=== PATIENT | male | born 1950 | race Hispanic/Latino ===

== ENCOUNTER 2018-02-07 18:40 | Emergency (ER) | payer OTHER ==
--- NOTE | 2018-02-07 20:28 | RAD REPORT ---
EXAM DESCRIPTION: RAD - Knee Left 3 View - 02/07/2018 8:19 pm CLINICAL HISTORY: Knee pain, swelling, history of gout COMPARISON: October 2012 FINDINGS: No fracture, dislocation or periosteal reaction.Moderate joint effusion is present similar to the comparison study. Medial compartment narrowing is present progressive from the comparison. Ma rginal spurs are present. Prominent degenerative meniscal calcifications seen. No soft tissue abnorma lity. IMPRESSION: Degenerative changes are present, progressive from prior imaging, with no acute bone fin ding. Moderate joint effusion similar to comparison. Clinical concerns for internal derangement or occult bony injury could be further assessed with MR im aging.
--- NOTE | 2018-02-07 21:27 | ER ---
Nurse's Notes [facility] Name: Braden Wright Age: 68 yrs Sex: Male : 1950 Arrival Date: 02/07/2018 Time: 18:47 Bed 16 Private MD: Diagnosis: Gout due to renal impairment, left knee;Other specified arthritis, left knee Presentation: 02/07 18:48 Presenting complaint: EMS states: L knee pain that started Sunday evening; hx of gout;. hj Transition of care: patient was not received from another setting of care. Onset of symptoms was February 07, 2018. Care prior to arrival: None. 18:48 Method Of Arrival: EMS: [facility] hj 18:48 Acuity: RITA 4 hj Triage Assessment: 18:49 General: Appears in no apparent distress. uncomfortable, Behavior is calm, cooperative, hj appropriate for age. Pain: Complains of pain in left knee. Historical: - Allergies: 18:49 NKDA; hj - PMHx: 18:49 Atrial Fib; CVA; Diabetes - IDDM; Hyperlipidemia; Hypertension; hj - PSHx: 18:49 Knee surgery; hj - Immunization history:: Adult Immunizations up to date. - Family history:: not pertinent. - Social history:: Smoking status: Patient/guardian denies using tobacco. - Hospitalizations: : No recent hospitalization is reported. - History obtained from: . Screenin:41 Abuse screen: Denies threats or abuse. Denies injuries from another. Nutritional aj1 screening: No deficits noted. Tuberculosis screening: No symptoms or risk factors identified. 21:32 Fall Risk None identified. aj1 Assessment: 20:41 General: Appears in no apparent distress. uncomfortable, Behavior is calm, cooperative, aj1 appropriate for age. Pain: Complains of pain in left knee Pain does not radiate. Pain currently is 8 out of 10 on a pain scale. Quality of pain is described as sharp, Pain began 4 days ago Alleviated by rest, Aggravated by repositioning, weight bearing. Neuro: Level of Consciousness is awake, alert, obeys commands, Oriented to person, place, time, situation, Speech is normal, Facial symmetry appears normal. Cardiovascular: Patient's skin is warm and dry. Respiratory: Airway is patent Respiratory effort is even, unlabored, Respiratory pattern is regular, symmetrical. GI: No signs and/or symptoms were reported involving the gastrointestinal system. : No signs and/or symptoms were reported regarding the genitourinary system. EENT: No signs and/or symptoms were reported regarding the EENT system. Derm: Skin is pink, warm \T\ dry. normal. Musculoskeletal: Capillary refill < 3 seconds, in bilateral toes. Range of motion: limited in left knee Swelling present in left knee Redness present in left knee. 21:31 Reassessment: Patient appears in no apparent distress at this time. No changes from aj1 previously documented assessment. Patient and/or family updated on plan of care and expected duration. Pain level reassessed. Patient is alert, oriented x 3, equal unlabored respirations, skin warm/dry/pink. Vital Signs: 18:49 BP 147 / 87; Pulse 112; Resp 18; Temp 98.0(O); Pulse Ox 100% on R/A; Weight 95.25 kg; hj Height 5 ft. 9 in. (175.26 cm); Pain 10/10; 20:41 BP 156 / 95; Pulse 113; Resp 18; Pulse Ox 100% ; aj1 21:31 BP 146 / 92; Pulse 103; Resp 18; Pulse Ox 99% ; aj1 18:49 Body Mass Index 31.01 (95.25 kg, 175.26 cm) ED Course: 18:47 Patient arrived in ED. hj 18:48 Triage completed. hj 18:49 Arm band placed on left wrist. hj 19:49 Kelsie Pérez FNP [facility] kav 19:49 Jase Cardoza MD is Attending Physician. kav 20:15 Patient moved to radiology via wheelchair. kc2 20:16 X-ray completed. Patient tolerated procedure well. kc2 20:16 Patient moved back from radiology. kc2 20:40 Kenia Herndon, RN is Primary Nurse. aj1 20:41 Patient has correct armband on for positive identification. Bed in low position. Call aj1 light in reach. Side rails up X 1. 20:41 No provider procedures requiring assistance completed. aj1 21:32 Patient did not have IV access during this emergency room visit. aj1 Administered Medications: 21:24 CANCELLED (): Indomethacin 50 mg PO once kav 21:32 Drug: Magnolia (7.5 mg-325 mg) 1 tabs Route: PO; aj1 22:39 Follow up: Response: No adverse reaction aj1 21:32 Drug: Colchicine-Probenecid 1 tabs Route: PO; aj1 22:39 Follow up: Response: No adverse reaction aj1 Outcome: 21:26 Discharge ordered by . alondra 21:45 Discharged to home via wheelchair, with family. aj1 21:45 Condition: good 21:45 Discharge instructions given to patient, Instructed on discharge instructions, follow up and referral plans. medication usage, Demonstrated understanding of instructions, follow-up care, medications, Prescriptions given X 2. 22:39 Patient left the ED. aj1 Signatures: Kenia Herndon RN RN aj1 Kelsie Pérez, MACHINE PRECISION ETCHER MACHINE PRECISION ETCHER Malik Gong RN RN Allyson Alcaraz2 Corrections: (The following items were deleted from the chart) 18:52 18:49 Pulse 112bpm; Resp 18bpm; Pulse Ox 100% RA; Temp 98.0F Oral; 95.25 kg; Height 5 hj ft. 9 in.; BMI: 31.0; Pain 10/10; hj
--- NOTE | 2018-02-07 21:27 | EDPHYS ---
Physician Documentation [facility] Name: Braden Wright Age: 68 yrs Sex: Male : 1950 Arrival Date: 02/07/2018 Time: 18:47 Bed 16 Private MD: ED Physician Jase Cardoza HPI: 02/07 19:49 This 68 yrs old Male presents to ER via EMS with complaints of Knee Pain. kav 20:43 Onset: The symptoms/episode began/occurred acutely, 4 day(s) ago. The patient has kav experienced similar episodes in the past, a few times, chronically. The patient has not recently seen a physician. pmhx; gout. patient reports running out of his endomethacin. Left knee is slightly swollen, erythematic and warm to touch. 20:44 The patient presents with pain, that is acute, erythema and warm to touch. The kav complaints affect the left knee. Context: The problem was sustained at home, resulted from gout, the patient can partially bear weight, the patient is able to ambulate, without difficulty. Modifying factors: The symptoms are alleviated by endomethacin the symptoms are aggravated by movement, bending knee. Associated signs and symptoms: Pertinent positives: swelling, warmth, of the left knee. Treatment prior to arrival includes: no previous treatment. Severity of symptoms: At their worst the symptoms were moderate, just prior to arrival, in the emergency department the symptoms are unchanged, a " 6" out of "10". Historical: - Allergies: 18:49 NKDA; hj - PMHx: 18:49 Atrial Fib; CVA; Diabetes - IDDM; Hyperlipidemia; Hypertension; hj - PSHx: 18:49 Knee surgery; hj - Immunization history:: Adult Immunizations up to date. - Family history:: not pertinent. - Social history:: Smoking status: Patient/guardian denies using tobacco. - Hospitalizations: : No recent hospitalization is reported. - History obtained from: . ROS: 20:47 Constitutional: Negative for fever, chills, and weight loss, Eyes: Negative for injury, kav pain, redness, and discharge, ENT: Negative for injury, pain, and discharge, Neck: Negative for injury, pain, and swelling, Cardiovascular: Negative for chest pain, palpitations, and edema, Respiratory: Negative for shortness of breath, cough, wheezing, and pleuritic chest pain, Abdomen/GI: Negative for abdominal pain, nausea, vomiting, diarrhea, and constipation, Back: Negative for injury and pain, : Negative for injury, bleeding, discharge, and swelling, Neuro: Negative for headache, weakness, numbness, tingling, and seizure, Psych: Negative for depression, anxiety, suicide ideation, homicidal ideation, and hallucinations, Allergy/Immunology: Negative for hives, rash, and allergies, Endocrine: Negative for neck swelling, polydipsia, polyuria, polyphagia, and marked weight changes, Hematologic/Lymphatic: Negative for swollen nodes, abnormal bleeding, and unusual bruising. 20:47 Skin: Negative for injury, rash, and discoloration. 20:47 MS/extremity: Positive for erythema, pain, swelling, warmth. 20:47 Skin: Positive for Exam: 20:47 Constitutional: This is a well developed, well nourished patient who is awake, alert, kav and in no acute distress. Head/Face: Normocephalic, atraumatic. Eyes: Pupils equal round and reactive to light, extra-ocular motions intact. Lids and lashes normal. Conjunctiva and sclera are non-icteric and not injected. Cornea within normal limits. Periorbital areas with no swelling, redness, or edema. ENT: Nares patent. No nasal discharge, no septal abnormalities noted. Tympanic membranes are normal and external auditory canals are clear. Oropharynx with no redness, swelling, or masses, exudates, or evidence of obstruction, uvula midline. Mucous membranes moist. Neck: Trachea midline, no thyromegaly or masses palpated, and no cervical lymphadenopathy. Supple, full range of motion without nuchal rigidity, or vertebral point tenderness. No Meningismus. Chest/axilla: Normal chest wall appearance and motion. Nontender with no deformity. No lesions are appreciated. Cardiovascular: Regular rate and rhythm with a normal S1 and S2. No gallops, murmurs, or rubs. Normal PMI, no JVD. No pulse deficits. Respiratory: Lungs have equal breath sounds bilaterally, clear to auscultation and percussion. No rales, rhonchi or wheezes noted. No increased work of breathing, no retractions or nasal flaring. Abdomen/GI: Soft, non-tender, with normal bowel sounds. No distension or tympany. No guarding or rebound. No evidence of tenderness throughout. Back: No spinal tenderness. No costovertebral tenderness. Full range of motion. Skin: Warm, dry with normal turgor. Normal color with no rashes, no lesions, and no evidence of cellulitis. Neuro: Awake and alert, GCS 15, oriented to person, place, time, and situation. Cranial nerves II-XII grossly intact. Motor strength 5/5 in all extremities. Sensory grossly intact. Cerebellar exam normal. Normal gait. Psych: Awake, alert, with orientation to person, place and time. Behavior, mood, and affect are within normal limits. 20:47 Musculoskeletal/extremity: Extremities: noted in the left knee: erythema, pain, swelling, ROM: limited active range of motion, in the left leg, Circulation is intact in all extremities. Sensation intact. Joints: the left knee displays swelling. Vital Signs: 18:49 BP 147 / 87; Pulse 112; Resp 18; Temp 98.0(O); Pulse Ox 100% on R/A; Weight 95.25 kg; hj Height 5 ft. 9 in. (175.26 cm); Pain 10/10; 20:41 BP 156 / 95; Pulse 113; Resp 18; Pulse Ox 100% ; aj1 21:31 BP 146 / 92; Pulse 103; Resp 18; Pulse Ox 99% ; aj1 18:49 Body Mass Index 31.01 (95.25 kg, 175.26 cm) MDM: 20:37 Patient medically screened. [facility] 20:47 Data reviewed: vital signs, nurses notes. [facility] 02/07 19:48 Order name: Knee Left 3 View XRAY [facility] 02/07 20:29 Order name: RAD; Complete Time: 20:37 EDMS 02/07 20:37 Interpretation: No acute disease except: Degenerative changes. moderate joint effusion. ka Administered Medications: 21:24 CANCELLED (): Indomethacin 50 mg PO once kav 21:32 Drug: Lamont (7.5 mg-325 mg) 1 tabs Route: PO; aj1 22:39 Follow up: Response: [facility] adverse reaction [facility] 21:32 Drug: Colchicine-Probenecid 1 tabs Route: PO; aj1 22:39 Follow up: Response: No adverse reaction [facility] Disposition: 02/08 06:20 Co-signature as Attending Physician, Jase Cardoza MD. Disposition: 02/07/18 21:26 Discharged to Home. Impression: Gout due to renal impairment, left knee, Other specified arthritis, left knee. - Condition is Stable. - Discharge Instructions: Gout, Arthritis, Nonspecific, [id number]. - Prescriptions for indomethacin 50 mg Oral capsule - take 1 capsule by ORAL route 2 times per day As needed with food; 30 capsule. Colchicine- Probenecid 0.5-500 mg Oral Tablet - take 1 tablet by ORAL route every 1 hour up to 3 hours; 3 tablet. - Medication Reconciliation Form, Thank You Letter, Antibiotic Education, Prescription Opioid Use form. - Follow up: Private Physician; When: 1 week; Reason: Recheck today's complaints, Continuance of care, Re-evaluation by your physician. - Problem is new. - Symptoms have improved. Signatures: Dispatcher [employer] EDMI Kenia Herndon RN RN aj1 Kelsie Pérez, TREE FARMER TREE FARMER Malik Gong RN RN hj Starr, Gregory, MD MD Corrections: (The following items were deleted from the chart) 02/07 21:24 20:47 Indomethacin 50 mg PO once ordered. alondra cantu
[2018-02-07] MEDS ORDERED: HYDROCODONE/APAP 7.5/325 MG TAB ONE (21:47)
[2018-02-07] MEDS ORDERED: COLCHICINE 0.6 MG TAB ONE (21:47)
[2018-02-07 22:48] VITALS: TEMP 98
[2018-02-07 22:50] VITALS: BP 146/92; O2SAT 99
== END 2018-02-07 22:39 | disposition home or self-care (01) ==
LOC: ER 18:40
DX: N28.9 Disorder of kidney and ureter, unspecified; M10.362 Gout due to renal impairment, left knee; M13.862 Other specified arthritis, left knee
CPT/HCPCS: 99284

== ENCOUNTER 2018-05-25 23:53 | Emergency (ER) | payer OTHER ==
--- OUTSIDE RECORDS SUMMARY | 2018-05-25 23:56 | XMS REPORT ---
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 Active Assessment Mixed hyperlipidemia E78.2 Active Problem Unsteady gait R26.81 Active Problem Type 2 diabetes E11.9 Active Problem DJD (degenerative joint disease) M19.90 Active Problem Obesity E66.9 Active Problem Elevated prostate specific antigen R97.2 Active (PSA) Problem Degeneration of lumbosacral M51.37 Active intervertebral disc Assessment Type 2 diabetes mellitus with E11.8 Active unspecified complications Problem Hypertension I10 Active Assessment skilled nursing current use of insulin Z79.4 Active Problem Weakness R53.1 Active Problem Gout M10.9 Active Problem Anemia D64.9 Active Problem Atrial fibrillation I48.91 Active Problem Mixed hyperlipidemia E78.2 Active Problem Vascular dementia without behavioral F01.50 Active disturbance Problem History of cerebrovascular accident Z86.73 Active Problem Current use of anticoagulant therapy Z79.01 Active Problem Type 2 diabetes mellitus with E11.65 Active hyperglycemia Problem Diabetes mellitus due to underlying E08.65 Active condition with hyperglycemia Problem Type 2 diabetes mellitus without E11.9 Active complications Problem Type 2 diabetes mellitus with E11.8 Active unspecified complications Medications Medication Code Code Instructions Start End Status Dosage System Date Date Simvastatin ND 38671823073 40 MG Orally Once April 12, Active 1 tablet a day 2018 in the evening Viagra ND 13533201572 50 MG Orally Once Active 1 tablet a day as needed Toujeo [facility] 49088791076 300u/ml Active 68 units SoloStar subcutaneously once once daily daily and titrate up 2 units every 3 days until fbg less than 130 max of 100 units daily Amlodipine [facility] 73844119184 10 MG Orally Once Active 1 tablet Besylate a day Simvastatin [facility] 74846582656 20 MG Inactive TAKE 1 TABLET BY MOUTH EVERY DAY Finasteride [facility] 59127968713 5 MG Orally Once Active 1 tablet a day Keppra [facility] 69256980025 500 MG Orally Active 1 tablet Twice a day Cozaar [facility] 36000548510 50 MG Active TAKE 1 TABLET BY MOUTH EVERY DAY Amlodipine [facility] 30796584130 10 MG Orally Once February Active 1 tablet Besylate a day 2017 Metformin HCl [facility] 41882557870 1000 MG Orally Active 1 tablet twice a day with a meal Xarelto [facility] 92799084729 20 MG Orally Once Inactive 1 tablet a day with food Labetalol HCl [facility] 65281070090 200 MG Orally Active 1 tablet three times a day Results No Known Results Summary Purpose [employer]ClinicalWorks Submission
--- OUTSIDE RECORDS SUMMARY | 2018-05-25 23:56 | XMS REPORT ---
:1950 Author Organization [employer] Care Team Providers Name Role Phone Quach, Na Provider Role Unavailable Allergies, Adverse Reactions, Alerts Substance Reaction Event Type Lisinopril Info Not Available Drug Allergy Problems Problem Type Condition Code Onset Dates Condition Status Assessment Unsteady gait R26.81 Active Assessment Weakness R53.1 Active Assessment Vascular dementia without behavioral F01.50 Active disturbance Assessment History of cerebrovascular accident Z86.73 Active Assessment Gout M10.9 Active Assessment Mixed hyperlipidemia E78.2 Active Assessment Hypertension I10 Active Problem Erectile dysfunction N52.9 Active Assessment longterm current use of insulin Z79.4 Active Problem longterm current use of insulin Z79.4 Active Assessment Type 2 diabetes mellitus with E11.65 Active hyperglycemia Problem Unsteady gait R26.81 Active Problem Type 2 diabetes E11.9 Active Problem DJD (degenerative joint disease) M19.90 Active Problem Obesity E66.9 Active Problem Elevated prostate specific antigen R97.2 Active (PSA) Problem Degeneration of lumbosacral M51.37 Active intervertebral disc Problem Hypertension I10 Active Assessment Type 2 diabetes mellitus with E11.8 Active unspecified complications Problem Weakness R53.1 Active Problem Gout M10.9 [...] Start End Status Dosage System Date Date Tresiba [facility] 96120512130 200 UNIT/ML Inactive INJECT FlexTouch SUB 60 UNITS DAILY Viagra [facility] 83583388464 50 MG Orally Once Active 1 tablet a day as needed Finasteride ND 77088078452 5 MG Orally Once Active 1 tablet a day Amlodipine ND 36909009895 10 MG Orally Once February Active 1 tablet Besylate a day 2017 Amlodipine ND 31065462244 10 MG Orally Once February Active 1 tablet Besylate a day 2017 Xarelto [facility] 77235253213 20 MG Orally Once Active 1 tablet a day with food Cozaar [facility] 69601167236 50 MG Active TAKE 1 TABLET BY MOUTH EVERY DAY Toujeo [facility] 78908036362 300u/ml FebruarySep 09, Active 68 units SoloStar subcutaneously 2017 once once daily daily and titrate up 2 units every 3 days until fbg less than 130 max of 100 units daily Simvastatin [facility] 40405447314 20 MG Active TAKE 1 TABLET BY MOUTH EVERY DAY Keppra [facility] 56881008550 500 MG Orally Active 1 tablet Twice a day Metformin HCl [facility] 09720551672 1000 MG Orally Active 1 tablet twice a day with a meal Norvasc [facility] 92623339387 5 MG Orally Once Inactive 1 tablet a day Labetalol HCl [facility] 88644515340 200 MG Orally Active 1 tablet three times a day Results No Known Results Summary Purpose [employer]ClinicalWorks Submission
[2018-05-26 00:15] LABS: Absolute Lymphocytes (CBC) 4.7 K/uL (0.7-4.9); Absolute Monocytes 0.8 K/uL (0.1-1.3); Absolute Neutrophil 5.2 K/uL (1.8-8.0); Basophils % 0.9 % (0-1.3); Hematocrit 42.7 % (39.6-49.0); Lymphocytes % 42.6 % (15.3-44.8); MCH 28.8 pg (27.0-35.0); MCV 88.5 fL (80-100); MPV 10.7 fL (7.6-11.3); Monocytes % 7.4 % (3.3-12.3); RBC Red Blood Cell Count 4.82 M/uL (4.33-5.43)
[2018-05-26 00:19] LABS: Protime INR 0.91
[2018-05-26] MEDS ORDERED: NA CHLORIDE 0.9% 50 ML IV ONE ×2 (00:21→01:43)
[2018-05-26] MEDS ORDERED: FOLIC ACID 5 MG/ML VIAL ONE (00:21)
[2018-05-26] MEDS ORDERED: NA CHLORIDE 0.9% 1,000 ML ONE (00:22)
[2018-05-26] MEDS ORDERED: ONDANSETRON 4 MG/2 ML VIAL ONE (00:33)
[2018-05-26 00:45] LABS: Albumin 4.1 g/dL (3.4-5.0); Bilirubin Direct 0.1 mg/dL (0-0.2); Bilirubin Total 0.4 mg/dL (0.2-1.0); CKMB Creatine Kinase MB 1.7 ng/mL (0.3-3.6); Magnesium 2.2 mg/dL (1.8-2.4); Protein, Total 8.1 g/dL (6.4-8.2)
--- NOTE | 2018-05-26 00:50 | EDPHYS ---
Physician Documentation [facility] Name: Braden Wright Age: 68 yrs Sex: Male : 1950 Arrival Date: 05/25/2018 Time: 23:54 Bed 3 Private MD: Nguyen Quach ED Physician Arash Gomez HPI: 05/26 00:06 This 68 yrs old Male presents to ER via EMS with complaints of S/S of Possible jazz Stroke. 00:06 The patient's problem is reported as weakness, in the left upper extremity, in the left jazz lower extremity. Onset: The symptoms/episode began/occurred just prior to arrival. Duration: This was a single incident, The episode is continuous. Context: the episode(s) was witnessed, by family. The symptoms are alleviated by nothing. The symptoms are aggravated by nothing. Associated signs and symptoms: Pertinent positives: gait abnormality. Severity of symptoms: At their worst the symptoms were moderate in the emergency department the symptoms are unchanged. Severity of symptoms:. Patient's baseline: Neuro: alert and fully oriented. The patient has experienced similar episodes in the past, a few times. Historical: - Allergies: 00:06 NKDA; bb - Home Meds: 00:06 aspirin 325 mg Oral tab 1 tab once daily [Active]; finasteride 5 mg Oral tab 1 tab once bb daily [Active]; labetalol 200 mg Oral tab [Active]; levetiracetam 500 mg Oral Tb24 [Active]; metformin 1,000 mg Oral tab [Active]; simvastatin 20 mg Oral tab [Active]; Toujeo Solostar 300 unknown [Active]; tresiba 60 units [Active]; - PMHx: 00:06 Atrial Fib; CVA; Diabetes - IDDM; Hyperlipidemia; Hypertension; bb - PSHx: 00:06 Knee surgery; bb - Immunization history:: Adult Immunizations unknown. - Social history:: Smoking status: unknown. - Ebola Screening: : No symptoms or risks identified at this time. - Family history:: not pertinent. ROS: 00:06 Constitutional: Negative for fever, chills, and weight loss, Eyes: Negative for injury, jazz pain, redness, and discharge, ENT: Negative for injury, pain, and discharge, Neck: Negative for injury, pain, and swelling, Cardiovascular: Negative for chest pain, palpitations, and edema, Respiratory: Negative for shortness of breath, cough, wheezing, and pleuritic chest pain, Abdomen/GI: Negative for abdominal pain, nausea, vomiting, diarrhea, and constipation, Back: Negative for injury and pain, : Negative for injury, bleeding, discharge, and swelling, MS/Extremity: Negative for injury and deformity, Skin: Negative for injury, rash, and discoloration, Psych: Negative for depression, anxiety, suicide ideation, homicidal ideation, and hallucinations, Allergy/Immunology: Negative for hives, rash, and allergies, Endocrine: Negative for neck swelling, polydipsia, polyuria, polyphagia, and marked weight changes. 00:06 Neuro: Positive for altered mental status, gait disturbance, weakness, of the left arm and left leg. Exam: 00:06 Head/Face: Normocephalic, atraumatic. Eyes: Pupils equal round and reactive to light, jazz extra-ocular motions intact. Lids and lashes normal. Conjunctiva and sclera are non-icteric and not injected. Cornea within normal limits. Periorbital areas with no swelling, redness, or edema. ENT: Nares patent. No nasal discharge, no septal abnormalities noted. Tympanic membranes are normal and external auditory canals are clear. Oropharynx with no redness, swelling, or masses, exudates, or evidence of obstruction, uvula midline. Mucous membranes moist. Neck: Trachea midline, no thyromegaly or masses palpated, and no cervical lymphadenopathy. Supple, full range of motion without nuchal rigidity, or vertebral point tenderness. No Meningismus. Chest/axilla: Normal chest wall appearance and motion. Nontender with no deformity. No lesions are appreciated. Cardiovascular: Regular rate and rhythm with a normal S1 and S2. No gallops, murmurs, or rubs. Normal PMI, no JVD. No pulse deficits. Respiratory: Lungs have equal breath sounds bilaterally, clear to auscultation and percussion. No rales, rhonchi or wheezes noted. No increased work of breathing, no retractions or nasal flaring. Abdomen/GI: Soft, non-tender, with normal bowel sounds. No distension or tympany. No guarding or rebound. No evidence of tenderness throughout. Back: No spinal tenderness. No costovertebral tenderness. Full range of motion. Male : Normal genitalia with no discharge or lesions. Skin: Warm, dry with normal turgor. Normal color with no rashes, no lesions, and no evidence of cellulitis. Psych: Awake, alert, with orientation to person, place and time. Behavior, mood, and affect are within normal limits. 00:06 Musculoskeletal/extremity: ROM: left arm and leg no movement, Circulation is intact in all extremities. Sensation intact. Compartment Syndrome exam of affected extremity: is normal. no pain, no numbness, no tingling, no sensation deficit, no palor, no weak pulses, DVT Exam: no pain, no swelling, no tenderness, negative Homans' sign noted on exam, no appreciated bluish discoloration, no erythema, no increased warmth. 00:50 Radiologist reports: neg ct [facility] Vital Signs: 00:06 BP 175 / 87; Pulse 125; Resp 16 S; Pulse Ox 100% on 15% Non-rebreather mask; Weight jd3 70.6 kg (M); Height 5 ft. 9 in. (175.26 cm) (R); 00:25 BP 159 / 66; Pulse 123; Resp 18; Pulse Ox 99% on 3 lpm NC; aa1 00:37 Temp 98.2(O); aa1 01:32 BP 161 / 74; Pulse 106; Resp 20; Pulse Ox 100% on R/A; Pain 0/10; aa1 01:58 BP 154 / 101; Pulse 111; Resp 20; Temp 97.4; Pulse Ox 100% on R/A; Pain 0/10; aa1 00:06 Body Mass Index 22.98 (70.60 kg, 175.26 cm) jd3 NIH Stroke Scale Scores: 00:00 NIHSS Score: 28 bb 00:12 NIHSS Score: 21 jazz [place] Coma Score: 00:00 Eye Response: spontaneous(4). Verbal Response: none(1). Motor Response: localizes aa1 pain(5). Total: 10. 01:32 Eye Response: spontaneous(4). Verbal Response: confused(4). Motor Response: obeys aa1 commands(6). Total: 14. 01:58 Eye Response: spontaneous(4). Verbal Response: confused(4). Motor Response: obeys aa1 commands(6). Total: 14. MDM: 05/25 23:59 Patient medically screened. [facility] 05/26 00:15 Data reviewed: vital signs, nurses notes, lab test result(s), EKG, radiologic studies, [facility] CT scan, plain films. 05/26 00:06 Order name: Basic Metabolic Panel [facility] 05/26 00:06 Order name: CBC with Diff; Complete Time: 00:31 [facility] 05/26 00:06 Order name: Ckmb [facility] 05/26 00:06 Order name: CPK [facility] 05/26 00:06 Order name: LFT's [facility] 05/26 00:06 Order name: Magnesium [facility] 05/26 00:06 Order name: NT PRO-BNP [facility] 05/26 00:06 Order name: PT-INR; Complete Time: 00:31 [facility] 05/26 00:06 Order name: Ptt, Activated; Complete Time: 00:31 [facility] 05/26 00:06 Order name: Troponin (emerg Dept Use Only); Complete Time: 00:49 [facility] 05/26 00:06 Order name: Sed Rate; Complete Time: 00:31 [facility] 05/26 00:06 Order name: CRP [facility] 05/26 01:25 Order name: Urine Dipstick--Ancillary (enter results) rg2 05/26 02:07 Order name: Glucose, Ancillary Testing EDMS 05/26 00:06 Order name: XRAY Chest (1 view) [facility] 05/26 00:06 Order name: EKG; Complete Time: 00:07 [facility] 05/26 00:06 Order name: Cardiac monitoring; Complete Time: 00:08 [facility] 05/26 00:06 Order name: EKG - Nurse/Tech; Complete Time: 00:40 [facility] 05/26 00:06 Order name: IV Saline Lock; Complete Time: 00:08 [facility] 05/26 00:06 Order name: Labs collected and sent; Complete Time: 00:08 [facility] 05/26 00:06 Order name: O2 Per Protocol; Complete Time: 00:09 [facility] 05/26 00:06 Order name: O2 Sat Monitoring; Complete Time: 00:09 [facility] 05/26 00:06 Order name: CT Stroke Brain w/o Contrast [facility] 05/26 00:06 Order name: Urine Dipstick-Ancillary (obtain specimen); Complete Time: 01:07 [facility] Administered Medications: 00:26 Drug: foLIC Acid 1 mg Route: IVPB; Site: right antecubital; jd3 00:41 Follow up: IV Status: Completed infusion aa1 00:26 Drug: NS 0.9% 1000 ml Route: IV; Rate: 1 bolus; Site: right antecubital; jd3 01:00 Follow up: IV Status: Completed infusion aa 00:35 Drug: Zofran 4 mg Route: IVP; Site: right antecubital; aa1 01:35 Follow up: Response: Nausea is decreased aa1 01:06 Drug: Insulin Regular Human 10 units {Co-Signature: tl2 (Marybel Bashir RN).} Route: IVP; jd3 Site: left wrist; 02:00 Follow up: Response: FSBS remains elevated aa 01:17 Drug: ACTIvase 69.3 mg {Co-Signature: jd3 (Rubin Turcios RN).} Route: IV; Rate: aa1 calculated rate; Infused Over: 60 mins; Site: right antecubital; 02:00 Follow up: IV Status: Infusion continued upon transfer aa 01:22 Drug: Keppra 1500 mg Route: IV; Rate: per protocol; Site: left wrist; jd3 01:37 Follow up: IV Status: Completed infusion aa 02:00 Drug: Insulin Regular Human 10 units {Co-Signature: jd3 (Rubin Turcios RN).} Route: aa1 IVP; Site: right antecubital; 02:00 Follow up: Response: Medication administered at discharge. aa1 Point of Care Testing: Blood Glucose: 00:01 Blood Glucose: High (>450 mg/dL); bb Ranges: Critical Glucose Levels:Adult <50 mg/dl or >400 mg/dl <40 mg/dl or >180 mg/dl Disposition: 05/26/18 00:[address] [facility]. Diagnosis are Epileptic seizures related to external causes, Cerebral infarction, Dementia in other diseases classified elsewhere, Type 1 diabetes mellitus - poorly controlled, Unspecified kidney failure. - Reason for transfer: Higher level of care. - Accepting physician is to [facility] , icu. - Condition is Serious. - Problem is new. - Symptoms have improved. NIH Stroke Scale - NIH Stroke Score Date: 05/26/2018 Time: 00:00 Total Score = 28 1a. Level of Consciousness (LOC) - 3(Unresponsive) 1b. Level of Consciousness (LOC) (Year \T\ Age) - 2(Neither) 1c. LOC Commands (Open \T\ Closes Eyes/Utilities Ground Worker) - 2(Neither) 2. Best Gaze (Lateral Gaze Paresis) - 0(Normal) 3. Visual Field Loss - 0(No visual loss) 4. Facial Palsy - 0(Normal) 5a. Left Arm: Motor (10-second hold) - 4(No movement) 5b. Right Arm: Motor (10-second hold) - 3(No effort against gravity) 6a. Left Leg: Motor (5-second hold - always test supine) - 3(No effort against gravity) 6b. Right Leg: Motor (5-second hold - always test supine) - 3(No effort against gravity) 7. Limb Ataxia (finger/nose \T\ heel/reece - test with eyes open) - 2(Present in two limbs) 8. Sensory Loss (pinprick arms/legs/face) - 2(Severe to total loss) 9. Best Language: Aphasia (description/naming/reading) - 3(Mute, global aphasia) 10. Dysarthria (speech clarity - read or repeat words) - 9(Intubated) - Notes: pt unresponsive 11. Extinction and Inattention (visual/tactile/auditory/spatial/personal) - 1(Present) Initials: NIH Stroke Scale - NIH Stroke Score Date: 05/26/2018 Time: 00:12 Total Score = 21 1a. Level of Consciousness (LOC) - 2(Not Alert, obtunded) 1b. Level of Consciousness (LOC) (Year \T\ Age) - 2(Neither) 1c. LOC Commands (Open \T\ Closes Eyes/Utilities Ground Worker) - 2(Neither) 2. Best Gaze (Lateral Gaze Paresis) - 0(Normal) 3. Visual Field Loss - 0(No visual loss) 4. Facial Palsy - 0(Normal) 5a. Left Arm: Motor (10-second hold) - 4(No movement) 5b. Right Arm: Motor (10-second hold) - 0(No drift) 6a. Left Leg: Motor (5-second hold - always test supine) - 4(No movement) 6b. Right Leg: Motor (5-second hold - always test supine) - 0(No drift) 7. Limb Ataxia (finger/nose \T\ heel/reece - test with eyes open) - 2(Present in two limbs) 8. Sensory Loss (pinprick arms/legs/face) - 0(Normal) 9. Best Language: Aphasia (description/naming/reading) - 2(Severe aphasia) 10. Dysarthria (speech clarity - read or repeat words) - 2(Severe) 11. Extinction and Inattention (visual/tactile/auditory/spatial/personal) - 1(Present) Initials: jazz Signatures: Dispatcher [employer] Dayanna Ocampo RN RN aa1 Arash Gomez MD MD cha Ballard, Brenda, RN RN bb Rubin Turcios RN RN jd3 Marybel Bashir RN tl2 Rubin Turcios RN jd3 Corrections: (The following items were deleted from the chart) 00:50 00:49 05/26/2018 00:[address] [facility]. jazz Diagnosis is Epileptic seizures related to external causes; Cerebral infarction; Dementia in other diseases classified elsewhere; Type 1 diabetes mellitus - poorly controlled. Reason for transfer: Higher level of care. Accepting physician is to [facility] , icu. Condition is Serious. Problem is new. Symptoms have improved. jazz 02:10 00:50 05/26/2018 00:[address] [facility]. aa1 Diagnosis is Epileptic seizures related to external causes; Cerebral infarction; Dementia in other diseases classified elsewhere; Type 1 diabetes mellitus - poorly controlled; Unspecified kidney failure. Reason for transfer: Higher level of care. Accepting physician is to [facility] , icu. Condition is Serious. Problem is new. Symptoms have improved. jazz
--- NOTE | 2018-05-26 00:50 | ER ---
Nurse's Notes [facility] Name: Braden Wright Age: 68 yrs Sex: Male : 1950 Arrival Date: 05/25/2018 Time: 23:54 Bed 3 Private MD: Nguyen Quach Diagnosis: Epileptic seizures related to external causes;Cerebral infarction;Dementia in other diseases classified elsewhere;Type 1 diabetes mellitus-poorly controlled;Unspecified kidney failure Presentation: 05/25 23:55 Presenting complaint: EMS states: they were toned out for symptoms of a stroke pt bb having left sided weakness and confusion on their arrival pt was joking around with them but when they got him in the ambulance he had seizure like activity and became unresponsive. Transition of care: patient was not received from another setting of care. An acute neurological deficit is present. The patients blood glucose was checked prior to arriving to the hospital and was found to be hyperglycemic. Onset of symptoms was May 25, 2018 at 23:25. Risk Assessment: Do you want to hurt yourself or someone else? Other: unable to determine. Initial Sepsis Screen: Does the patient meet any 2 criteria? No. Patient's initial sepsis screen is negative. Does the patient have a suspected source of infection? No. Patient's initial sepsis screen is negative. Care prior to arrival: Oxygen administered. via a non-rebreather mask, BGL registered high. 23:55 Method Of Arrival: EMS: [facility] bb 23:55 Acuity: RITA 1 bb Triage Assessment: 05/26 00:06 The onset of the patients symptoms was May 25, 2018 at 23:25. bb 00:15 General: Appears in no apparent distress. comfortable, Behavior is uncooperative. aa1 Stroke Activation: Symptom onset < 3 hours Physician: Stroke Attending; Name: ; Notified At: ; Arrived At: Physician: Chief Stroke Resident; Name: ; Notified At: ; Arrived At: Physician: Stroke Resident; Name: ; Notified At: ; Arrived At: Physician: ED Attending; Name: Dr Gomez; Notified At: 23:55; Arrived At: 23:55 Physician: ED Resident; Name: ; Notified At: ; Arrived At: Historical: - Allergies: 00:06 NKDA; bb - Home Meds: 00:06 aspirin 325 mg Oral tab 1 tab once daily [Active]; finasteride 5 mg Oral tab 1 tab once bb daily [Active]; labetalol 200 mg Oral tab [Active]; levetiracetam 500 mg Oral Tb24 [Active]; metformin 1,000 mg Oral tab [Active]; simvastatin 20 mg Oral tab [Active]; Toujeo Solostar 300 unknown [Active]; tresiba 60 units [Active]; - PMHx: 00:06 Atrial Fib; CVA; Diabetes - IDDM; Hyperlipidemia; Hypertension; bb - PSHx: 00:06 Knee surgery; bb - Immunization history:: Adult Immunizations unknown. - Social history:: Smoking status: unknown. - Ebola Screening: : No symptoms or risks identified at this time. - Family history:: not pertinent. Screenin:00 Abuse screen: Denies threats or abuse. Nutritional screening: No deficits noted. bb Tuberculosis screening: No symptoms or risk factors identified. Fall Risk Total Sue Fall Scale indicates High Risk Score (45 or more points). Fall prevention measures have been instituted. Side Rails Up X 2 Frequent Obs/Assessments Occuring. 01:07 Patient tolerated one teaspoon of water. No drooling, immediate coughing, gurgling, or jd3 clearing of the throat was noted. The patient tolerated 90mL of water. No drooling, immediate coughing, gurgling, or clearing of the throat was noted. The patient passed the bedside swallow screening. Oral medications may be given as ordered. Contact Physician for further diet orders. Provider notified of bedside swallow screening results: Arash Gomez MD. Assessment: 00:00 Reassessment: pt transported to CT via stretcher accompanied by Dayanna SHRESTHA. bb 00:15 Reassessment: Patient appears in no apparent distress at this time. Pt escorted back to aa1 ER [address] 00:25 Reassessment: [facility] notified Dr Gomez of pt's negative CT scan. bb 00:32 Reassessment: Pt attempting to climb out of bed. Moved pt in view of nurse's station. aa1 00:46 Reassessment: Patient appears in no apparent distress at this time. Pt able to answer aa1 questions more appropriately and has improved on his ability to follow basic commands Patient states symptoms have improved. Pain: Denies pain. Neuro: Level of Consciousness is awake, alert, confused, Oriented to person, place, Speech is normal, Facial symmetry appears normal. Cardiovascular: Heart tones S1 S2 present. Respiratory: Airway is patent Respiratory effort is even, unlabored, Respiratory pattern is regular, symmetrical, Breath sounds are clear bilaterally. GI: Abdomen is non-distended, Abd is soft and non tender X 4 quads. GI: Reports nausea. Derm: Skin is intact, is healthy with good turgor, Skin is pink, warm \T\ dry. Musculoskeletal: Circulation, motion, and sensation intact. Capillary refill < 3 seconds. 00:47 T-PA (Activase) Screening: Indications: Definite evidence of stroke, ischemic, embolic, aa1 or hypertensive: Yes. Treatment will start within 4.5 hours onset of symptoms: Yes. No evidence of intracranial hemorrhage or CT of head and no evidence of peripheral hemorrhage or recent CVA: Yes. 01:01 Reassessment: Awaiting Dr. Gomez to speak with family regarding TPA administration. aa1 01:03 Patient has been NPO before screening. The patient is alert, and able to follow aa1 commands. The patient does not exhibit slurred or garbled speech. The patient is not exhibiting difficulty speaking. The patient does not exhibit difficulty understanding words. The patient is able to swallow own secretions with no drooling or need for suction. Patient tolerated one teaspoon of water. No drooling, immediate coughing, gurgling, or clearing of the throat was noted. The patient tolerated 90mL of water. No drooling, immediate coughing, gurgling, or clearing of the throat was noted. The patient passed the bedside swallow screening. Oral medications may be given as ordered. Contact Physician for further diet orders. Provider notified of bedside swallow screening results: Arash Gomez MD. 01:13 Reassessment: Dr. Gomez at bedside explaining TPA administration to family. Will aa1 draw up medication and initiate infusion at this time. 01:17 Reassessment: Patient appears in no apparent distress at this time. Patient and/or aa1 family updated on plan of care and expected duration. Pain level reassessed. and daughters at bedside. TPA administration initiated Patient denies pain at this time. Neuro: Level of Consciousness is awake, alert, obeys commands, confused, Moves all extremities. Neuro: Weakness in left arm(s) leg(s). Respiratory: Respiratory effort is even, unlabored. Derm: Skin is pink, warm \T\ dry. 01:24 Reassessment: report called to Sindi SHRESTHA at [facility] for bed 7 S 5 bed 12. bb 01:58 Reassessment: Patient appears in no apparent distress at this time. No changes from aa1 previously documented assessment. [facility] [employer] present for transfer at this time and will continue TPA administration in flight. Vital Signs: 00:06 BP 175 / 87; Pulse 125; Resp 16 S; Pulse Ox 100% on 15% Non-rebreather mask; Weight jd3 70.6 kg (M); Height 5 ft. 9 in. (175.26 cm) (R); 00:25 BP 159 / 66; Pulse 123; Resp 18; Pulse Ox 99% on 3 lpm NC; aa1 00:37 Temp 98.2(O); aa1 01:32 BP 161 / 74; Pulse 106; Resp 20; Pulse Ox 100% on R/A; Pain 0/10; aa1 01:58 BP 154 / 101; Pulse 111; Resp 20; Temp 97.4; Pulse Ox 100% on R/A; Pain 0/10; aa1 00:06 Body Mass Index 22.98 (70.60 kg, 175.26 cm) jd3 Lincoln Coma Score: 00:00 Eye Response: spontaneous(4). Verbal Response: none(1). Motor Response: localizes aa1 pain(5). Total: 10. 01:32 Eye Response: spontaneous(4). Verbal Response: confused(4). Motor Response: obeys aa1 commands(6). Total: 14. 01:58 Eye Response: spontaneous(4). Verbal Response: confused(4). Motor Response: obeys aa1 commands(6). Total: 14. NIH Stroke Scale Scores: 00:00 NIHSS Score: 28 bb 00:12 NIHSS Score: 21 jazz ED Course: 05/25 23:54 Patient arrived in ED. am2 23:55 Nguyen Quach MD is Private Physician. am2 23:55 Arm band placed on Patient placed in an exam room, on a stretcher, on oxygen, on bb swimming pool cleaner, on pulse oximetry. 23:55 Patient has correct armband on for positive identification. Bed in low position. Call bb light in reach. Side rails up X2. certified medication technician on. Pulse ox on. NIBP on. 23:59 Arash Gomez MD is Attending Physician. [facility] 05/26 00:00 RN/PRIMARY GRADE TEACHER escort patient out of department to CT scan with oxygen, swimming pool cleaner. aa1 00:00 Initial lab(s) drawn, by ED staff, sent to lab. Inserted saline lock: 18 gauge in right bb antecubital area, using aseptic technique. ,using aseptic technique. by Rubin Turcios RN Blood collected. Inserted saline lock: 18 gauge in left forearm, using aseptic technique. ,using aseptic technique. by Dayanna SHRESTHA. 00:05 Triage completed. bb 00:21 Dayanna Ga RN is Primary Nurse. aa1 00:22 XRAY Chest (1 view) In Process Unspecified. EDMS 00:23 CT Stroke Brain w/o Contrast In Process Unspecified. EDMS 01:59 Notified ED physician of a critical lab result(s). glucose 697 Dr Gomez notified. bb 02:00 No provider procedures requiring assistance completed. Patient transferred, IV remains aa1 in place. Administered Medications: 00:26 Drug: foLIC Acid 1 mg Route: IVPB; Site: right antecubital; jd3 00:41 Follow up: IV Status: Completed infusion aa1 00:26 Drug: NS 0.9% 1000 ml Route: IV; Rate: 1 bolus; Site: right antecubital; jd3 01:00 Follow up: IV Status: Completed infusion aa1 00:35 Drug: Zofran 4 mg Route: IVP; Site: right antecubital; aa1 01:35 Follow up: Response: Nausea is decreased aa1 01:06 Drug: Insulin Regular Human 10 units {Co-Signature: tl2 (Marybel Bashir RN).} Route: IVP; jd3 Site: left wrist; 02:00 Follow up: Response: FSBS remains elevated aa1 01:17 Drug: ACTIvase 69.3 mg {Co-Signature: jd3 (Rubin Turcios RN).} Route: IV; Rate: aa1 calculated rate; Infused Over: 60 mins; Site: right antecubital; 02:00 Follow up: IV Status: Infusion continued upon transfer aa1 01:22 Drug: Keppra 1500 mg Route: IV; Rate: per protocol; Site: left wrist; jd3 01:37 Follow up: IV Status: Completed infusion aa1 02:00 Drug: Insulin Regular Human 10 units {Co-Signature: jd3 (Rubin Turcios RN).} Route: aa1 IVP; Site: right antecubital; 02:00 Follow up: Response: Medication administered at discharge. aa1 Point of Care Testing: Blood Glucose: 00:01 Blood Glucose: High (>450 mg/dL); bb Ranges: Intake: 01:55 IV: 1000ml (IV Fluid); Total: 1000ml. aa1 Output: 01:55 Urine: 300ml (Voided); Total: 300ml. aa1 Outcome: 00:49 ER care complete, transfer ordered by . jazz 02:00 Patient left the ED. aa1 02:00 Transferred by helicopter to [facility], Transfer form completed. aa1 02:00 Condition: stable 02:00 Discharge instructions given to family, Instructed on the need for transfer, Demonstrated understanding of instructions. NIH Stroke Scale - NIH Stroke Score Date: 05/26/2018 Time: 00:00 Total Score = 28 1a. Level of Consciousness (LOC) - 3(Unresponsive) 1b. Level of Consciousness (LOC) (Year \T\ Age) - 2(Neither) 1c. LOC Commands (Open \T\ Closes Eyes/Machine Setter And Repairer) - 2(Neither) 2. Best Gaze (Lateral Gaze Paresis) - 0(Normal) 3. Visual Field Loss - 0(No visual loss) 4. Facial Palsy - 0(Normal) 5a. Left Arm: Motor (10-second hold) - 4(No movement) 5b. Right Arm: Motor (10-second hold) - 3(No effort against gravity) 6a. Left Leg: Motor (5-second hold - always test supine) - 3(No effort against gravity) 6b. Right Leg: Motor (5-second hold - always test supine) - 3(No effort against gravity) 7. Limb Ataxia (finger/nose \T\ heel/reece - test with eyes open) - 2(Present in two limbs) 8. Sensory Loss (pinprick arms/legs/face) - 2(Severe to total loss) 9. Best Language: Aphasia (description/naming/reading) - 3(Mute, global aphasia) 10. Dysarthria (speech clarity - read or repeat words) - 9(Intubated) - Notes: pt unresponsive 11. Extinction and Inattention (visual/tactile/auditory/spatial/personal) - 1(Present) Initials: ambreen NIH Stroke Scale - NIH Stroke Score Date: 05/26/2018 Time: 00:12 Total Score = 21 1a. Level of Consciousness (LOC) - 2(Not Alert, obtunded) 1b. Level of Consciousness (LOC) (Year \T\ Age) - 2(Neither) 1c. LOC Commands (Open \T\ Closes Eyes/Machine Setter And Repairer) - 2(Neither) 2. Best Gaze (Lateral Gaze Paresis) - 0(Normal) 3. Visual Field Loss - 0(No visual loss) 4. Facial Palsy - 0(Normal) 5a. Left Arm: Motor (10-second hold) - 4(No movement) 5b. Right Arm: Motor (10-second hold) - 0(No drift) 6a. Left Leg: Motor (5-second hold - always test supine) - 4(No movement) 6b. Right Leg: Motor (5-second hold - always test supine) - 0(No drift) 7. Limb Ataxia (finger/nose \T\ heel/reece - test with eyes open) - 2(Present in two limbs) 8. Sensory Loss (pinprick arms/legs/face) - 0(Normal) 9. Best Language: Aphasia (description/naming/reading) - 2(Severe aphasia) 10. Dysarthria (speech clarity - read or repeat words) - 2(Severe) 11. Extinction and Inattention (visual/tactile/auditory/spatial/personal) - 1(Present) Initials: jazz Signatures: Dispatcher [employer] Dayanna Ocampo RN RN aa1 Arash Gomez MD MD cha Ballard, Brenda, RN RN bb Helen Mackey amRubin Metcalf RN RN jd3 Marybel Bashir RN tl2 Rubin Turcios RN jd3 Corrections: (The following items were deleted from the chart) 01:02 00:47 T-PA (Activase) Screening: Indications: Definite evidence of stroke, aa1 ischemic, embolic, or hypertensive: Yes. Treatment will start within 4.5 hours onset of symptoms: Yes. No evidence of intracranial hemorrhage or CT of head and no evidence of peripheral hemorrhage or recent CVA: Yes. Consent for thrombolytic therapy: Yes. aa1 01:04 00:06 BP 175 / 87; Pulse 125bpm; Resp 16bpm; Spontaneous; Pulse Ox 100% 02 15% jd3 Non-rebreather mask; 77.11 kg Reported; Height 5 ft. 9 in. Reported; BMI: 25.1; bb 01:52 01:01 Reassessment: Awaiting Dr. Gomez to [facility] with family regarding TPA aa1 administration aa1 02:18 02:16 General: Appears aa1 aa1 02:19 02:10 Patient left the ED. aa1 aa1
[2018-05-26] MEDS ORDERED: INSULIN -REGULAR HUMAN 50 UNIT/0.5 ML ML ONE ×2 (00:54→02:08)
[2018-05-26] MEDS ORDERED: LEVETIRACETAM 500 MG/5 ML VIAL IV ONE ×2 (00:55→01:09)
[2018-05-26] MEDS ORDERED: ALTEPLASE 100 ML IV ONE (00:57)
[2018-05-26] MEDS ORDERED: NA CHLORIDE 0.9% 100 ML IV ONE (01:14)
[2018-05-26 01:58] LABS: C-Reactive Protein 5.5 mg/L (<3.00)
[2018-05-26 02:25] VITALS: O2SAT 100
[2018-05-26 02:26] VITALS: BP 154/101; TEMP 97.4
[2018-05-26 03:54] LABS: Urine Blood NEGATIVE (NEG); Urine Glucose 2+ (NEG); Urine Protein NEGATIVE (NEG); Urine pH 5.5 (5.0-7.0)
--- NOTE | 2018-05-26 10:54 | EKG ---
Test Date: 2018-05-26 Test Time: 00:24:00 Folder Seamer Automatic: TRAVIS MEASUREMENT RESULTS: Intervals: Rate: 123 IA: 158 QRSD: 102 QT: 328 QTc: 469 [place]: P: 38 IA: 158 QRS: -43 T: 35 INTERPRETIVE STATEMENTS: Sinus tachycardia Left axis deviation Septal infarct, age undetermined Abnormal ECG Compared to ECG 07/06/2016 06:30:30 Left-axis deviation now present Myocardial infarct finding now present Sinus rhythm no longer present First degree AV block no longer present Electronically Signed On 05-26-18 10:53:39 CDT by Aaron Hook
--- NOTE | 2018-05-26 12:55 | RAD REPORT ---
EXAM DESCRIPTION: RAD - Chest Single View - 05/26/2018 12:22 am CLINICAL HISTORY: COUGH Chest pain. COMPARISON: Chest Single View dated 07/06/2016; Chest Single View dated 07/05/2016; CHEST SINGLE VIEW dated 06/13/2015; CHEST SINGLE VIEW dated 11/11/2012 FINDINGS: Portable technique limits examination quality. The lungs are underinflated resulting in vascular crowding. No focal infiltrate seen. The heart is no rmal in size. No displaced fractures. IMPRESSION: Underinflated lungs.
--- NOTE | 2018-05-26 12:57 | RAD REPORT ---
EXAM DESCRIPTION: CT - Ct Stroke Brain Wo Cont - 05/26/2018 12:35 am CLINICAL HISTORY: Weakness;TIA CVA COMPARISON: Head Brain Wo Cont dated 07/05/2016; HEAD BRAIN W O CONTRAST dated 11/11/[address]: All CT scans are performed using dose optimization technique as appropriate and may inclu de automated exposure control or mA/KV adjustment according to patient size. FINDINGS: Motion degradation is present, limiting examination. No gross intracranial hemorrhage, hyd rocephalus or extra-axial fluid collection.No areas of brain edema or evidence of midline shift. The paranasal sinuses and mastoids are clear. The calvarium is intact. IMPRESSION: No acute intracranial abnormality. Motion degradation is present, limiting evaluation.
== END 2018-05-26 02:10 | disposition short-term general hospital (02) ==
LOC: ER 23:53
DX: I63.9 Cerebral infarction, unspecified (principal); I10 Essential (primary) hypertension; R29.728 NIHSS score 28; G40.509 Epileptic seizures related to external causes, not intractable, without status epilepticus; N19 Unspecified kidney failure; E10.9 Type 1 diabetes mellitus without complications; F02.80 Dementia in other diseases classified elsewhere, unspecified severity, without behavioral disturbance, psychotic disturbance, mood disturbance, and anxiety; I48.91 Unspecified atrial fibrillation; E78.5 Hyperlipidemia, unspecified; Z86.73 Personal history of transient ischemic attack (TIA), and cerebral infarction without residual deficits
CPT/HCPCS: 36415; 70450; 71045; 80048; 80076; 81003; 82550; 82553; 82962; 83735; 83880; 84484; 85025; 85610; 85652; 85730; 86140; 92977; 93005; 96374; 99291; J1953 ×2; J2405; J2997; J7030

== ENCOUNTER 2018-06-16 19:39 | Observation (INO) | payer OTHER ==
--- OUTSIDE RECORDS SUMMARY | 2018-06-16 19:42 | XMS REPORT | Clinical Summary ---
:1950 Author Organization [facility] Address [address] [place] [address] Phone Care Team Providers Name Role Phone Unavailable Primary Care Provider Unavailable Allergies Active Allergy Reactions Severity Noted Date Comments Lorazepam Anxiety Low 05/26/2018 Patient becomes violent, agitatated, confused per family Current Medications Prescription Sig. Disp. Refills Start End Date Status Date finasteride Take 5 mg by mouth Active (PROSCAR) 5 mg daily. tablet labetalol Take 200 mg by Active (NORMODYNE) 200 MG mouth daily. tablet metFORMIN Take 1,000 mg by Active (GLUCOPHAGE) 1000 mouth 2 (two) MG tablet times daily . insulin glargine Inject 68 Units Active (TOUJEO SOLOSTAR subcutaneously U-300 INSULIN) 300 nightly . unit/mL (1.5 mL) InPn syringe insulin degludec Inject 60 Units Active (TRESIBA FLEXTOUCH subcutaneously. U-100) 100 unit/mL (3 mL) InPn ergocalciferol Take 50,000 Units Active (VITAMIN D2) by mouth once a 50,000 unit week. capsule b complex vitamins Take 1 tablet by Active tablet mouth daily. amLODIPine Take 20 mg by Active (NORVASC) 10 MG mouth daily. tablet memantine Take 10 mg by Active (NAMENDA) 10 MG mouth daily. tablet donepezil Take 10 mg by Active (ARICEPT) 10 MG mouth nightly. tablet losartan (COZAAR) Take 50 mg by Active 50 MG tablet mouth daily. aspirin 81 MG Take 1 tablet (81 30 tablet 0 06/07/20 Active chewable tablet mg total) by mouth 8 19 daily. indomethacin Take 1 capsule (50 60 capsule 0 09/04/20 Active (INDOCIN) 50 MG mg total) by mouth 8 18 capsule 3 (three) times daily with meals for [address]. [address] 1 patch onto 30 patch 0 07/06/20 Active (LIDODERM) 5 % the skin daily for 8 18 patch 30 days Remove & Discard patch within 12 hours or as directed by MD. atorvastatin Take 1 tablet (80 30 tablet 0 06/06/20 Active (LIPITOR) 80 MG mg total) by mouth 8 19 tablet nightly. levETIRAcetam Take 1 tablet (500 60 tablet 0 06/07/20 Active (KEPPRA) 500 MG mg total) by mouth 8 19 tablet 2 (two) times daily. levETIRAcetam Take 1 tablet (500 60 tablet 0 Active (KEPPRA) 500 MG mg total) by mouth 8 tablet 2 (two) times daily. aspirin 325 MG Take 325 mg by 06/06/20 Discontinued tablet mouth daily. 18 levETIRAcetam Take 500 mg by 06/07/20 Discontinued (KEPPRA) 500 MG mouth daily. 18 tablet simvastatin Take 40 mg by 06/06/20 Discontinued (ZOCOR) 20 MG mouth nightly . 18 tablet Active Problems Problem Noted Date Acute ischemic stroke ([facility]) 05/26/2018 Received tissue plasminogen activator (t-PA) less than 24 hours prior to 05/26 arrival Seizures ([facility]) 05/26/2018 Essential hypertension 05/26/2018 Diabetes mellitus type 2, insulin dependent ([facility]) 05/26/2018 Mixed hyperlipidemia 05/26/2018 Encounters Date Type Specialty Care Team Description 05/26/2018 - [facility] General Internal [facility], Acute ischemic 06/07/2018 Encounter Medicine [facility] stroke MD Claudine ([facility]);Diabetes Roge Craft mellitus type 2, MD Cayden insulin dependent Olga Lidia Eduardo MD ([facility]);Essential Berta Harman hypertension;Mixed hyperlipidemia;Rece ived tissue plasminogen activator (t-PA) less than 24 hours prior to arrival;Seizures ([facility]);Dementia with behavioral disturbance, unspecified dementia type after 06/15/2017 Immunizations Name Dates Previously Given Next Due Pneumococcal Conjugate (Prevnar) 13-Valent 05/30/2018 Social History Tobacco Use Types Packs/Day Years Used Date Former Smoker Smokeless Tobacco: Never Used Comments: only occassionally as a teenager Sex Assigned at Date Recorded Not on file Last Filed Vital Signs Vital Sign Reading Time Taken Blood Pressure 169/82 06/07/2018 12:00 PM CDT Pulse 69 06/07/2018 12:00 PM CDT Temperature 36.4 C (97.5 F) 06/07/2018 12:00 PM CDT Respiratory Rate 22 06/07/2018 12:00 PM CDT Oxygen Saturation 96% 06/07/2018 12:00 PM CDT Inhaled Oxygen Concentration - - Weight 68.3 kg (150 lb 9.2 oz) 05/26/2018 3:40 AM CDT Height 172.7 cm (5' 8") 05/26/2018 3:40 AM CDT Body Mass Index 22.89 05/26/2018 3:40 AM CDT Plan of Treatment Not on file Results EKG-SCANNED (06/11/2018 10:00 AM)RHYTHM STRIP - SCAN (06/11/2018 10:00 AM)POC- Glucose meter (06/07/2018 12:08 PM)Only the most recent of49 resultswithin the time period is included. Component Value Ref Range POC-Glucose Meter 159 (H)Comment: TESTED AT [address] 70 - 110 mg/[place] [id number] Specimen Performing Laboratory Blood [facility] [address] [address] CBC with platelet count + automated diff (06/07/2018 5:59 AM)Only the most recent of13 resultswithin the time period is included. Component Value Ref Range WBC 7.0 3.5 - 10.5 K/L RBC 4.38 (L) 4.63 - 6.08 M/L Hemoglobin 12.5 (L) 13.7 - 17.5 GM/DL Hematocrit 37.0 (L) 40.1 - 51.0 % MCV 84.5 79.0 - 92.2 fL MCH 28.5 25.7 - 32.2 pg MCHC 33.8 32.3 - 36.5 GM/DL RDW 13.0 11.6 - 14.4 % Platelets 404 150 - 450 K/CU MM MPV 10.2 9.4 - 12.4 fL nRBC 0 0 - 0 /100 WBC % Neutros 58 % % Lymphs 30 % % Monos 7 % % Eos 3 % % Baso 1 % # Neutros 4.05 1.78 - 5.38 K/L # Lymphs 2.08 1.32 - 3.57 K/L # Monos 0.47 0.30 - 0.82 K/L # Eos 0.23 0.04 - 0.54 K/L # Baso 0.07 0.01 - 0.08 K/L Immature Granulocytes-Relative 1 0 - 1 % Specimen Performing Laboratory Blood [address] [address] CBC with platelet count + automated diff (06/07/2018 5:59 AM)Only the most recent of13 resultswithin the time period is included. Specimen Performing Laboratory Blood Narrative The following orders were created for panel order CBC with platelet count + automated diff. Procedure Abnormality Status --------- ------ CBC with platelet count ...[[id number]]AbnormalFinal result Please view results for these tests on the individual orders. Basic Metabolic Panel (06/07/2018 5:59 AM)Only the most recent of13 resultswithin the time period is included. Component Value Ref Range Sodium 140 136 - 145 meq/L Potassium 3.8 3.5 - 5.1 meq/L Chloride 103 98 - 107 meq/L CO2 24 22 - 29 meq/L BUN 20 7 - 21 mg/dL Creatinine 0.87 0.57 - 1.25 mg/dL Glucose 102 70 - 105 mg/dL Calcium 10.3 (H) 8.4 - 10.2 mg/dL EGFR 88Comment: ESTIMATED GFR IS NOT ACCURATE mL/min/1.73 sq m CREATININE CLEARANCE IN PREDICTING GLOMERULAR FILTRATION RATE. ESTIMATED GFR IS NOT APPLICABLE FOR DIALYSIS PATIENTS. Specimen Performing Laboratory Blood [address] [address] Uric acid (06/03/2018 4:52 AM) Component Value Ref Range Uric Acid 7.7 (H)Comment: Specimen slightly hemolyzed 2.6 - 7.2 mg/dL Specimen Performing Laboratory Blood - Arm, Left [address] [address] CTA carotid (05/28/2018 1:11 PM) Specimen Performing Laboratory [facility] Narrative FINAL REPORT CT angiogram of the upper chest, neck, and head Comparison:None Reason for exam: Stroke Discussion: Multiple axial CT images of the upper chest, neck, and head were obtained using CT angiography technique. 2-D and 3-D reconstructed images were provided.3D MIPimages were generated. NASCET criteria are utilized when considering stenosis. Please note that CTA is inherently insensitive in evaluating the cavernous and skullbase portions of the internal carotid arteries because of adjacent bone and venous opacification. Dose modulation, iterative reconstruction, and/or weight based adjustment of the mA/kV was utilized to reduce the radiation dose to as low as reasonably achievable. The right medulla lesion discussed on MRI from May 27 is no plainly apparent on unenhanced head CT. There are chronic periventricular microvascular changes and moderate symmetric parenchymal volume loss. No visible intracranial hemorrhage, mass effect, shift, extra-axial collection. Ventricular prominence is probably a reflection of volume loss. Correlate clinically for normal pressure hydrocephalus. Normal flow in the upper chest aortic branches. Normal flow cervical carotid systems and cervical segment vertebral arteries with no stenosis by NASCET criteria. Bilateral carotid siphon atherosclerotic calcifications are noted with suspected bilateral distal carotid siphon stenoses, estimated to be moderate to severe both sides. Normal flow in the carotid terminus and carotid terminus branches proximally. Bilateral intradural vertebral artery mild atherosclerotic irregularity but no significant stenosis. Otherwise normal vertebrobasilar and proximal posterior cerebral artery flow. Venous drainage pathways are grossly intact intracranial. The right internal jugular vein is hypoplastic. Impressions: 1. Chronic intracranial cerebral features including ventricular prominence. Correlate clinically for normal pressure hydrocephalus. 2. Normal CTA upper chest and neck. 3. Bilateral carotid siphon moderate to severe atherosclerotic suspected stenosis. Otherwise intact proximal intracranial arterial vasculature. 4. Incidental multilevel cervical spondylosis. I could not exclude moderate degenerative central canal stenosis C5/C6. Neurological correlation is warranted. Signed: Fauzia Salinas MD Report Verified Date/Time:05/28/2018 15:02:10 Reading Location: [facility] [id number] Consult Reading Room Procedure Note Interface, External Ris In - 05/28/2018 3:04 PM CDT FINAL REPORT CT angiogram of the upper chest, neck, and head Comparison: None Reason for exam: Stroke Discussion: Multiple axial CT images of the upper chest, neck, and head were obtained using CT angiography technique. 2-D and 3-D reconstructed images were provided. 3D MIP images were generated. NASCET criteria are utilized when considering stenosis. Please note that CTA is inherently insensitive in evaluating the cavernous and skullbase portions of the internal carotid arteries because of adjacent bone and venous opacification. Dose modulation, iterative reconstruction, and/or weight based adjustment of the mA/kV was utilized to reduce the radiation dose to as low as reasonably achievable. The right medulla lesion discussed on MRI from May 27 is no plainly apparent on unenhanced head CT. There are chronic periventricular microvascular changes and moderate symmetric parenchymal volume loss. No visible intracranial hemorrhage, mass effect, shift, extra-axial collection. Ventricular prominence is probably a reflection of volume loss. Correlate clinically for normal pressure hydrocephalus. Normal flow in the upper chest aortic branches. Normal flow cervical carotid systems and cervical segment vertebral arteries with no stenosis by NASCET criteria. Bilateral carotid siphon atherosclerotic calcifications are noted with suspected bilateral distal carotid siphon stenoses, estimated to be moderate to severe both sides. Normal flow in the carotid terminus and carotid terminus branches proximally. Bilateral intradural vertebral artery mild atherosclerotic irregularity but no significant stenosis. Otherwise normal vertebrobasilar and proximal posterior cerebral artery flow. Venous drainage pathways are grossly intact intracranial. The right internal jugular vein is hypoplastic. Impressions: 1. Chronic intracranial cerebral features including ventricular prominence. Correlate clinically for normal pressure hydrocephalus. 2. Normal CTA upper chest and neck. 3. Bilateral carotid siphon moderate to severe atherosclerotic suspected stenosis. Otherwise intact proximal intracranial arterial vasculature. 4. Incidental multilevel cervical spondylosis. I could not exclude moderate degenerative central canal stenosis C5/C6. Neurological correlation is warranted. Signed: Fauzai Salinas MD Report Verified Date/Time: 05/28/2018 15:02:10 Reading Location: [address] Consult Reading Room brain (05/28/2018 1:11 PM) Specimen Performing Laboratory [facility] Narrative FINAL REPORT CT angiogram of the upper chest, neck, and head Comparison:None Reason for exam: Stroke Discussion: Multiple axial CT images of the upper chest, neck, and head were obtained using CT angiography technique. 2-D and 3-D reconstructed images were provided.3D MIPimages were generated. NASCET criteria are utilized when considering stenosis. Please note that CTA is inherently insensitive in evaluating the cavernous and skullbase portions of the internal carotid arteries because of adjacent bone and venous opacification. Dose modulation, iterative reconstruction, and/or weight based adjustment of the mA/kV was utilized to reduce the radiation dose to as low as reasonably achievable. The right medulla lesion discussed on MRI from May 27 is no plainly apparent on unenhanced head CT. There are chronic periventricular microvascular changes and moderate symmetric parenchymal volume loss. No visible intracranial hemorrhage, mass effect, shift, extra-axial collection. Ventricular prominence is probably a reflection of volume loss. Correlate clinically for normal pressure hydrocephalus. Normal flow in the upper chest aortic branches. Normal flow cervical carotid systems and cervical segment vertebral arteries with no stenosis by NASCET criteria. Bilateral carotid siphon atherosclerotic calcifications are noted with suspected bilateral distal carotid siphon stenoses, estimated to be moderate to severe both sides. Normal flow in the carotid terminus and carotid terminus branches proximally. Bilateral intradural vertebral artery mild atherosclerotic irregularity but no significant stenosis. Otherwise normal vertebrobasilar and proximal posterior cerebral artery flow. Venous drainage pathways are grossly intact intracranial. The right internal jugular vein is hypoplastic. Impressions: 1. Chronic intracranial cerebral features including ventricular prominence. Correlate clinically for normal pressure hydrocephalus. 2. Normal CTA upper chest and neck. 3. Bilateral carotid siphon moderate to severe atherosclerotic suspected stenosis. Otherwise intact proximal intracranial arterial vasculature. 4. Incidental multilevel cervical spondylosis. I could not exclude moderate degenerative central canal stenosis C5/C6. Neurological correlation is warranted. Signed: Fauzia Salinas MD Report Verified Date/Time:05/28/2018 15:02:10 Reading Location: [address] Consult Reading Room Procedure Note Interface, External Ris In - 05/28/2018 3:04 PM CDT FINAL REPORT CT angiogram of the upper chest, neck, and head Comparison: None Reason for exam: Stroke Discussion: Multiple axial CT images of the upper chest, neck, and head were obtained using CT angiography technique. 2-D and 3-D reconstructed images were provided. 3D MIP images were generated. NASCET criteria are utilized when considering stenosis. Please note that CTA is inherently insensitive in evaluating the cavernous and skullbase portions of the internal carotid arteries because of adjacent bone and venous opacification. Dose modulation, iterative reconstruction, and/or weight based adjustment of the mA/kV was utilized to reduce the radiation dose to as low as reasonably achievable. The right medulla lesion discussed on MRI from May 27 is no plainly apparent on unenhanced head CT. There are chronic periventricular microvascular changes and moderate symmetric parenchymal volume loss. No visible intracranial hemorrhage, mass effect, shift, extra-axial collection. Ventricular prominence is probably a reflection of volume loss. Correlate clinically for normal pressure hydrocephalus. Normal flow in the upper chest aortic branches. Normal flow cervical carotid systems and cervical segment vertebral arteries with no stenosis by NASCET criteria. Bilateral carotid siphon atherosclerotic calcifications are noted with suspected bilateral distal carotid siphon stenoses, estimated to be moderate to severe both sides. Normal flow in the carotid terminus and carotid terminus branches proximally. Bilateral intradural vertebral artery mild atherosclerotic irregularity but no significant stenosis. Otherwise normal vertebrobasilar and proximal posterior cerebral artery flow. Venous drainage pathways are grossly intact intracranial. The right internal jugular vein is hypoplastic. Impressions: 1. Chronic intracranial cerebral features including ventricular prominence. Correlate clinically for normal pressure hydrocephalus. 2. Normal CTA upper chest and neck. 3. Bilateral carotid siphon moderate to severe atherosclerotic suspected stenosis. Otherwise intact proximal intracranial arterial vasculature. 4. Incidental multilevel cervical spondylosis. I could not exclude moderate degenerative central canal stenosis C5/C6. Neurological correlation is warranted. Signed: Fauzia Salinas MD Report Verified Date/Time: 05/28/2018 15:02:10 Reading Location: [facility] Consult Reading Room CARDIOGRAM REPORT - SCAN (05/27/2018 1:52 PM)EEG AWAKE AND DROWSY (2017 11:19 AM) Specimen Performing Laboratory [facility] Narrative DATE OF TEST: 05/27/2018 DATE OF REPORT : 05/27/2018 ACC: [id number] Start time: 05/27/2018 at 10:43 Stop time: 05/27/2018 at 11:04 ICD-10: R 56.9 CPT Code: 78698 HISTORY: 68 year old male with dementia admitted for confusion suspected to have seizures. MEDICATIONS:Levetiracetam, insulin TECHNICAL SUMMARY: This is a digital video EEG recorded with 32 input channels reviewed with bipolar and referential montages using the modified combinatorial system nomenclature. DESCRIPTION OF RECORD:During the maximally alert state, the background displayed diffuse theta and delta (1-3Hz) activity. In posterior regions during maximal wakefulness, predominant background frequencies remained within the 6-8hz range maximally. Drowsiness was characterized by attenuation of posterior dominant rhythm and increased frontocentral theta, vertex sharp transients. No stage II sleep was recorded. HV: Hyperventilation was not performed. PHOTIC STIMULATION: Flash stimulation was not done. IMPRESSION: Abnormal awake, drowsy EEG 1. Mild slowing of the posterior dominant rhythm. 2. Generalized polymorphic delta slowing CLINICAL CORRELATION: Generalized slowing as seen in this record supports an etiologically nonspecific moderate encephalopathy.There are no epileptiform discharges or electrographic seizures. Ruth Blackwell M.D., 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, [facility] Procedure Note Interface, External Ris In - 05/27/2018 2:32 PM CDT DATE OF TEST: 05/27/2018 DATE OF REPORT : 05/27/2018 ACC: [id number] Start time: 05/27/2018 at 10:43 Stop time: 05/27/2018 at 11:04 ICD-10: R 56.9 CPT Code: 89351 HISTORY: 68 year old male with dementia admitted for confusion suspected to have seizures. MEDICATIONS: Levetiracetam, insulin TECHNICAL SUMMARY: This is a digital video EEG recorded with 32 input channels reviewed with bipolar and referential montages using the modified combinatorial system nomenclature. DESCRIPTION OF RECORD: During the maximally alert state, the background displayed diffuse theta and delta (1-3Hz) activity. In posterior regions during maximal wakefulness, predominant background frequencies remained within the 6-8hz range maximally. Drowsiness was characterized by attenuation of posterior dominant rhythm and increased frontocentral theta, vertex sharp transients. No stage II sleep was recorded. HV: Hyperventilation was not performed. PHOTIC STIMULATION: Flash stimulation was not done. IMPRESSION: Abnormal awake, drowsy EEG 1. Mild slowing of the posterior dominant rhythm. 2. Generalized polymorphic delta slowing CLINICAL CORRELATION: Generalized slowing as seen in this record supports an etiologically nonspecific moderate encephalopathy. There are no epileptiform discharges or electrographic seizures. Ruth Blackwell M.D., 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, [facility] brain without IV contrast (05/27/2018 1:16 AM) Specimen Performing Laboratory [facility] Narrative FINAL REPORT Exam: MRI brain without contrast. Comparison:None. Clinical indication: Stroke. Technique: Multiplanar multi sequential MR imaging of the brain was performed without the administration of intravenous contrast. Findings: There is generalized parenchymal atrophy. There are dtum-ec-ohodbxvw white matter microvascular ischemic changes. There is no restricted diffusion to suggest an acute infarct. There are punctate foci of susceptibility artifacts in the right temporal lobe and bilateral superior frontal gyri which may represent prior microhemorrhage. There is faint T2 hyperintense/T1 isointense lesion in the right ventral medulla, nonspecific but may represent a capillary telangectasia. There is no intracranial mass, mass effect, extra-axial collection, hydrocephalus or herniation. The skull base flow-voids are seen in keeping with their patency. The visualized paranasal sinuses and mastoid air cells are clear. The orbits, sella and parasellar regions are unremarkable. The craniocervical junction is normal. Impression: Mild to moderate minimal microvascular ischemic changes. No acute infarct, acute hemorrhage or mass effect. Foci of prior microhemorrhages in the right temporal and bilateral frontal lobes. 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 Signed: Boom Hendricks MD Report Verified Date/Time:05/27/2018 02:49:43 Reading Location: [address] Reading Room Procedure Note Interface, External Ris In - 05/27/2018 2:51 AM CDT FINAL REPORT Exam: MRI brain without contrast. Comparison: None. Clinical indication: Stroke. Technique: Multiplanar multi sequential MR imaging of the brain was performed without the administration of intravenous contrast. Findings: There is generalized parenchymal atrophy. There are avfo-ca-fxjvulyl white matter microvascular ischemic changes. There is no restricted diffusion to suggest an acute infarct. There are punctate foci of susceptibility artifacts in the right temporal lobe and bilateral superior frontal gyri which may represent prior microhemorrhage. There is faint T2 hyperintense/T1 isointense lesion in the right ventral medulla, nonspecific but may represent a capillary telangectasia. There is no intracranial mass, mass effect, extra-axial collection, hydrocephalus or herniation. The skull base flow-voids are seen in keeping with their patency. The visualized paranasal sinuses and mastoid air cells are clear. The orbits, sella and parasellar regions are unremarkable. The craniocervical junction is normal. Impression: Mild to moderate minimal microvascular ischemic changes. No acute infarct, acute hemorrhage or mass effect. Foci of prior microhemorrhages in the right temporal and bilateral frontal lobes. 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 Clinical History Atrial Fibrillation/flutter CVA Hyperlipidemia Hypertension Diabetes HGB 12.5 HCT 36.6 % Contrast Medium: Bubble Study. Height: 68 inches Weight: 68.04 kg (150 lbs) BSA: 1.81 m^2 BMI: 22.81 kg/m^2 HR: 62 bpm BP: 109/60 mmHg Summary Regular sinus rhythm during the exam. The left ventricle is chamber size (by PSLAX dimension) is normal (male - LVIDd 4.2-5.8cm) . Mild concentric LV hypertrophy. All of the LV segments contract normally . Global LV systolic function normal . Estimated LVEF by qualitative assessment is normal (>60%) . Increased (cardiac index 3.5-4.0 L/min/m2) cardiac output state at rest is noted. Grade 1 diastolic dysfunction (impaired relaxation and low-normal LA pressure). mildly redundant interatrial septum. IV saline contrast injection was negative for a PFO (patent foramen ovale) at rest and post Valsalva . Previous Study No prior exam available for comparison. Signature Findings Rhythm/BPRegular sinus rhythm during the exam. Left Ventricle The left ventricle is chamber size (by PSLAX dimension) is normal (male - LVIDd 4.2-5.8cm) . Mild concentric LV hypertrophy. All of the LV segments contract normally . Global LV systolic function normal . Estimated LVEF by qualitative assessment is normal (>60%) . Increased (cardiac index 3.5- 4.0 L/min/m2) cardiac output state at rest is noted. Grade 1 diastolic dysfunction (impaired relaxation and low-normal LA pressure). Left AtriumLA size is mildly enlarged (35-41 ml/m2) . Right VentricleThe right ventricular chamber size and systolic function are within normal limits. Right Atrium RA cavity size is normal . Atrial Septummildly redundant interatrial septum. IV saline contrast injection was negative for a PFO (patent foramen ovale) at rest and post Valsalva . Aortic Valve Mild AoV cusp calcification. AoV cusp mobility is normal . Mitral Valve Mild mitral annular calcification. Mild MV leaflet thickening. Tricuspid ValveA trace of tricuspid regurgitation. Estimated peak systolic PA pressure is 20-25 mmHg . Pulmonic Valve Normal PV structure and function. A trace of pulmonary regurgitation. AortaAortic root size (SInus of Valsalva diameter) is normal . PericardiumNo pericardial effusion is visualized. IVC/SVC/PA/PV/PleuralThe right upper pulmonary vein (RUPV) is normal . The estimated RA pressure by IVC dynamics 5-10mmHg . Chambers/Structures Left Atrium LA Volume: 74.17 ml LA Area: 25.89 cm^ 2 LA Vol. Index: 41 ml/m^2 Left Ventricle LVIDd: 4.34 cm LV Septum Diastolic: 1.22 cm LV PW Diastolic: 1.23 cm LVOT Diameter: 2.21 cm Right Ventricle TAPSE: 2.08 cm Aorta Ao Root S of Jes.: 3.52 cm Doppler/Quantitative Measurements Mitral Valve MV Peak E-Wave: 0.68 m/sMV Peak A-Wave: 0.92 m/s E/ A Ratio: 0.73 Peak Gradient: 1.83 mmHg Deceleration Time: 260.9 msec MV Odell. Peak: Tissue Doppler E' Lateral Velocity: 0.08 m/s E/E': 8.2 Aortic Valve Peak Velocity: 1.49 m/sMean Velocity: 1 m/ s Peak Gradient: 8.85 mmHg Mean Gradient: 4.48 mmHg AV Area (continuity): 3.49 cm^2 AV VTI: 26.51 cm AV DVI: 0.91 LVOT Peak Velocity: 0.97 m/s Peak Gradient: 3.78 mmHg Mean Velocity: 0.7 m/sMean Gradient: 2.23 mmHg LVOT Diameter: 2.21 cmLVOT VTI: 24.1 cm LVOT Area: 3.84 cm^2LVOT SV:92.4 ml LVOT CO: 5.73 l/min LVOT CI: 3.17 l/min/m^2 Tricuspid Valve TR Velocity: 1.98 m/s TR Gradient: 15.62 mmHg Procedure Note Interface, External Ris In - 05/27/2018 1:25 PM CDT Transthoracic Echocardiography Report (TTE) Demographics Patient Name CANDICE, Date of Study 05/26/2018 BRADEN Gender Male Visit Number [id number] Race Unknown Room Number 7512 Number Date of 1950 Referring LARRY Soni Physician 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 Clinical History Atrial Fibrillation/flutter CVA Hyperlipidemia Hypertension Diabetes HGB 12.5 HCT 36.6 % Contrast Medium: Bubble Study. Height: 68 inches Weight: 68.04 kg (150 lbs) BSA: 1.81 m^2 BMI: 22.81 kg/m^2 HR: 62 bpm BP: 109/60 mmHg Summary Regular sinus rhythm during the exam. The left ventricle is chamber size (by PSLAX dimension) is normal (male - LVIDd 4.2-5.8cm) . Mild concentric LV hypertrophy. All of the LV segments contract normally . Global LV systolic function normal . Estimated LVEF by qualitative assessment is normal (>60%) . Increased (cardiac index 3.5-4.0 L/min/m2) cardiac output state at rest is noted. Grade 1 diastolic dysfunction (impaired relaxation and low-normal LA pressure). mildly redundant interatrial septum. IV saline contrast injection was negative for a PFO (patent foramen ovale) at rest and post Valsalva . Previous Study No prior exam available for comparison. Signature Findings Rhythm/BP Regular sinus rhythm during the exam. Left Ventricle The left ventricle is chamber size (by PSLAX dimension) is normal (male - LVIDd 4.2-5.8cm) . Mild concentric LV hypertrophy. All of the LV segments contract normally . Global LV systolic function normal . Estimated LVEF by qualitative assessment is normal (>60%) . Increased (cardiac index 3.5-4.0 L/min/m2) cardiac output state at rest is noted. Grade 1 diastolic dysfunction (impaired relaxation and low-normal LA pressure). Left Atrium LA size is mildly enlarged (35-41 ml/m2) . Right Ventricle The right ventricular chamber size and systolic function are within normal limits. Right Atrium RA cavity size is normal . Atrial Septum mildly redundant interatrial septum. IV saline contrast injection was negative for a PFO (patent foramen ovale) at rest and post Valsalva . Aortic Valve Mild AoV cusp calcification. AoV cusp mobility is normal . Mitral Valve Mild mitral annular calcification. Mild MV leaflet thickening. Tricuspid Valve A trace of tricuspid regurgitation. Estimated peak systolic PA pressure is 20-25 mmHg . Pulmonic Valve Normal PV structure and function. A trace of pulmonary regurgitation. Aorta Aortic root size (SInus of Valsalva diameter) is normal . Pericardium No pericardial effusion is visualized. IVC/SVC/PA/PV/Pleural The right upper pulmonary vein (RUPV) is normal . The estimated RA pressure by IVC dynamics 5-10mmHg . Chambers/Structures Left Atrium LA Volume: 74.17 ml LA Area: 25.89 cm^2 LA Vol. Index: 41 ml/m^2 Left Ventricle LVIDd: 4.34 cm LV Septum Diastolic: 1.22 cm LV PW Diastolic: 1.23 cm LVOT Diameter: 2.21 cm Right Ventricle TAPSE: 2.08 cm Aorta Ao Root S of Jes.: 3.52 cm Doppler/Quantitative Measurements Mitral Valve MV Peak E-Wave: 0.68 m/s MV Peak A-Wave: 0.92 m/s E/A Ratio: 0.73 Peak Gradient: 1.83 mmHg Deceleration Time: 260.9 msec MV Odell. Peak: Tissue Doppler E' Lateral Velocity: 0.08 m/s E/E': 8.2 Aortic Valve Peak Velocity: 1.49 m/s Mean Velocity: 1 m/s Peak Gradient: 8.85 mmHg Mean Gradient: 4.48 mmHg AV Area (continuity): 3.49 cm^2 AV VTI: 26.51 cm AV DVI: 0.91 LVOT Peak Velocity: 0.97 m/s Peak Gradient: 3.78 mmHg Mean Velocity: 0.7 m/s Mean Gradient: 2.23 mmHg LVOT Diameter: 2.21 cm LVOT VTI: 24.1 cm LVOT Area: 3.84 cm^2 LVOT SV:92.4 ml LVOT CO: 5.73 l/min LVOT CI: 3.17 l/min/m^2 Tricuspid Valve TR Velocity: 1.98 m/s TR Gradient: 15.62 mmHg Troponin I (05/26/2018 4:02 PM)Only the most recent of2 resultswithin the time period is included. Component Value Ref Range Troponin I <0.01 0.00 - 0.03 ng/mL Specimen Performing Laboratory Blood - Line, [place] [address] Narrative Troponin I (TnI) levels must be interpreted in the context of the presenting symptoms and the clinical findings. Elevated TnI levels indicate myocardial damage, but are not specific for ischemic heart disease. Elevated TnI levels are seen in patients with other cardiac conditions (including myocarditis and congestive heart failure), and slight TnI elevations occur in patients with other conditions, including sepsis, renal failure, acidosis, acute neurological disease, and persistent tachyarrhythmia. ECG 12 lead (05/26/2018 9:07 AM) Specimen Performing Laboratory GE MUSE Narrative Ventricular Rate 81 BPM Atrial Rate 81 BPM P-R Interval 220 ms QRS Duration 108 ms Q-T Interval 402 ms QTC Calculation(Bazett) 466 ms P [place] 31 degrees R [place] -36 degrees T [place] 9 degrees Sinus rhythm with 1st degree A-V block Left axis deviation Possible Lateral infarct , age undetermined Prolonged QT Abnormal ECG No previous ECGs available Confirmed by MD PIPPA, KIMMY ([id number]) on 05/27/2018 3:45:30 AM Procedure Note Interface, External Ris In - 05/27/2018 3:45 AM CDT Ventricular Rate 81 BPM Atrial Rate 81 BPM P-R Interval 220 ms QRS Duration 108 ms Q-T Interval 402 ms QTC Calculation(Bazett) 466 ms P [place] 31 degrees R [place] -36 degrees T [place] 9 degrees Sinus rhythm with 1st degree A-V block Left axis deviation Possible Lateral infarct , age undetermined Prolonged QT Abnormal ECG No previous ECGs available Confirmed by MD PIPPA, KIMMY ([id number]) on 05/27/2018 3:45:30 AM XR chest 1 view portable / bedside (05/26/2018 4:50 AM) Specimen Performing Laboratory GE RIS Narrative FINAL REPORT Chest, 1 view Clinical history: stroke Comparison: None Discussion: There is an asymmetric nodular opacity in the right upper lung measuring approximately 1.5 cm, for which further evaluation with dedicated PA and lateral views or chest CT is recommended. There is no pneumothorax or significant pleural effusion. Mild bibasilar opacities are suggestive of atelectasis and less likely pneumonia. The cardiac silhouette is magnified by portable technique. No acute osseous abnormality. Signed: Fran Partida MD Report Verified Date/Time:05/26/2018 10:27:35 Reading Location: [address] Ortho Consult Reading Room Procedure Note Interface, External Ris In - 05/26/2018 10:29 AM CDT FINAL REPORT Chest, 1 view Clinical history: stroke Comparison: None Discussion: There is an asymmetric nodular opacity in the right upper lung measuring approximately 1.5 cm, for which further evaluation with dedicated PA and lateral views or chest CT is recommended. There is no pneumothorax or significant pleural effusion. Mild bibasilar opacities are suggestive of atelectasis and less likely pneumonia. The cardiac silhouette is magnified by portable technique. No acute osseous abnormality. Signed: Fran Partida MD Report Verified Date/Time: 05/26/2018 10:27:35 Reading Location: [facility]013 Ortho Consult Reading Room Vitamin B12 and Folate (05/26/2018 3:12 AM) Component Value Ref Range Vitamin B12 776 213 - 816 pg/mL Folate >40.0 >=7.0 ng/mL Specimen Performing Laboratory Blood [facility] [address] [address] TSH/Free T4 If Indicated (05/26/2018 3:12 AM) Component Value Ref Range TSH 1.28 0.35 - 4.94 uIU/mL Specimen Performing Laboratory Blood [address] [address] Prothrombin time/INR (05/26/2018 3:12 AM) Component Value Ref Range Protime 14.8 (H) 11.7 - 14.7 seconds INR 1.2 <=5.9 Specimen Performing Laboratory Blood [address] [address] Narrative RECOMMENDED COUMADIN/WARFARIN INR THERAPY RANGES STANDARD DOSE: 2.0 - 3.0 Includes: PROPHYLAXIS for venous thrombosis, systemic embolization; TREATMENT for venous thrombosis and/or pulmonary embolus. HIGH RISK: Target INR is 2.5-3.5 for patients with mechanical heart valves. Hemoglobin A1c (05/26/2018 3:12 AM) Component Value Ref Range Hemoglobin A1C 13.2 (H) 4.3 - 6.1 % Specimen Performing Laboratory Blood [address] [address] Hepatic function panel (05/26/2018 3:12 AM) Component Value Ref Range Protein, Total 7.3 6.0 - 8.3 gm/dL Albumin 4.0 3.5 - 5.0 g/dL Total Bilirubin 0.3 0.2 - 1.2 mg/dL Bilirubin, Direct 0.2 0.1 - 0.5 mg/dL Alkaline Phosphatase 107 40 - 150 U/L AST 14 5 - 34 U/L ALT 11 6 - 55 U/L Specimen Performing Laboratory Blood [address] [address] Narrative Fasting Fasting lipid panel (05/26/2018 3:12 AM) Component Value Ref Range Triglycerides 122 mg/dL Cholesterol 166 mg/dL HDL 40 mg/dL LDL Calculated 102 mg/dL Specimen Performing Laboratory Blood [address] [address] Narrative Triglyceride Reference Range: Low Risk <150 [id number] High Risk 200-499 Very High Risk>=500 Cholesterol Reference Range: Low Risk <200 [id number] High Risk>240 HDL Cholesterol Reference Range: Low Risk >=60 High Risk <40 LDL Cholesterol Reference Range: Optimal<100 Near [id number] Very High >=190 Fasting after 06/15/2017
--- OUTSIDE RECORDS SUMMARY | 2018-06-16 19:43 | XMS REPORT ---
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 Assessment [...] unspecified complications Problem Hypertension I10 Active Assessment [facility] current use of insulin Z79.4 Active Problem [...] Status Dosage System Date Date Simvastatin ND 49951329430 40 MG Orally Once April 12, Active 1 tablet a day 2018 in the evening Viagra ND 44518648682 50 MG Orally Once Active 1 tablet a day as needed Toujeo [facility] 57489760284 300u/ml Active 68 units SoloStar subcutaneously once once daily daily and titrate up 2 units every 3 days until fbg less than 130 max of 100 units daily Amlodipine [facility] 20643923542 10 MG Orally Once Active 1 tablet Besylate a day Simvastatin [facility] 96480200736 20 MG Inactive TAKE 1 TABLET BY MOUTH EVERY DAY Finasteride [facility] 69565868722 5 MG Orally Once Active 1 tablet a day Keppra [facility] 80068863370 500 MG Orally Active 1 tablet Twice a day Cozaar [facility] 25295218451 50 MG Active TAKE 1 TABLET BY MOUTH EVERY DAY Amlodipine [facility] 22165619396 10 MG Orally Once February Active 1 tablet Besylate a day 2017 Metformin HCl [facility] 98382962587 1000 MG Orally Active 1 tablet twice a day with a meal Xarelto [facility] 30185590426 20 MG Orally Once Inactive 1 tablet a day with food Labetalol HCl [facility] 25831570017 200 MG Orally Active 1 tablet three times a day Results No Known Results Summary Purpose eClinicalWorks Submission
--- OUTSIDE RECORDS SUMMARY | 2018-06-16 19:43 | XMS REPORT ---
:1950 [facility] Organization [facility] Address [address] [place] [address] [address]. [address] [place] [address] Care Team Providers Name Role Phone LARRY DEXTER Unavailable Unavailable Problems This patient has no known problems. Allergies, Adverse Reactions, Alerts This patient has no known allergies or adverse reactions. Medications This patient has no known medications. Results Test Description Test Time Test Comments Text Results Atomic Results Result Comments POCT-GLUCOSE METER 2018-06-07 12:16:00 Test Item Value Reference Range Comments POC-GLUCOSE METER (BEAKER) (test 159 mg/dL 70-110 TESTED AT [address] xgzo=8909) [facility] [address] POCT-GLUCOSE [id number] 08:37:00 Test Item Value Reference Range Comments POC-GLUCOSE METER (BEAKER) 96 mg/dL 70-110 TESTED AT [address] (test nuna=2273) [facility] [address] CBC W/PLT COUNT & AUTO [id number] 08:10:00 Test Item Value Reference Range Comments WHITE BLOOD CELL COUNT (BEAKER) (test ypot=021) 7.0 K/ L 3.5-10.5 RED BLOOD CELL COUNT (BEAKER) (test wket=298) 4.38 M/ L 4.63-6.08 HEMOGLOBIN (BEAKER) (test aytq=475) 12.5 GM/DL 13.7-17.5 HEMATOCRIT (BEAKER) (test gpic=199) 37.0 % 40.1-51.0 MEAN CORPUSCULAR VOLUME (BEAKER) (test ywka=937) 84.5 fL 79.0-92.2 MEAN CORPUSCULAR HEMOGLOBIN (BEAKER) (test 28.5 pg 25.7-32.2 lrhn=585) MEAN CORPUSCULAR HEMOGLOBIN CONC (BEAKER) (test 33.8 GM/DL 32.3-36.5 nhsi=397) RED CELL DISTRIBUTION WIDTH (BEAKER) (test 13.0 % 11.6-14.4 vinn=397) PLATELET COUNT (BEAKER) (test brjr=999) 404 K/CU MM 150-450 MEAN PLATELET VOLUME (BEAKER) (test gyls=511) 10.2 fL 9.4-12.4 NUCLEATED RED BLOOD CELLS (BEAKER) (test 0 /100 WBC 0-0 ibrx=101) NEUTROPHILS RELATIVE PERCENT (BEAKER) (test 58 % lwze=684) LYMPHOCYTES RELATIVE PERCENT (BEAKER) (test 30 % lsmm=000) MONOCYTES RELATIVE PERCENT (BEAKER) (test 7 % dufv=668) EOSINOPHILS RELATIVE PERCENT (BEAKER) (test 3 % rxbu=321) BASOPHILS RELATIVE PERCENT (BEAKER) (test 1 % wqke=422) NEUTROPHILS ABSOLUTE COUNT (BEAKER) (test 4.05 K/ L 1.78-5.38 tlwr=182) LYMPHOCYTES ABSOLUTE COUNT (BEAKER) (test 2.08 K/ L 1.32-3.57 cucx=160) MONOCYTES ABSOLUTE COUNT (BEAKER) (test 0.47 K/ L 0.30-0.82 ssmb=375) EOSINOPHILS ABSOLUTE COUNT (BEAKER) (test 0.23 K/ L 0.04-0.54 lhtl=377) BASOPHILS ABSOLUTE COUNT (BEAKER) (test 0.07 K/ L 0.01-0.08 xnuc=569) IMMATURE GRANULOCYTES-RELATIVE PERCENT (BEAKER) 1 % 0-1 (test plrz=7877) BASIC METABOLIC [id number] 08:00:00 Test Item Value Reference Range Comments SODIUM (BEAKER) (test 140 meq/L 136-145 njvk=136) POTASSIUM (BEAKER) (test 3.8 meq/L 3.5-5.1 ygch=081) CHLORIDE (BEAKER) (test 103 meq/L 98-107 upkm=277) CO2 (BEAKER) (test 24 meq/L 22-29 uhhz=203) BLOOD UREA NITROGEN 20 mg/dL 7-21 (BEAKER) (test mycj=493) CREATININE (BEAKER) (test 0.87 mg/dL 0.57-1.25 cfml=458) GLUCOSE RANDOM (BEAKER) 102 mg/dL 70-105 (test evtp=663) CALCIUM (BEAKER) (test 10.3 mg/dL 8.4-10.2 cxit=127) EGFR (BEAKER) (test 88 mL/min/1.73 sq m ESTIMATED GFR IS NOT orng=4671) ACCURATE CREATININE CLEARANCE IN PREDICTING GLOMERULAR FILTRATION RATE. ESTIMATED GFR IS NOT APPLICABLE FOR DIALYSIS PATIENTS. POCT-GLUCOSE [id number] 21:32:00 Test Item Value Reference Range Comments POC-GLUCOSE METER (BEAKER) 288 mg/dL 70-110 TESTED AT [address] (test iccl=0677) [place] [id number] POCT-GLUCOSE [id number] 17:01:00 Test Item Value Reference Range Comments POC-GLUCOSE METER (BEAKER) 263 mg/dL 70-110 TESTED AT [address] (test koqt=5441) [place] [id number] POCT-GLUCOSE [id number] 11:53:00 Test Item Value Reference Range Comments POC-GLUCOSE METER (BEAKER) 270 mg/dL 70-110 TESTED AT [address] (test ousw=4616) [place] [id number] POCT-GLUCOSE [id number] 08:09:00 Test Item Value Reference Range Comments POC-GLUCOSE METER (BEAKER) 122 mg/dL 70-110 TESTED AT [address] (test refr=5475) [place] [id number] BASIC METABOLIC [id number] 07:37:00 Test Item Value Reference Range Comments SODIUM (BEAKER) (test 138 meq/L 136-145 zjbm=690) POTASSIUM (BEAKER) (test 3.9 meq/L 3.5-5.1 fvsz=684) CHLORIDE (BEAKER) (test 101 meq/L 98-107 ojfc=393) CO2 (BEAKER) (test 27 meq/L 22-29 tpvt=482) BLOOD UREA NITROGEN 20 mg/dL 7-21 (BEAKER) (test tzkp=148) CREATININE (BEAKER) (test 1.04 mg/dL 0.57-1.25 bkof=493) GLUCOSE RANDOM (BEAKER) 176 mg/dL 70-105 (test qjko=558) CALCIUM (BEAKER) (test 10.2 mg/dL 8.4-10.2 iwuq=857) EGFR (BEAKER) (test 71 mL/min/1.73 sq m ESTIMATED GFR IS NOT rope=3806) ACCURATE CREATININE CLEARANCE IN PREDICTING GLOMERULAR FILTRATION RATE. ESTIMATED GFR IS NOT APPLICABLE FOR DIALYSIS PATIENTS. CBC W/PLT COUNT & AUTO [id number] 05:27:00 Test Item Value Reference Range Comments WHITE BLOOD CELL COUNT (BEAKER) (test rtif=341) 7.0 K/ L 3.5-10.5 RED BLOOD CELL COUNT (BEAKER) (test xfwh=316) 4.57 M/ L 4.63-6.08 HEMOGLOBIN (BEAKER) (test nuxf=738) 12.8 GM/DL 13.7-17.5 HEMATOCRIT (BEAKER) (test dzou=709) 38.2 % 40.1-51.0 MEAN CORPUSCULAR VOLUME (BEAKER) (test qevk=074) 83.6 fL 79.0-92.2 MEAN CORPUSCULAR HEMOGLOBIN (BEAKER) (test 28.0 pg 25.7-32.2 lezj=879) MEAN CORPUSCULAR HEMOGLOBIN CONC (BEAKER) (test 33.5 GM/DL 32.3-36.5 ncdq=518) RED CELL DISTRIBUTION WIDTH (BEAKER) (test 12.7 % 11.6-14.4 xbwu=536) PLATELET COUNT (BEAKER) (test nzbo=767) 324 K/CU MM 150-450 MEAN PLATELET VOLUME (BEAKER) (test pylt=477) 10.7 fL 9.4-12.4 NUCLEATED RED BLOOD CELLS (BEAKER) (test 0 /100 WBC 0-0 lzkt=035) NEUTROPHILS RELATIVE PERCENT (BEAKER) (test 57 % mfye=705) LYMPHOCYTES RELATIVE PERCENT (BEAKER) (test 30 % vpzm=456) MONOCYTES RELATIVE PERCENT (BEAKER) (test 8 % mxkb=491) EOSINOPHILS RELATIVE PERCENT (BEAKER) (test 4 % fgiq=274) BASOPHILS RELATIVE PERCENT (BEAKER) (test 1 % xzbc=856) NEUTROPHILS ABSOLUTE COUNT (BEAKER) (test 3.98 K/ L 1.78-5.38 jspl=832) LYMPHOCYTES ABSOLUTE COUNT (BEAKER) (test 2.07 K/ L 1.32-3.57 esui=507) MONOCYTES ABSOLUTE COUNT (BEAKER) (test 0.57 K/ L 0.30-0.82 gzql=848) EOSINOPHILS ABSOLUTE COUNT (BEAKER) (test 0.25 K/ L 0.04-0.54 ueqi=875) BASOPHILS ABSOLUTE COUNT (BEAKER) (test 0.06 K/ L 0.01-0.08 linh=183) IMMATURE GRANULOCYTES-RELATIVE PERCENT (BEAKER) 1 % 0-1 (test krcj=1748) POCT-GLUCOSE [id number] 21:34:00 Test Item Value Reference Range Comments POC-GLUCOSE METER (BEAKER) 345 mg/dL 70-110 TESTED AT [address] (test fjgc=3908) [facility] [address] POCT-GLUCOSE [id number] 17:04:00 Test Item Value Reference Range Comments POC-GLUCOSE METER (BEAKER) 374 mg/dL 70-110 Will Repeat Test/TESTED AT (test smdf=8683) [address] [address] POCT-GLUCOSE [id number] 11:38:00 Test Item Value Reference Range Comments POC-GLUCOSE METER (BEAKER) 167 mg/dL 70-110 TESTED AT [address] (test ktkv=0087) [facility] [address] POCT-GLUCOSE [id number] 08:05:00 Test Item Value Reference Range Comments POC-GLUCOSE METER (BEAKER) 184 mg/dL 70-110 TESTED AT [address] (test ajyo=0189) [facility] [address] BASIC METABOLIC [id number] 07:05:00 Test Item Value Reference Range Comments SODIUM (BEAKER) (test 140 meq/L 136-145 grmg=033) POTASSIUM (BEAKER) (test 3.5 meq/L 3.5-5.1 bxgw=686) CHLORIDE (BEAKER) (test 103 meq/L 98-107 ofyx=592) CO2 (BEAKER) (test 25 meq/L 22-29 gntm=328) BLOOD UREA NITROGEN 16 mg/dL 7-21 (BEAKER) (test ocgv=683) CREATININE (BEAKER) (test 0.86 mg/dL 0.57-1.25 vids=998) GLUCOSE RANDOM (BEAKER) 125 mg/dL 70-105 (test roep=005) CALCIUM (BEAKER) (test 10.1 mg/dL 8.4-10.2 hylb=406) EGFR (BEAKER) (test 89 mL/min/1.73 sq m ESTIMATED GFR IS NOT mmbr=3106) ACCURATE CREATININE CLEARANCE IN PREDICTING GLOMERULAR FILTRATION RATE. ESTIMATED GFR IS NOT APPLICABLE FOR DIALYSIS PATIENTS. CBC W/PLT COUNT & AUTO [id number] 06:23:00 Test Item Value Reference Range Comments WHITE BLOOD CELL COUNT (BEAKER) (test cdut=357) 6.4 K/ L 3.5-10.5 RED BLOOD CELL COUNT (BEAKER) (test ptcq=652) 4.85 M/ L 4.63-6.08 HEMOGLOBIN (BEAKER) (test jppg=806) 13.5 GM/DL 13.7-17.5 HEMATOCRIT (BEAKER) (test qjob=626) 42.3 % 40.1-51.0 MEAN CORPUSCULAR VOLUME (BEAKER) (test cdce=256) 87.2 fL 79.0-92.2 MEAN CORPUSCULAR HEMOGLOBIN (BEAKER) (test 27.8 pg 25.7-32.2 jrkn=823) MEAN CORPUSCULAR HEMOGLOBIN CONC (BEAKER) (test 31.9 GM/DL 32.3-36.5 pvcq=270) RED CELL DISTRIBUTION WIDTH (BEAKER) (test 12.8 % 11.6-14.4 jchj=103) PLATELET COUNT (BEAKER) (test ckru=929) 260 K/CU MM 150-450 MEAN PLATELET VOLUME (BEAKER) (test rmqx=548) 11.5 fL 9.4-12.4 NUCLEATED RED BLOOD CELLS (BEAKER) (test 0 /100 WBC 0-0 tvrw=250) NEUTROPHILS RELATIVE PERCENT (BEAKER) (test 64 % ykpd=796) LYMPHOCYTES RELATIVE PERCENT (BEAKER) (test 25 % aexb=086) MONOCYTES RELATIVE PERCENT (BEAKER) (test 6 % fmfs=095) EOSINOPHILS RELATIVE PERCENT (BEAKER) (test 3 % qycc=068) BASOPHILS RELATIVE PERCENT (BEAKER) (test 1 % lhho=095) NEUTROPHILS ABSOLUTE COUNT (BEAKER) (test 4.07 K/ L 1.78-5.38 mgfl=329) LYMPHOCYTES ABSOLUTE COUNT (BEAKER) (test 1.60 K/ L 1.32-3.57 vlzj=536) MONOCYTES ABSOLUTE COUNT (BEAKER) (test 0.41 K/ L 0.30-0.82 gnyd=227) EOSINOPHILS ABSOLUTE COUNT (BEAKER) (test 0.18 K/ L 0.04-0.54 rxnn=904) BASOPHILS ABSOLUTE COUNT (BEAKER) (test 0.09 K/ L 0.01-0.08 twuo=839) IMMATURE GRANULOCYTES-RELATIVE PERCENT (BEAKER) 1 % 0-1 (test jtbm=0816) BASIC METABOLIC [id number] 04:08:00 Test Item Value Reference Range Comments SODIUM (BEAKER) (test 144 meq/L 136-145 tiex=455) POTASSIUM (BEAKER) (test 3.2 meq/L 3.5-5.1 cjyr=188) CHLORIDE (BEAKER) (test 101 meq/L 98-107 qytj=377) CO2 (BEAKER) (test 21 meq/L 22-29 avvk=110) BLOOD UREA NITROGEN 20 mg/dL 7-21 (BEAKER) (test kira=040) CREATININE (BEAKER) (test 0.98 mg/dL 0.57-1.25 hrbw=303) GLUCOSE RANDOM (BEAKER) 104 mg/dL 70-105 (test jhad=470) CALCIUM (BEAKER) (test 10.1 mg/dL 8.4-10.2 feez=917) EGFR (BEAKER) (test 76 mL/min/1.73 sq m ESTIMATED GFR IS NOT ylou=6029) ACCURATE CREATININE CLEARANCE IN PREDICTING GLOMERULAR FILTRATION RATE. ESTIMATED GFR IS NOT APPLICABLE FOR DIALYSIS PATIENTS. CBC W/PLT COUNT & AUTO [id number] 04:06:00 Test Item Value Reference Range Comments WHITE BLOOD CELL COUNT (BEAKER) (test wulm=399) 6.6 K/ L 3.5-10.5 RED BLOOD CELL COUNT (BEAKER) (test sccp=904) 4.65 M/ L 4.63-6.08 HEMOGLOBIN (BEAKER) (test mama=539) 12.8 GM/DL 13.7-17.5 HEMATOCRIT (BEAKER) (test araa=205) 43.5 % 40.1-51.0 MEAN CORPUSCULAR VOLUME (BEAKER) (test mgvn=160) 93.5 fL 79.0-92.2 MEAN CORPUSCULAR HEMOGLOBIN (BEAKER) (test 27.5 pg 25.7-32.2 vvmh=429) MEAN CORPUSCULAR HEMOGLOBIN CONC (BEAKER) (test 29.4 GM/DL 32.3-36.5 zvhd=073) RED CELL DISTRIBUTION WIDTH (BEAKER) (test 15.7 % 11.6-14.4 dswc=325) PLATELET COUNT (BEAKER) (test nldx=624) 309 K/CU MM 150-450 MEAN PLATELET VOLUME (BEAKER) (test lvmt=368) 12.1 fL 9.4-12.4 NUCLEATED RED BLOOD CELLS (BEAKER) (test 0 /100 WBC 0-0 sdrm=642) NEUTROPHILS RELATIVE PERCENT (BEAKER) (test 68 % onlx=071) LYMPHOCYTES RELATIVE PERCENT (BEAKER) (test 20 % ubpj=146) MONOCYTES RELATIVE PERCENT (BEAKER) (test 9 % drhl=820) EOSINOPHILS RELATIVE PERCENT (BEAKER) (test 2 % ywyv=516) BASOPHILS RELATIVE PERCENT (BEAKER) (test 1 % xypp=144) NEUTROPHILS ABSOLUTE COUNT (BEAKER) (test 4.47 K/ L 1.78-5.38 zdbz=238) LYMPHOCYTES ABSOLUTE COUNT (BEAKER) (test 1.30 K/ L 1.32-3.57 qdxj=098) MONOCYTES ABSOLUTE COUNT (BEAKER) (test 0.57 K/ L 0.30-0.82 tmnu=124) EOSINOPHILS ABSOLUTE COUNT (BEAKER) (test 0.15 K/ L 0.04-0.54 gdgx=449) BASOPHILS ABSOLUTE COUNT (BEAKER) (test 0.08 K/ L 0.01-0.08 ckie=453) IMMATURE GRANULOCYTES-RELATIVE PERCENT (BEAKER) 0 % 0-1 (test jatq=5194) POCT-GLUCOSE [id number] 22:16:00 Test Item Value Reference Range Comments POC-GLUCOSE METER (BEAKER) 277 mg/dL 70-110 TESTED AT [address] (test lqog=2665) [facility] [address] POCT-GLUCOSE [id number] 18:16:00 Test Item Value Reference Range Comments POC-GLUCOSE METER (BEAKER) 314 mg/dL 70-110 Notified HENRIETTA SUAREZ/TESTED AT [facility] (test pjjs=7032) [address] [place] [address] POCT-GLUCOSE [id number] 12:17:00 Test Item Value Reference Range Comments POC-GLUCOSE METER (BEAKER) 285 mg/dL 70-110 TESTED AT [address] (test fnwc=1988) [facility] [address] POCT-GLUCOSE [id number] 08:31:00 Test Item Value Reference Range Comments POC-GLUCOSE METER (BEAKER) 193 mg/dL 70-110 TESTED AT [address] (test krlu=9710) [facility] [address] POCT-GLUCOSE [id number] 22:05:00 Test Item Value Reference Range Comments POC-GLUCOSE METER (BEAKER) 345 mg/dL 70-110 TESTED AT [address] (test yeyh=1614) [facility] [address] POCT-GLUCOSE [id number] 16:56:00 Test Item Value Reference Range Comments POC-GLUCOSE METER (BEAKER) 309 mg/dL 70-110 TESTED AT [address] (test bury=8820) [facility] [address] POCT-GLUCOSE [id number] 12:27:00 Test Item Value Reference Range Comments POC-GLUCOSE METER (BEAKER) 266 mg/dL 70-110 TESTED AT [address] (test wjli=3445) [facility] [address] POCT-GLUCOSE [id number] 09:22:00 Test Item Value Reference Range Comments POC-GLUCOSE METER (BEAKER) 114 mg/dL 70-110 TESTED AT [address] (test tngc=0117) [facility] [address] URIC [id number] 05:53:00 Test Item Value Reference Range Comments URIC ACID (BEAKER) (test 7.7 mg/dL 2.6-7.2 Specimen slightly hemolyzed vuyn=212) BASIC METABOLIC [id number] 05:53:00 Test Item Value Reference Range Comments SODIUM (BEAKER) (test 139 meq/L 136-145 njvr=452) POTASSIUM (BEAKER) (test 4.1 meq/L 3.5-5.1 Specimen slightly znaj=466) hemolyzed CHLORIDE (BEAKER) (test 104 meq/L 98-107 ixja=747) CO2 (BEAKER) (test 26 meq/L 22-29 whay=791) BLOOD UREA NITROGEN 19 mg/dL 7-21 (BEAKER) (test vamr=407) CREATININE (BEAKER) (test 0.99 mg/dL 0.57-1.25 Specimen slightly pnxd=156) hemolyzed GLUCOSE RANDOM (BEAKER) 136 mg/dL 70-105 (test wcgq=171) CALCIUM (BEAKER) (test 9.8 mg/dL 8.4-10.2 yigz=731) EGFR (BEAKER) (test 75 mL/min/1.73 sq m ESTIMATED GFR IS NOT ozyp=0583) ACCURATE CREATININE CLEARANCE IN PREDICTING GLOMERULAR FILTRATION RATE. ESTIMATED GFR IS NOT APPLICABLE FOR DIALYSIS PATIENTS. CBC W/PLT COUNT & AUTO [id number] 05:38:00 Test Item Value Reference Range Comments WHITE BLOOD CELL COUNT (BEAKER) (test kwcl=947) 6.0 K/ L 3.5-10.5 RED BLOOD CELL COUNT (BEAKER) (test oysx=454) 4.30 M/ L 4.63-6.08 HEMOGLOBIN (BEAKER) (test eebd=146) 12.0 GM/DL 13.7-17.5 HEMATOCRIT (BEAKER) (test shso=749) 36.1 % 40.1-51.0 MEAN CORPUSCULAR VOLUME (BEAKER) (test mgls=114) 84.0 fL 79.0-92.2 MEAN CORPUSCULAR HEMOGLOBIN (BEAKER) (test 27.9 pg 25.7-32.2 sopw=040) MEAN CORPUSCULAR HEMOGLOBIN CONC (BEAKER) (test 33.2 GM/DL 32.3-36.5 ertz=329) RED CELL DISTRIBUTION WIDTH (BEAKER) (test 12.9 % 11.6-14.4 kimx=807) PLATELET COUNT (BEAKER) (test axks=896) 303 K/CU MM 150-450 MEAN PLATELET VOLUME (BEAKER) (test ppcs=891) 10.8 fL 9.4-12.4 NUCLEATED RED BLOOD CELLS (BEAKER) (test 0 /100 WBC 0-0 upyz=862) NEUTROPHILS RELATIVE PERCENT (BEAKER) (test 54 % pvma=814) LYMPHOCYTES RELATIVE PERCENT (BEAKER) (test 29 % ixjw=234) MONOCYTES RELATIVE PERCENT (BEAKER) (test 11 % cgbz=914) EOSINOPHILS RELATIVE PERCENT (BEAKER) (test 4 % izig=927) BASOPHILS RELATIVE PERCENT (BEAKER) (test 1 % qrrv=117) NEUTROPHILS ABSOLUTE COUNT (BEAKER) (test 3.24 K/ L 1.78-5.38 rnci=101) LYMPHOCYTES ABSOLUTE COUNT (BEAKER) (test 1.75 K/ L 1.32-3.57 byoc=401) MONOCYTES ABSOLUTE COUNT (BEAKER) (test 0.63 K/ L 0.30-0.82 xbsf=745) EOSINOPHILS ABSOLUTE COUNT (BEAKER) (test 0.25 K/ L 0.04-0.54 vvhj=606) BASOPHILS ABSOLUTE COUNT (BEAKER) (test 0.07 K/ L 0.01-0.08 blcg=496) IMMATURE GRANULOCYTES-RELATIVE PERCENT (BEAKER) 1 % 0-1 (test exnl=6034) POCT-GLUCOSE [id number] 21:06:00 Test Item Value Reference Range Comments POC-GLUCOSE METER (BEAKER) 232 mg/dL 70-110 TESTED AT [address] (test iczv=7186) [place] [id number] POCT-GLUCOSE [id number] 17:22:00 Test Item Value Reference Range Comments POC-GLUCOSE METER (BEAKER) 95 mg/dL 70-110 TESTED AT [address] (test lcsg=9662) [place] [id number] POCT-GLUCOSE [id number] 13:13:00 Test Item Value Reference Range Comments POC-GLUCOSE METER (BEAKER) 118 mg/dL 70-110 TESTED AT [address] (test jmwc=6510) [place] [id number] POCT-GLUCOSE [id number] 08:23:00 Test Item Value Reference Range Comments POC-GLUCOSE METER (BEAKER) 72 mg/dL 70-110 TESTED AT [address] (test npag=3956) [place] [id number] BASIC METABOLIC [id number] 06:22:00 Test Item Value Reference Range Comments SODIUM (BEAKER) (test 137 meq/L 136-145 xjyc=295) POTASSIUM (BEAKER) (test 3.4 meq/L 3.5-5.1 hdju=172) CHLORIDE (BEAKER) (test 104 meq/L 98-107 sxee=258) CO2 (BEAKER) (test 23 meq/L 22-29 jksu=262) BLOOD UREA NITROGEN 16 mg/dL 7-21 (BEAKER) (test gmav=850) CREATININE (BEAKER) (test 0.83 mg/dL 0.57-1.25 vwfc=000) GLUCOSE RANDOM (BEAKER) 102 mg/dL 70-105 (test nogh=736) CALCIUM (BEAKER) (test 9.4 mg/dL 8.4-10.2 mspl=549) EGFR (BEAKER) (test 92 mL/min/1.73 sq m ESTIMATED GFR IS NOT tzek=7805) ACCURATE CREATININE CLEARANCE IN PREDICTING GLOMERULAR FILTRATION RATE. ESTIMATED GFR IS NOT APPLICABLE FOR DIALYSIS PATIENTS. CBC W/PLT COUNT & AUTO [id number] 05:25:00 Test Item Value Reference Range Comments WHITE BLOOD CELL COUNT (BEAKER) (test azcy=469) 6.3 K/ L 3.5-10.5 RED BLOOD CELL COUNT (BEAKER) (test wijf=506) 4.03 M/ L 4.63-6.08 HEMOGLOBIN (BEAKER) (test nnef=850) 11.3 GM/DL 13.7-17.5 HEMATOCRIT (BEAKER) (test ptch=725) 33.2 % 40.1-51.0 MEAN CORPUSCULAR VOLUME (BEAKER) (test laap=608) 82.4 fL 79.0-92.2 MEAN CORPUSCULAR HEMOGLOBIN (BEAKER) (test 28.0 pg 25.7-32.2 oyzu=198) MEAN CORPUSCULAR HEMOGLOBIN CONC (BEAKER) (test 34.0 GM/DL 32.3-36.5 lmkb=469) RED CELL DISTRIBUTION WIDTH (BEAKER) (test 12.8 % 11.6-14.4 bgea=471) PLATELET COUNT (BEAKER) (test uxdp=123) 291 K/CU MM 150-450 MEAN PLATELET VOLUME (BEAKER) (test fyvn=812) 10.7 fL 9.4-12.4 NUCLEATED RED BLOOD CELLS (BEAKER) (test 0 /100 WBC 0-0 ptii=183) NEUTROPHILS RELATIVE PERCENT (BEAKER) (test 61 % jhjz=522) LYMPHOCYTES RELATIVE PERCENT (BEAKER) (test 26 % lmgi=560) MONOCYTES RELATIVE PERCENT (BEAKER) (test 8 % fute=429) EOSINOPHILS RELATIVE PERCENT (BEAKER) (test 4 % tysw=472) BASOPHILS RELATIVE PERCENT (BEAKER) (test 1 % exte=688) NEUTROPHILS ABSOLUTE COUNT (BEAKER) (test 3.85 K/ L 1.78-5.38 rrgg=912) LYMPHOCYTES ABSOLUTE COUNT (BEAKER) (test 1.65 K/ L 1.32-3.57 bqbs=380) MONOCYTES ABSOLUTE COUNT (BEAKER) (test 0.50 K/ L 0.30-0.82 ociz=738) EOSINOPHILS ABSOLUTE COUNT (BEAKER) (test 0.23 K/ L 0.04-0.54 fzan=436) BASOPHILS ABSOLUTE COUNT (BEAKER) (test 0.04 K/ L 0.01-0.08 oxnk=443) IMMATURE GRANULOCYTES-RELATIVE PERCENT (BEAKER) 0 % 0-1 (test xwum=5434) POCT-GLUCOSE [id number] 20:55:00 Test Item Value Reference Range Comments POC-GLUCOSE METER (BEAKER) 173 mg/dL 70-110 TESTED AT [address] (test hfsz=4249) [facility] [id number] POCT-GLUCOSE [id number] 17:24:00 Test Item Value Reference Range Comments POC-GLUCOSE METER (BEAKER) 266 mg/dL 70-110 TESTED AT [address] (test cifm=0253) [facility] [address] POCT-GLUCOSE [id number] 12:36:00 Test Item Value Reference Range Comments POC-GLUCOSE METER (BEAKER) 284 mg/dL 70-110 TESTED AT [address] (test pyfp=2786) [facility] [address] BASIC METABOLIC [id number] 07:22:00 Test Item Value Reference Range Comments SODIUM (BEAKER) (test 140 meq/L 136-145 wosm=713) POTASSIUM (BEAKER) (test 3.6 meq/L 3.5-5.1 vyff=730) CHLORIDE (BEAKER) (test 105 meq/L 98-107 pqvq=135) CO2 (BEAKER) (test 25 meq/L 22-29 azdv=005) BLOOD UREA NITROGEN 23 mg/dL 7-21 (BEAKER) (test scds=895) CREATININE (BEAKER) (test 0.93 mg/dL 0.57-1.25 hfim=513) GLUCOSE RANDOM (BEAKER) 102 mg/dL 70-105 (test lwip=264) CALCIUM (BEAKER) (test 9.7 mg/dL 8.4-10.2 cftu=102) EGFR (BEAKER) (test 81 mL/min/1.73 sq m ESTIMATED GFR IS NOT wmzr=6744) ACCURATE CREATININE CLEARANCE IN PREDICTING GLOMERULAR FILTRATION RATE. ESTIMATED GFR IS NOT APPLICABLE FOR DIALYSIS PATIENTS. CBC W/PLT COUNT & AUTO [id number] 07:02:00 Test Item Value Reference Range Comments WHITE BLOOD CELL COUNT (BEAKER) (test tmpt=903) 7.1 K/ L 3.5-10.5 RED BLOOD CELL COUNT (BEAKER) (test wrdr=826) 4.25 M/ L 4.63-6.08 HEMOGLOBIN (BEAKER) (test xnnk=127) 11.8 GM/DL 13.7-17.5 HEMATOCRIT (BEAKER) (test ekmo=936) 36.1 % 40.1-51.0 MEAN CORPUSCULAR VOLUME (BEAKER) (test sdof=697) 84.9 fL 79.0-92.2 MEAN CORPUSCULAR HEMOGLOBIN (BEAKER) (test 27.8 pg 25.7-32.2 xukl=484) MEAN CORPUSCULAR HEMOGLOBIN CONC (BEAKER) (test 32.7 GM/DL 32.3-36.5 phng=720) RED CELL DISTRIBUTION WIDTH (BEAKER) (test 13.1 % 11.6-14.4 vjxq=525) PLATELET COUNT (BEAKER) (test mgbq=152) 262 K/CU MM 150-450 MEAN PLATELET VOLUME (BEAKER) (test zcau=073) 12.2 fL 9.4-12.4 NUCLEATED RED BLOOD CELLS (BEAKER) (test 0 /100 WBC 0-0 zewp=069) NEUTROPHILS RELATIVE PERCENT (BEAKER) (test 69 % efyz=920) LYMPHOCYTES RELATIVE PERCENT (BEAKER) (test 19 % fmeu=377) MONOCYTES RELATIVE PERCENT (BEAKER) (test 9 % cxuc=628) EOSINOPHILS RELATIVE PERCENT (BEAKER) (test 3 % fhll=437) BASOPHILS RELATIVE PERCENT (BEAKER) (test 0 % ltue=223) NEUTROPHILS ABSOLUTE COUNT (BEAKER) (test 4.88 K/ L 1.78-5.38 kvbr=984) LYMPHOCYTES ABSOLUTE COUNT (BEAKER) (test 1.38 K/ L 1.32-3.57 uexo=786) MONOCYTES ABSOLUTE COUNT (BEAKER) (test 0.61 K/ L 0.30-0.82 nooq=424) EOSINOPHILS ABSOLUTE COUNT (BEAKER) (test 0.20 K/ L 0.04-0.54 hfld=824) BASOPHILS ABSOLUTE COUNT (BEAKER) (test 0.03 K/ L 0.01-0.08 dioe=889) IMMATURE GRANULOCYTES-RELATIVE PERCENT (BEAKER) 0 % 0-1 (test jpar=3485) POCT-GLUCOSE [id number] 21:17:00 Test Item Value Reference Range Comments POC-GLUCOSE METER (BEAKER) 337 mg/dL 70-110 TESTED AT [address] (test ltqu=9137) [facility] [address] POCT-GLUCOSE [id number] 16:54:00 Test Item Value Reference Range Comments POC-GLUCOSE METER (BEAKER) 304 mg/dL 70-110 Notified HENRIETTA SUAREZ/TESTED AT [facility] (test ksdm=8924) [address] [place] [address] POCT-GLUCOSE [id number] 11:54:00 Test Item Value Reference Range Comments POC-GLUCOSE METER (BEAKER) 290 mg/dL 70-110 TESTED AT [address] (test pras=5435) [facility] [address] POCT-GLUCOSE [id number] 08:03:00 Test Item Value Reference Range Comments POC-GLUCOSE METER (BEAKER) 167 mg/dL 70-110 TESTED AT [address] (test cmje=6945) [facility] [address] BASIC METABOLIC [id number] 07:20:00 Test Item Value Reference Range Comments SODIUM (BEAKER) (test 137 meq/L 136-145 vwzy=012) POTASSIUM (BEAKER) (test 4.0 meq/L 3.5-5.1 eiyg=129) CHLORIDE (BEAKER) (test 105 meq/L 98-107 ylhs=604) CO2 (BEAKER) (test 22 meq/L 22-29 jmuj=038) BLOOD UREA NITROGEN 21 mg/dL 7-21 (BEAKER) (test lhcp=853) CREATININE (BEAKER) (test 0.99 mg/dL 0.57-1.25 sytv=983) GLUCOSE RANDOM (BEAKER) 172 mg/dL 70-105 (test bihz=436) CALCIUM (BEAKER) (test 9.8 mg/dL 8.4-10.2 quje=795) EGFR (BEAKER) (test 75 mL/min/1.73 sq m ESTIMATED GFR IS NOT kmjo=5746) ACCURATE CREATININE CLEARANCE IN PREDICTING GLOMERULAR FILTRATION RATE. ESTIMATED GFR IS NOT APPLICABLE FOR DIALYSIS PATIENTS. CBC W/PLT COUNT & AUTO [id number] 07:04:00 Test Item Value Reference Range Comments WHITE BLOOD CELL COUNT (BEAKER) (test kuqz=249) 8.2 K/ L 3.5-10.5 RED BLOOD CELL COUNT (BEAKER) (test brlp=789) 4.22 M/ L 4.63-6.08 HEMOGLOBIN (BEAKER) (test ieza=942) 12.0 GM/DL 13.7-17.5 HEMATOCRIT (BEAKER) (test lomi=399) 36.1 % 40.1-51.0 MEAN CORPUSCULAR VOLUME (BEAKER) (test zrxm=191) 85.5 fL 79.0-92.2 MEAN CORPUSCULAR HEMOGLOBIN (BEAKER) (test 28.4 pg 25.7-32.2 gyze=504) MEAN CORPUSCULAR HEMOGLOBIN CONC (BEAKER) (test 33.2 GM/DL 32.3-36.5 veyr=050) RED CELL DISTRIBUTION WIDTH (BEAKER) (test 13.2 % 11.6-14.4 bqie=096) PLATELET COUNT (BEAKER) (test gcot=687) 196 K/CU MM 150-450 MEAN PLATELET VOLUME (BEAKER) (test kgqk=540) 12.1 fL 9.4-12.4 NUCLEATED RED BLOOD CELLS (BEAKER) (test 0 /100 WBC 0-0 sdec=866) NEUTROPHILS RELATIVE PERCENT (BEAKER) (test 72 % evau=925) LYMPHOCYTES RELATIVE PERCENT (BEAKER) (test 17 % ojxu=767) MONOCYTES RELATIVE PERCENT (BEAKER) (test 9 % apcg=305) EOSINOPHILS RELATIVE PERCENT (BEAKER) (test 2 % omtf=958) BASOPHILS RELATIVE PERCENT (BEAKER) (test 0 % wums=272) NEUTROPHILS ABSOLUTE COUNT (BEAKER) (test 5.89 K/ L 1.78-5.38 jdpp=999) LYMPHOCYTES ABSOLUTE COUNT (BEAKER) (test 1.42 K/ L 1.32-3.57 wpgy=429) MONOCYTES ABSOLUTE COUNT (BEAKER) (test 0.72 K/ L 0.30-0.82 oous=006) EOSINOPHILS ABSOLUTE COUNT (BEAKER) (test 0.14 K/ L 0.04-0.54 ukyo=778) BASOPHILS ABSOLUTE COUNT (BEAKER) (test 0.03 K/ L 0.01-0.08 dvut=590) IMMATURE GRANULOCYTES-RELATIVE PERCENT (BEAKER) 0 % 0-1 (test gqaa=2595) POCT-GLUCOSE [id number] 21:18:00 Test Item Value Reference Range Comments POC-GLUCOSE METER (BEAKER) 412 mg/dL 70-110 TESTED AT [address] (test ytmx=4050) [facility] [address] POCT-GLUCOSE [id number] 17:07:00 Test Item Value Reference Range Comments POC-GLUCOSE METER (BEAKER) 273 mg/dL 70-110 TESTED AT [address] (test cbfy=4227) [facility] [address] POCT-GLUCOSE [id number] 12:23:00 Test Item Value Reference Range Comments POC-GLUCOSE METER (BEAKER) 267 mg/dL 70-110 TESTED AT [address] (test acce=9452) [facility] [address] POCT-GLUCOSE [id number] 08:28:00 Test Item Value Reference Range Comments POC-GLUCOSE METER (BEAKER) 126 mg/dL 70-110 TESTED AT [address] (test mbbq=9123) [facility] [address] CBC W/PLT COUNT & AUTO [id number] 04:59:00 Test Item Value Reference Range Comments WHITE BLOOD CELL COUNT (BEAKER) (test jaun=775) 11.5 K/ L 3.5-10.5 RED BLOOD CELL COUNT (BEAKER) (test fbqp=967) 4.57 M/ L 4.63-6.08 HEMOGLOBIN (BEAKER) (test muwe=202) 12.8 GM/DL 13.7-17.5 HEMATOCRIT (BEAKER) (test zsri=335) 37.8 % 40.1-51.0 MEAN CORPUSCULAR VOLUME (BEAKER) (test yiau=877) 82.7 fL 79.0-92.2 MEAN CORPUSCULAR HEMOGLOBIN (BEAKER) (test 28.0 pg 25.7-32.2 sblc=319) MEAN CORPUSCULAR HEMOGLOBIN CONC (BEAKER) (test 33.9 GM/DL 32.3-36.5 iyfw=577) RED CELL DISTRIBUTION WIDTH (BEAKER) (test 13.2 % 11.6-14.4 xhoc=754) PLATELET COUNT (BEAKER) (test vfii=023) 194 K/CU MM 150-450 MEAN PLATELET VOLUME (BEAKER) (test ofjr=734) 11.9 fL 9.4-12.4 NUCLEATED RED BLOOD CELLS (BEAKER) (test 0 /100 WBC 0-0 ohhs=938) NEUTROPHILS RELATIVE PERCENT (BEAKER) (test 82 % anru=829) LYMPHOCYTES RELATIVE PERCENT (BEAKER) (test 10 % rtjv=825) MONOCYTES RELATIVE PERCENT (BEAKER) (test 8 % ijsl=581) EOSINOPHILS RELATIVE PERCENT (BEAKER) (test 0 % kssl=921) BASOPHILS RELATIVE PERCENT (BEAKER) (test 0 % dcog=203) NEUTROPHILS ABSOLUTE COUNT (BEAKER) (test 9.43 K/ L 1.78-5.38 ttsw=464) LYMPHOCYTES ABSOLUTE COUNT (BEAKER) (test 1.09 K/ L 1.32-3.57 sfjl=832) MONOCYTES ABSOLUTE COUNT (BEAKER) (test 0.86 K/ L 0.30-0.82 qcoy=419) EOSINOPHILS ABSOLUTE COUNT (BEAKER) (test 0.01 K/ L 0.04-0.54 tpuj=983) BASOPHILS ABSOLUTE COUNT (BEAKER) (test 0.04 K/ L 0.01-0.08 jaaj=325) IMMATURE GRANULOCYTES-RELATIVE PERCENT (BEAKER) 0 % 0-1 (test ibiv=0526) BASIC METABOLIC [id number] 04:45:00 Test Item Value Reference Range Comments SODIUM (BEAKER) (test 138 meq/L 136-145 tqtf=692) POTASSIUM (BEAKER) (test 3.7 meq/L 3.5-5.1 xsmh=253) CHLORIDE (BEAKER) (test 107 meq/L 98-107 uxbw=480) CO2 (BEAKER) (test 22 meq/L 22-29 xcej=422) BLOOD UREA NITROGEN 14 mg/dL 7-21 (BEAKER) (test xoxq=000) CREATININE (BEAKER) (test 0.91 mg/dL 0.57-1.25 sedc=218) GLUCOSE RANDOM (BEAKER) 168 mg/dL 70-105 (test msmb=672) CALCIUM (BEAKER) (test 9.8 mg/dL 8.4-10.2 aysj=424) EGFR (BEAKER) (test 83 mL/min/1.73 sq m ESTIMATED GFR IS NOT tpwd=9996) ACCURATE CREATININE CLEARANCE IN PREDICTING GLOMERULAR FILTRATION RATE. ESTIMATED GFR IS NOT APPLICABLE FOR DIALYSIS PATIENTS. POCT-GLUCOSE [id number] 21:48:00 Test Item Value Reference Range Comments POC-GLUCOSE METER (BEAKER) 272 mg/dL 70-110 TESTED AT [address] (test njtf=5670) [place] [id number] POCT-GLUCOSE [id number] 17:49:00 Test Item Value Reference Range Comments POC-GLUCOSE METER (BEAKER) 226 mg/dL 70-110 TESTED AT [address] (test zqvr=2173) [facility] [address] POCT-GLUCOSE [id number] 12:27:00 Test Item Value Reference Range Comments POC-GLUCOSE METER (BEAKER) 230 mg/dL 70-110 TESTED AT [address] (test asjb=7976) [place] [id number] POCT-GLUCOSE [id number] 08:05:00 Test Item Value Reference Range Comments POC-GLUCOSE METER (BEAKER) 61 mg/dL 70-110 Notified HENRIETTA SUAREZ/TESTED AT [facility] (test ikqk=9337) [address] [place] [address] BASIC METABOLIC [id number] 06:49:00 Test Item Value Reference Range Comments SODIUM (BEAKER) (test 140 meq/L 136-145 kmrs=421) POTASSIUM (BEAKER) (test 3.6 meq/L 3.5-5.1 efol=303) CHLORIDE (BEAKER) (test 108 meq/L 98-107 rvwx=517) CO2 (BEAKER) (test 23 meq/L 22-29 ntvl=091) BLOOD UREA NITROGEN 15 mg/dL 7-21 (BEAKER) (test ixew=845) CREATININE (BEAKER) (test 0.92 mg/dL 0.57-1.25 pyja=643) GLUCOSE RANDOM (BEAKER) 75 mg/dL 70-105 (test uejf=715) CALCIUM (BEAKER) (test 9.4 mg/dL 8.4-10.2 ewlm=163) EGFR (BEAKER) (test 82 mL/min/1.73 sq m ESTIMATED GFR IS NOT lqjs=5827) ACCURATE CREATININE CLEARANCE IN PREDICTING GLOMERULAR FILTRATION RATE. ESTIMATED GFR IS NOT APPLICABLE FOR DIALYSIS PATIENTS. CBC W/PLT COUNT & AUTO [id number] 06:43:00 Test Item Value Reference Range Comments WHITE BLOOD CELL COUNT (BEAKER) (test pdfh=955) 9.4 K/ L 3.5-10.5 RED BLOOD CELL COUNT (BEAKER) (test cizq=863) 4.15 M/ L 4.63-6.08 HEMOGLOBIN (BEAKER) (test sqft=833) 11.9 GM/DL 13.7-17.5 HEMATOCRIT (BEAKER) (test xbmb=340) 34.4 % 40.1-51.0 MEAN CORPUSCULAR VOLUME (BEAKER) (test hfbk=718) 82.9 fL 79.0-92.2 MEAN CORPUSCULAR HEMOGLOBIN (BEAKER) (test 28.7 pg 25.7-32.2 zbzt=898) MEAN CORPUSCULAR HEMOGLOBIN CONC (BEAKER) (test 34.6 GM/DL 32.3-36.5 czmh=627) RED CELL DISTRIBUTION WIDTH (BEAKER) (test 13.2 % 11.6-14.4 jujs=764) PLATELET COUNT (BEAKER) (test kdcw=385) 215 K/CU MM 150-450 MEAN PLATELET VOLUME (BEAKER) (test lkpy=510) 11.9 fL 9.4-12.4 NUCLEATED RED BLOOD CELLS (BEAKER) (test 0 /100 WBC 0-0 quhb=036) NEUTROPHILS RELATIVE PERCENT (BEAKER) (test 69 % nefj=981) LYMPHOCYTES RELATIVE PERCENT (BEAKER) (test 19 % ctxs=735) MONOCYTES RELATIVE PERCENT (BEAKER) (test 12 % pdou=160) EOSINOPHILS RELATIVE PERCENT (BEAKER) (test 0 % dqie=453) BASOPHILS RELATIVE PERCENT (BEAKER) (test 0 % kvax=977) NEUTROPHILS ABSOLUTE COUNT (BEAKER) (test 6.49 K/ L 1.78-5.38 xbwb=133) LYMPHOCYTES ABSOLUTE COUNT (BEAKER) (test 1.76 K/ L 1.32-3.57 uwre=059) MONOCYTES ABSOLUTE COUNT (BEAKER) (test 1.08 K/ L 0.30-0.82 zcvh=501) EOSINOPHILS ABSOLUTE COUNT (BEAKER) (test 0.03 K/ L 0.04-0.54 tbfm=516) BASOPHILS ABSOLUTE COUNT (BEAKER) (test 0.03 K/ L 0.01-0.08 rjkx=360) IMMATURE GRANULOCYTES-RELATIVE PERCENT (BEAKER) 0 % 0-1 (test rdxy=8651) POCT-GLUCOSE [id number] 21:26:00 Test Item Value Reference Range Comments POC-GLUCOSE METER (BEAKER) 246 mg/dL 70-110 TESTED AT [facility] [address] [facility] (test gngb=6918) [facility] [address] POCT-GLUCOSE [id number] 17:42:00 Test Item Value Reference Range Comments POC-GLUCOSE METER (BEAKER) 199 mg/dL 70-110 TESTED AT [facility] [address] [facility] (test vekt=9310) [facility] [address] CT, CAROTID, [id number] 15:02:00FINAL REPORT CT angiogram of the upper chest, [...] to reduce the radiation dose to as lowas reasonably achievable. The right medulla lesion discussed [...] noted with suspected bilateral distal carotid siphon stenoses , estimated to be moderate to severe both [...] 2. Normal CTA upper chest and neck. 3.Bilateral carotid siphon moderate to severe atherosclerotic suspected stenosis. Otherwise intact proximal intracranial arterial vasculature. 4. Incidental multilevel cervical spondylosis. I could not exclude moderate degenerative central canal stenosis C5 /C6. Neurological correlation is warranted. Signed: Fauzia Salinas Verified Date/Time: 05/28/2018 15:02:10 Reading Location: [address] Consult Reading Room 03 :02 [facility] [id number] 15:02:00FINAL REPORT CT angiogram of the upper chest, neck, and head Comparison: None Reason for exam : Stroke Discussion: Multiple axial CT images of [...] reconstruction, and/or weight based adjustment of the mA/ kV was utilized to reduce the radiation dose to as lowas reasonably achievable. The right medulla lesion discussed [...] noted with suspected bilateral distal carotid siphon stenoses , estimated to be moderate to severe both [...] 2. Normal CTA upper chest and neck. 3.Bilateral carotid siphon moderate to severe atherosclerotic suspected stenosis. Otherwise intact proximal intracranial arterial vasculature. 4. Incidental multilevel cervical spondylosis. I could not exclude moderate degenerative central canal stenosis C5 /C6. Neurological correlation is warranted. Signed: Fauzia Salinas Verified Date/Time: 05/28/2018 15:02:10 Reading Location: [place] [id number] Consult Reading Room 03 :02 PMPOCT-GLUCOSE [id number] 08:16:00 Test Item Value Reference Range Comments POC-GLUCOSE METER (BEAKER) 122 mg/dL 70-110 TESTED AT [facility] [address] [facility] (test yazg=3682) [facility] [address] BASIC METABOLIC [id number] 04:52:00 Test Item Value Reference Range Comments SODIUM (BEAKER) (test 138 meq/L 136-145 fqxn=864) POTASSIUM (BEAKER) (test 3.6 meq/L 3.5-5.1 Specimen slightly awtd=204) hemolyzed CHLORIDE (BEAKER) (test 105 meq/L 98-107 rihz=628) CO2 (BEAKER) (test 23 meq/L 22-29 icyw=480) BLOOD UREA NITROGEN 8 mg/dL 7-21 (BEAKER) (test zamo=096) CREATININE (BEAKER) (test 0.82 mg/dL 0.57-1.25 Specimen slightly yrzq=426) hemolyzed GLUCOSE RANDOM (BEAKER) 112 mg/dL 70-105 (test oitl=854) CALCIUM (BEAKER) (test 9.7 mg/dL 8.4-10.2 fysx=909) EGFR (BEAKER) (test 94 mL/min/1.73 sq m ESTIMATED GFR IS NOT sbwb=3787) ACCURATE CREATININE CLEARANCE IN PREDICTING GLOMERULAR FILTRATION RATE. ESTIMATED GFR IS NOT APPLICABLE FOR DIALYSIS PATIENTS. CBC W/PLT COUNT & AUTO [id number] 04:39:00 Test Item Value Reference Range Comments WHITE BLOOD CELL COUNT (BEAKER) (test llzm=343) 9.5 K/ L 3.5-10.5 RED BLOOD CELL COUNT (BEAKER) (test fmjg=737) 4.99 M/ L 4.63-6.08 HEMOGLOBIN (BEAKER) (test mirv=367) 14.2 GM/DL 13.7-17.5 HEMATOCRIT (BEAKER) (test qfcw=647) 41.4 % 40.1-51.0 MEAN CORPUSCULAR VOLUME (BEAKER) (test dmkm=959) 83.0 fL 79.0-92.2 MEAN CORPUSCULAR HEMOGLOBIN (BEAKER) (test 28.5 pg 25.7-32.2 fewe=797) MEAN CORPUSCULAR HEMOGLOBIN CONC (BEAKER) (test 34.3 GM/DL 32.3-36.5 kesr=529) RED CELL DISTRIBUTION WIDTH (BEAKER) (test 13.0 % 11.6-14.4 niuc=971) PLATELET COUNT (BEAKER) (test bsjg=815) 200 K/CU MM 150-450 MEAN PLATELET VOLUME (BEAKER) (test smma=700) 11.6 fL 9.4-12.4 NUCLEATED RED BLOOD CELLS (BEAKER) (test 0 /100 WBC 0-0 sbcm=636) NEUTROPHILS RELATIVE PERCENT (BEAKER) (test 72 % jilv=330) LYMPHOCYTES RELATIVE PERCENT (BEAKER) (test 19 % kyge=948) MONOCYTES RELATIVE PERCENT (BEAKER) (test 9 % qksu=547) EOSINOPHILS RELATIVE PERCENT (BEAKER) (test 1 % swdx=759) BASOPHILS RELATIVE PERCENT (BEAKER) (test 0 % uwwo=629) NEUTROPHILS ABSOLUTE COUNT (BEAKER) (test 6.84 K/ L 1.78-5.38 cjvw=782) LYMPHOCYTES ABSOLUTE COUNT (BEAKER) (test 1.78 K/ L 1.32-3.57 hvpk=668) MONOCYTES ABSOLUTE COUNT (BEAKER) (test 0.81 K/ L 0.30-0.82 efuw=966) EOSINOPHILS ABSOLUTE COUNT (BEAKER) (test 0.05 K/ L 0.04-0.54 yqec=019) BASOPHILS ABSOLUTE COUNT (BEAKER) (test 0.04 K/ L 0.01-0.08 rfsf=903) IMMATURE GRANULOCYTES-RELATIVE PERCENT (BEAKER) 0 % 0-1 (test iqui=7147) POCT-GLUCOSE [id number] 23:15:00 Test Item Value Reference Range Comments POC-GLUCOSE METER (BEAKER) 242 mg/dL 70-110 TESTED AT [facility] [address] [facility] (test bnzl=8057) [facility] [address] POCT-GLUCOSE [id number] 17:35:00 Test Item Value Reference Range Comments POC-GLUCOSE METER (BEAKER) 268 mg/dL 70-110 TESTED AT [address] (test mjrt=6101) [facility] [address] EEG AWAKE AND [id number] 14:32:00For STAT EEG- after 5 PM weekdays, weekends and holidays, page the on-call EEG TechReason for exam:->Witnessed seizureDATE OF TEST: 05/27/2018 DATE OF REPORT : 05/27/2018 ACC: [id number] EE- 1220 Start time: 05/27/2018 at 10:43 Stop time: 05/27/2018 at 11:04 ICD-10: R 56.9 CPT Code: 61556 HISTORY: 68 year old male with dementia [...] rhythm. 2. Generalized polymorphic delta slowing CLINICAL CORRELATION : Generalized slowing as seen in this record supports an etiologically nonspecific moderate encephalopathy. There are no epileptiform discharges or electrographic seizures. Ruth Blackwell M.D., 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, [facility] [place] POCT-GLUCOSE [id number] 12:20:00 Test Item Value Reference Range Comments POC-GLUCOSE METER (BEAKER) 296 mg/dL 70-110 TESTED AT [place] [id number] [facility] (test ezee=9296) [facility] [address] POCT-GLUCOSE [id number] 09:46:00 Test Item Value Reference Range Comments POC-GLUCOSE METER (BEAKER) 251 mg/dL 70-110 TESTED AT [facility] [address] (test qykm=4615) [facility] [address] BASIC METABOLIC [id number] 06:21:00 Test Item Value Reference Range Comments SODIUM (BEAKER) (test 134 meq/L 136-145 rwix=117) POTASSIUM (BEAKER) (test 3.8 meq/L 3.5-5.1 jilz=103) CHLORIDE (BEAKER) (test 103 meq/L 98-107 dpds=816) CO2 (BEAKER) (test 21 meq/L 22-29 mcit=958) BLOOD UREA NITROGEN 10 mg/dL 7-21 (BEAKER) (test dzhs=438) CREATININE (BEAKER) (test 0.94 mg/dL 0.57-1.25 szra=103) GLUCOSE RANDOM (BEAKER) 231 mg/dL 70-105 (test peut=206) CALCIUM (BEAKER) (test 9.4 mg/dL 8.4-10.2 afpf=046) EGFR (BEAKER) (test 80 mL/min/1.73 sq m ESTIMATED GFR IS NOT imrv=6726) ACCURATE CREATININE CLEARANCE IN PREDICTING GLOMERULAR FILTRATION RATE. ESTIMATED GFR IS NOT APPLICABLE FOR DIALYSIS PATIENTS. CBC W/PLT COUNT & AUTO [id number] 06:02:00 Test Item Value Reference Range Comments WHITE BLOOD CELL COUNT (BEAKER) (test lwdj=905) 8.5 K/ L 3.5-10.5 RED BLOOD CELL COUNT (BEAKER) (test waxq=862) 4.70 M/ L 4.63-6.08 HEMOGLOBIN (BEAKER) (test ytly=408) 13.1 GM/DL 13.7-17.5 HEMATOCRIT (BEAKER) (test wncw=463) 38.4 % 40.1-51.0 MEAN CORPUSCULAR VOLUME (BEAKER) (test msbl=775) 81.7 fL 79.0-92.2 MEAN CORPUSCULAR HEMOGLOBIN (BEAKER) (test 27.9 pg 25.7-32.2 cply=419) MEAN CORPUSCULAR HEMOGLOBIN CONC (BEAKER) (test 34.1 GM/DL 32.3-36.5 fneu=594) RED CELL DISTRIBUTION WIDTH (BEAKER) (test 13.1 % 11.6-14.4 gpza=149) PLATELET COUNT (BEAKER) (test jaog=457) 244 K/CU MM 150-450 MEAN PLATELET VOLUME (BEAKER) (test zbqb=657) 11.4 fL 9.4-12.4 NUCLEATED RED BLOOD CELLS (BEAKER) (test 0 /100 WBC 0-0 zpck=977) NEUTROPHILS RELATIVE PERCENT (BEAKER) (test 66 % amds=189) LYMPHOCYTES RELATIVE PERCENT (BEAKER) (test 24 % rxge=542) MONOCYTES RELATIVE PERCENT (BEAKER) (test 7 % vdyx=801) EOSINOPHILS RELATIVE PERCENT (BEAKER) (test 1 % sget=346) BASOPHILS RELATIVE PERCENT (BEAKER) (test 1 % bfqj=636) NEUTROPHILS ABSOLUTE COUNT (BEAKER) (test 5.59 K/ L 1.78-5.38 ghcs=362) LYMPHOCYTES ABSOLUTE COUNT (BEAKER) (test 2.06 K/ L 1.32-3.57 zlcs=430) MONOCYTES ABSOLUTE COUNT (BEAKER) (test 0.61 K/ L 0.30-0.82 yhpg=982) EOSINOPHILS ABSOLUTE COUNT (BEAKER) (test 0.08 K/ L 0.04-0.54 wwqu=526) BASOPHILS ABSOLUTE COUNT (BEAKER) (test 0.07 K/ L 0.01-0.08 hdpj=356) IMMATURE GRANULOCYTES-RELATIVE PERCENT (BEAKER) 1 % 0-1 (test ynvs=3491) MR, BRAIN, WITHOUT [id number] 02:49:00Reason for exam:->StrokeWhat is the patient's sedation requirement?->No SedationFINAL REPORT Exam: MRI brain without contrast. Comparison: None. Clinical indication: Stroke. Technique: Multiplanar multi sequential MR imaging of the brain was performed without the administration of intravenous contrast. Findings: There is generalized parenchymal atrophy.There are wdiu-aw-waexxqsc white matter microvascular ischemic changes. There is no restricted diffusion to suggest an acute infarct. There are punctate foci of susceptibility artifacts in the right temporal lobe and bilateral superior frontal gyri which may represent prior microhemorrhage. There isfaint T2 hyperintense/T1 isointense lesion in the right ventral medulla, nonspecific but may represent a capillary telangectasia. There is no intracranial mass, mass effect, extra- axial collection, hydrocephalus or herniation. The skull base flow-voids are seen in keeping with their patency. The visualized paranasal sinuses and mastoid air cells are clear. The orbits, sella and parasellar regions are unremarkable. The craniocervical junction is normal. Impression:Mild to moderate minimal microvascular ischemic changes. 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 Signed: Jessica Hendrickseport Verified Date/Time: 05/27/2018 02:49:43 Reading Location: [facility] [id number] Transitional Reading Room POCT-GLUCOSE [id number] 22: 01:00 Test Item Value Reference Range Comments POC-GLUCOSE METER (BEAKER) 215 mg/dL 70-110 TESTED AT [address] (test ieto=9159) [facility] [address] POCT-GLUCOSE [id number] 17:04:00 Test Item Value Reference Range Comments POC-GLUCOSE METER (BEAKER) 172 mg/dL 70-110 TESTED AT [place] [id number] [facility] (test efbv=2733) [facility] [address] TROPONIN [id number] 16:42:00 Test Item Value Reference Range Comments TROPONIN I (BEAKER) (test rztb=948) < ng/mL 0.00-0.03 Troponin I (TnI) levels must be interpreted [...] failure, acidosis, acute neurological disease, and persistent tachyarrhythmia.VITAMIN B12 AND [id number] 13:23: 00 Test Item Value Reference Range Comments VITAMIN B12 (BEAKER) (test vaim=799) 776 pg/mL 213-816 FOLATE (BEAKER) (test odol=284) > ng/mL >=7.0 TSH/FREE T4 IF [id number] 13:07:00 Test Item Value Reference Range Comments THYROID STIMULATING HORMONE (BEAKER) (test 1.28 uIU/mL 0.35-4.94 fxnm=212) POCT-GLUCOSE [id number] 11:24:00 Test Item Value Reference Range Comments POC-GLUCOSE METER (BEAKER) 329 mg/dL 70-110 TESTED AT [address] (test zhuk=3147) [facility] [address] RAD, CHEST, 1 VIEW, NON [id number] 10:27:00Reason for exam:-> strokeShould this be performed at the bedside?->YesFINAL REPORT Chest, 1 view Clinical history: stroke [...] portable technique. No acute osseous abnormality. Signed: Amrita Partida [facility] Verified Date/Time: 05/26/2018 10:27:35 Reading Location: [facility] [id number] Ortho Consult Reading Room Electronically signed by: AMRITA PARTIDA M.D. on 2017 10:27 AMTROPONIN [id number] 09:43:00 Test Item Value Reference Range Comments TROPONIN I (BEAKER) (test tzcz=056) 0.01 ng/mL 0.00-0.03 Troponin I (TnI) levels must be interpreted [...] failure, acidosis, acute neurological disease, and persistent tachyarrhythmia.POCT-GLUCOSE [id number] 08:38:00 Test Item Value Reference Range Comments POC-GLUCOSE METER (BEAKER) 336 mg/dL 70-110 TESTED AT [address] (test idwq=4296) [facility] [address] HEMOGLOBIN [id number] 08:24:00 Test Item Value Reference Range Comments HEMOGLOBIN A1C (BEAKER) (test idvz=593) 13.2 % 4.3-6.1 POCT-GLUCOSE [id number] 07:18:00 Test Item Value Reference Range Comments POC-GLUCOSE METER (BEAKER) 365 mg/dL 70-110 TESTED AT [facility] [address] [facility] (test crav=8570) [facility] [address] LIPID [id number] 03:38:00 Test Item Value Reference Range Comments TRIGLYCERIDES (BEAKER) (test erhl=999) 122 mg/dL CHOLESTEROL (BEAKER) (test trrd=669) 166 mg/dL HDL CHOLESTEROL (BEAKER) (test eqxh=407) 40 mg/dL LDL CHOLESTEROL CALCULATED (BEAKER) (test 102 mg/dL woxp=473) Triglyceride Reference Range: Low Risk <150 Borderline 150- 199 High Risk 200-499 Very High Risk >=500Cholesterol Reference Range: Low Risk <200 Borderline 200-239 High Risk > 240HDL Cholesterol Reference Range: Low Risk >=60 High Risk <40LDL Cholesterol Reference Range: Optimal <100 Near Optimal 100-129 Borderline 130-159 High 160-189 Very High >=190 FastingBASIC METABOLIC [id number] 03:38:00 Test Item Value Reference Range Comments SODIUM (BEAKER) (test 140 meq/L 136-145 fcfx=201) POTASSIUM (BEAKER) (test 3.8 meq/L 3.5-5.1 mrki=020) CHLORIDE (BEAKER) (test 103 meq/L 98-107 eiwa=892) CO2 (BEAKER) (test 23 meq/L 22-29 rzgs=283) BLOOD UREA NITROGEN 19 mg/dL 7-21 (BEAKER) (test hzcl=305) CREATININE (BEAKER) (test 1.30 mg/dL 0.57-1.25 qdkd=710) GLUCOSE RANDOM (BEAKER) 338 mg/dL 70-105 (test povf=511) CALCIUM (BEAKER) (test 9.9 mg/dL 8.4-10.2 nppq=281) EGFR (BEAKER) (test 55 mL/min/1.73 sq m ESTIMATED GFR IS NOT iavv=0501) ACCURATE CREATININE CLEARANCE IN PREDICTING GLOMERULAR FILTRATION RATE. ESTIMATED GFR IS NOT APPLICABLE FOR DIALYSIS PATIENTS. FastingHEPATIC FUNCTION [id number] 03:38:00 Test Item Value Reference Range Comments TOTAL PROTEIN (BEAKER) (test lnkk=927) 7.3 gm/dL 6.0-8.3 ALBUMIN (BEAKER) (test dgbz=2590) 4.0 g/dL 3.5-5.0 BILIRUBIN TOTAL (BEAKER) (test bwxj=378) 0.3 mg/dL 0.2-1.2 BILIRUBIN DIRECT (BEAKER) (test wtna=751) 0.2 mg/dL 0.1-0.5 ALKALINE PHOSPHATASE (BEAKER) (test rknl=076) 107 U/L 40-150 AST (SGOT) (BEAKER) (test kcvt=239) 14 U/L 5-34 ALT (SGPT) (BEAKER) (test eqmk=055) 11 U/L 6-55 FastingPROTHROMBIN [id number] 03:29:00 Test Item Value Reference Range Comments PROTIME (BEAKER) (test cwfo=960) 14.8 seconds 11.7-14.7 INR (BEAKER) (test fbjm=506) 1.2 <=5.9 RECOMMENDED COUMADIN/WARFARIN INR THERAPY RANGESSTANDARD DOSE: 2.0 - 3.0 Includes: PROPHYLAXIS forvenous thrombosis, systemic embolization; TREATMENT for venous thrombosis and/or pulmonary embolus.HIGH RISK: Target INR is 2.5-3.5 for patients with mechanical heart valves.CBC W/PLT COUNT & AUTO [id number] 03:27:00 Test Item Value Reference Range Comments WHITE BLOOD CELL COUNT (BEAKER) (test ncez=504) 14.0 K/ L 3.5-10.5 RED BLOOD CELL COUNT (BEAKER) (test qjcz=370) 4.43 M/ L 4.63-6.08 HEMOGLOBIN (BEAKER) (test agof=227) 12.5 GM/DL 13.7-17.5 HEMATOCRIT (BEAKER) (test mzgy=929) 36.6 % 40.1-51.0 MEAN CORPUSCULAR VOLUME (BEAKER) (test kddt=049) 82.6 fL 79.0-92.2 MEAN CORPUSCULAR HEMOGLOBIN (BEAKER) (test 28.2 pg 25.7-32.2 jzpv=822) MEAN CORPUSCULAR HEMOGLOBIN CONC (BEAKER) (test 34.2 GM/DL 32.3-36.5 kfpp=383) RED CELL DISTRIBUTION WIDTH (BEAKER) (test 13.0 % 11.6-14.4 dhzf=638) PLATELET COUNT (BEAKER) (test aflm=685) 248 K/CU MM 150-450 MEAN PLATELET VOLUME (BEAKER) (test kgeb=815) 11.4 fL 9.4-12.4 NUCLEATED RED BLOOD CELLS (BEAKER) (test 0 /100 WBC 0-0 whhs=213) NEUTROPHILS RELATIVE PERCENT (BEAKER) (test 84 % leno=816) LYMPHOCYTES RELATIVE PERCENT (BEAKER) (test 8 % qncb=811) MONOCYTES RELATIVE PERCENT (BEAKER) (test 7 % jwpm=988) EOSINOPHILS RELATIVE PERCENT (BEAKER) (test 0 % vmmg=207) BASOPHILS RELATIVE PERCENT (BEAKER) (test 0 % pgqw=105) NEUTROPHILS ABSOLUTE COUNT (BEAKER) (test 11.72 K/ L 1.78-5.38 nfvj=264) LYMPHOCYTES ABSOLUTE COUNT (BEAKER) (test 1.16 K/ L 1.32-3.57 oidl=747) MONOCYTES ABSOLUTE COUNT (BEAKER) (test 0.94 K/ L 0.30-0.82 yxnd=537) EOSINOPHILS ABSOLUTE COUNT (BEAKER) (test 0.01 K/ L 0.04-0.54 hjre=835) BASOPHILS ABSOLUTE COUNT (BEAKER) (test 0.06 K/ L 0.01-0.08 iman=462) IMMATURE GRANULOCYTES-RELATIVE PERCENT (BEAKER) 1 % 0-1 (test yezf=3547)
--- OUTSIDE RECORDS SUMMARY | 2018-06-16 19:43 | XMS REPORT ---
[...] Active Problem Erectile dysfunction N52.9 Active Assessment senior living current use of insulin Z79.4 Active Problem senior living current use of insulin Z79.4 Active Assessment [...] End Status Dosage System Date Date Tresiba [facility] 84813932790 200 UNIT/ML Inactive INJECT FlexTouch SUB 60 UNITS DAILY Viagra [facility] 07036816427 50 MG Orally Once Active 1 tablet a day as needed Finasteride ND 75412712819 5 MG Orally Once Active 1 tablet a day Amlodipine ND 52319027664 10 MG Orally Once February Active 1 tablet Besylate a day 2017 Amlodipine ND 48141177282 10 MG Orally Once February Active 1 tablet Besylate a day 2017 Xarelto [facility] 87177281132 20 MG Orally Once Active 1 tablet a day with food Cozaar [facility] 74362831608 50 MG Active TAKE 1 TABLET BY MOUTH EVERY DAY Toujeo [facility] 26631711040 300u/ml FebruarySep 09, Active 68 units SoloStar subcutaneously 2017 once once daily daily and titrate up 2 units every 3 days until fbg less than 130 max of 100 units daily Simvastatin [facility] 38295909381 20 MG Active TAKE 1 TABLET BY MOUTH EVERY DAY Keppra [facility] 14308351973 500 MG Orally Active 1 tablet Twice a day Metformin HCl [facility] 68170214089 1000 MG Orally Active 1 tablet twice a day with a meal Norvasc [facility] 47723270702 5 MG Orally Once Inactive 1 tablet a day Labetalol HCl [facility] 45950325127 200 MG Orally Active 1 tablet three times a day Results No Known Results Summary Purpose eClinicalWorks Submission
--- OUTSIDE RECORDS SUMMARY | 2018-06-16 19:44 | XMS REPORT ---
:1950 Author Organization eClinicalWorks Care Team Providers Name Role Phone Quach, Na Provider Role Unavailable Allergies No Known Allergies Problems Problem Type Condition Code Onset Dates Condition Status Problem Unsteady gait R26.81 Active Problem Type 2 diabetes E11.9 Active Problem DJD (degenerative joint disease) M19.90 Active Problem Obesity E66.9 Active Problem Degeneration of lumbosacral M51.37 Active intervertebral disc Problem Elevated prostate specific antigen R97.2 Active (PSA) Problem Hypertension I10 Active Problem Weakness R53.1 Active Problem Gout [...] diabetes mellitus without E11.9 Active complications Problem Erectile dysfunction N52.9 Active Problem Type 2 diabetes mellitus with E11.8 Active unspecified complications Problem 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
--- OUTSIDE RECORDS SUMMARY | 2018-06-16 19:44 | XMS REPORT ---
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
[2018-06-16 20:14] LABS: Absolute Lymphocytes (CBC) 2.2 K/uL (0.7-4.9); Absolute Monocytes 0.6 K/uL (0.1-1.3); Absolute Neutrophil 6.9 K/uL (1.8-8.0); Basophils % 0.8 % (0-1.3); Eosinophils % 3.6 % (0-4.4); Hematocrit 35.5 % (39.6-49.0); Lymphocytes % 21.7 % (15.3-44.8); MCH 29.4 pg (27.0-35.0); MCV 85.5 fL (80-100); MPV 9.9 fL (7.6-11.3); Monocytes % 6.1 % (3.3-12.3); RBC Red Blood Cell Count 4.15 M/uL (4.33-5.43)
[2018-06-16 20:15] LABS: Protime INR 1.08
--- NOTE | 2018-06-16 20:27 | RAD REPORT ---
EXAM DESCRIPTION: CT - Head Brain Wo Cont - 06/16/2018 8:18 pm CLINICAL HISTORY: Unresponsive, transient alteration of awareness COMPARISON: CT head May 26 TECHNIQUE: Axial 5 mm thick images of the head were obtained without IV contrast. All CT scans are performed using dose optimization technique as appropriate and may include automated exposure control or mA/KV adjustment according to patient size. FINDINGS: No intracranial hemorrhage, mass, edema or shift of mid-line structures. No acute cortical based infarction. Moderate atrophy chronic ischemic change similar to comparison. No abnormal extra- axial fluid collections. Ventricles are in proportion to volume loss. Mastoid air cells and visualized portions of the paranasal sinuses are clear. No acute bony findings. IMPRESSION: Prominent atrophy and chronic ischemic change similar to May 26. No acute finding identifiable. Chronic ischemic changes can mask nonhemorrhagic acute infarction. MR brain followup can be obtained if there is ongoing concern for acute ischemia.
[2018-06-16 20:34] LABS: Albumin 3.1 g/dL (3.4-5.0); Bilirubin Direct 0.1 mg/dL (0-0.2); Bilirubin Total 0.4 mg/dL (0.2-1.0); Magnesium 1.7 mg/dL (1.8-2.4); Potassium 4.4 mmol/L (3.5-5.1); Protein, Total 7.1 g/dL (6.4-8.2)
--- NOTE | 2018-06-16 20:34 | RAD REPORT ---
EXAM DESCRIPTION: RAD - Chest Single View - 06/16/2018 8:25 pm CLINICAL HISTORY: Unresponsive, altered mental status COMPARISON: May 26 TECHNIQUE: AP portable chest image was obtained 2012 hours . FINDINGS: Lung volumes are low accentuating heart, vasculature and lung markings. A mild failure or volume overload could be masked in this setting. No peripheral mass or consolidation. Heart and vascu lature are normal. No measurable pleural effusion and no pneumothorax. No gross bony abnormality seen . No acute aortic findings suspected. IMPRESSION: Limited portable study potentially masking early failure or volume overload. No focal mass or consolidation.
[2018-06-16] MEDS ORDERED: NA CHLORIDE 0.9% 500 ML ONE (20:48)
--- NOTE | 2018-06-16 21:06 | ER ---
Nurse's Notes [facility] Name: Braden Wright Age: 68 yrs Sex: Male : 1950 Arrival Date: 06/16/2018 Time: 19:54 Bed 7 Private MD: Diagnosis: Syncope and collapse;Dehydration Presentation: 06/16 19:40 Presenting complaint: EMS states: that pt was sitting outside in chair while family was fc shaving him and went unresponsive. Upon their arrival pt has sbp of 70. They started an IV and gave him a bolus. During transport pt became responsive and started to talk. Transition of care: patient was received from another setting of care (long-term care [facility]. Onset of symptoms was June 16, 2018. Risk Assessment: Do you want to hurt yourself or someone else? Patient reports no desire to harm self or others. Initial Sepsis Screen: Does the patient meet any 2 criteria? No. Patient's initial sepsis screen is negative. Does the patient have a suspected source of infection? No. Patient's initial sepsis screen is negative. Care prior to arrival: IV initiated. 20 GA, in the right forearm, Glucose check: 152. 19:40 Method Of Arrival: EMS: [facility] fc 19:40 Acuity: RITA 2 fc Historical: - Allergies: 20:36 Ativan; fc - Home Meds: 20:36 Humalog Pen Sub-Q bid per sliding scale [Active]; Toujeo Solostar 300 unknown 68 unit fc nightly [Active]; levetiracetam 500 mg Oral Tb24 once daily [Active]; metformin 1,000 mg Oral tab 1 tab 2 times per day [Active]; indomethacin 50 mg Oral cap 1 cap 3 times per day [Active]; amlodipine 10 mg tab 1 tab once daily [Active]; aspirin 81 mg oral TbEC 1 tab once daily [Active]; atorvastatin 80 mg oral tab 1 tab once daily [Active]; donepezil 10 mg oral tab 1 tab nightly [Active]; ergocalciferol (vitamin D2) oral oral once daily [Active]; finasteride 5 mg Oral tab 1 tab once daily [Active]; labetalol 200 mg Oral tab 1 tab daily [Active]; losartan 50 mg oral tab 1 tab once daily [Active]; memantine 10 mg oral tab 1 tab daily [Active]; - PMHx: 20:36 Atrial Fib; CVA; Diabetes - IDDM; Hyperlipidemia; Hypertension; Seizures; Alzheimers; fc Gout; Dementia; - Immunization history:: Last tetanus immunization: up to date. - Social history:: Smoking status: Patient/guardian denies using tobacco. - Ebola Screening: : Patient negative for fever greater than or equal to 101.5 degrees Fahrenheit, and additional compatible Ebola Virus Disease symptoms Patient denies exposure to infectious person Patient denies travel to an Ebola-affected area in the 21 days before illness onset. Screenin:02 Abuse screen: Denies threats or abuse. Nutritional screening: No deficits noted. fc Tuberculosis screening: No symptoms or risk factors identified. Fall Risk Fall in past 12 months (25 points). Secondary diagnosis (15 points) seizures, Alzheimer's, dementia, CVA, IV access (20 points). Ambulatory Aid- Crutches/Cane/Walker (15 pts). Gait- Impaired (20 pts.). Mental Status- Overestimates/Forgets Limitations (15 pts.). Total Sue Fall Scale indicates High Risk Score (45 or more points). Fall prevention measures have been instituted. Side Rails Up X 2 Placed Close to Nursing Station 1:1 Attendant Assigned Family Present and informed to notify staff if the need to leave the bedside As available patient and family educated on Fall Prevention Program and Strategies. Assessment: 20:00 General: Appears in no apparent distress. comfortable, Behavior is calm, uncooperative. aa1 Pain: Denies pain. Neuro: Level of Consciousness is awake, alert, confused, Oriented to person, Speech is normal, Facial symmetry appears normal, Pupils are PERRLA. Cardiovascular: Heart tones S1 S2 present. Respiratory: Airway is patent Respiratory effort is even, unlabored, Respiratory pattern is regular, symmetrical, Breath sounds are clear bilaterally. GI: No signs and/or symptoms were reported involving the gastrointestinal system. : No signs and/or symptoms were reported regarding the genitourinary system. EENT: No signs and/or symptoms were reported regarding the EENT system. Derm: Skin is intact, is healthy with good turgor, Skin is pink, warm \T\ dry. Musculoskeletal: Circulation, motion, and sensation intact. Capillary refill < 3 seconds, weakness in BLE and LUE r/t previous CVA. 20:08 Reassessment: Patient appears in no apparent distress at this time. Pt taken to CT at aa1 this time. 21:13 Reassessment: Patient appears in no apparent distress at this time. No changes from aa1 previously documented assessment. Patient and/or family updated on plan of care and expected duration. Pain level reassessed. Family at bedside. Pt to be admitted to hospital, awaiting bed assignment. 23:10 Reassessment: Patient appears in no apparent distress at this time. No changes from aa1 previously documented assessment. Pt cleaned of incontinence and taken up to room 406. Vital Signs: 19:40 BP 126 / 72; Pulse 76; Resp 18; Temp 97.8(O); Pulse Ox 99% on R/A; Weight 79.38 kg (R); fc Height 5 ft. 8 in. (172.72 cm) (R); Pain 0/10; 20:44 BP 142 / 73; Pulse 94; Resp 20; Pulse Ox 99% on R/A; Pain 0/10; aa1 21:13 BP 123 / 60; Pulse 96; Resp 16; Pulse Ox 100% on R/A; Pain 0/10; aa1 22:00 BP 116 / 62; Pulse 96; Resp 16; Pulse Ox 98% on R/A; Pain 0/10; aa1 23:02 BP 107 / 58; Pulse 94; Resp 16; Temp 97.6(TE); Pulse Ox 99% on R/A; Pain 0/10; aa1 19:40 Body Mass Index 26.61 (79.38 kg, 172.72 cm) fc Hank Coma Score: 19:40 Eye Response: spontaneous(4). Verbal Response: confused(4). Motor Response: obeys aa1 commands(6). Total: 14. 23:03 Eye Response: spontaneous(4). Verbal Response: confused(4). Motor Response: obeys aa1 commands(6). Total: 14. ED Course: 19:40 Arm band placed on Patient placed in an exam room, on a stretcher. 19:54 Patient arrived in ED. aa1 19:54 Initial lab(s) drawn, by me. Maintain EMS IV. Dressing intact. Good blood return noted. aa1 Site clean \T\ dry. Gauge \T\ site: 20g R forearm. 19:54 Patient has correct armband on for positive identification. Bed in low position. Call aa1 light in reach. Side rails up X2. Adult w/ patient. telemetry monitor on. Pulse ox on. NIBP on. 19:56 Jase Cardoza MD is Attending Physician. gs 20:00 Triage completed. fc 20:00 Seizure precautions initiated. aa1 20:02 Patient has correct armband on for positive identification. fc 20:03 Dayanna Ga RN is Primary Nurse. aa1 20:16 CT completed. Patient moved to CT via stretcher. Patient moved back from CT. kw1 20:17 CT Head Brain wo Cont In Process Unspecified. EDMS 20:24 XRAY Chest (1 view) In Process Unspecified. EDMS 21:05 Cara Velasco MD is Hospitalizing Provider. gs 22:48 No provider procedures requiring assistance completed. Patient admitted, IV remains in fc place. 23:10 Cleaned of incontinence. aa1 Administered Medications: 20:05 Drug: NS 0.9% 500 ml Route: IV; Rate: calculated rate; Site: right forearm; aa1 20:30 Follow up: IV Status: Completed infusion aa1 20:46 Drug: NS 0.9% 750 ml Route: IV; Rate: 1 bolus; Site: right forearm; ao 21:24 Follow up: IV Status: Completed infusion aa1 21:25 Drug: Magnesium Sulfate 1 grams Route: IVPB; Infused Over: 1 hrs; Site: right forearm; aa1 22:30 Follow up: IV Status: Completed infusion aa1 Point of Care Testing: Blood Glucose: 19:54 Blood Glucose: 140 mg/dL; aa1 Ranges: Outcome: 21:05 Decision to Hospitalize by Provider. gs 22:48 Admitted to Tele accompanied by tech, via stretcher, room 406, with chart, Report fc called to Michelle SHRESTHA 22:48 Condition: good 22:48 Discharge instructions given to patient, family, Instructed on the need for admit. 23:18 Patient left the ED. aa1 Signatures: Dispatcher [employer] EDMS Dayanna Ga, HENRIETTA SHRESTHA aa1 Brittany Whitman RN RN Madhu Rodriguez RN RN ao Jase Cardoza MD MD Leah Contreras kw1 Corrections: (The following items were deleted from the chart) 22:50 19:40 Transition of care: patient was not received from another setting of care. fc fc
--- NOTE | 2018-06-16 21:06 | EDPHYS ---
Physician Documentation [facility] Name: Braden Wright Age: 68 yrs Sex: Male : 1950 Arrival Date: 06/16/2018 Time: 19:54 Bed 7 Private MD: ED Physician Jase Cardoza HPI: 06/16 20:54 This 68 yrs old Male presents to ER via EMS with complaints of Probable gs Seizure. 20:54 The patient presents after having a single isolated seizure, after having a possible gs seizure episode, "Eyes rolled back". Character of seizure(s): Loss of consciousness: the patient experienced loss of consciousness, Motor activity: blank stare, Incontinence: none, Apnea: the patient did not experience apnea, Circulation: the patient did not experience evidence of pulse disturbance. Seizure onset: just prior to arrival. Seizure Hx: Seizure medications: Keppra. Associated injury: The patient did not suffer any apparent associated injury, Other: was in chair. Current symptoms: back to baseline per daughters. The patient has experienced similar episodes in the past, several times. Historical: - Allergies: 20:36 Ativan; fc - Home Meds: 20:36 Humalog Pen Sub-Q bid per sliding scale [Active]; Toujeo Solostar 300 unknown 68 unit fc nightly [Active]; levetiracetam 500 mg Oral Tb24 once daily [Active]; metformin 1,000 mg Oral tab 1 tab 2 times per day [Active]; indomethacin 50 mg Oral cap 1 cap 3 times per day [Active]; amlodipine 10 mg tab 1 tab once daily [Active]; aspirin 81 mg oral TbEC 1 tab once daily [Active]; atorvastatin 80 mg oral tab 1 tab once daily [Active]; donepezil 10 mg oral tab 1 tab nightly [Active]; ergocalciferol (vitamin D2) oral oral once daily [Active]; finasteride 5 mg Oral tab 1 tab once daily [Active]; labetalol 200 mg Oral tab 1 tab daily [Active]; losartan 50 mg oral tab 1 tab once daily [Active]; memantine 10 mg oral tab 1 tab daily [Active]; - PMHx: 20:36 Atrial Fib; CVA; Diabetes - IDDM; Hyperlipidemia; Hypertension; Seizures; Alzheimers; fc Gout; Dementia; - Immunization history:: Last tetanus immunization: up to date. - Social history:: Smoking status: Patient/guardian denies using tobacco. - Ebola Screening: : Patient negative for fever greater than or equal to 101.5 degrees Fahrenheit, and additional compatible Ebola Virus Disease symptoms Patient denies exposure to infectious person Patient denies travel to an Ebola-affected area in the 21 days before illness onset. ROS: 20:54 All other systems are negative. gs Exam: 20:54 Head/Face: Normocephalic, atraumatic. Eyes: Pupils equal round and reactive to light, gs extra-ocular motions intact. Lids and lashes normal. Conjunctiva and sclera are non-icteric and not injected. Cornea within normal limits. Periorbital areas with no swelling, redness, or edema. ENT: Nares patent. No nasal discharge, no septal abnormalities noted. Tympanic membranes are normal and external auditory canals are clear. Oropharynx with no redness, swelling, or masses, exudates, or evidence of obstruction, uvula midline. Mucous membranes moist. Neck: Trachea midline, no thyromegaly or masses palpated, and no cervical lymphadenopathy. Supple, full range of motion without nuchal rigidity, or vertebral point tenderness. No Meningismus. Chest/axilla: Normal chest wall appearance and motion. Nontender with no deformity. No lesions are appreciated. Cardiovascular: Regular rate and rhythm with a normal S1 and S2. No gallops, murmurs, or rubs. Normal PMI, no JVD. No pulse deficits. Respiratory: Lungs have equal breath sounds bilaterally, clear to auscultation and percussion. No rales, rhonchi or wheezes noted. No increased work of breathing, no retractions or nasal flaring. Abdomen/GI: Soft, non-tender, with normal bowel sounds. No distension or tympany. No guarding or rebound. No evidence of tenderness throughout. Back: No spinal tenderness. No costovertebral tenderness. Full range of motion. Skin: Warm, dry with normal turgor. Normal color with no rashes, no lesions, and no evidence of cellulitis. MS/ Extremity: Pulses equal, no cyanosis. Neurovascular intact. Full, normal range of motion. 20:54 Constitutional: The patient appears alert, awake. 20:54 Neuro: Orientation: to person, place, time, Cranial nerves: normal except left face droop, Motor: residual weakness stroke left side. 21:25 ECG was reviewed by the Attending Physician. Vital Signs: 19:40 BP 126 / 72; Pulse 76; Resp 18; Temp 97.8(O); Pulse Ox 99% on R/A; Weight 79.38 kg (R); fc Height 5 ft. 8 in. (172.72 cm) (R); Pain 0/10; 20:44 BP 142 / 73; Pulse 94; Resp 20; Pulse Ox 99% on R/A; Pain 0/10; aa1 21:13 BP 123 / 60; Pulse 96; Resp 16; Pulse Ox 100% on R/A; Pain 0/10; aa1 22:00 BP 116 / 62; Pulse 96; Resp 16; Pulse Ox 98% on R/A; Pain 0/10; aa1 23:02 BP 107 / 58; Pulse 94; Resp 16; Temp 97.6(TE); Pulse Ox 99% on R/A; Pain 0/10; aa1 19:40 Body Mass Index 26.61 (79.38 kg, 172.72 cm) Hank Coma Score: 19:40 Eye Response: spontaneous(4). Verbal Response: confused(4). Motor Response: obeys aa1 commands(6). Total: 14. 23:03 Eye Response: spontaneous(4). Verbal Response: confused(4). Motor Response: obeys aa1 commands(6). Total: 14. MDM: 19:56 Patient medically screened. gs 20:54 Differential diagnosis: cardiac arrhythmia, seizure, syncope, dehydration heat gs exhaustion, renal failure. pt has worsening prerenal azotemia will hydrate place in obs. Data reviewed: vital signs, nurses notes. 06/16 19:58 Order name: Basic Metabolic Panel; Complete Time: 20:37 06/16 19:58 Order name: CBC with Diff; Complete Time: 20:35 06/16 19:58 Order name: LFT's; Complete Time: 20:37 06/16 19:58 Order name: Magnesium; Complete Time: 20:37 06/16 19:58 Order name: NT PRO-BNP; Complete Time: 20:37 06/16 19:58 Order name: PT-INR; Complete Time: 20:35 06/16 19:58 Order name: Troponin (emerg Dept Use Only); Complete Time: 20:37 06/16 19:58 Order name: XRAY Chest (1 view); Complete Time: 20:35 06/16 19:58 Order name: EKG; Complete Time: 19:59 06/16 19:58 Order name: Cardiac monitoring; Complete Time: 20:03 06/16 19:58 Order name: CT Head Brain wo Cont; Complete Time: 20:35 06/16 19:58 Order name: EKG - Nurse/Tech; Complete Time: 20:03 06/16 19:58 Order name: IV Saline Lock; Complete Time: 20:03 06/16 19:58 Order name: Labs collected and sent; Complete Time: 20:03 06/16 19:58 Order name: O2 Per Protocol; Complete Time: 20:03 06/16 19:58 Order name: O2 Sat Monitoring; Complete Time: 20:03 gs EC:25 Rate is 85 beats/min. Rhythm is regular. WA interval is prolonged. QRS interval is gs prolonged. T waves are Normal. No ST changes noted. Clinical impression: Abnormal EKG without significant change. Interpreted by me. Administered Medications: 20:05 Drug: NS 0.9% 500 ml Route: IV; Rate: calculated rate; Site: right forearm; aa1 20:30 Follow up: IV Status: Completed infusion aa1 20:46 Drug: NS 0.9% 750 ml Route: IV; Rate: 1 bolus; Site: right forearm; ao 21:24 Follow up: IV Status: Completed infusion aa1 21:25 Drug: Magnesium Sulfate 1 grams Route: IVPB; Infused Over: 1 hrs; Site: right forearm; aa1 22:30 Follow up: IV Status: Completed infusion aa1 Point of Care Testing: Blood Glucose: 19:54 Blood Glucose: 140 mg/dL; aa1 Ranges: Critical Glucose Levels:Adult <50 mg/dl or >400 mg/dl <40 mg/dl or >180 mg/dl Disposition: 06/16/18 21:05 Hospitalization ordered by Cara Velasco for Observation. Preliminary diagnosis are Syncope and collapse, Dehydration. - Bed requested for Telemetry/MedSurg (observation). - Status is Observation. aa1 - Condition is Stable. - Problem is new. - Symptoms have improved. UTI on Admission? No Signatures: Dispatcher [employer] EDMS Leah Hays RN RN kl Dayanna Ga RN RN aa1 Brittany Whitman RN RN Madhu Rodriguez RN RN ao Starr, Gregory, MD MD gs Corrections: (The following items were deleted from the chart) 22:30 21:05 Hospitalization Ordered by Cara Velasco MD for Observation. Preliminary kl diagnosis is Syncope and collapse; Dehydration. Bed requested for Telemetry/MedSurg (observation). Status is Observation. Condition is Stable. Problem is new. Symptoms have improved. UTI on Admission? No. gs 23:18 22:30 06/16/2018 21:05 Hospitalization Ordered by Cara Velasco MD for Observation. aa1 Preliminary diagnosis is Syncope and collapse; Dehydration. Bed requested for Telemetry/MedSurg (observation). Status is Observation. Condition is Stable. Problem is new. Symptoms have improved. UTI on Admission? No. kl
[2018-06-16] MEDS ORDERED: MAGNESIUM SULFATE 1 gm IVPB 1 GM/100 ML BAG IV ONE (21:23)
--- NOTE | 2018-06-16 22:18 | P.HP ---
Certification for Inpatient Patient admitted to: Observation With expected LOS: <2 Midnights Practitioner: I am a practitioner with admitting privileges, knowledge of patient current condition, hospital course, and medical plan of care. Services: Services provided to patient in accordance with Admission requirements found in Title 42 Section 412.3 of the Code of Federal Regulations Patient History Date of Service: 06/16/18 Reason for admission: Near-syncope History of Present Illness: Mr. Wright is a 68-year-old male with history of hypertension, insulin- dependent diabetes mellitus, hypertension, dementia, CVA, seizure disorder, resident of a local senior living. This afternoon he while he was with his family, he was weak and lethargic. The patient was in his wheelchair, when suddenly become unresponsive. EMS arrived to [place] and found the patient hypotensive with SBP of 70's. He was treated with IV bolus and BP improved. No history of fever, chills, N/V but he has had some diarrhea episodes in the last few days. At arrival, his BP was 126/72, afebrile. Lab work remarkable for increased BUN and creatinine. At my encounter, the patient already was feeling better, and according to his family members getting close to his normal baseline. Allergies lorazepam [From Ativan] Adverse Reaction (Verified 06/16/18 21:48) Nausea/Vomiting Home Medications: Finasteride [Proscar*] 5 mg PO BEDTIME 07/05/16 Labetalol HCl [Trandate] 200 mg PO DAILY 07/05/16 Metformin HCl 1,000 mg PO BID 07/05/16 levETIRAcetam [Keppra*] 500 mg PO BID 07/05/16 Amlodipine [Norvasc] 10 mg PO DAILY 06/16/18 Aspirin [Aspir-Low] 81 mg PO DAILY 06/16/18 Atorvastatin Calcium [Lipitor] 80 mg PO BEDTIME 06/16/18 Donepezil HCl 10 mg PO BEDTIME 06/16/18 Indomethacin 50 mg PO TID 06/16/18 Insulin Glargine,Hum.rec.anlog [Myron Arias] 68 unit SQ BEDTIME 06/16/18 Insulin Lispro [Humalog] 0 unit SQ BID 06/16/18 Losartan Potassium 50 mg PO DAILY 06/16/18 Memantine HCl 10 mg PO DAILY 06/16/18 - Past Medical/Surgical History Diabetic: Yes -: cva -: htn -: hyperlipidemia -: afib -: Dementia -: Insulin dependent Diabetes mellitus -: knee surgery - Family History Family History: Reviewed- Non-Contributory - Social History Smoking Status: Never smoker Alcohol use: No CD- Drugs: No Caffeine use: Yes Place of Residence: [place] Review of Systems 10-point ROS is otherwise unremarkable Physical Examination - Physical Exam General: Alert, In no apparent distress, Demented HEENT: Atraumatic, PERRLA, Mucous membr. moist/pink, EOMI, Sclerae nonicteric Neck: Supple, 2+ carotid pulse no bruit, No LAD, Without JVD or thyroid abnormality Respiratory: Clear to auscultation bilaterally, Normal air movement Cardiovascular: Normal S1 S2, No gallops, Systolic murmur (3/6 aortic area) Gastrointestinal: Normal bowel sounds, No tenderness Musculoskeletal: No tenderness Integumentary: No rashes Neurological: Normal speech, Normal strength at 5/5 x4 extr, Normal tone, Normal affect, Dementia Lymphatics: No axilla or inguinal lymphadenopathy - Studies Laboratory Data (last 24 hrs) 06/16/18 19:50: PT 12.7 H, INR 1.08 06/16/18 19:50: WBC 10.1 D, Hgb 12.2 L, Hct 35.5 L, Plt Count 286 06/16/18 19:50: Sodium 144, Potassium 4.4, BUN 51 H, Creatinine 2.00 H, Glucose 131 H, Magnesium 1.7 L D, Total Bilirubin 0.4, AST 19, ALT 23, Alkaline Phosphatase 98 Assessment and Plan - Problems (Diagnosis) (1) Otdci-vr-phbndhh kidney injury Current Visit: Yes Status: Acute Qualifiers: Acute renal failure type: unspecified Chronic kidney disease stage: stage 3 (moderate) Qualified Code(s): N17.9 - Acute kidney failure, unspecified; N18.3 - Chronic kidney disease, stage 3 (moderate) (2) Near syncope Current Visit: Yes Status: Acute (3) Diabetes mellitus Onset Date: 07/06/16 Current Visit: No Status: Acute Qualifiers: Diabetes mellitus type: type 2 Diabetes mellitus detention insulin 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 Differential diagnosis include seizure, but for his clinical presentation, this is most likely secondary to volume depletion. CT head shows no acute abnormality. Will continue with IV fluids, PT evaluation, echocardiogram in a.m. - Advance Directives Does patient have a Living Will: Yes Does patient have a Durable POA for Healthcare: No - Code Status/Comfort Care Code Status Assessed: Yes Code Status: Full Code
[2018-06-16 23:28] VITALS: O2SAT 99
[2018-06-16] MEDS ORDERED: ACETAMINOPHEN 500 MG TAB PO PRN (23:53)
[2018-06-16] MEDS ORDERED: ONDANSETRON 4 MG/2 ML VIAL IV PRN (23:53)
[2018-06-16 23:55] VITALS: BMI 24.0
[2018-06-17] MEDS: NA CHLORIDE 0.9% 1,000 ML IV SCH ×2 (00:41→06:55)
[2018-06-17 05:24] LABS: Absolute Lymphocytes (CBC) 1.8 K/uL (0.7-4.9); Absolute Monocytes 0.4 K/uL (0.1-1.3); Absolute Neutrophil 4.2 K/uL (1.8-8.0); Basophils % 1.4 % (0-1.3); Eosinophils % 3.7 % (0-4.4); Hematocrit 37.4 % (39.6-49.0); Lymphocytes % 26.6 % (15.3-44.8); MCV 84.8 fL (80-100); MPV 9.3 fL (7.6-11.3); Monocytes % 6.4 % (3.3-12.3); RBC Red Blood Cell Count 4.41 M/uL (4.33-5.43)
[2018-06-17 05:45] LABS: Potassium 4.3 mmol/L (3.5-5.1)
[2018-06-17 05:58] LABS: Magnesium 1.8 mg/dL (1.8-2.4)
[2018-06-17] MEDS ORDERED: MAGNESIUM SULFATE 1 gm IVPB 1 GM/100 ML BAG IV ONE (06:23)
--- NOTE | 2018-06-17 06:43 | EKG ---
Test Date: 2018-06-16 Test Time: 19:49:16 Progressive Care Unit Registered Nurse: MIRIAM MEASUREMENT RESULTS: Intervals: Rate: 85 CT: 220 QRSD: 102 QT: 380 QTc: 452 [place]: P: 56 CT: 220 QRS: -3 T: 46 INTERPRETIVE STATEMENTS: Sinus rhythm with 1st degree AV block Otherwise normal ECG Compared to ECG 05/26/2018 00:24:00 First degree AV block now present Sinus tachycardia no longer present Left-axis deviation no longer present Myocardial infarct finding no longer present Electronically Signed On 06-17-18 06:42:36 CDT by Aaron Hook
[2018-06-17] MEDS: INSULIN -REGULAR HUMAN 50 UNIT/0.5 ML ML SQ SCH ×3 (07:30→16:19)
[2018-06-17] MEDS ORDERED: MEMANTINE HCL 10 MG TABLET PO SCH (09:00)
[2018-06-17] MEDS ORDERED: levETIRAcetam 500 MG TAB PO SCH (09:00)
[2018-06-17] MEDS ORDERED: ENOXAPARIN 40 MG/0.4 ML SQ SCH (09:00)
[2018-06-17] MEDS: INDOMETHACIN 25 MG CAP PO SCH ×2 (09:00→15:16)
[2018-06-17] MEDS ORDERED: ASPIRIN EC 81 MG TAB PO SCH (09:00)
--- NOTE | 2018-06-17 15:35 | ECHO ---
HEIGHT: 5 ft 8 in WEIGHT: 158 lb 9 oz DATE OF STUDY: 06/17/[address]: Cara Barnes MD 2-DIMENSIONAL: YES M.MODE: YES DOPPLER: YES COLOR FLOW: YES TDS: NO PORTABLE: NO DEFINITY: NO BUBBLE STUDY: NO DIAGNOSIS: NEAR SYNCOPE EPISODE CARDIAC HISTORY: CATHERIZATION: NO SURGERY: NO PROSTHETIC VALVE: NO PACEMAKER: NO MEASUREMENTS (cm) DIASTOLIC (NORMALS) SYSTOLIC (NORMALS) IVSd 1.1 (0.6-1.2) LA Diam 3.9 (1.9-4.0) LVEF 66% LVIDd 3.9 (3.5-5.7) LVIDs 2.5 (2.0-3.5) %FS 36% LVPWd 1.1 (0.6-1.2) Ao Diam 3.1 (2.0-3.7) 2 DIMENSIONAL ASSESSMENT: RIGHT ATRIUM: NORMAL LEFT ATRIUM: NORMAL RIGHT VENTRICLE: NORMAL LEFT VENTRICLE: NORMAL TRICUSPID VALVE: NORMAL MITRAL VALVE: NORMAL PULMONIC VALVE: NORMAL AORTIC VALVE: NORMAL PERICARDIAL EFFUSION: NONE AORTIC ROOT: NORMAL LEFT VENTRICULAR WALL MOTION: NORMAL. DOPPLER/COLOR FLOW: NORMAL. COMMENTS: NORMAL 2D ECHO WITH DOPPLER. TECHNOLOGIST: ADINA BYRNES
[2018-06-17 17:30] VITALS: BP 140/60; TEMP 97.8
[2018-06-17] MEDS ORDERED: ATORVASTATIN 80 MG TAB PO SCH (21:00)
[2018-06-17] MEDS ORDERED: INSULIN DETEMIR 100 UNIT/1 ML INSULIN SQ SCH (21:00)
[2018-06-17] MEDS ORDERED: FINASTERIDE 5 MG TAB PO SCH (21:00)
[2018-06-17] MEDS ORDERED: DONEPEZIL HCL 5 MG TAB PO SCH (21:00)
--- NOTE | 2018-06-18 06:42 | DS ---
Date of Discharge: 06/17/2018 Admitting Diagnoses: 1. Acute on chronic kidney injury. 2. Near-syncope. 3. Diabetes mellitus type 2 with long-term use of insulin with hyperglycemia. Discharge Diagnoses: 1. Acute on chronic kidney injury, resolved. 2. Near syncopal event, likely due to acute dehydration and hypotension. 3. Diabetes mellitus type 2 with long-term use of insulin with hyperglycemia, stable. 4. History of cerebrovascular accident, stable. Follows with Dr. Vences as an outpatient. 5. Essential hypertension. Initially the patient was hypotensive, however, blood pressure is now improved significantly. 6. Hyperlipidemia, statin. 7. Atrial fibrillation, paroxysmal. 8. Dementia, early onset, Alzheimer's type, without behavioral disturbance. Hospital Course: The patient is a assisted resident, comes in with a near syncopal episode. The patient was weak, found to have blood pressure in the 70s. The patient was started on IV fluids. Blood pressure improved. His labs showed creatinine of 2, indicating some prerenal azotemia and dehydration. He also had some decreased level of magnesium which was replaced. The patient's white count was normal. No other source of apparent infection. Head CT scan was done which was negative. The patient since then has been improved. Blood pressure has remained stable, systolic in the 140s, did well, otherwise discharged in stable condition. Activity: as tolerated Medications: as per reconciliation list Follow up with PCP in 2-3 days Return to Er for worsening condition Physical exam: Gen: AAOx3 CV: S1,S2 Resp: CTA B/L Abd: soft NT/ND +BS Ext: no c/c/e SA/MODL Voice ID: [id number] Report ID: [id number] MTDD
== END 2018-06-17 17:58 ==
LOC: ER 19:39 → ERHOLD 21:45 → 4TH 22:52
PROVIDERS: ADMIT Internal Medicine; ATTEND Family Medicine
DX: N17.9 Acute kidney failure, unspecified (principal); E86.0 Dehydration; I95.9 Hypotension, unspecified; E11.65 Type 2 diabetes mellitus with hyperglycemia; E11.22 Type 2 diabetes mellitus with diabetic chronic kidney disease; I12.9 Hypertensive chronic kidney disease with stage 1 through stage 4 chronic kidney disease, or unspecified chronic kidney disease; N18.3 Chronic kidney disease, stage 3 (moderate); I48.0 Paroxysmal atrial fibrillation; G30.0 Alzheimer's disease with early onset; F02.80 Dementia in other diseases classified elsewhere, unspecified severity, without behavioral disturbance, psychotic disturbance, mood disturbance, and anxiety; E78.5 Hyperlipidemia, unspecified; G40.909 Epilepsy, unspecified, not intractable, without status epilepticus; E83.42 Hypomagnesemia; R55 Syncope and collapse; Z86.73 Personal history of transient ischemic attack (TIA), and cerebral infarction without residual deficits; Z79.84 Long term (current) use of oral hypoglycemic drugs; Z79.82 Long term (current) use of aspirin; Z79.4 Long term (current) use of insulin
CPT/HCPCS: 36415; 70450; 71045; 80048 ×2; 80076; 82962 ×4; 83735 ×2; 83880; 84484; 85025 ×2; 85610; 93005; 93306; 96361; 96365; 99285; G0378 ×2; J1650; J3475; J7030 ×2

== ENCOUNTER 2018-08-22 16:50 | Inpatient (IN) | payer OTHER ==
--- OUTSIDE RECORDS SUMMARY | 2018-08-22 16:53 | XMS REPORT | Clinical Summary ---
:1950 Author Organization [facility] Address [address] [place] [address] Phone Care Team Providers Name Role Phone [...] times daily with meals for 90 days. atorvastatin Take 1 tablet (80 30 tablet [...] 20 MG mouth nightly . [address] 1 patch onto 30 patch 0 07/06/20 (LIDODERM) 5 % the skin daily for 8 18 patch 30 days Remove & Discard patch within 12 hours or as directed by MD. Active Problems Problem Noted Date Acute ischemic stroke ([facility]) 05/26/2018 Received tissue plasminogen activator (t-PA) less than 24 hours prior to 05/26 arrival Seizures ([facility]) 05/26/2018 Essential hypertension 05/26/2018 Diabetes mellitus type 2, insulin dependent ([facility]) 05/26/2018 Mixed hyperlipidemia 05/26/2018 Encounters Date Type Specialty Care Team Description 05/26/2018 - [facility] General Internal [facility], Acute ischemic 06/07/2018 Encounter Medicine [facility] MD Claudine ([facility]);Diabetes Roge Craft mellitus type 2, MD Cayden insulin dependent Olga Lidia Eduardo MD ([facility]);Essential Berta Harman hypertension;Mixed hyperlipidemia;Rece ived tissue plasminogen activator (t-PA) less than 24 hours prior to arrival;Seizures ([facility]);Dementia with behavioral disturbance, unspecified dementia type after 08/21/2017 Immunizations Name Dates Previously Given Next Due [...] Range POC-Glucose Meter 159 (H)Comment: TESTED AT [address] 70 - 110 mg/[place] [address] Specimen Performing Laboratory Blood [facility] [address] [address] CBC with platelet count + automated diff [...] - 1 % Specimen Performing Laboratory Blood [address] [address] CBC with platelet count + automated diff (06/07/2018 5:59 AM)Only the most recent of13 resultswithin the time period is included. Specimen Performing Laboratory Blood Narrative The following orders were created for panel order CBC with platelet count + automated diff. Procedure Abnormality Status --------- ------ CBC with platelet count ...[[id number]]AbnormalFinal result Please view results for these tests [...] FOR DIALYSIS PATIENTS. Specimen Performing Laboratory Blood [address] [address] Uric acid (06/03/2018 4:52 AM) Component Value Ref Range Uric Acid 7.7 (H)Comment: Specimen slightly hemolyzed 2.6 - 7.2 mg/dL Specimen Performing Laboratory Blood - Arm, Left [address] [address] CTA carotid (05/28/2018 1:11 PM) Specimen Performing [...] MD Report Verified Date/Time:05/28/2018 15:02:10 Reading Location: [facility] [id number] Consult Reading Room Procedure Note Interface, [...] Report Verified Date/Time: 05/28/2018 15:02:10 Reading Location: [address] Consult Reading Room brain (05/28/2018 1:11 PM) Specimen Performing Laboratory [facility] Narrative FINAL REPORT CT angiogram of the [...] MD Report Verified Date/Time:05/28/2018 15:02:10 Reading Location: [address] Consult Reading Room Procedure Note Interface, [...] Report Verified Date/Time: 05/28/2018 15:02:10 Reading Location: [facility] C0W Consult Reading Room CARDIOGRAM REPORT - SCAN (05/27/2018 1:52 PM)EEG AWAKE AND DROWSY (2017 11:19 AM) Specimen Performing Laboratory [facility] Narrative DATE OF TEST: 05/27/2018 DATE OF REPORT : 05/27/2018 ACC: [id number] Start time: 05/27/2018 at 10:43 Stop time: 05/27/2018 at 11:04 ICD-10: R 56.9 CPT Code: 17674 HISTORY: 68 year old male with dementia [...] M.D., 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, [facility] Procedure Note Interface, External Ris In - 05/27/2018 2:32 PM CDT DATE OF TEST: 05/27/2018 DATE OF REPORT : 05/27/2018 ACC: [id number] Start time: 05/27/2018 at 10:43 Stop time: 05/27/2018 at 11:04 ICD-10: R 56.9 CPT Code: 23230 HISTORY: 68 year old male with dementia [...] M.D., 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, [facility] brain without IV contrast (05/27/2018 1:16 AM) Specimen Performing Laboratory [facility] Narrative FINAL REPORT Exam: MRI brain without contrast. Comparison:None. Clinical indication: Stroke. Technique: Multiplanar multi sequential MR imaging of the brain was performed without the administration of intravenous contrast. Findings: There is generalized parenchymal atrophy. There are xbex-it-blxubggo white matter microvascular ischemic changes. There is [...] MD Report Verified Date/Time:05/27/2018 02:49:43 Reading Location: [address] Reading Room Procedure Note Interface, External Ris In - 05/27/2018 2:51 AM CDT FINAL REPORT Exam: MRI brain without contrast. Comparison: None. Clinical indication: Stroke. Technique: Multiplanar multi sequential MR imaging of the brain was performed without the administration of intravenous contrast. Findings: There is generalized parenchymal atrophy. There are oldt-nq-iphwimnd white matter microvascular ischemic changes. There is [...] Report Verified Date/Time: 05/27/2018 02:49:43 Reading Location: [address] Reading Room 2D Echo W/Doppler(CW/PW/Color) with saline (05/26/2018 4:20 PM) Component Value Ref Range Ejection Fraction Specimen Performing Laboratory [facility] ECHO [facility] Narrative Transthoracic Echocardiography Report (TTE) Demographics Patient NameRODRIGUEZ, Date of Study05/26/2018 BRADEN Gender Male Visit [id number] Race Unknown [id number] Number Date of 1950 Jaun Soni Physician CHIN Age 68 year(s) Raise Miner Tony Vargas [facility] Makeup Editor Mick Mcmahon Interpreting Wisam Shea MD Physician [...] Study 05/26/2018 BRADEN Gender Male Visit Number [id number] Race Unknown Room Number 7512 Number Date of 1950 Referring LARRY Soni Physician CHIN Age 68 year(s) Raise Miner Tony Vargas [facility] Makeup Editor Mick Mcmahon Interpreting Wisam Shea MD Physician [...] Performing Laboratory Blood - Line, [place] [address] Narrative Troponin I (TnI) levels must be [...] 402 ms QTC Calculation(Bazett) 466 ms P Chapman 31 degrees R Chapman -36 degrees T Chapman 9 degrees Sinus rhythm with 1st degree [...] 402 ms QTC Calculation(Bazett) 466 ms P Chapman 31 degrees R Chapman -36 degrees T Chapman 9 degrees Sinus rhythm with 1st degree [...] portable technique. No acute osseous abnormality. Signed: rFan Partida MD Report Verified Date/Time:05/26/2018 10:27:35 Reading Location: [address] Ortho Consult Reading Room Procedure Note [...] Report Verified Date/Time: 05/26/2018 10:27:35 Reading Location: [facility] C0[facility] Ortho Consult Reading Room Vitamin B12 and Folate (05/26/2018 3:12 AM) Component Value Ref Range Vitamin B12 776 213 - 816 pg/mL Folate >40.0 >=7.0 ng/mL Specimen Performing Laboratory Blood [facility] [address] [address] TSH/Free T4 If Indicated (05/26/2018 3:12 AM) Component Value Ref Range TSH 1.28 0.35 - 4.94 uIU/mL Specimen Performing Laboratory Blood [address] [address] Prothrombin time/INR (05/26/2018 3:12 AM) Component Value Ref Range Protime 14.8 (H) 11.7 - 14.7 seconds INR 1.2 <=5.9 Specimen Performing Laboratory Blood [address] [address] Narrative RECOMMENDED COUMADIN/WARFARIN INR THERAPY RANGES STANDARD DOSE: 2.0 - 3.0 Includes: PROPHYLAXIS for venous thrombosis, systemic embolization; TREATMENT for venous thrombosis and/or pulmonary embolus. HIGH RISK: Target INR is 2.5-3.5 for patients with mechanical heart valves. Hemoglobin A1c (05/26/2018 3:12 AM) Component Value Ref Range Hemoglobin A1C 13.2 (H) 4.3 - 6.1 % Specimen Performing Laboratory Blood [address] [address] Hepatic function panel (05/26/2018 3:12 AM) Component Value Ref Range Protein, Total 7.3 6.0 - 8.3 gm/dL Albumin 4.0 3.5 - 5.0 g/dL Total Bilirubin 0.3 0.2 - 1.2 mg/dL Bilirubin, Direct 0.2 0.1 - 0.5 mg/dL Alkaline Phosphatase 107 40 - 150 U/L AST 14 5 - 34 U/L ALT 11 6 - 55 U/L Specimen Performing Laboratory Blood [address] [address] Narrative Fasting Fasting lipid panel (05/26/2018 3:12 AM) Component Value Ref Range Triglycerides 122 mg/dL Cholesterol 166 mg/dL HDL 40 mg/dL LDL Calculated 102 mg/dL Specimen Performing Laboratory Blood [address] [address] Narrative Triglyceride Reference Range: Low Risk <150 [id number] High Risk 200-499 Very High Risk>=500 Cholesterol Reference Range: Low Risk <200 [id number] High Risk>240 HDL Cholesterol Reference Range: Low Risk >=60 High Risk <40 LDL Cholesterol Reference Range: Optimal<100 Near [id number] [id number] Very High >=190 Fasting after 08/21/2017
--- OUTSIDE RECORDS SUMMARY | 2018-08-22 16:54 | XMS REPORT ---
:1950 [facility] Address [address] [place] [address] [address] [place] [address] Care Team Providers Name Role Phone LARRY [...] (BEAKER) (test 159 mg/dL 70-110 TESTED AT [address] qjyl=3479) [facility] [address] POCT-GLUCOSE [id number] 08:37:00 Test Item Value Reference Range Comments POC-GLUCOSE METER (BEAKER) 96 mg/dL 70-110 TESTED AT [address] (test jnww=7710) [facility] [address] CBC W/PLT COUNT & AUTO [id number] 08:10:00 Test Item Value Reference Range Comments WHITE BLOOD CELL COUNT (BEAKER) (test pbpd=772) 7.0 K/ L 3.5-10.5 RED BLOOD CELL COUNT (BEAKER) (test gkyy=136) 4.38 M/ L 4.63-6.08 HEMOGLOBIN (BEAKER) (test ifix=174) 12.5 GM/DL 13.7-17.5 HEMATOCRIT (BEAKER) (test vwot=839) 37.0 % 40.1-51.0 MEAN CORPUSCULAR VOLUME (BEAKER) (test wimz=195) 84.5 fL 79.0-92.2 MEAN CORPUSCULAR HEMOGLOBIN (BEAKER) (test 28.5 pg 25.7-32.2 kjon=006) MEAN CORPUSCULAR HEMOGLOBIN CONC (BEAKER) (test 33.8 GM/DL 32.3-36.5 uxew=127) RED CELL DISTRIBUTION WIDTH (BEAKER) (test 13.0 % 11.6-14.4 hmrw=773) PLATELET COUNT (BEAKER) (test dopa=739) 404 K/CU MM 150-450 MEAN PLATELET VOLUME (BEAKER) (test jhxd=682) 10.2 fL 9.4-12.4 NUCLEATED RED BLOOD CELLS (BEAKER) (test 0 /100 WBC 0-0 rtcr=340) NEUTROPHILS RELATIVE PERCENT (BEAKER) (test 58 % ojon=899) LYMPHOCYTES RELATIVE PERCENT (BEAKER) (test 30 % xhqp=953) MONOCYTES RELATIVE PERCENT (BEAKER) (test 7 % dkmu=727) EOSINOPHILS RELATIVE PERCENT (BEAKER) (test 3 % ohdi=574) BASOPHILS RELATIVE PERCENT (BEAKER) (test 1 % ylfg=675) NEUTROPHILS ABSOLUTE COUNT (BEAKER) (test 4.05 K/ L 1.78-5.38 ywue=321) LYMPHOCYTES ABSOLUTE COUNT (BEAKER) (test 2.08 K/ L 1.32-3.57 hrbs=734) MONOCYTES ABSOLUTE COUNT (BEAKER) (test 0.47 K/ L 0.30-0.82 eqhz=224) EOSINOPHILS ABSOLUTE COUNT (BEAKER) (test 0.23 K/ L 0.04-0.54 aerr=122) BASOPHILS ABSOLUTE COUNT (BEAKER) (test 0.07 K/ L 0.01-0.08 ycaj=778) IMMATURE GRANULOCYTES-RELATIVE PERCENT (BEAKER) 1 % 0-1 (test rzlw=6721) BASIC METABOLIC [id number] 08:00:00 Test Item Value Reference Range Comments SODIUM (BEAKER) (test 140 meq/L 136-145 mfrb=225) POTASSIUM (BEAKER) (test 3.8 meq/L 3.5-5.1 idbg=561) CHLORIDE (BEAKER) (test 103 meq/L 98-107 xjmp=802) CO2 (BEAKER) (test 24 meq/L 22-29 ickj=752) BLOOD UREA NITROGEN 20 mg/dL 7-21 (BEAKER) (test jzme=909) CREATININE (BEAKER) (test 0.87 mg/dL 0.57-1.25 tzen=304) GLUCOSE RANDOM (BEAKER) 102 mg/dL 70-105 (test xfmo=922) CALCIUM (BEAKER) (test 10.3 mg/dL 8.4-10.2 bziz=343) EGFR (BEAKER) (test 88 mL/min/1.73 sq m ESTIMATED GFR IS NOT kksp=6039) ACCURATE CREATININE CLEARANCE IN PREDICTING GLOMERULAR FILTRATION RATE. ESTIMATED GFR IS NOT APPLICABLE FOR DIALYSIS PATIENTS. POCT-GLUCOSE [id number] 21:32:00 Test Item Value Reference Range Comments POC-GLUCOSE METER (BEAKER) 288 mg/dL 70-110 TESTED AT [address] (test ahvn=7549) [place] [id number] POCT-GLUCOSE [id number] 17:01:00 Test Item Value Reference Range Comments POC-GLUCOSE METER (BEAKER) 263 mg/dL 70-110 TESTED AT [address] (test wjnq=1916) [place] [id number] POCT-GLUCOSE [id number] 11:53:00 Test Item Value Reference Range Comments POC-GLUCOSE METER (BEAKER) 270 mg/dL 70-110 TESTED AT [address] (test mbvb=8909) [place] [id number] POCT-GLUCOSE [id number] 08:09:00 Test Item Value Reference Range Comments POC-GLUCOSE METER (BEAKER) 122 mg/dL 70-110 TESTED AT [address] (test ckbe=9772) [place] [id number] BASIC METABOLIC [id number] 07:37:00 Test Item Value Reference Range Comments SODIUM (BEAKER) (test 138 meq/L 136-145 yhir=144) POTASSIUM (BEAKER) (test 3.9 meq/L 3.5-5.1 ibnt=559) CHLORIDE (BEAKER) (test 101 meq/L 98-107 uuqv=347) CO2 (BEAKER) (test 27 meq/L 22-29 uzfu=390) BLOOD UREA NITROGEN 20 mg/dL 7-21 (BEAKER) (test nkmi=169) CREATININE (BEAKER) (test 1.04 mg/dL 0.57-1.25 nqqi=577) GLUCOSE RANDOM (BEAKER) 176 mg/dL 70-105 (test qoot=082) CALCIUM (BEAKER) (test 10.2 mg/dL 8.4-10.2 zzaq=439) EGFR (BEAKER) (test 71 mL/min/1.73 sq m ESTIMATED GFR IS NOT ddzj=0109) ACCURATE CREATININE CLEARANCE IN PREDICTING GLOMERULAR FILTRATION RATE. ESTIMATED GFR IS NOT APPLICABLE FOR DIALYSIS PATIENTS. CBC W/PLT COUNT & AUTO [id number] 05:27:00 Test Item Value Reference Range Comments WHITE BLOOD CELL COUNT (BEAKER) (test wjlx=970) 7.0 K/ L 3.5-10.5 RED BLOOD CELL COUNT (BEAKER) (test mbzu=486) 4.57 M/ L 4.63-6.08 HEMOGLOBIN (BEAKER) (test wmwh=415) 12.8 GM/DL 13.7-17.5 HEMATOCRIT (BEAKER) (test byhd=883) 38.2 % 40.1-51.0 MEAN CORPUSCULAR VOLUME (BEAKER) (test miwm=076) 83.6 fL 79.0-92.2 MEAN CORPUSCULAR HEMOGLOBIN (BEAKER) (test 28.0 pg 25.7-32.2 hrzk=614) MEAN CORPUSCULAR HEMOGLOBIN CONC (BEAKER) (test 33.5 GM/DL 32.3-36.5 jatt=175) RED CELL DISTRIBUTION WIDTH (BEAKER) (test 12.7 % 11.6-14.4 tllk=524) PLATELET COUNT (BEAKER) (test rkhq=385) 324 K/CU MM 150-450 MEAN PLATELET VOLUME (BEAKER) (test lbcu=969) 10.7 fL 9.4-12.4 NUCLEATED RED BLOOD CELLS (BEAKER) (test 0 /100 WBC 0-0 cdgm=456) NEUTROPHILS RELATIVE PERCENT (BEAKER) (test 57 % mtbo=525) LYMPHOCYTES RELATIVE PERCENT (BEAKER) (test 30 % owtd=995) MONOCYTES RELATIVE PERCENT (BEAKER) (test 8 % bmvi=682) EOSINOPHILS RELATIVE PERCENT (BEAKER) (test 4 % ukkm=664) BASOPHILS RELATIVE PERCENT (BEAKER) (test 1 % rdfk=156) NEUTROPHILS ABSOLUTE COUNT (BEAKER) (test 3.98 K/ L 1.78-5.38 gtah=007) LYMPHOCYTES ABSOLUTE COUNT (BEAKER) (test 2.07 K/ L 1.32-3.57 gvgo=425) MONOCYTES ABSOLUTE COUNT (BEAKER) (test 0.57 K/ L 0.30-0.82 nehl=046) EOSINOPHILS ABSOLUTE COUNT (BEAKER) (test 0.25 K/ L 0.04-0.54 gbcm=869) BASOPHILS ABSOLUTE COUNT (BEAKER) (test 0.06 K/ L 0.01-0.08 pvlc=908) IMMATURE GRANULOCYTES-RELATIVE PERCENT (BEAKER) 1 % 0-1 (test pgdu=0573) POCT-GLUCOSE [id number] 21:34:00 Test Item Value Reference Range Comments POC-GLUCOSE METER (BEAKER) 345 mg/dL 70-110 TESTED AT [address] (test dqhz=2436) [facility] [address] POCT-GLUCOSE [id number] 17:04:00 Test Item Value Reference Range Comments POC-GLUCOSE METER (BEAKER) 374 mg/dL 70-110 Will Repeat Test/TESTED AT (test bwtn=2057) [address] [address] POCT-GLUCOSE [id number] 11:38:00 Test Item Value Reference Range Comments POC-GLUCOSE METER (BEAKER) 167 mg/dL 70-110 TESTED AT [address] (test ebgc=2054) [facility] [address] POCT-GLUCOSE [id number] 08:05:00 Test Item Value Reference Range Comments POC-GLUCOSE METER (BEAKER) 184 mg/dL 70-110 TESTED AT [address] (test ykkl=3637) [facility] [address] BASIC METABOLIC [id number] 07:05:00 Test Item Value Reference Range Comments SODIUM (BEAKER) (test 140 meq/L 136-145 zfzo=312) POTASSIUM (BEAKER) (test 3.5 meq/L 3.5-5.1 otbm=172) CHLORIDE (BEAKER) (test 103 meq/L 98-107 qapw=428) CO2 (BEAKER) (test 25 meq/L 22-29 shbk=937) BLOOD UREA NITROGEN 16 mg/dL 7-21 (BEAKER) (test medr=103) CREATININE (BEAKER) (test 0.86 mg/dL 0.57-1.25 kqfx=834) GLUCOSE RANDOM (BEAKER) 125 mg/dL 70-105 (test xpoj=364) CALCIUM (BEAKER) (test 10.1 mg/dL 8.4-10.2 bwgv=964) EGFR (BEAKER) (test 89 mL/min/1.73 sq m ESTIMATED GFR IS NOT uryd=4084) ACCURATE CREATININE CLEARANCE IN PREDICTING GLOMERULAR FILTRATION RATE. ESTIMATED GFR IS NOT APPLICABLE FOR DIALYSIS PATIENTS. CBC W/PLT COUNT & AUTO [id number] 06:23:00 Test Item Value Reference Range Comments WHITE BLOOD CELL COUNT (BEAKER) (test jrmk=599) 6.4 K/ L 3.5-10.5 RED BLOOD CELL COUNT (BEAKER) (test audp=257) 4.85 M/ L 4.63-6.08 HEMOGLOBIN (BEAKER) (test vidq=048) 13.5 GM/DL 13.7-17.5 HEMATOCRIT (BEAKER) (test xlei=753) 42.3 % 40.1-51.0 MEAN CORPUSCULAR VOLUME (BEAKER) (test teta=650) 87.2 fL 79.0-92.2 MEAN CORPUSCULAR HEMOGLOBIN (BEAKER) (test 27.8 pg 25.7-32.2 ketq=121) MEAN CORPUSCULAR HEMOGLOBIN CONC (BEAKER) (test 31.9 GM/DL 32.3-36.5 nikt=340) RED CELL DISTRIBUTION WIDTH (BEAKER) (test 12.8 % 11.6-14.4 aluz=220) PLATELET COUNT (BEAKER) (test dqhq=671) 260 K/CU MM 150-450 MEAN PLATELET VOLUME (BEAKER) (test mjgq=346) 11.5 fL 9.4-12.4 NUCLEATED RED BLOOD CELLS (BEAKER) (test 0 /100 WBC 0-0 drjv=085) NEUTROPHILS RELATIVE PERCENT (BEAKER) (test 64 % fycn=215) LYMPHOCYTES RELATIVE PERCENT (BEAKER) (test 25 % ksii=156) MONOCYTES RELATIVE PERCENT (BEAKER) (test 6 % tazk=437) EOSINOPHILS RELATIVE PERCENT (BEAKER) (test 3 % mwul=020) BASOPHILS RELATIVE PERCENT (BEAKER) (test 1 % nbzi=759) NEUTROPHILS ABSOLUTE COUNT (BEAKER) (test 4.07 K/ L 1.78-5.38 wmyc=790) LYMPHOCYTES ABSOLUTE COUNT (BEAKER) (test 1.60 K/ L 1.32-3.57 jwuf=623) MONOCYTES ABSOLUTE COUNT (BEAKER) (test 0.41 K/ L 0.30-0.82 ezvv=621) EOSINOPHILS ABSOLUTE COUNT (BEAKER) (test 0.18 K/ L 0.04-0.54 spuy=540) BASOPHILS ABSOLUTE COUNT (BEAKER) (test 0.09 K/ L 0.01-0.08 ycze=938) IMMATURE GRANULOCYTES-RELATIVE PERCENT (BEAKER) 1 % 0-1 (test mzqh=0646) BASIC METABOLIC [id number] 04:08:00 Test Item Value Reference Range Comments SODIUM (BEAKER) (test 144 meq/L 136-145 hbgh=694) POTASSIUM (BEAKER) (test 3.2 meq/L 3.5-5.1 jlco=284) CHLORIDE (BEAKER) (test 101 meq/L 98-107 qjii=520) CO2 (BEAKER) (test 21 meq/L 22-29 xxnp=422) BLOOD UREA NITROGEN 20 mg/dL 7-21 (BEAKER) (test itmg=158) CREATININE (BEAKER) (test 0.98 mg/dL 0.57-1.25 knwm=407) GLUCOSE RANDOM (BEAKER) 104 mg/dL 70-105 (test kmzb=050) CALCIUM (BEAKER) (test 10.1 mg/dL 8.4-10.2 olnc=891) EGFR (BEAKER) (test 76 mL/min/1.73 sq m ESTIMATED GFR IS NOT ycmg=0478) ACCURATE CREATININE CLEARANCE IN PREDICTING GLOMERULAR FILTRATION RATE. ESTIMATED GFR IS NOT APPLICABLE FOR DIALYSIS PATIENTS. CBC W/PLT COUNT & AUTO [id number] 04:06:00 Test Item Value Reference Range Comments WHITE BLOOD CELL COUNT (BEAKER) (test auez=543) 6.6 K/ L 3.5-10.5 RED BLOOD CELL COUNT (BEAKER) (test qigf=345) 4.65 M/ L 4.63-6.08 HEMOGLOBIN (BEAKER) (test zoed=704) 12.8 GM/DL 13.7-17.5 HEMATOCRIT (BEAKER) (test vqah=029) 43.5 % 40.1-51.0 MEAN CORPUSCULAR VOLUME (BEAKER) (test vvyv=262) 93.5 fL 79.0-92.2 MEAN CORPUSCULAR HEMOGLOBIN (BEAKER) (test 27.5 pg 25.7-32.2 xeyg=849) MEAN CORPUSCULAR HEMOGLOBIN CONC (BEAKER) (test 29.4 GM/DL 32.3-36.5 zjvx=213) RED CELL DISTRIBUTION WIDTH (BEAKER) (test 15.7 % 11.6-14.4 euha=492) PLATELET COUNT (BEAKER) (test artg=018) 309 K/CU MM 150-450 MEAN PLATELET VOLUME (BEAKER) (test jruu=925) 12.1 fL 9.4-12.4 NUCLEATED RED BLOOD CELLS (BEAKER) (test 0 /100 WBC 0-0 ozbr=971) NEUTROPHILS RELATIVE PERCENT (BEAKER) (test 68 % vxvy=535) LYMPHOCYTES RELATIVE PERCENT (BEAKER) (test 20 % ydwy=550) MONOCYTES RELATIVE PERCENT (BEAKER) (test 9 % zrve=844) EOSINOPHILS RELATIVE PERCENT (BEAKER) (test 2 % wmgv=965) BASOPHILS RELATIVE PERCENT (BEAKER) (test 1 % kjbu=063) NEUTROPHILS ABSOLUTE COUNT (BEAKER) (test 4.47 K/ L 1.78-5.38 mmoe=097) LYMPHOCYTES ABSOLUTE COUNT (BEAKER) (test 1.30 K/ L 1.32-3.57 uxxr=229) MONOCYTES ABSOLUTE COUNT (BEAKER) (test 0.57 K/ L 0.30-0.82 snse=634) EOSINOPHILS ABSOLUTE COUNT (BEAKER) (test 0.15 K/ L 0.04-0.54 urhg=553) BASOPHILS ABSOLUTE COUNT (BEAKER) (test 0.08 K/ L 0.01-0.08 pjup=306) IMMATURE GRANULOCYTES-RELATIVE PERCENT (BEAKER) 0 % 0-1 (test biiy=4871) POCT-GLUCOSE [id number] 22:16:00 Test Item Value Reference Range Comments POC-GLUCOSE METER (BEAKER) 277 mg/dL 70-110 TESTED AT [address] (test scdx=7507) [facility] [address] POCT-GLUCOSE [id number] 18:16:00 Test Item Value Reference Range Comments POC-GLUCOSE METER (BEAKER) 314 mg/dL 70-110 Notified HENRIETTA SUAREZ/TESTED AT [facility] (test fodf=9723) [address] [place] [address] POCT-GLUCOSE [id number] 12:17:00 Test Item Value Reference Range Comments POC-GLUCOSE METER (BEAKER) 285 mg/dL 70-110 TESTED AT [address] (test fzdb=7240) [facility] [address] POCT-GLUCOSE [id number] 08:31:00 Test Item Value Reference Range Comments POC-GLUCOSE METER (BEAKER) 193 mg/dL 70-110 TESTED AT [address] (test kuqh=7047) [facility] [address] POCT-GLUCOSE [id number] 22:05:00 Test Item Value Reference Range Comments POC-GLUCOSE METER (BEAKER) 345 mg/dL 70-110 TESTED AT [address] (test gjwn=7632) [facility] [address] POCT-GLUCOSE [id number] 16:56:00 Test Item Value Reference Range Comments POC-GLUCOSE METER (BEAKER) 309 mg/dL 70-110 TESTED AT [address] (test csiu=3122) [facility] [address] POCT-GLUCOSE [id number] 12:27:00 Test Item Value Reference Range Comments POC-GLUCOSE METER (BEAKER) 266 mg/dL 70-110 TESTED AT [address] (test fgfe=4639) [facility] [address] POCT-GLUCOSE [id number] 09:22:00 Test Item Value Reference Range Comments POC-GLUCOSE METER (BEAKER) 114 mg/dL 70-110 TESTED AT [address] (test gxaw=6005) [facility] [address] URIC [id number] 05:53:00 Test Item Value Reference Range Comments URIC ACID (BEAKER) (test 7.7 mg/dL 2.6-7.2 Specimen slightly hemolyzed blmx=264) BASIC METABOLIC [id number] 05:53:00 Test Item Value Reference Range Comments SODIUM (BEAKER) (test 139 meq/L 136-145 djoy=778) POTASSIUM (BEAKER) (test 4.1 meq/L 3.5-5.1 Specimen slightly jnnz=002) hemolyzed CHLORIDE (BEAKER) (test 104 meq/L 98-107 dpof=680) CO2 (BEAKER) (test 26 meq/L 22-29 etzi=433) BLOOD UREA NITROGEN 19 mg/dL 7-21 (BEAKER) (test tsmg=436) CREATININE (BEAKER) (test 0.99 mg/dL 0.57-1.25 Specimen slightly sbqi=405) hemolyzed GLUCOSE RANDOM (BEAKER) 136 mg/dL 70-105 (test raqf=717) CALCIUM (BEAKER) (test 9.8 mg/dL 8.4-10.2 tbzu=043) EGFR (BEAKER) (test 75 mL/min/1.73 sq m ESTIMATED GFR IS NOT pffe=3080) ACCURATE CREATININE CLEARANCE IN PREDICTING GLOMERULAR FILTRATION RATE. ESTIMATED GFR IS NOT APPLICABLE FOR DIALYSIS PATIENTS. CBC W/PLT COUNT & AUTO [id number] 05:38:00 Test Item Value Reference Range Comments WHITE BLOOD CELL COUNT (BEAKER) (test oghk=704) 6.0 K/ L 3.5-10.5 RED BLOOD CELL COUNT (BEAKER) (test pzur=295) 4.30 M/ L 4.63-6.08 HEMOGLOBIN (BEAKER) (test qssq=051) 12.0 GM/DL 13.7-17.5 HEMATOCRIT (BEAKER) (test jdni=945) 36.1 % 40.1-51.0 MEAN CORPUSCULAR VOLUME (BEAKER) (test mbcw=323) 84.0 fL 79.0-92.2 MEAN CORPUSCULAR HEMOGLOBIN (BEAKER) (test 27.9 pg 25.7-32.2 thpp=195) MEAN CORPUSCULAR HEMOGLOBIN CONC (BEAKER) (test 33.2 GM/DL 32.3-36.5 xjyi=146) RED CELL DISTRIBUTION WIDTH (BEAKER) (test 12.9 % 11.6-14.4 yobt=155) PLATELET COUNT (BEAKER) (test xxzz=231) 303 K/CU MM 150-450 MEAN PLATELET VOLUME (BEAKER) (test prqm=737) 10.8 fL 9.4-12.4 NUCLEATED RED BLOOD CELLS (BEAKER) (test 0 /100 WBC 0-0 brko=013) NEUTROPHILS RELATIVE PERCENT (BEAKER) (test 54 % qiks=906) LYMPHOCYTES RELATIVE PERCENT (BEAKER) (test 29 % hrxh=325) MONOCYTES RELATIVE PERCENT (BEAKER) (test 11 % mxzr=195) EOSINOPHILS RELATIVE PERCENT (BEAKER) (test 4 % fskq=020) BASOPHILS RELATIVE PERCENT (BEAKER) (test 1 % rgfd=743) NEUTROPHILS ABSOLUTE COUNT (BEAKER) (test 3.24 K/ L 1.78-5.38 vsyo=817) LYMPHOCYTES ABSOLUTE COUNT (BEAKER) (test 1.75 K/ L 1.32-3.57 djka=910) MONOCYTES ABSOLUTE COUNT (BEAKER) (test 0.63 K/ L 0.30-0.82 mlae=773) EOSINOPHILS ABSOLUTE COUNT (BEAKER) (test 0.25 K/ L 0.04-0.54 vkih=214) BASOPHILS ABSOLUTE COUNT (BEAKER) (test 0.07 K/ L 0.01-0.08 vcxm=886) IMMATURE GRANULOCYTES-RELATIVE PERCENT (BEAKER) 1 % 0-1 (test hmdp=5208) POCT-GLUCOSE [id number] 21:06:00 Test Item Value Reference Range Comments POC-GLUCOSE METER (BEAKER) 232 mg/dL 70-110 TESTED AT [address] (test zrpl=7147) [place] [address] POCT-GLUCOSE [id number] 17:22:00 Test Item Value Reference Range Comments POC-GLUCOSE METER (BEAKER) 95 mg/dL 70-110 TESTED AT [address] (test odmj=4033) [place] [address] POCT-GLUCOSE [id number] 13:13:00 Test Item Value Reference Range Comments POC-GLUCOSE METER (BEAKER) 118 mg/dL 70-110 TESTED AT [address] (test pocc=0609) [place] [address] POCT-GLUCOSE [id number] 08:23:00 Test Item Value Reference Range Comments POC-GLUCOSE METER (BEAKER) 72 mg/dL 70-110 TESTED AT [address] (test ollh=4881) [place] [address] BASIC METABOLIC [id number] 06:22:00 Test Item Value Reference Range Comments SODIUM (BEAKER) (test 137 meq/L 136-145 bqqx=428) POTASSIUM (BEAKER) (test 3.4 meq/L 3.5-5.1 qasj=474) CHLORIDE (BEAKER) (test 104 meq/L 98-107 jdkl=194) CO2 (BEAKER) (test 23 meq/L 22-29 rxvl=383) BLOOD UREA NITROGEN 16 mg/dL 7-21 (BEAKER) (test nvad=651) CREATININE (BEAKER) (test 0.83 mg/dL 0.57-1.25 acla=267) GLUCOSE RANDOM (BEAKER) 102 mg/dL 70-105 (test fojr=191) CALCIUM (BEAKER) (test 9.4 mg/dL 8.4-10.2 xmba=057) EGFR (BEAKER) (test 92 mL/min/1.73 sq m ESTIMATED GFR IS NOT cmow=5823) ACCURATE CREATININE CLEARANCE IN PREDICTING GLOMERULAR FILTRATION RATE. ESTIMATED GFR IS NOT APPLICABLE FOR DIALYSIS PATIENTS. CBC W/PLT COUNT & AUTO [id number] 05:25:00 Test Item Value Reference Range Comments WHITE BLOOD CELL COUNT (BEAKER) (test shjd=927) 6.3 K/ L 3.5-10.5 RED BLOOD CELL COUNT (BEAKER) (test gtjf=041) 4.03 M/ L 4.63-6.08 HEMOGLOBIN (BEAKER) (test uayy=667) 11.3 GM/DL 13.7-17.5 HEMATOCRIT (BEAKER) (test lbry=817) 33.2 % 40.1-51.0 MEAN CORPUSCULAR VOLUME (BEAKER) (test mgbi=352) 82.4 fL 79.0-92.2 MEAN CORPUSCULAR HEMOGLOBIN (BEAKER) (test 28.0 pg 25.7-32.2 vykj=272) MEAN CORPUSCULAR HEMOGLOBIN CONC (BEAKER) (test 34.0 GM/DL 32.3-36.5 bjok=407) RED CELL DISTRIBUTION WIDTH (BEAKER) (test 12.8 % 11.6-14.4 knew=235) PLATELET COUNT (BEAKER) (test iiyv=063) 291 K/CU MM 150-450 MEAN PLATELET VOLUME (BEAKER) (test vvpz=486) 10.7 fL 9.4-12.4 NUCLEATED RED BLOOD CELLS (BEAKER) (test 0 /100 WBC 0-0 yeay=158) NEUTROPHILS RELATIVE PERCENT (BEAKER) (test 61 % jtvm=361) LYMPHOCYTES RELATIVE PERCENT (BEAKER) (test 26 % pjlb=834) MONOCYTES RELATIVE PERCENT (BEAKER) (test 8 % zkrg=442) EOSINOPHILS RELATIVE PERCENT (BEAKER) (test 4 % arov=784) BASOPHILS RELATIVE PERCENT (BEAKER) (test 1 % xsyi=241) NEUTROPHILS ABSOLUTE COUNT (BEAKER) (test 3.85 K/ L 1.78-5.38 qyap=127) LYMPHOCYTES ABSOLUTE COUNT (BEAKER) (test 1.65 K/ L 1.32-3.57 ffuk=582) MONOCYTES ABSOLUTE COUNT (BEAKER) (test 0.50 K/ L 0.30-0.82 flmx=752) EOSINOPHILS ABSOLUTE COUNT (BEAKER) (test 0.23 K/ L 0.04-0.54 gxgf=397) BASOPHILS ABSOLUTE COUNT (BEAKER) (test 0.04 K/ L 0.01-0.08 tlvz=917) IMMATURE GRANULOCYTES-RELATIVE PERCENT (BEAKER) 0 % 0-1 (test kwyv=2208) POCT-GLUCOSE [id number] 20:55:00 Test Item Value Reference Range Comments POC-GLUCOSE METER (BEAKER) 173 mg/dL 70-110 TESTED AT [address] (test fscy=2704) [facility] [address] POCT-GLUCOSE [id number] 17:24:00 Test Item Value Reference Range Comments POC-GLUCOSE METER (BEAKER) 266 mg/dL 70-110 TESTED AT [address] (test xxdq=0384) [facility] [address] POCT-GLUCOSE [id number] 12:36:00 Test Item Value Reference Range Comments POC-GLUCOSE METER (BEAKER) 284 mg/dL 70-110 TESTED AT [address] (test qqxw=5526) [facility] [address] BASIC METABOLIC [id number] 07:22:00 Test Item Value Reference Range Comments SODIUM (BEAKER) (test 140 meq/L 136-145 uzbn=587) POTASSIUM (BEAKER) (test 3.6 meq/L 3.5-5.1 ofns=849) CHLORIDE (BEAKER) (test 105 meq/L 98-107 oupi=108) CO2 (BEAKER) (test 25 meq/L 22-29 tnam=888) BLOOD UREA NITROGEN 23 mg/dL 7-21 (BEAKER) (test iclq=359) CREATININE (BEAKER) (test 0.93 mg/dL 0.57-1.25 zwok=522) GLUCOSE RANDOM (BEAKER) 102 mg/dL 70-105 (test galb=179) CALCIUM (BEAKER) (test 9.7 mg/dL 8.4-10.2 bhwb=561) EGFR (BEAKER) (test 81 mL/min/1.73 sq m ESTIMATED GFR IS NOT vcho=3379) ACCURATE CREATININE CLEARANCE IN PREDICTING GLOMERULAR FILTRATION RATE. ESTIMATED GFR IS NOT APPLICABLE FOR DIALYSIS PATIENTS. CBC W/PLT COUNT & AUTO [id number] 07:02:00 Test Item Value Reference Range Comments WHITE BLOOD CELL COUNT (BEAKER) (test bfcb=110) 7.1 K/ L 3.5-10.5 RED BLOOD CELL COUNT (BEAKER) (test cpbs=847) 4.25 M/ L 4.63-6.08 HEMOGLOBIN (BEAKER) (test octt=467) 11.8 GM/DL 13.7-17.5 HEMATOCRIT (BEAKER) (test nhfw=776) 36.1 % 40.1-51.0 MEAN CORPUSCULAR VOLUME (BEAKER) (test lmho=064) 84.9 fL 79.0-92.2 MEAN CORPUSCULAR HEMOGLOBIN (BEAKER) (test 27.8 pg 25.7-32.2 zfik=036) MEAN CORPUSCULAR HEMOGLOBIN CONC (BEAKER) (test 32.7 GM/DL 32.3-36.5 metz=065) RED CELL DISTRIBUTION WIDTH (BEAKER) (test 13.1 % 11.6-14.4 hnpb=249) PLATELET COUNT (BEAKER) (test bmhm=060) 262 K/CU MM 150-450 MEAN PLATELET VOLUME (BEAKER) (test puzm=388) 12.2 fL 9.4-12.4 NUCLEATED RED BLOOD CELLS (BEAKER) (test 0 /100 WBC 0-0 oasl=598) NEUTROPHILS RELATIVE PERCENT (BEAKER) (test 69 % waid=507) LYMPHOCYTES RELATIVE PERCENT (BEAKER) (test 19 % xoks=524) MONOCYTES RELATIVE PERCENT (BEAKER) (test 9 % syit=930) EOSINOPHILS RELATIVE PERCENT (BEAKER) (test 3 % byat=890) BASOPHILS RELATIVE PERCENT (BEAKER) (test 0 % ulfd=713) NEUTROPHILS ABSOLUTE COUNT (BEAKER) (test 4.88 K/ L 1.78-5.38 tlij=209) LYMPHOCYTES ABSOLUTE COUNT (BEAKER) (test 1.38 K/ L 1.32-3.57 vajd=120) MONOCYTES ABSOLUTE COUNT (BEAKER) (test 0.61 K/ L 0.30-0.82 fxsy=303) EOSINOPHILS ABSOLUTE COUNT (BEAKER) (test 0.20 K/ L 0.04-0.54 idkl=340) BASOPHILS ABSOLUTE COUNT (BEAKER) (test 0.03 K/ L 0.01-0.08 ndym=644) IMMATURE GRANULOCYTES-RELATIVE PERCENT (BEAKER) 0 % 0-1 (test zxxp=6544) POCT-GLUCOSE [id number] 21:17:00 Test Item Value Reference Range Comments POC-GLUCOSE METER (BEAKER) 337 mg/dL 70-110 TESTED AT [address] (test euzu=9575) [facility] [address] POCT-GLUCOSE [id number] 16:54:00 Test Item Value Reference Range Comments POC-GLUCOSE METER (BEAKER) 304 mg/dL 70-110 Notified HENRIETTA SUAREZ/TESTED AT [facility] (test dluy=2241) [address] [place] [address] POCT-GLUCOSE [id number] 11:54:00 Test Item Value Reference Range Comments POC-GLUCOSE METER (BEAKER) 290 mg/dL 70-110 TESTED AT [address] (test hpvn=5989) [facility] [address] POCT-GLUCOSE [id number] 08:03:00 Test Item Value Reference Range Comments POC-GLUCOSE METER (BEAKER) 167 mg/dL 70-110 TESTED AT [address] (test icgi=9153) [facility] [address] BASIC METABOLIC [id number] 07:20:00 Test Item Value Reference Range Comments SODIUM (BEAKER) (test 137 meq/L 136-145 kbno=174) POTASSIUM (BEAKER) (test 4.0 meq/L 3.5-5.1 yjxk=224) CHLORIDE (BEAKER) (test 105 meq/L 98-107 mnmt=484) CO2 (BEAKER) (test 22 meq/L 22-29 tpxc=653) BLOOD UREA NITROGEN 21 mg/dL 7-21 (BEAKER) (test kxtg=651) CREATININE (BEAKER) (test 0.99 mg/dL 0.57-1.25 ezwp=534) GLUCOSE RANDOM (BEAKER) 172 mg/dL 70-105 (test buzn=047) CALCIUM (BEAKER) (test 9.8 mg/dL 8.4-10.2 xreu=442) EGFR (BEAKER) (test 75 mL/min/1.73 sq m ESTIMATED GFR IS NOT ixuf=9233) ACCURATE CREATININE CLEARANCE IN PREDICTING GLOMERULAR FILTRATION RATE. ESTIMATED GFR IS NOT APPLICABLE FOR DIALYSIS PATIENTS. CBC W/PLT COUNT & AUTO [id number] 07:04:00 Test Item Value Reference Range Comments WHITE BLOOD CELL COUNT (BEAKER) (test lkpr=625) 8.2 K/ L 3.5-10.5 RED BLOOD CELL COUNT (BEAKER) (test xxzo=407) 4.22 M/ L 4.63-6.08 HEMOGLOBIN (BEAKER) (test vgfc=718) 12.0 GM/DL 13.7-17.5 HEMATOCRIT (BEAKER) (test yjow=197) 36.1 % 40.1-51.0 MEAN CORPUSCULAR VOLUME (BEAKER) (test mtcl=519) 85.5 fL 79.0-92.2 MEAN CORPUSCULAR HEMOGLOBIN (BEAKER) (test 28.4 pg 25.7-32.2 ypkx=662) MEAN CORPUSCULAR HEMOGLOBIN CONC (BEAKER) (test 33.2 GM/DL 32.3-36.5 gwrm=448) RED CELL DISTRIBUTION WIDTH (BEAKER) (test 13.2 % 11.6-14.4 keek=432) PLATELET COUNT (BEAKER) (test cdup=570) 196 K/CU MM 150-450 MEAN PLATELET VOLUME (BEAKER) (test xxet=314) 12.1 fL 9.4-12.4 NUCLEATED RED BLOOD CELLS (BEAKER) (test 0 /100 WBC 0-0 hiko=875) NEUTROPHILS RELATIVE PERCENT (BEAKER) (test 72 % ypvx=169) LYMPHOCYTES RELATIVE PERCENT (BEAKER) (test 17 % iejk=410) MONOCYTES RELATIVE PERCENT (BEAKER) (test 9 % qxpr=031) EOSINOPHILS RELATIVE PERCENT (BEAKER) (test 2 % wfgj=221) BASOPHILS RELATIVE PERCENT (BEAKER) (test 0 % fsgc=852) NEUTROPHILS ABSOLUTE COUNT (BEAKER) (test 5.89 K/ L 1.78-5.38 hvty=418) LYMPHOCYTES ABSOLUTE COUNT (BEAKER) (test 1.42 K/ L 1.32-3.57 wfop=370) MONOCYTES ABSOLUTE COUNT (BEAKER) (test 0.72 K/ L 0.30-0.82 ioeu=254) EOSINOPHILS ABSOLUTE COUNT (BEAKER) (test 0.14 K/ L 0.04-0.54 iytx=540) BASOPHILS ABSOLUTE COUNT (BEAKER) (test 0.03 K/ L 0.01-0.08 kxgu=034) IMMATURE GRANULOCYTES-RELATIVE PERCENT (BEAKER) 0 % 0-1 (test togq=9647) POCT-GLUCOSE [id number] 21:18:00 Test Item Value Reference Range Comments POC-GLUCOSE METER (BEAKER) 412 mg/dL 70-110 TESTED AT [address] (test tpxa=0544) [facility] [address] POCT-GLUCOSE [id number] 17:07:00 Test Item Value Reference Range Comments POC-GLUCOSE METER (BEAKER) 273 mg/dL 70-110 TESTED AT [address] (test pyvr=9816) [facility] [address] POCT-GLUCOSE [id number] 12:23:00 Test Item Value Reference Range Comments POC-GLUCOSE METER (BEAKER) 267 mg/dL 70-110 TESTED AT [address] (test kozy=0533) [facility] [address] POCT-GLUCOSE [id number] 08:28:00 Test Item Value Reference Range Comments POC-GLUCOSE METER (BEAKER) 126 mg/dL 70-110 TESTED AT [address] (test eiay=0925) [facility] [address] CBC W/PLT COUNT & AUTO [id number] 04:59:00 Test Item Value Reference Range Comments WHITE BLOOD CELL COUNT (BEAKER) (test qcco=868) 11.5 K/ L 3.5-10.5 RED BLOOD CELL COUNT (BEAKER) (test rinp=072) 4.57 M/ L 4.63-6.08 HEMOGLOBIN (BEAKER) (test xpse=858) 12.8 GM/DL 13.7-17.5 HEMATOCRIT (BEAKER) (test dimm=312) 37.8 % 40.1-51.0 MEAN CORPUSCULAR VOLUME (BEAKER) (test zvgk=893) 82.7 fL 79.0-92.2 MEAN CORPUSCULAR HEMOGLOBIN (BEAKER) (test 28.0 pg 25.7-32.2 dfjd=547) MEAN CORPUSCULAR HEMOGLOBIN CONC (BEAKER) (test 33.9 GM/DL 32.3-36.5 nllr=876) RED CELL DISTRIBUTION WIDTH (BEAKER) (test 13.2 % 11.6-14.4 lfwz=926) PLATELET COUNT (BEAKER) (test gtii=248) 194 K/CU MM 150-450 MEAN PLATELET VOLUME (BEAKER) (test yabl=104) 11.9 fL 9.4-12.4 NUCLEATED RED BLOOD CELLS (BEAKER) (test 0 /100 WBC 0-0 odjl=154) NEUTROPHILS RELATIVE PERCENT (BEAKER) (test 82 % yxax=402) LYMPHOCYTES RELATIVE PERCENT (BEAKER) (test 10 % sgwa=664) MONOCYTES RELATIVE PERCENT (BEAKER) (test 8 % jdlb=252) EOSINOPHILS RELATIVE PERCENT (BEAKER) (test 0 % fvot=513) BASOPHILS RELATIVE PERCENT (BEAKER) (test 0 % omdw=573) NEUTROPHILS ABSOLUTE COUNT (BEAKER) (test 9.43 K/ L 1.78-5.38 zmny=667) LYMPHOCYTES ABSOLUTE COUNT (BEAKER) (test 1.09 K/ L 1.32-3.57 syqb=418) MONOCYTES ABSOLUTE COUNT (BEAKER) (test 0.86 K/ L 0.30-0.82 pbyv=534) EOSINOPHILS ABSOLUTE COUNT (BEAKER) (test 0.01 K/ L 0.04-0.54 xgez=878) BASOPHILS ABSOLUTE COUNT (BEAKER) (test 0.04 K/ L 0.01-0.08 nyew=772) IMMATURE GRANULOCYTES-RELATIVE PERCENT (BEAKER) 0 % 0-1 (test nikb=5331) BASIC METABOLIC [id number] 04:45:00 Test Item Value Reference Range Comments SODIUM (BEAKER) (test 138 meq/L 136-145 slou=504) POTASSIUM (BEAKER) (test 3.7 meq/L 3.5-5.1 mjvs=370) CHLORIDE (BEAKER) (test 107 meq/L 98-107 hzcq=277) CO2 (BEAKER) (test 22 meq/L 22-29 vcsd=809) BLOOD UREA NITROGEN 14 mg/dL 7-21 (BEAKER) (test paoe=130) CREATININE (BEAKER) (test 0.91 mg/dL 0.57-1.25 hfes=269) GLUCOSE RANDOM (BEAKER) 168 mg/dL 70-105 (test vwyv=041) CALCIUM (BEAKER) (test 9.8 mg/dL 8.4-10.2 gyli=170) EGFR (BEAKER) (test 83 mL/min/1.73 sq m ESTIMATED GFR IS NOT sonx=6416) ACCURATE CREATININE CLEARANCE IN PREDICTING GLOMERULAR FILTRATION RATE. ESTIMATED GFR IS NOT APPLICABLE FOR DIALYSIS PATIENTS. POCT-GLUCOSE [id number] 21:48:00 Test Item Value Reference Range Comments POC-GLUCOSE METER (BEAKER) 272 mg/dL 70-110 TESTED AT [address] (test rwyz=0311) [place] [id number] POCT-GLUCOSE [id number] 17:49:00 Test Item Value Reference Range Comments POC-GLUCOSE METER (BEAKER) 226 mg/dL 70-110 TESTED AT [address] (test nrik=0262) [facility] [address] POCT-GLUCOSE [id number] 12:27:00 Test Item Value Reference Range Comments POC-GLUCOSE METER (BEAKER) 230 mg/dL 70-110 TESTED AT [address] (test osym=4497) [place] [address] POCT-GLUCOSE [id number] 08:05:00 Test Item Value Reference Range Comments POC-GLUCOSE METER (BEAKER) 61 mg/dL 70-110 Notified HENRIETTA SUAREZ/TESTED AT [facility] (test bnxf=6225) [address] [place] [address] BASIC METABOLIC [id number] 06:49:00 Test Item Value Reference Range Comments SODIUM (BEAKER) (test 140 meq/L 136-145 vcpf=837) POTASSIUM (BEAKER) (test 3.6 meq/L 3.5-5.1 sjjz=933) CHLORIDE (BEAKER) (test 108 meq/L 98-107 luoi=199) CO2 (BEAKER) (test 23 meq/L 22-29 zgog=920) BLOOD UREA NITROGEN 15 mg/dL 7-21 (BEAKER) (test upgf=274) CREATININE (BEAKER) (test 0.92 mg/dL 0.57-1.25 xkpk=488) GLUCOSE RANDOM (BEAKER) 75 mg/dL 70-105 (test svyz=642) CALCIUM (BEAKER) (test 9.4 mg/dL 8.4-10.2 eubw=515) EGFR (BEAKER) (test 82 mL/min/1.73 sq m ESTIMATED GFR IS NOT zxff=6248) ACCURATE CREATININE CLEARANCE IN PREDICTING GLOMERULAR FILTRATION RATE. ESTIMATED GFR IS NOT APPLICABLE FOR DIALYSIS PATIENTS. CBC W/PLT COUNT & AUTO [id number] 06:43:00 Test Item Value Reference Range Comments WHITE BLOOD CELL COUNT (BEAKER) (test jila=185) 9.4 K/ L 3.5-10.5 RED BLOOD CELL COUNT (BEAKER) (test ekzq=314) 4.15 M/ L 4.63-6.08 HEMOGLOBIN (BEAKER) (test erjg=970) 11.9 GM/DL 13.7-17.5 HEMATOCRIT (BEAKER) (test yovb=311) 34.4 % 40.1-51.0 MEAN CORPUSCULAR VOLUME (BEAKER) (test vboc=630) 82.9 fL 79.0-92.2 MEAN CORPUSCULAR HEMOGLOBIN (BEAKER) (test 28.7 pg 25.7-32.2 ugfm=878) MEAN CORPUSCULAR HEMOGLOBIN CONC (BEAKER) (test 34.6 GM/DL 32.3-36.5 arva=032) RED CELL DISTRIBUTION WIDTH (BEAKER) (test 13.2 % 11.6-14.4 crsc=165) PLATELET COUNT (BEAKER) (test iydh=735) 215 K/CU MM 150-450 MEAN PLATELET VOLUME (BEAKER) (test jmbw=460) 11.9 fL 9.4-12.4 NUCLEATED RED BLOOD CELLS (BEAKER) (test 0 /100 WBC 0-0 zdcw=846) NEUTROPHILS RELATIVE PERCENT (BEAKER) (test 69 % pcwr=120) LYMPHOCYTES RELATIVE PERCENT (BEAKER) (test 19 % kqqb=754) MONOCYTES RELATIVE PERCENT (BEAKER) (test 12 % rqrf=341) EOSINOPHILS RELATIVE PERCENT (BEAKER) (test 0 % sctk=620) BASOPHILS RELATIVE PERCENT (BEAKER) (test 0 % vrik=243) NEUTROPHILS ABSOLUTE COUNT (BEAKER) (test 6.49 K/ L 1.78-5.38 zmzc=297) LYMPHOCYTES ABSOLUTE COUNT (BEAKER) (test 1.76 K/ L 1.32-3.57 zlnj=237) MONOCYTES ABSOLUTE COUNT (BEAKER) (test 1.08 K/ L 0.30-0.82 rwme=796) EOSINOPHILS ABSOLUTE COUNT (BEAKER) (test 0.03 K/ L 0.04-0.54 cjeq=180) BASOPHILS ABSOLUTE COUNT (BEAKER) (test 0.03 K/ L 0.01-0.08 cqfq=490) IMMATURE GRANULOCYTES-RELATIVE PERCENT (BEAKER) 0 % 0-1 (test ogww=8196) POCT-GLUCOSE [id number] 21:26:00 Test Item Value Reference Range Comments POC-GLUCOSE METER (BEAKER) 246 mg/dL 70-[address] [facility] [address] [facility] (test rmgv=1949) [facility] [address] POCT-GLUCOSE [id number] 17:42:00 Test Item Value Reference Range Comments POC-GLUCOSE METER (BEAKER) 199 mg/dL 70-[address] [facility] [address] [facility] (test igmn=0914) [facility] [address] CT, CAROTID, [id number] 15:02:00FINAL REPORT CT angiogram of the upper [...] [place] Verified Date/Time: 05/28/2018 15:02:10 Reading Location: [address] Consult Reading Room 03 :02 [facility] [id number] 15:02:00FINAL REPORT CT angiogram of the upper [...] [place] Verified Date/Time: 05/28/2018 15:02:10 Reading Location: [place] [id number] Consult Reading Room 03 :02 PMPOCT-GLUCOSE [id number] 08:16:00 Test Item Value Reference Range Comments POC-GLUCOSE METER (BEAKER) 122 mg/dL 70-[address] [facility] [address] [facility] (test fcoc=3591) [facility] [address] BASIC METABOLIC [id number] 04:52:00 Test Item Value Reference Range Comments SODIUM (BEAKER) (test 138 meq/L 136-145 kfzi=393) POTASSIUM (BEAKER) (test 3.6 meq/L 3.5-5.1 Specimen slightly ekiz=231) hemolyzed CHLORIDE (BEAKER) (test 105 meq/L 98-107 mkyh=401) CO2 (BEAKER) (test 23 meq/L 22-29 cxxr=407) BLOOD UREA NITROGEN 8 mg/dL 7-21 (BEAKER) (test nkgu=036) CREATININE (BEAKER) (test 0.82 mg/dL 0.57-1.25 Specimen slightly srtv=478) hemolyzed GLUCOSE RANDOM (BEAKER) 112 mg/dL 70-105 (test fkiw=587) CALCIUM (BEAKER) (test 9.7 mg/dL 8.4-10.2 qjyo=884) EGFR (BEAKER) (test 94 mL/min/1.73 sq m ESTIMATED GFR IS NOT cplx=1564) ACCURATE CREATININE CLEARANCE IN PREDICTING GLOMERULAR FILTRATION RATE. ESTIMATED GFR IS NOT APPLICABLE FOR DIALYSIS PATIENTS. CBC W/PLT COUNT & AUTO [id number] 04:39:00 Test Item Value Reference Range Comments WHITE BLOOD CELL COUNT (BEAKER) (test azfo=866) 9.5 K/ L 3.5-10.5 RED BLOOD CELL COUNT (BEAKER) (test owhv=737) 4.99 M/ L 4.63-6.08 HEMOGLOBIN (BEAKER) (test wqyp=784) 14.2 GM/DL 13.7-17.5 HEMATOCRIT (BEAKER) (test kqac=113) 41.4 % 40.1-51.0 MEAN CORPUSCULAR VOLUME (BEAKER) (test wkqd=451) 83.0 fL 79.0-92.2 MEAN CORPUSCULAR HEMOGLOBIN (BEAKER) (test 28.5 pg 25.7-32.2 muiz=651) MEAN CORPUSCULAR HEMOGLOBIN CONC (BEAKER) (test 34.3 GM/DL 32.3-36.5 ptmy=918) RED CELL DISTRIBUTION WIDTH (BEAKER) (test 13.0 % 11.6-14.4 xgfw=974) PLATELET COUNT (BEAKER) (test rycy=560) 200 K/CU MM 150-450 MEAN PLATELET VOLUME (BEAKER) (test jvyb=942) 11.6 fL 9.4-12.4 NUCLEATED RED BLOOD CELLS (BEAKER) (test 0 /100 WBC 0-0 xrxt=746) NEUTROPHILS RELATIVE PERCENT (BEAKER) (test 72 % rmcn=657) LYMPHOCYTES RELATIVE PERCENT (BEAKER) (test 19 % qjrd=308) MONOCYTES RELATIVE PERCENT (BEAKER) (test 9 % bcfb=024) EOSINOPHILS RELATIVE PERCENT (BEAKER) (test 1 % ncbs=047) BASOPHILS RELATIVE PERCENT (BEAKER) (test 0 % hwvv=021) NEUTROPHILS ABSOLUTE COUNT (BEAKER) (test 6.84 K/ L 1.78-5.38 dvhe=291) LYMPHOCYTES ABSOLUTE COUNT (BEAKER) (test 1.78 K/ L 1.32-3.57 bmid=568) MONOCYTES ABSOLUTE COUNT (BEAKER) (test 0.81 K/ L 0.30-0.82 eidl=827) EOSINOPHILS ABSOLUTE COUNT (BEAKER) (test 0.05 K/ L 0.04-0.54 voey=590) BASOPHILS ABSOLUTE COUNT (BEAKER) (test 0.04 K/ L 0.01-0.08 jwsg=780) IMMATURE GRANULOCYTES-RELATIVE PERCENT (BEAKER) 0 % 0-1 (test xxqn=9339) POCT-GLUCOSE [id number] 23:15:00 Test Item Value Reference Range Comments POC-GLUCOSE METER (BEAKER) 242 mg/dL 70-[address] [facility] [address] [facility] (test ejrk=2288) [facility] [address] POCT-GLUCOSE [id number] 17:35:00 Test Item Value Reference Range Comments POC-GLUCOSE METER (BEAKER) 268 mg/dL 70-110 TESTED AT [address] (test bfxt=5822) [facility] [address] EEG AWAKE AND [id number] 14:32:00For STAT EEG- after 5 PM weekdays, weekends and holidays, page the on-call EEG TechReason for exam:->Witnessed seizureDATE OF TEST: 05/27/2018 DATE OF REPORT : 05/27/2018 ACC: [id number] EE- 1220 Start time: 05/27/2018 at 10:43 Stop time: 05/27/2018 at 11:04 ICD-10: R 56.9 CPT Code: 92888 HISTORY: 68 year old male with dementia [...] 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 [address] (test dqhv=7799) [facility] [address] BASIC METABOLIC [id number] 06:21:00 Test Item Value Reference Range Comments SODIUM (BEAKER) (test 134 meq/L 136-145 eusl=750) POTASSIUM (BEAKER) (test 3.8 meq/L 3.5-5.1 eemv=174) CHLORIDE (BEAKER) (test 103 meq/L 98-107 pjxi=890) CO2 (BEAKER) (test 21 meq/L 22-29 peje=737) BLOOD UREA NITROGEN 10 mg/dL 7-21 (BEAKER) (test szyp=916) CREATININE (BEAKER) (test 0.94 mg/dL 0.57-1.25 ahal=634) GLUCOSE RANDOM (BEAKER) 231 mg/dL 70-105 (test vuyu=590) CALCIUM (BEAKER) (test 9.4 mg/dL 8.4-10.2 cupt=304) EGFR (BEAKER) (test 80 mL/min/1.73 sq m ESTIMATED GFR IS NOT gdxo=6264) ACCURATE CREATININE CLEARANCE IN PREDICTING GLOMERULAR FILTRATION RATE. ESTIMATED GFR IS NOT APPLICABLE FOR DIALYSIS PATIENTS. CBC W/PLT COUNT & AUTO [id number] 06:02:00 Test Item Value Reference Range Comments WHITE BLOOD CELL COUNT (BEAKER) (test wgdv=156) 8.5 K/ L 3.5-10.5 RED BLOOD CELL COUNT (BEAKER) (test psrs=294) 4.70 M/ L 4.63-6.08 HEMOGLOBIN (BEAKER) (test oejt=133) 13.1 GM/DL 13.7-17.5 HEMATOCRIT (BEAKER) (test gbop=340) 38.4 % 40.1-51.0 MEAN CORPUSCULAR VOLUME (BEAKER) (test vpmm=728) 81.7 fL 79.0-92.2 MEAN CORPUSCULAR HEMOGLOBIN (BEAKER) (test 27.9 pg 25.7-32.2 ejre=981) MEAN CORPUSCULAR HEMOGLOBIN CONC (BEAKER) (test 34.1 GM/DL 32.3-36.5 kfbg=503) RED CELL DISTRIBUTION WIDTH (BEAKER) (test 13.1 % 11.6-14.4 xisd=558) PLATELET COUNT (BEAKER) (test mall=675) 244 K/CU MM 150-450 MEAN PLATELET VOLUME (BEAKER) (test kiqh=793) 11.4 fL 9.4-12.4 NUCLEATED RED BLOOD CELLS (BEAKER) (test 0 /100 WBC 0-0 ycmv=260) NEUTROPHILS RELATIVE PERCENT (BEAKER) (test 66 % jngv=846) LYMPHOCYTES RELATIVE PERCENT (BEAKER) (test 24 % npql=910) MONOCYTES RELATIVE PERCENT (BEAKER) (test 7 % htsx=074) EOSINOPHILS RELATIVE PERCENT (BEAKER) (test 1 % bylb=355) BASOPHILS RELATIVE PERCENT (BEAKER) (test 1 % kuvc=233) NEUTROPHILS ABSOLUTE COUNT (BEAKER) (test 5.59 K/ L 1.78-5.38 wnqr=220) LYMPHOCYTES ABSOLUTE COUNT (BEAKER) (test 2.06 K/ L 1.32-3.57 blur=427) MONOCYTES ABSOLUTE COUNT (BEAKER) (test 0.61 K/ L 0.30-0.82 gqgm=341) EOSINOPHILS ABSOLUTE COUNT (BEAKER) (test 0.08 K/ L 0.04-0.54 mcha=419) BASOPHILS ABSOLUTE COUNT (BEAKER) (test 0.07 K/ L 0.01-0.08 ohuc=265) IMMATURE GRANULOCYTES-RELATIVE PERCENT (BEAKER) 1 % 0-1 (test rhuh=8749) MR, BRAIN, WITHOUT [id number] 02:49:00Reason for exam:->StrokeWhat is the patient's sedation requirement?->No SedationFINAL REPORT Exam: MRI brain without contrast. Comparison: None. Clinical indication: Stroke. Technique: Multiplanar multi sequential MR imaging of the brain was performed without the administration of intravenous contrast. Findings: There is generalized parenchymal atrophy.There are fmhw-wz-lauyzomf white matter microvascular ischemic changes. There is [...] [place] Verified Date/Time: 05/27/2018 02:49:43 Reading Location: [facility] [id number] Transitional Reading Room POCT-GLUCOSE [id number] 22: 01:00 Test Item Value Reference Range Comments POC-GLUCOSE METER (BEAKER) 215 mg/dL 70-110 TESTED AT [address] (test jjrq=2619) [facility] [address] POCT-GLUCOSE [id number] 17:04:00 Test Item Value Reference Range Comments POC-GLUCOSE METER (BEAKER) 172 mg/dL 70-110 TESTED AT [place] [id number] [facility] (test ueqi=3190) [facility] [address] TROPONIN [id number] 16:42:00 Test Item Value Reference Range Comments TROPONIN I (BEAKER) (test zyoh=436) < ng/mL 0.00-0.03 Troponin I (TnI) levels [...] neurological disease, and persistent tachyarrhythmia.VITAMIN B12 AND [id number] 13:23: 00 Test Item Value Reference Range Comments VITAMIN B12 (BEAKER) (test viuz=622) 776 pg/mL 213-816 FOLATE (BEAKER) (test nsaq=906) > ng/mL >=7.0 TSH/FREE T4 IF [id number] 13:07:00 Test Item Value Reference Range Comments THYROID STIMULATING HORMONE (BEAKER) (test 1.28 uIU/mL 0.35-4.94 gtow=981) POCT-GLUCOSE [id number] 11:24:00 Test Item Value Reference Range Comments POC-GLUCOSE METER (BEAKER) 329 mg/dL 70-110 TESTED AT [address] (test sfoa=9431) [facility] [address] RAD, CHEST, 1 VIEW, NON [id number] 10:27:00Reason for exam:-> strokeShould this be performed [...] No acute osseous abnormality. Signed: Amrita Partida [facility] Verified Date/Time: 05/26/2018 10:27:35 Reading Location: [facility] [id number] Ortho Consult Reading Room Electronically signed by: AMRITA PARTIDA M.D. on 2017 10:27 AMTROPONIN [id number] 09:43:00 Test Item Value Reference Range Comments TROPONIN I (BEAKER) (test tqsg=455) 0.01 ng/mL 0.00-0.03 Troponin I (TnI) levels [...] acidosis, acute neurological disease, and persistent tachyarrhythmia.POCT-GLUCOSE [id number] 08:38:00 Test Item Value Reference Range Comments POC-GLUCOSE METER (BEAKER) 336 mg/dL 70-110 TESTED AT [address] (test ekgk=1879) [facility] [address] HEMOGLOBIN [id number] 08:24:00 Test Item Value Reference Range Comments HEMOGLOBIN A1C (BEAKER) (test nfed=523) 13.2 % 4.3-6.1 POCT-GLUCOSE [id number] 07:18:00 Test Item Value Reference Range Comments POC-GLUCOSE METER (BEAKER) 365 mg/dL 70-[address] [facility] [address] [facility] (test hllq=8834) [facility] [address] LIPID [id number] 03:38:00 Test Item Value Reference Range Comments TRIGLYCERIDES (BEAKER) (test kbno=619) 122 mg/dL CHOLESTEROL (BEAKER) (test okbw=690) 166 mg/dL HDL CHOLESTEROL (BEAKER) (test ovfi=714) 40 mg/dL LDL CHOLESTEROL CALCULATED (BEAKER) (test 102 mg/dL dwxe=641) Triglyceride Reference Range: Low Risk <150 Borderline 150- 199 High Risk 200-499 Very High Risk >=500Cholesterol Reference Range: Low Risk <200 Borderline 200-239 High Risk > 240HDL Cholesterol Reference Range: Low Risk >=60 High Risk <40LDL Cholesterol Reference Range: Optimal <100 Near Optimal 100-129 Borderline 130-159 High 160-189 Very High >=190 FastingBASIC METABOLIC [id number] 03:38:00 Test Item Value Reference Range Comments SODIUM (BEAKER) (test 140 meq/L 136-145 vjov=397) POTASSIUM (BEAKER) (test 3.8 meq/L 3.5-5.1 pdbt=097) CHLORIDE (BEAKER) (test 103 meq/L 98-107 npwx=162) CO2 (BEAKER) (test 23 meq/L 22-29 wqsz=283) BLOOD UREA NITROGEN 19 mg/dL 7-21 (BEAKER) (test gymz=450) CREATININE (BEAKER) (test 1.30 mg/dL 0.57-1.25 pvsk=499) GLUCOSE RANDOM (BEAKER) 338 mg/dL 70-105 (test iavg=280) CALCIUM (BEAKER) (test 9.9 mg/dL 8.4-10.2 npva=963) EGFR (BEAKER) (test 55 mL/min/1.73 sq m ESTIMATED GFR IS NOT lewk=8363) ACCURATE CREATININE CLEARANCE IN PREDICTING GLOMERULAR FILTRATION RATE. ESTIMATED GFR IS NOT APPLICABLE FOR DIALYSIS PATIENTS. FastingHEPATIC FUNCTION [id number] 03:38:00 Test Item Value Reference Range Comments TOTAL PROTEIN (BEAKER) (test tnpq=709) 7.3 gm/dL 6.0-8.3 ALBUMIN (BEAKER) (test vdmj=9157) 4.0 g/dL 3.5-5.0 BILIRUBIN TOTAL (BEAKER) (test sysp=360) 0.3 mg/dL 0.2-1.2 BILIRUBIN DIRECT (BEAKER) (test knuh=094) 0.2 mg/dL 0.1-0.5 ALKALINE PHOSPHATASE (BEAKER) (test vocu=847) 107 U/L 40-150 AST (SGOT) (BEAKER) (test oduz=057) 14 U/L 5-34 ALT (SGPT) (BEAKER) (test umgz=124) 11 U/L 6-55 FastingPROTHROMBIN TIME/[id number] 03:29:00 Test Item Value Reference Range Comments PROTIME (BEAKER) (test nebz=182) 14.8 seconds 11.7-14.7 INR (BEAKER) (test wgxh=719) 1.2 <=5.9 RECOMMENDED COUMADIN/WARFARIN INR THERAPY RANGESSTANDARD DOSE: 2.0 - 3.0 Includes: PROPHYLAXIS forvenous thrombosis, systemic embolization; TREATMENT for venous thrombosis and/or pulmonary embolus.HIGH RISK: Target INR is 2.5-3.5 for patients with mechanical heart valves.CBC W/PLT COUNT & AUTO [id number] 03:27:00 Test Item Value Reference Range Comments WHITE BLOOD CELL COUNT (BEAKER) (test pozj=729) 14.0 K/ L 3.5-10.5 RED BLOOD CELL COUNT (BEAKER) (test pspd=267) 4.43 M/ L 4.63-6.08 HEMOGLOBIN (BEAKER) (test rwjp=971) 12.5 GM/DL 13.7-17.5 HEMATOCRIT (BEAKER) (test paur=561) 36.6 % 40.1-51.0 MEAN CORPUSCULAR VOLUME (BEAKER) (test gzzd=030) 82.6 fL 79.0-92.2 MEAN CORPUSCULAR HEMOGLOBIN (BEAKER) (test 28.2 pg 25.7-32.2 veyk=894) MEAN CORPUSCULAR HEMOGLOBIN CONC (BEAKER) (test 34.2 GM/DL 32.3-36.5 jbsa=164) RED CELL DISTRIBUTION WIDTH (BEAKER) (test 13.0 % 11.6-14.4 naey=340) PLATELET COUNT (BEAKER) (test nbqw=863) 248 K/CU MM 150-450 MEAN PLATELET VOLUME (BEAKER) (test sxjo=353) 11.4 fL 9.4-12.4 NUCLEATED RED BLOOD CELLS (BEAKER) (test 0 /100 WBC 0-0 oisk=228) NEUTROPHILS RELATIVE PERCENT (BEAKER) (test 84 % icee=631) LYMPHOCYTES RELATIVE PERCENT (BEAKER) (test 8 % piow=246) MONOCYTES RELATIVE PERCENT (BEAKER) (test 7 % tbvo=991) EOSINOPHILS RELATIVE PERCENT (BEAKER) (test 0 % okkz=584) BASOPHILS RELATIVE PERCENT (BEAKER) (test 0 % plfm=827) NEUTROPHILS ABSOLUTE COUNT (BEAKER) (test 11.72 K/ L 1.78-5.38 lpet=154) LYMPHOCYTES ABSOLUTE COUNT (BEAKER) (test 1.16 K/ L 1.32-3.57 kcqd=892) MONOCYTES ABSOLUTE COUNT (BEAKER) (test 0.94 K/ L 0.30-0.82 cjwl=800) EOSINOPHILS ABSOLUTE COUNT (BEAKER) (test 0.01 K/ L 0.04-0.54 relo=640) BASOPHILS ABSOLUTE COUNT (BEAKER) (test 0.06 K/ L 0.01-0.08 katk=905) IMMATURE GRANULOCYTES-RELATIVE PERCENT (BEAKER) 1 % 0-1 (test kyts=1813)
--- OUTSIDE RECORDS SUMMARY | 2018-08-22 16:54 | XMS REPORT ---
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 Assessment [...] unspecified complications Problem Hypertension I10 Active Assessment custodial current use of insulin Z79.4 Active Problem [...] Status Dosage System Date Date Simvastatin ND 12441312091 40 MG Orally Once April 12, Active 1 tablet a day 2018 in the evening Viagra ND 02527322993 50 MG Orally Once Active 1 tablet a day as needed Toujeo [facility] 23531502295 300u/ml Active 68 units SoloStar subcutaneously once once daily daily and titrate up 2 units every 3 days until fbg less than 130 max of 100 units daily Amlodipine [facility] 16449450285 10 MG Orally Once Active 1 tablet Besylate a day Simvastatin [facility] 22028309788 20 MG Inactive TAKE 1 TABLET BY MOUTH EVERY DAY Finasteride [facility] 61106744200 5 MG Orally Once Active 1 tablet a day Keppra [facility] 11600931640 500 MG Orally Active 1 tablet Twice a day Cozaar [facility] 38241966063 50 MG Active TAKE 1 TABLET BY MOUTH EVERY DAY Amlodipine [facility] 18297965685 10 MG Orally Once February Active 1 tablet Besylate a day 2017 Metformin HCl [facility] 32045055528 1000 MG Orally Active 1 tablet twice a day with a meal Xarelto [facility] 09841049591 20 MG Orally Once Inactive 1 tablet a day with food Labetalol HCl [facility] 93007763959 200 MG Orally Active 1 tablet three times a day Results No Known Results Summary Purpose eClinicalWorks Submission
--- OUTSIDE RECORDS SUMMARY | 2018-08-22 16:55 | XMS REPORT ---
[...] Active Problem Erectile dysfunction N52.9 Active Assessment alf current use of insulin Z79.4 Active Problem alf current use of insulin Z79.4 Active Assessment [...] End Status Dosage System Date Date Tresiba [facility] 73607750560 200 UNIT/ML Inactive INJECT FlexTouch SUB 60 UNITS DAILY Viagra [facility] 16398070684 50 MG Orally Once Active 1 tablet a day as needed Finasteride ND 30367316611 5 MG Orally Once Active 1 tablet a day Amlodipine ND 46031636665 10 MG Orally Once February Active 1 tablet Besylate a day 2017 Amlodipine ND 99823704406 10 MG Orally Once February Active 1 tablet Besylate a day 2017 Xarelto [facility] 81453611379 20 MG Orally Once Active 1 tablet a day with food Cozaar [facility] 54474821648 50 MG Active TAKE 1 TABLET BY MOUTH EVERY DAY Toujeo [facility] 63593976105 300u/ml FebruarySep 09, Active 68 units SoloStar subcutaneously 2017 once once daily daily and titrate up 2 units every 3 days until fbg less than 130 max of 100 units daily Simvastatin [facility] 27012709112 20 MG Active TAKE 1 TABLET BY MOUTH EVERY DAY Keppra [facility] 55563877308 500 MG Orally Active 1 tablet Twice a day Metformin HCl [facility] 82429653630 1000 MG Orally Active 1 tablet twice a day with a meal Norvasc [facility] 27656888100 5 MG Orally Once Inactive 1 tablet a day Labetalol HCl [facility] 52399897429 200 MG Orally Active 1 tablet three times a day Results No Known Results Summary Purpose eClinicalWorks Submission
--- OUTSIDE RECORDS SUMMARY | 2018-08-22 16:55 | XMS REPORT ---
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
--- OUTSIDE RECORDS SUMMARY | 2018-08-22 16:55 | XMS REPORT ---
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
[2018-08-22] MEDS ORDERED: NA CHLORIDE 0.9% 2,000 ML ONE (17:19)
[2018-08-22 17:35] LABS: Absolute Lymphocytes (CBC) 1.4 K/uL (0.7-4.9); Absolute Monocytes 0.9 K/uL (0.1-1.3); Absolute Neutrophil 10.3 K/uL (1.8-8.0); Basophils % 0.5 % (0-1.3); Hematocrit 42.8 % (39.6-49.0); Lymphocytes % 10.7 % (15.3-44.8); MCH 27.7 pg (27.0-35.0); MCV 85.1 fL (80-100); MPV 9.1 fL (7.6-11.3); Monocytes % 7.4 % (3.3-12.3); RBC Red Blood Cell Count 5.03 M/uL (4.33-5.43)
--- NOTE | 2018-08-22 17:36 | RAD REPORT ---
EXAM DESCRIPTION: CT - Head Brain Wo Cont - 08/22/2018 5:24 pm CLINICAL HISTORY: Lethargy, transient alteration of awareness COMPARISON: CT study May 2018 TECHNIQUE: Axial 5 mm thick images of the head were obtained without IV contrast. All CT scans are performed using dose optimization technique as appropriate and may include automated exposure control or mA/KV adjustment according to patient size. FINDINGS: No intracranial hemorrhage, mass, edema or shift of mid-line structures. No acute infarcti on changes seen. No cortical edema or sulcal effacement. Patient has prominent atrophy with ventricul ar size in proportion. Chronic ischemic changes are present in the cerebral white matter and brainste m. Cerebellum atrophy is also present. Intracranial findings are not clearly different from compariso n. Physiologic and arterial calcifications are present. Mastoid air cells and visualized portions of the paranasal sinuses are clear. No acute bony findings. IMPRESSION: No acute intracranial finding. Prominent atrophy and mild to moderate chronic ischemic changes are present similar to the May 2018 study.
[2018-08-22 17:39] LABS: Protime INR 1.23
[2018-08-22 17:47] LABS: Arterial Blood Carboxyhemoglob 1.2 % (0-1.5); Blood Gas Oxyhemoglobin 94.6 % (94-97); Blood O2 Saturation 96.7 % (92-98.5)
--- NOTE | 2018-08-22 17:47 | RAD REPORT ---
EXAM DESCRIPTION: RAD - Chest Single View - 08/22/2018 5:42 pm CLINICAL HISTORY: ams Chest pain. COMPARISON: Chest Single View dated 06/16/2018; Chest Single View dated 05/26/2018; Chest Single View d ated 07/06/2016; Chest Single View dated 07/05/2016 FINDINGS: Portable technique limits examination quality. The lungs are grossly clear. The heart is normal in size. No displaced fractures. IMPRESSION: No acute intrathoracic process suspected.
[2018-08-22 18:06] LABS: ALT/SGPT 27 U/L (12-78); AST/SGOT 31 U/L (15-37); Albumin 2.9 g/dL (3.4-5.0); Alkaline Phosphatase 122 U/L (45-117); BUN Blood Urea Nitrogen 45 mg/dL (7-18); Bicarbonate 27 mmol/L (21-32); Bilirubin Direct < 0.1 mg/dL (0-0.2); Bilirubin Total 0.4 mg/dL (0.2-1.0); CKMB Creatine Kinase MB 1.3 ng/mL (0.3-3.6); Creatine Phosphokinase 549 U/L (39-308); Magnesium 2.6 mg/dL (1.8-2.4); NT PRO-BNP 308 pg/mL (<125); Potassium 4.2 mmol/L (3.5-5.1); Sodium Level 156 mmol/L (136-145); Thyroid Stimulating Hormone 0.288 uIU/mL (0.360-3.740); Troponin (Emerg Dept Use Only) < 0.02 ng/mL (0.0-0.045)
[2018-08-22 18:18] LABS: Glucose Level 505 mg/dL (74-106)
--- NOTE | 2018-08-22 18:42 | ER ---
Nurse's Notes [facility] Name: Braden Wright Age: 68 yrs Sex: Male : 1950 Arrival Date: 08/22/2018 Time: 17:02 Bed 19 Private MD: Diagnosis: Hyperglycemia, unspecified;Dehydration;Urinary tract infection, site not specified Presentation: 08/22 17:07 Presenting complaint: EMS states: patient has been lethargic this week. BGL-481 mg/dl. mg2 He had his 68 units of insulin 11 Am today. Transition of care: patient was not received from another setting of care. Onset of symptoms was August 2018. Risk Assessment: Do you want to hurt yourself or someone else? Patient reports no desire to harm self or others. Initial Sepsis Screen: Does the patient meet any 2 criteria? No. Patient's initial sepsis screen is negative. Does the patient have a suspected source of infection? No. Patient's initial sepsis screen is negative. Care prior to arrival: None. 17:07 Method Of Arrival: EMS mg2 17:07 Acuity: RITA 2 mg2 Historical: - Allergies: 18:01 Ativan; mg2 - Home Meds: 18:01 amlodipine 10 mg tab 1 tab once daily [Active]; aspirin 81 mg Oral TbEC 1 tab once mg2 daily [Active]; atorvastatin 80 mg Oral tab 1 tab once daily [Active]; donepezil 10 mg Oral tab 1 tab nightly [Active]; ergocalciferol (vitamin D2) Oral once daily [Active]; finasteride 5 mg Oral tab 1 tab once daily [Active]; Humalog Pen Sub-Q bid per sliding scale [Active]; indomethacin 50 mg Oral cap 1 cap 3 times per day [Active]; labetalol 200 mg Oral tab 1 tab daily [Active]; levetiracetam 500 mg Oral Tb24 once daily [Active]; losartan 50 mg Oral tab 1 tab once daily [Active]; memantine 10 mg Oral tab 1 tab daily [Active]; metformin 1,000 mg Oral tab 1 tab 2 times per day [Active]; Toujeo Solostar 300 unknown 68 unit nightly [Active]; - PMHx: 18:01 Alzheimers; Atrial Fib; CVA; Dementia; Diabetes - IDDM; Gout; Hyperlipidemia; mg2 Hypertension; Seizures; - Immunization history:: Flu vaccine status is unknown. - Social history:: Smoking status: Patient/guardian denies using tobacco, Patient/guardian denies using alcohol, street drugs, IV drugs. - Ebola Screening: : No symptoms or risks identified at this time. Screenin:54 Abuse screen: Denies threats or abuse. Denies injuries from another. Nutritional mg2 screening: No deficits noted. Tuberculosis screening: No symptoms or risk factors identified. Fall Risk IV access (20 points). Gait- Normal/Bed Rest/Wheelchair (0 pts). Assessment: 17:54 General: Appears in no apparent distress. comfortable, Behavior is calm, flat, quiet. mg2 Pain: Denies pain. Neuro: Level of Consciousness is awake, lethargic, Oriented to person, place. Cardiovascular: Capillary refill < 3 seconds Patient's skin is warm and dry. Respiratory: Airway is patent Respiratory effort is even, unlabored, Respiratory pattern is regular, symmetrical. GI: No signs and/or symptoms were reported involving the gastrointestinal system. : No signs and/or symptoms were reported regarding the genitourinary system. EENT: No signs and/or symptoms were reported regarding the EENT system. Derm: Skin is intact, is healthy with good turgor. Musculoskeletal: No signs and/or symptoms reported regarding the musculoskeletal system. 20:27 Reassessment: Patient appears in no apparent distress at this time. Patient and/or mg2 family updated on plan of care and expected duration. Pain level reassessed. Patient is alert, oriented x 3, equal unlabored respirations, skin warm/dry/pink. hospitalist came and examined the patient. Vital Signs: 17:09 BP 164 / 96; Pulse 118; Resp 18; Pulse Ox 100% ; Weight 77.11 kg; Height 5 ft. 10 in. mg2 (177.80 cm); Pain 0/10; 18:01 Pulse 110; Resp 18; Pulse Ox 98% ; mg2 20:26 BP 141 / 91; Pulse 101; Resp 18; Temp 98.4(O); Pulse Ox 100% on R/A; Pain 0/10; mg2 17:09 Body Mass Index 24.39 (77.11 kg, 177.80 cm) mg2 NIH Stroke Scale Scores: 17:11 NIHSS Score: 10 snw ED Course: 17:02 Patient arrived in ED. aa5 17:02 [facility] Fenton [facility]C [facility] snw 17:03 Kaushal Paulson MD is Attending Physician. snw 17:09 Triage completed. mg2 17:16 EKG done, by geodetic surveyor technologist. reviewed by Bernice DAVIS. sm3 17:21 Inserted saline lock: 20 gauge in right antecubital area, using aseptic technique. mg2 Blood collected. 17:24 CT Head Brain wo Cont In Process Unspecified. EDMS 17:24 CT completed. Patient tolerated procedure well. Patient moved to CT. Patient moved back jg6 from CT. 17:41 XRAY Chest (1 view) In Process Unspecified. EDMS 17:44 Israel Hay, HENRIETTA is Primary Nurse. mg2 17:54 Patient has correct armband on for positive identification. Placed in gown. Bed in low mg2 position. Call light in reach. Side rails up X2. Pulse ox on. NIBP on. 18:41 Misti Mitchell MD is Hospitalizing Provider. snw 20:26 No provider procedures requiring assistance completed. Avila cath inserted, using mg2 sterile technique, 14 Fr., by ED staff, balloon inflated, Patient tolerated well. Patient admitted, IV remains in place. 20:55 Arm band placed on. mg2 Administered Medications: 17:44 Drug: NS 0.9% (30 ml/kg) 30 ml/kg Route: IV; Rate: bolus; Site: right antecubital; mg2 18:50 Drug: Insulin Regular Human 10 units {Co-Signature: tl3 (Sandra Bartholomew RN).} Route: IVP; mg2 Site: right antecubital; 21:10 Follow up: Response: No adverse reaction; Blood sugar is lowered mg2 19:42 Drug: NS 0.9% 1000 ml Route: IV; Rate: 150 ml/hr; Site: right antecubital; mg2 21:10 Follow up: Response: No adverse reaction; IV Status: Infusion continued upon admission mg2 19:42 Drug: Rocephin - (cefTRIAXone) 1 grams Route: IVPB; Infused Over: 30 mins; Site: right mg2 antecubital; 20:45 Follow up: Response: No adverse reaction; IV Status: Completed infusion mg2 Point of Care Testing: Blood Glucose: 18:02 Blood Glucose: 433 mg/dL; mg2 20:37 Blood Glucose: 319 mg/dL; ds4 Ranges: Outcome: 18:42 Decision to Hospitalize by Provider. snw 20:54 Admitted to Med/surg accompanied by tech, via stretcher, room 213, with chart, Report mg2 called to HENRIETTA Marshall 20:54 Condition: stable 20:54 Instructed on the need for admit, Demonstrated understanding of instructions. 21:15 Patient left the ED. mg2 NIH Stroke Scale - NIH Stroke Score Date: 08/22/2018 Time: 17:11 Total Score = 10 1a. Level of Consciousness (LOC) - 0(Alert) 1b. Level of Consciousness (LOC) (Year \T\ Age) - 2(Neither) 1c. LOC Commands (Open \T\ Closes Eyes/Foreign Exchange Dealer) - 1(One) 2. Best Gaze (Lateral Gaze Paresis) - 0(Normal) 3. Visual Field Loss - 1(Partial hemianopia) 4. Facial Palsy - 0(Normal) 5a. Left Arm: Motor (10-second hold) - 0(No drift) 5b. Right Arm: Motor (10-second hold) - 0(No drift) 6a. Left Leg: Motor (5-second hold - always test supine) - 0(No drift) 6b. Right Leg: Motor (5-second hold - always test supine) - 0(No drift) 7. Limb Ataxia (finger/nose \T\ heel/reece - test with eyes open) - 2(Present in two limbs) 8. Sensory Loss (pinprick arms/legs/face) - 1(Mild to moderate loss) 9. Best Language: Aphasia (description/naming/reading) - 2(Severe aphasia) 10. Dysarthria (speech clarity - read or repeat words) - 0(Normal) 11. Extinction and Inattention (visual/tactile/auditory/spatial/personal) - 1(Present) Initials: snw Signatures: Dispatcher [employer] EDMS Bernice Fenton, TRANSFER MAN-C TRANSFER MAN-Csnw Sera Singh, RN RN aa5 Marcial Perez ds4 Israel Hay RN RN mg2 Emili Herrera3 Isaura Rodrigez6 Sandra Bartholomew RN tl3
--- NOTE | 2018-08-22 18:42 | EDPHYS ---
Physician Documentation [facility] Name: Braden Wright Age: 68 yrs Sex: Male : 1950 Arrival Date: 08/22/2018 Time: 17:02 Bed 19 Private MD: ED Physician Kaushal Paulson HPI: 08/22 17:50 This 68 yrs old Male presents to ER via EMS with complaints of Doesn't Feel snw Right. 17:50 The patient presents with decreased mental status, decreased responsiveness, trouble snw concentrating. Onset: The symptoms/episode began/occurred suddenly, 4 day(s) ago. Possible causes: CVA or TIA, increased blood sugar. Associated signs and symptoms: Pertinent positives: weakness, decreased mental status. Current symptoms: In the emergency department the patient's symptoms are unchanged from the initial presentation. Patient's baseline: Neuro: alert and fully oriented, Motor: no deficits, Ambulation: walks without assistance, The patient has a previous history of multiple infarct dementia. It is unknown whether or not the patient has had similar symptoms in the past. sees Dr. Quach. Historical: - Allergies: 18:01 Ativan; mg2 - Home Meds: 18:01 amlodipine 10 mg tab 1 tab once daily [Active]; aspirin 81 mg Oral TbEC 1 tab once mg2 daily [Active]; atorvastatin 80 mg Oral tab 1 tab once daily [Active]; donepezil 10 mg Oral tab 1 tab nightly [Active]; ergocalciferol (vitamin D2) Oral once daily [Active]; finasteride 5 mg Oral tab 1 tab once daily [Active]; Humalog Pen Sub-Q bid per sliding scale [Active]; indomethacin 50 mg Oral cap 1 cap 3 times per day [Active]; labetalol 200 mg Oral tab 1 tab daily [Active]; levetiracetam 500 mg Oral Tb24 once daily [Active]; losartan 50 mg Oral tab 1 tab once daily [Active]; memantine 10 mg Oral tab 1 tab daily [Active]; metformin 1,000 mg Oral tab 1 tab 2 times per day [Active]; Toujeo Solostar 300 unknown 68 unit nightly [Active]; - PMHx: 18:01 Alzheimers; Atrial Fib; CVA; Dementia; Diabetes - IDDM; Gout; Hyperlipidemia; mg2 Hypertension; Seizures; - Immunization history:: Flu vaccine status is unknown. - Social history:: Smoking status: Patient/guardian denies using tobacco, Patient/guardian denies using alcohol, street drugs, IV drugs. - Ebola Screening: : No symptoms or risks identified at this time. ROS: 17:50 Eyes: Negative for injury, pain, redness, and discharge, ENT: Negative for injury, snw pain, and discharge, Neck: Negative for injury, pain, and swelling, Cardiovascular: Negative for chest pain, palpitations, and edema, Respiratory: Negative for shortness of breath, cough, wheezing, and pleuritic chest pain, Abdomen/GI: Negative for abdominal pain, nausea, vomiting, diarrhea, and constipation, Back: Negative for injury and pain, : Negative for injury, bleeding, discharge, and swelling, MS/Extremity: Negative for injury and deformity, Skin: Negative for injury, rash, and discoloration. 17:50 Constitutional: Positive for fatigue, malaise. 17:50 Neuro: Positive for altered mental status, "steady decline since Sunday" per Daughter's report. Exam: 17:11 Head/Face: Normocephalic, atraumatic. Eyes: Pupils equal round and reactive to light, snw extra-ocular motions intact. Lids and lashes normal. Conjunctiva and sclera are non-icteric and not injected. Cornea within normal limits. Periorbital areas with no swelling, redness, or edema. ENT: Nares patent. No nasal discharge, no septal abnormalities noted. Tympanic membranes are normal and external auditory canals are clear. Oropharynx with no redness, swelling, or masses, exudates, or evidence of obstruction, uvula midline. Mucous membranes moist. Neck: Trachea midline, no thyromegaly or masses palpated, and no cervical lymphadenopathy. Supple, full range of motion without nuchal rigidity, or vertebral point tenderness. No Meningismus. Chest/axilla: Normal chest wall appearance and motion. Nontender with no deformity. No lesions are appreciated. 17:11 Respiratory: Lungs have equal breath sounds bilaterally, clear to auscultation and percussion. No rales, rhonchi or wheezes noted. No increased work of breathing, no retractions or nasal flaring. Abdomen/GI: Soft, non-tender, with normal bowel sounds. No distension or tympany. No guarding or rebound. No evidence of tenderness throughout. Back: No spinal tenderness. No costovertebral tenderness. Full range of motion. Skin: Warm, dry with normal turgor. Normal color with no rashes, no lesions, and no evidence of cellulitis. MS/ Extremity: Pulses equal, no cyanosis. Neurovascular intact. Full, normal range of motion. 17:11 Constitutional: The patient appears awake, frail, obviously ill, restless, unkempt. 17:11 Cardiovascular: Rate: tachycardic, Rhythm: regular, Heart sounds: normal, Edema: is not appreciated. 17:11 Neuro: Orientation: to person, Mentation: unable to follow commands, responsive to pain, Memory: unable to test, Cranial nerves: unable to test, cannot follow commands, Cerebellar function: unable to test, cannot follow commands, Motor: no acute changes, Sensation: unable to test, Gait: not tested. Deep tendon reflexes are normal, seizure activity, is not displayed by the patient, Abnormal movements: there are no abnormal movements. 17:11 Special observations: pt unable to cooperate with NIH scale, pt is not a candidate for TPA due to length of AMS. Vital Signs: 17:09 BP 164 / 96; Pulse 118; Resp 18; Pulse Ox 100% ; Weight 77.11 kg; Height 5 ft. 10 in. mg2 (177.80 cm); Pain 0/10; 18:01 Pulse 110; Resp 18; Pulse Ox 98% ; mg2 20:26 BP 141 / 91; Pulse 101; Resp 18; Temp 98.4(O); Pulse Ox 100% on R/A; Pain 0/10; mg2 17:09 Body Mass Index 24.39 (77.11 kg, 177.80 cm) mg2 NIH Stroke Scale Scores: 17:11 NIHSS Score: 10 snw MDM: 17:10 ED course: Pt is not a TPA candidate as symptoms began 4 days ago. snw 17:30 Patient medically screened. snw 18:40 Data reviewed: vital signs, nurses notes. Data interpreted: Pulse oximetry: on room air snw is 98 %. Interpretation: normal. Counseling: I had a detailed discussion with the patient and/or guardian regarding: the historical points, exam findings, and any diagnostic results supporting the discharge/admit diagnosis, the presence of at least one elevated blood pressure reading (>120/80) during this emergency department visit, lab results, radiology results, the need for further work-up and treatment in the hospital. Physician consultation: Misti Mitchell MD was called at 18:41, was contacted at 18:41, regarding admission, to the telemetry unit. 08/22 17:09 Order name: Basic Metabolic Panel; Complete Time: 18:28 snw 08/22 17:09 Order name: CBC with Diff; Complete Time: 17:48 snw 08/22 17:09 Order name: LFT's; Complete Time: 18:28 snw 08/22 17:09 Order name: Magnesium; Complete Time: 18:28 snw 08/22 17:09 Order name: NT PRO-BNP; Complete Time: 18:28 snw 08/22 17:09 Order name: PT-INR; Complete Time: 17:48 snw 08/22 17:09 Order name: Troponin (emerg Dept Use Only); Complete Time: 18:28 snw 08/22 17:09 Order name: TSH; Complete Time: 18:28 snw 08/22 17:09 Order name: AMMONIA; Complete Time: 18:18 snw 08/22 17:09 Order name: Blood Culture Adult (2) snw 08/22 17:09 Order name: Urine Culture snw 08/22 17:09 Order name: ABG; Complete Time: 17:58 snw 08/22 17:09 Order name: T\\T\\S; Complete Time: 18:18 snw 08/22 17:09 Order name: XRAY Chest (1 view); Complete Time: 17:48 snw 08/22 17:09 Order name: CT Head Brain wo Cont; Complete Time: 17:48 snw 08/22 17:09 Order name: Ckmb; Complete Time: 18:28 snw 08/22 17:09 Order name: CPK; Complete Time: 18:28 snw 08/22 17:09 Order name: Lactate; Complete Time: 18:28 snw 08/22 17:09 Order name: Lipase; Complete Time: 17:58 snw 08/22 17:09 Order name: Procalcitonin; Complete Time: 19:04 snw 08/22 17:09 Order name: Ptt, Activated; Complete Time: 17:48 snw 08/22 17:09 Order name: Urine Microscopic Only; Complete Time: 20:09 snw 08/22 18:34 Order name: Add On-Lab snw 08/22 19:23 Order name: T4 Free; Complete Time: 19:37 EDMS 08/22 19:31 Order name: Urine Dipstick--Ancillary (enter results) ms 08/22 19:37 Order name: Urine Dipstick-Ancillary; Complete Time: 19:38 EDMS 08/22 21:12 Order name: RAD; Complete Time: 22:26 EDMS 08/22 17:09 Order name: EKG; Complete Time: 17:11 snw 08/22 17:09 Order name: Cardiac monitoring; Complete Time: 17:15 snw 08/22 17:09 Order name: EKG - Nurse/Tech; Complete Time: 17:15 snw 08/22 17:09 Order name: IV Saline Lock; Complete Time: 17:15 snw 08/22 17:09 Order name: Labs collected and sent; Complete Time: 17:20 snw 08/22 17:09 Order name: O2 Per Protocol; Complete Time: 17:20 snw 08/22 17:09 Order name: O2 Sat Monitoring; Complete Time: 17:20 snw 08/22 17:09 Order name: FSBS; Complete Time: 18:03 snw 08/22 17:09 Order name: Avila; Complete Time: 19:30 snw 08/22 17:09 Order name: IV Saline Lock - Large Bore; Complete Time: 17:20 snw 08/22 17:09 Order name: Urine Dipstick-Ancillary (obtain specimen); Complete Time: 19:29 snw Administered Medications: 17:44 Drug: NS 0.9% (30 ml/kg) 30 ml/kg Route: IV; Rate: bolus; Site: right antecubital; mg2 18:50 Drug: Insulin Regular Human 10 units {Co-Signature: tl3 (Sandra Bartholomew RN).} Route: IVP; mg2 Site: right antecubital; 21:10 Follow up: Response: No adverse reaction; Blood sugar is lowered mg2 19:42 Drug: NS 0.9% 1000 ml Route: IV; Rate: 150 ml/hr; Site: right antecubital; mg2 21:10 Follow up: Response: No adverse reaction; IV Status: Infusion continued upon admission mg2 19:42 Drug: Rocephin - (cefTRIAXone) 1 grams Route: IVPB; Infused Over: 30 mins; Site: right mg2 antecubital; 20:45 Follow up: Response: No adverse reaction; IV Status: Completed infusion mg2 Point of Care Testing: Blood Glucose: 18:02 Blood Glucose: 433 mg/dL; mg2 20:37 Blood Glucose: 319 mg/dL; ds4 Ranges: Critical Glucose Levels:Adult <50 mg/dl or >400 mg/dl <40 mg/dl or >180 mg/dl Disposition: 08/23 07:12 Co-signature as Attending Physician, Kaushal Paulson MD. rn Disposition: 08/22/18 18:42 Hospitalization ordered by Misti Mitchell for Inpatient Admission. Preliminary diagnosis are Hyperglycemia, unspecified, Dehydration, Urinary tract infection, site not specified. - Bed requested for Telemetry/MedSurg (Inpatient). - Status is Inpatient Admission. mg2 - Condition is Stable. - Problem is an acute exacerbation. - Symptoms are unchanged. UTI on Admission? Yes NIH Stroke Scale - NIH Stroke Score Date: 08/22/2018 Time: 17:11 Total Score = 10 1a. Level of Consciousness (LOC) - 0(Alert) 1b. Level of Consciousness (LOC) (Year \\T\\ Age) - 2(Neither) 1c. LOC Commands (Open \\T\\ Closes Eyes/Manufacturing Engineer Paint) - 1(One) 2. Best Gaze (Lateral Gaze Paresis) - 0(Normal) 3. Visual Field Loss - 1(Partial hemianopia) 4. Facial Palsy - 0(Normal) 5a. Left Arm: Motor (10-second hold) - 0(No drift) 5b. Right Arm: Motor (10-second hold) - 0(No drift) 6a. Left Leg: Motor (5-second hold - always test supine) - 0(No drift) 6b. Right Leg: Motor (5-second hold - always test supine) - 0(No drift) 7. Limb Ataxia (finger/nose \\T\\ heel/reece - test with eyes open) - 2(Present in two limbs) 8. Sensory Loss (pinprick arms/legs/face) - 1(Mild to moderate loss) 9. Best Language: Aphasia (description/naming/reading) - 2(Severe aphasia) 10. Dysarthria (speech clarity - read or repeat words) - 0(Normal) 11. Extinction and Inattention (visual/tactile/auditory/spatial/personal) - 1(Present) Initials: snw Signatures: Dispatcher [employer] EDNH Bernice Fenton, BIOMEDICAL ANALYTICAL SCIENTIST-C BIOMEDICAL ANALYTICAL SCIENTIST-Csnw Dee Duran ms, Roman, MD MD rn aStnam, HENRIETTA Wood RN mg2 Sandra Bartholomew RN tl3 Corrections: (The following items were deleted from the chart) 08/22 17:12 17:10 HEMOGLOBIN A1C+CHEM A1C.LAB.BRZ ordered. EDNH EDMS 19:37 18:42 Hospitalization Ordered by Misti Mitchell MD for Inpatient Admission. snw Preliminary diagnosis is Hyperglycemia, unspecified; Dehydration. Bed requested for Telemetry/MedSurg (Inpatient). Status is Inpatient Admission. Condition is Stable. Problem is an acute exacerbation. Symptoms are unchanged. UTI on Admission? No. snw 20:11 19:37 08/22/2018 18:42 Hospitalization Ordered by Misti Mitchell MD for Inpatient snw Admission. Preliminary diagnosis is Hyperglycemia, unspecified; Dehydration. Bed requested for Telemetry/MedSurg (Inpatient). Status is Inpatient Admission. Condition is Stable. Problem is an acute exacerbation. Symptoms are unchanged. UTI on Admission? Yes. snw 20:22 20:11 08/22/2018 18:42 Hospitalization Ordered by Misti Mitchell MD for Inpatient ms Admission. Preliminary diagnosis is Hyperglycemia, unspecified; Dehydration; Urinary tract infection, site not specified. Bed requested for Telemetry/MedSurg (Inpatient). Status is Inpatient Admission. Condition is Stable. Problem is an acute exacerbation. Symptoms are unchanged. UTI on Admission? Yes. snw 21:15 20:22 08/22/2018 18:42 Hospitalization Ordered by Misti Mitchell MD for Inpatient mg2 Admission. Preliminary diagnosis is Hyperglycemia, unspecified; Dehydration; Urinary tract infection, site not specified. Bed requested for Telemetry/MedSurg (Inpatient). Status is Inpatient Admission. Condition is Stable. Problem is an acute exacerbation. Symptoms are unchanged. UTI on Admission? Yes. ms
[2018-08-22] MEDS ORDERED: INSULIN -REGULAR HUMAN 50 UNIT/0.5 ML ML ONE (18:50)
[2018-08-22] MEDS ORDERED: ONDANSETRON 4 MG/2 ML VIAL IV PRN (19:10)
[2018-08-22] MEDS ORDERED: D50W 25 GM/50 ML SYRINGE IV PRN (19:16)
[2018-08-22] MEDS ORDERED: GLUCAGON 1 MG/VIAL IM PRN (19:16)
[2018-08-22 19:37] LABS: Urine Blood 2+ (NEG); Urine Glucose 2+ (NEG); Urine Protein 2+ (NEG); Urine Specific Gravity <1.005 (1.005-1.030)
[2018-08-22] MEDS ORDERED: NA CHLORIDE 0.9% 1,000 ML ONE (19:39)
[2018-08-22] MEDS ORDERED: CEFTRIAXONE/SWI 1gm 1 GM/10 ML SYR ONE (19:39)
[2018-08-22] MEDS ORDERED: D5W 1,000 ML IV SCH (20:00)
[2018-08-22 20:08] LABS: Urine Bacteria >50 /HPF (NONE SEEN); Urine Culture Reflex Order NOT NEEDED
[2018-08-22] MEDS ORDERED: COLCHICINE 0.6 MG TAB PO PRN (20:24)
--- NOTE | 2018-08-22 20:32 | P.HP ---
Certification for Inpatient Patient admitted to: Inpatient With expected LOS: >2 Midnights Practitioner: I am a practitioner with admitting privileges, knowledge of patient current condition, hospital course, and medical plan of care. Services: Services provided to patient in accordance with Admission requirements found in Title 42 Section 412.3 of the Code of Federal Regulations Patient History Date of Service: 08/22/18 Reason for admission: Hypernatremia, hyperglycemia, acute encephalopathy History of Present Illness: Mr Wrgiht is a 68-year-old male with multiple medical problems including dementia, atrial fibrillation, hypertension, insulin-dependent diabetes mellitus , CVA, seizure disorder, who about 1 week ago he started to be more lethargic, and he was complaining of left knee pain. He fell a couple of times during the last week due to the weakness. Family also noticed that he has had poor food liquid intake for the last 2 or 3 days, he was chewing the food but not swallowing. No history of fever or chills. Lab work remarkable for hypernatremia 153, hyperglycemia 505, and elevated creatinine 1.5. Family also says that the patient has been refusing his medication for the last week. Allergies lorazepam [From Ativan] Adverse Reaction (Verified 06/16/18 21:48) Nausea/Vomiting No Known Drug Allergies Allergy (Uncoded 06/16/18 23:22) Unknown Home medications list reviewed: Yes Home Medications: Finasteride [Proscar*] 5 mg PO BEDTIME 07/05/16 Metformin HCl 1,000 mg PO BID 07/05/16 levETIRAcetam [Keppra*] 500 mg PO BID 07/05/16 Aspirin [Aspir-Low] 81 mg PO DAILY 06/16/18 Atorvastatin Calcium [Lipitor] 80 mg PO BEDTIME 06/16/18 Donepezil HCl 10 mg PO BEDTIME 06/16/18 Indomethacin 50 mg PO TID 06/16/18 Insulin Glargine,Hum.rec.anlog [Myron Arias] 68 unit SQ BEDTIME 06/16/18 Insulin Lispro [Humalog] 0 unit SQ BID 06/16/18 Losartan Potassium 50 mg PO DAILY 06/16/18 Memantine HCl 10 mg PO DAILY 06/16/18 Amlodipine [Norvasc*] 5 mg PO DAILY #30 tab 06/17/18 Labetalol HCl [Trandate] 100 mg PO DAILY #30 tablet 06/17/18 - Past Medical/Surgical History Diabetic: Yes -: cva -: htn -: hyperlipidemia -: afib -: Dementia -: Insulin dependent Diabetes mellitus -: knee surgery - Family History Father -: Hypertension, Other (see notes) Notes: Dementia,prostate problems Mother -: Diabetes, Stroke, Cancer - Social History Smoking Status: Unknown if ever smoked Alcohol use: No CD- Drugs: No Caffeine use: Yes Place of Residence: Home Review of Systems 10-point ROS is otherwise unremarkable Physical Examination - Physical Exam General: Alert, In no apparent distress, Demented, Confused HEENT: Atraumatic, PERRLA, Mucous membr. moist/pink, EOMI, Sclerae nonicteric Neck: Supple, 2+ carotid pulse no bruit, No LAD, Without JVD or thyroid abnormality Respiratory: Clear to auscultation bilaterally, Normal air movement Cardiovascular: Normal S1 S2, No gallops Gastrointestinal: Normal bowel sounds, No tenderness Musculoskeletal: No tenderness, Tenderness (Left knee and 1st left metatarsal joint tenderness to palpation) Integumentary: No rashes Neurological: Normal speech, Normal strength at 5/5 x4 extr, Normal tone, Normal affect Lymphatics: No axilla or inguinal lymphadenopathy - Studies Laboratory Data (last 24 hrs) 08/22/18 17:05: Lipase 563 H 08/22/18 17:05: PT 14.6 H, INR 1.23, APTT 32.5 08/22/18 17:05: WBC 12.6 H, Hgb 13.9, Hct 42.8, Plt Count 445 H 08/22/18 17:05: Sodium 156 H, Potassium 4.2, BUN 45 H, Creatinine 1.50 H, Glucose 505 H*, Magnesium 2.6 H D, Total Bilirubin 0.4, AST 31, ALT 27, Alkaline Phosphatase 122 H Assessment and Plan - Problems (Diagnosis) (1) Acute encephalopathy Current Visit: Yes Status: Acute (2) UTI (urinary tract infection) Current Visit: Yes Status: Acute Qualifiers: Urinary tract infection type: acute cystitis Hematuria presence: without hematuria Qualified Code(s): N30.00 - Acute cystitis without hematuria (3) Hypernatremia Current Visit: Yes Status: Acute (4) Hyperglycemia Current Visit: Yes Status: Acute (5) Qzqai-di-piztmqm kidney injury Onset Date: 06/17/18 Current Visit: No Status: Acute Qualifiers: Acute renal failure type: unspecified Chronic kidney disease stage: stage 3 (moderate) Qualified Code(s): N17.9 - Acute kidney failure, unspecified; N18.3 - Chronic kidney disease, stage 3 (moderate) (6) Diabetes mellitus Onset Date: 07/06/16 Current Visit: No Status: Acute Qualifiers: Diabetes mellitus type: type 2 Diabetes mellitus long-term insulin use: with long-term use Diabetes mellitus complication status: with unspecified complications Qualified Code(s): E11.8 - Type 2 diabetes mellitus with unspecified complications; Z79.4 - senior care (current) use of insulin - Plan The patient will be admitted to the hospital due to acute encephalopathy in context of volume depletion. He also has hypernatremia, decompensated diabetes mellitus, UTI and generalize weakness. He has not been compliant with his medication. CT head shows chronic ischemic changes but no acute abnormality. Chest-x-ray not acute abnormality. Will continue with half NS infusion, consult chief sales officer for evaluation recommendation. Will order empiric treatment with Rocephin for UTI. On the left 1st metatarsal joint since to have acute gout. Will order treatment with Colchicine. Check left knee x-ray since the patient has significant pain. - Advance Directives Does patient have a Living Will: Yes Does patient have a Durable POA for Healthcare: No - Code Status/Comfort Care Code Status Assessed: Yes Code Status: Full Code
--- NOTE | 2018-08-22 21:11 | RAD REPORT ---
EXAM DESCRIPTION: RAD - Knee Left 3 View - 08/22/2018 8:59 pm CLINICAL HISTORY: knee pain COMPARISON: Knee Left 3 View dated 02/07/2018; Knee Left 3 view dated 11/01/2012 FINDINGS: Prominent degenerative osteoarthritic changes are present with near izpy-wt-dwve involving the medial joint compartment. A small suprapatellar joint effusion is noted. Atherosclerosis is pres ent. No acute fracture or subluxation. No aggressive marrow pattern. IMPRESSION: Prominent medial compartment space osteoarthritis with near aeyd-xw-uxlk seen. Small sup rapatellar joint effusion.
[2018-08-22 21:31] VITALS: BMI 22.6
[2018-08-22] MEDS: NACHLORIDE 0.45% 1,000 ML IV SCH (22:28)
[2018-08-22] MEDS: INSULIN -REGULAR HUMAN 50 UNIT/0.5 ML ML SQ SCH (22:37)
[2018-08-23 05:30] LABS: Absolute Lymphocytes (CBC) 1.7 K/uL (0.7-4.9); Absolute Monocytes 0.9 K/uL (0.1-1.3); Absolute Neutrophil 7.5 K/uL (1.8-8.0); Basophils % 0.5 % (0-1.3); Eosinophils % 0.1 % (0-4.4); Hematocrit 38.8 % (39.6-49.0); Lymphocytes % 16.5 % (15.3-44.8); MCH 28.4 pg (27.0-35.0); MCV 83.6 fL (80-100); MPV 8.8 fL (7.6-11.3); Monocytes % 8.7 % (3.3-12.3); RBC Red Blood Cell Count 4.64 M/uL (4.33-5.43)
[2018-08-23 05:51] LABS: Albumin 2.6 g/dL (3.4-5.0); Bilirubin Total 0.2 mg/dL (0.2-1.0); Potassium 3.5 mmol/L (3.5-5.1); Protein, Total 7.9 g/dL (6.4-8.2)
[2018-08-23] MEDS: NACHLORIDE 0.45% 1,000 ML IV SCH (06:00)
[2018-08-23] MEDS: INSULIN -REGULAR HUMAN 50 UNIT/0.5 ML ML SQ SCH ×4 (07:30→22:14)
[2018-08-23] MEDS ORDERED: INFLUENZA VACCINE (for 3y+) 0.5 ML DOSE IMVAC ONE (08:00)
[2018-08-23] MEDS ORDERED: PNEUMOCOCCAL VACCINE 0.5 ML IMVAC ONE (08:00)
[2018-08-23] MEDS ORDERED: CEFTRIAXONE 1 GM/NS 50 ML 1 GM/50 ML BAG IV SCH (09:00)
[2018-08-23] MEDS: CEFTRIAXONE/SWI 1gm 1 GM/10 ML SYR IV SCH (09:57)
[2018-08-23] MEDS: D5W 1,000 ML IV SCH ×2 (09:57→18:15)
[2018-08-23] MEDS: NYSTATIN 500,000 UNIT/5 ML UDC PO SCH ×4 (09:58→22:28)
[2018-08-23] MEDS ORDERED: INDOMETHACIN 25 MG CAP PO PRN (10:30)
[2018-08-23 18:42] LABS: Urine Appearance CLOUDY; Urine Bilirubin NEGATIVE (NEG); Urine Blood 3+ (NEG); Urine Color YELLOW; Urine Glucose NEGATIVE (NEG); Urine Protein 1+ (NEG); Urine Specific Gravity 1.015 (1.005-1.030); Urine Urobilinogen 0.2 mg/dL (0.2-1.0); Urine pH 5.5 (5.0-7.0)
[2018-08-23 19:07] LABS: Urine Microscopic Reflex ORDER UMIC
[2018-08-23 19:24] LABS: Urine Bacteria >50 /HPF (NONE SEEN); Urine Culture Reflex Order REFLEXED
--- NOTE | 2018-08-23 20:41 | PN ---
Date of Progress Note: 08/23/2018 History: The patient is seen and examined. Chart reviewed and case discussed with RN. The patient still very much confused. Daughter is at the bedside. No acute events overnight. Review of Systems: Negative except those as above. Medications: List reviewed. Code Status: Full. Physical Examination: Vital Signs: Temperature 98.2, heart rate 96, blood pressure 181/90, respirations 20, O2 98% on room air. General: Awake, alert, oriented to self only, ill-appearing, disheveled male. CV: S1, S2. No murmurs. Peripheral pulses present. Respiratory: Moving air well bilaterally. No wheezing. Gastrointestinal: Abdomen is soft, nontender, nondistended. Positive bowel sounds. Extremities: No clubbing, cyanosis. No edema. Neuro: The patient does not follow all commands, but is awake and alert. Moves all 4 extremities. No focal weakness. No facial asymmetry. No slurred speech. Laboratory Data: Sodium 166, potassium 3.5, chloride 127, CO2 32, BUN 36, creatinine 1.2, glucose 17 4, calcium 9.7, albumin 2.6. WBC 10.2, H and H 13.2, 38.8, platelets 381, neutrophils 74%. UA; trac e leukocyte esterase, positive nitrites, 10-20 rbc's, 10-20 wbc's, greater than 50 bacteria. Urine c ulture is growing out 4+ gram-negative rods. Cultures pending. Assessment: A 68-year-old male with: 1.Acute metabolic encephalopathy, likely due to electrolyte abnormalities on top of his baseline dem entia. 2.Acute cystitis with hematuria secondary to gram-negative rods. We will continue IV antibiotics. Follow up on cultures. 3.Hypernatremia, severe, worsening. We will switch IV fluids to D5W and repeat sodium levels. Seem s to be free water deficit. The patient is demented, has Alzheimer's, unable to [facility] care [facility] and has access to free water as needed. 4.Acute on chronic kidney injury, stage 3. We will continue to monitor creatinine and avoid NSAIDs and nephrotoxins. Nephrology has been consulted. Likely from acute dehydration. 5.Diabetes mellitus type 2 with long-term use of insulin with severe hyperglycemia. The patient has been noncompliant with his insulin. We will start on sliding scale insulin and monitor blood glucos e levels. Resume home dose of insulin. 6.Thrush. We will provide nystatin swish and swallow, likely due to uncontrolled diabetes. 7.History of atrial fibrillation, paroxysmal. Does not appear to be on any anticoagulation. 8.History of seizure disorder, on Keppra. 9.Knee pain. The patient's x-ray showed knee effusion. We will provide symptomatic treatment, rest , ice, elevation. Plan: Monitor sodium level closely. Follow up with culture results. The patient will need placemen t to senior living facility. Unable to take care of himself at home and is unable to care for him. /PA Voice ID: [id number] Report ID: [id number]
[2018-08-23] MEDS: levETIRAcetam 500 MG TAB PO SCH (22:15)
[2018-08-23] MEDS: ATORVASTATIN 10 MG TAB PO SCH (22:15)
[2018-08-23] MEDS: ACETAMINOPHEN 500 MG TAB PO PRN (22:16)
--- NOTE | 2018-08-24 02:23 | CON ---
Date of Consultation: 08/23/2018 Reason For Consultation: Hypernatremia, fluid management. History Of Present Illness: This is a 68-year-old gentleman with significant past medical history of hypertension, dementia, atrial fibrillation, diabetes complicated with neuropathy, CVA with right-si ded hemiparesis, and seizure. The patient apparently started to be lethargic for the last 1 week wit h poor intake, without any vomiting. The patient was brought to the hospital. Primary workup showed hypernatremia with sodium 153, started on IV fluid. Sodium showed higher to 166. For that reason, we have been consulted. The patient has still poor intake. No fever currently. The patient denied taking any nonsteroidal. Allergies: LORAZEPAM. Home Medications: Include; 1.Finasteride. 2.Metformin. 3.Keppra. 4.Aspirin. 5.Atorvastatin. 6. . 7.Indomethacin. 8.Insulin. 9.Namenda. 10.Amlodipine. 11.Labetalol. Past Medical History: Includes; 1.CVA with right-sided weakness. 2.Diabetes complicated with neuropathy. 3.Hyperlipidemia. 4.Atrial fibrillation. 5.Dementia. Past Surgical History: Knee surgery. Family History: Positive for hypertension and diabetes. Social History: None obtainable. Review of Systems: Head and Neck: No red eye. No ear pain. GI: Decreased intake. : No polyuria. No dysuria. No hematuria. EDUCATIONAL RECRUITER: Not applicable. Respiratory: No shortness of breath. Cardiovascular: No chest pain. Endocrine: No polydipsia. Skin: No rash. Physical Examination: General: When I saw the patient, the patient lying in bed, comfortable. Vital Signs: Blood pressure 139/77, pulse of 91, afebrile. Chest: Clear to auscultation. Heart: S1, S2. Regular. Abdomen: Soft, nontender. Extremities: Trace edema. Neurologic: Right-sided hemiparesis. Laboratory Data: WBC 10.2, H and H 13.2/38.8, and platelets 381. Sodium 166, potassium 3.5, bicarb 32, BUN 36, creatinine 1.2, and calcium 9.7. Current Medications: The patient is on include; 1.Amlodipine. 2.Ceftriaxone. 3.Nystatin. 4.Keppra. 5.D5 at 100. Assessment And Plan: 1.Hypernatremia secondary to diabetes insipidus secondary to central secondary to cerebrovascular ac cident. I agree with the D5. We will follow up. 2.Hypertension, controlled, optimal. Continue current medication. 3.Urinary tract infection. Continue current antibiotic. We will follow up culture. 4.Diabetes as by primary. 5.Cerebrovascular accident. Continue supportive care. TRACY Voice ID: [id number] Report ID: [id number]
--- NOTE | 2018-08-24 02:44 | CON ---
Reason For Consultation: Altered mental status. History Of Present Illness: Mr. Wright is a 68-year-old right-handed patient with poorly controlled and poor compliance with his diabetes mellitus. In addition to having atrial fibrillatio n, hypertension, history of stroke, seizures, and dementia, comes in with increased lethargy, confusi on, failure to thrive. The patient's symptoms began about a week prior to his admission. Family not ed more weakness, less interaction, less eating and drinking, and confusion. At [facility], his blood work revealed hypernatremia, sodium 153; marked hyperglycemia, 505; creatinine elevated, 1 .5. The patient was given some normal saline in the emergency room and a subsequent check of sodium showed it was elevated to 166. Chloride was elevated to 123. The normal saline was replaced with 0. 45% saline and the patient was admitted. Since admission, he has begun to interact and answer simple questions. He does move the arms equally well, but still remains lethargic. He has no seizure acti vity noted. Past Medical History: As indicated above. Allergies: LORAZEPAM. Medications: At home, which he is poorly compliant, Proscar 5 mg at bedtime, metformin 1000 mg twice a day, Keppra 500 mg twice daily, aspirin 81 mg daily, Lipitor 80 mg at bedtime, donepezil 10 mg at bedtime, indomethacin 50 mg 3 times daily, Toujeo insulin 68 units at bedtime, losartan 50 mg daily, melatonin 10 mg daily, Norvasc 5 mg daily, Trandate 100 mg daily. Past Surgical History: Knee surgery. Family History: Positive for hypertension, dementia, and stroke with diabetes and cancer. Social History: The patient has not had recent alcohol, tobacco, or IV drug use. Review of Systems: Unable to fully assess. The patient does not answer with verbal responses. Physical Examination: Vital Signs: Blood pressure 178/91, pulse 94, respiratory rate 18, temperature 98.1, oxygen saturati on 98%. Weight 149 pounds. Height 5 feet 8 inches. Neurologic: Mr. Wright is resting in bed. He is somnolent but arousable. Does track properly an d follow simple commands, lift his arms, move the right leg more than left, but is lying in bed and n ot interactive. Cranial nerves show no focal deficits on observation. His motor exam in the upper e xtremities. He can lift hand off the bed equally well. The right foot is moving slightly more than the left, although with stimulation and moved equally. Sensation appeared intact. Reflexes appeared symmetric. He is unable to assess his gait. Laboratory Studies: White blood cell on admission 12.6, currently 10.2; neutrophils currently 74.2; hemoglobin/hematocrit 13.2 and 38.8 respectively. Coagulation panel shows INR 1.23. Blood gas, pH 7 .45, pCO2 38.7, pO2 82.8. Chemistries: Sodium earlier today 166 and chloride 107. Sodium after valentina f-strength saline is now 159. Glucose is 173. Liver function studies are normal. Albumin is low at 2.6. Urinalysis shows greater than 50 white blood cells, 10-20 red blood cells, 3+ esterase, 3+ blo od, has a random urine potassium is 46. Random urine sodium is normal at 68. Urine osmolality is [address] scan shows no acute abnormalities. However, there is prominent small vessel ischemic dis ease with srpd-ec-yzvcrjgu change, although it is noted to be similar to May 2018. Chest x-ray show ed no acute intrathoracic processes. Assessment: Mr. Wright is a 68-year-old patient with hypernatremia aggravated, bgpvu-hh-ngpstnu e ncephalopathy. The patient has poor p.o. intake and marked hyperglycemia, which is a contributing fa ctor to his hypernatremia. He does have renal insufficiency from prerenal dehydration as his contrib uting factor. He also did receive some normal saline, which did increase his sodium as well. Plan: The patient is currently on half-strength saline that he continues to slowly bring his sodium back into normal range. He should be treated for a possible urinary tract infection. His urine cult ure did grow greater than 100,000 colony-forming units and the blood cultures have been negative. Th e urine did show 4+ gram-negative rods. Sensitivities are pending. 1.Continue with half-strength saline fluid replacement. It should be noted that his free water defi cit is calculated around 7 L and he should be rehydrated. 2.Continue aspirin and Plavix for stroke risk reduction. 3.Continue with Lipitor for stroke risk reduction. 4.Continue with DVT prophylaxis. 5.Once the patient is discharged, he should follow up in Dr. Vences's clinic 1 month later. LB/MODL Voice ID: [id number] Report ID: [id number]
[2018-08-24 04:41] LABS: Absolute Lymphocytes (CBC) 2.2 K/uL (0.7-4.9); Absolute Monocytes 0.7 K/uL (0.1-1.3); Absolute Neutrophil 7.5 K/uL (1.8-8.0); Eosinophils % 0.7 % (0-4.4); Lymphocytes % 20.3 % (15.3-44.8); MCH 28.1 pg (27.0-35.0); MCV 84.2 fL (80-100); MPV 9.2 fL (7.6-11.3); Monocytes % 6.9 % (3.3-12.3); RBC Red Blood Cell Count 4.51 M/uL (4.33-5.43)
[2018-08-24] MEDS: D5W 1,000 ML IV SCH ×3 (04:57→21:41)
[2018-08-24 05:05] LABS: Albumin 2.3 g/dL (3.4-5.0); Bilirubin Total 0.3 mg/dL (0.2-1.0); Phosphorus 3.9 mg/dL (2.5-4.9); Potassium 3.3 mmol/L (3.5-5.1); Protein, Total 7.2 g/dL (6.4-8.2)
[2018-08-24 05:34] LABS: Urine Protein/Creatinine Ratio 0.36 ratio (<0.15)
--- NOTE | 2018-08-24 07:54 | EKG ---
Test Date: 2018-08-22 Test Time: 17:14:20 Wire Harness Assembler: CLAU MEASUREMENT RESULTS: Intervals: Rate: 119 MS: 164 QRSD: 100 QT: 338 QTc: 475 Boody: P: 52 MS: 164 QRS: 130 T: 13 INTERPRETIVE STATEMENTS: Sinus tachycardia Right axis deviation Septal infarct, age undetermined Abnormal ECG Compared to ECG 06/16/2018 19:49:16 Right-axis deviation now present Myocardial infarct finding now present Sinus rhythm no longer present First degree AV block no longer present Electronically Signed On 08-24-18 07:49:19 CDT by Jagjit Snyder
[2018-08-24] MEDS ORDERED: LOSARTAN POTASSIUM 50 MG TABLET PO SCH (09:00)
[2018-08-24] MEDS: DONEPEZIL HCL PO SCH (09:00)
[2018-08-24] MEDS: CEFTRIAXONE/SWI 1gm 1 GM/10 ML SYR IV SCH (09:00)
[2018-08-24] MEDS: MEMANTINE HCL PO SCH (09:00)
[2018-08-24] MEDS: INSULIN DEGLUDEC SQ SCH (09:00)
[2018-08-24] MEDS: AMLODIPINE 10 MG TAB PO SCH (09:12)
[2018-08-24] MEDS: levETIRAcetam 500 MG TAB PO SCH ×2 (09:12→21:44)
[2018-08-24] MEDS: NYSTATIN 500,000 UNIT/5 ML UDC PO SCH ×4 (09:13→21:44)
[2018-08-24] MEDS: ASPIRIN EC 325 MG TABLET PO SCH (09:13)
[2018-08-24] MEDS: INSULIN -REGULAR HUMAN 50 UNIT/0.5 ML ML SQ SCH ×4 (09:14→21:45)
[2018-08-24] MEDS: FINASTERIDE 5 MG TAB PO SCH (09:17)
[2018-08-24] MEDS ORDERED: HYDRALAZINE HCL 20 MG/ML VIAL IV PRN (11:08)
[2018-08-24] MEDS: CIPROFLOXACIN 400mg IV 400 MG/200 ML BAG IV SCH ×2 (11:08→21:43)
--- NOTE | 2018-08-24 13:03 | PN ---
History: Currently, patient lying in bed. He is alert, but he is confused. He was not sure where h e was at. There was no fever, no chills overnight. Blood pressure continued to be high, 179/80 this morning. There is no chest pain or abdominal pain. Review of Systems: Otherwise negative. Physical Examination: Vital Signs: Blood pressure 179/80, respiratory rate 66, pulse 18, temperature 97.4. General: The patient is alert, but not oriented. Does not look in any distress. HEENT: Atraumatic, normocephalic. PERRLA. Oral mucosa moist. Neck: Supple. No JVD. Chest: Clear to auscultation. Good air entry. No expiratory wheezing. Heart: Regular rate and rhythm. S1, S2 normal. No gallop or murmur. Abdomen: Soft, nontender. No masses. No hepatosplenomegaly. Positive bowel sounds. Extremities: No clubbing, cyanosis, or edema. No calf tenderness. Neurologic: The patient was able to follow commands today for me, and he was able to squeeze my hand . He is able to move all his 4 extremities. Laboratory Data: Today, CBC was normal except for hemoglobin 12.7. Chemistry was normal except for sodium 133, potassium 3.3, chloride 121, BUN of 30, creatinine of 1.2. Glucose 189. Troponin 2.3. Assessment And Plan: A 68-year-old gentleman with: 1.Acute metabolic encephalopathy, most likely secondary to electrolyte abnormalities with hyponatrem ia as well as history of dementia and current urosepsis. 2.Urinary tract infection? Urosepsis with history of hematuria. He was on ceftriaxone, but urine c ulture showed extended-spectrum beta-lactamase, so I will switch him to Cipro 500 twice a day. 3.Hyponatremia, severe. Not improving. He is on D5W. Appreciate Nephrology followup, and we will continue D5W at this point. 4.Acute and chronic renal insufficiency. Creatinine down to 1.2, which is stable at this point. Ne phrology following. 5.Diabetes mellitus with history of long-term use of insulin and noncompliance. Glucose borderline control between 170 and 215. We will continue insulin sliding scale and insulin Tresiba at 68 units daily. 6.Thrush. Continue nystatin swish and swallow. 7.History of atrial fibrillation. Rate control. He is not on anticoagulation apparently given his history of dementia, possibly risk of fall. 8.History of seizure, on Keppra. Appreciate Dr. Vences's input. 9.History of cerebrovascular accident. The patient on aspirin. We will add Plavix for stroke reduc tion. 10.Dementia, he is on Memantine. 11.Deep vein thrombosis prophylaxis. The patient will be on Lovenox. 12.Discharge plan will depend on normalizing his sodium before discharge. 13.Hypertension, not well controlled. The patient already on Norvasc 10. I will add hydralazine as needed. 14.Hyperlipidemia, on statin. JONNY/PA Voice ID: [id number] Report ID: [id number]
[2018-08-24] MEDS ORDERED: FUROSEMIDE 20 MG/ 2ML VIAL IV ONE (14:36)
[2018-08-24 15:37] LABS: Urine Appearance CLOUDY; Urine Bilirubin NEGATIVE (NEG); Urine Blood 3+ (NEG); Urine Color YELLOW; Urine Glucose 2+ (NEG); Urine Protein 1+ (NEG); Urine Urobilinogen 0.2 mg/dL (0.2-1.0)
[2018-08-24 15:40] LABS: Urine Microscopic Reflex ORDER UMIC
[2018-08-24 16:36] LABS: Urine Bacteria 20-50 /HPF (NONE SEEN); Urine Culture Reflex Order REFLEXED
[2018-08-24] MEDS: ENOXAPARIN 40 MG/0.4 ML SQ SCH (16:46)
--- NOTE | 2018-08-24 18:48 | PN ---
Date of Progress Note: 08/24/2018 Subjective: The patient more awake today, started eating. The patient was admitted with severe hype rnatremia and acute kidney injury. Objective: Vital Signs: Blood pressure 164/84, pulse of 61, afebrile. Chest: Clear to auscultation. Heart: S1, S2. Regular. Abdomen: Soft. Nontender. Extremities: No edema. The patient had urine output of 1450. Neuro: The patient alert and oriented, right hemiparesis. Laboratory Data: WBC 10.6, H and H of 12.7/38, platelet 291. Sodium 160, potassium 3.3, bicarb 31, BUN 30, creatinine 1.2, calcium 9, phosphorus 3.9. Medications: Current medications the patient on its include: 1.Tylenol. 2.Norvasc. 3.Aspirin. 4.Atorvastatin. 5.Colchicine. 6.Plavix. 7.Finasteride. 8.Hydralazine. 9.Keppra. 10.Nystatin. Assessment And Plan: 1.Acute kidney injury secondary to prerenal dehydration, recovered, resolved. 2.Hypernatremia, secondary to possible poor intake, questionable if it is diabetes insipidus. The p atient on recovery. I am going to go ahead and increase D5 to 150 and give the patient a single dose of Lasix to establish better sodium diuresis and will follow up. 3.Urinary tract infection. Continue current antibiotic. 4.Encephalopathy, metabolic. Recover back to baseline. RAJI/PA Voice ID: [id number] Report ID: [id number]
[2018-08-24] MEDS: ATORVASTATIN 10 MG TAB PO SCH (21:44)
[2018-08-25] MEDS: D5W 1,000 ML IV SCH ×5 (02:20→23:00)
[2018-08-25 05:54] LABS: Albumin 2.1 g/dL (3.4-5.0); Phosphorus 2.7 mg/dL (2.5-4.9); Potassium 3.1 mmol/L (3.5-5.1)
[2018-08-25] MEDS: INSULIN -REGULAR HUMAN 50 UNIT/0.5 ML ML SQ SCH ×4 (08:23→21:01)
[2018-08-25] MEDS: MEMANTINE HCL PO SCH (09:00)
[2018-08-25] MEDS: INSULIN DEGLUDEC SQ SCH (09:00)
[2018-08-25] MEDS: DONEPEZIL HCL PO SCH (09:00)
[2018-08-25] MEDS: ASPIRIN EC 325 MG TABLET PO SCH (09:59)
[2018-08-25] MEDS: levETIRAcetam 500 MG TAB PO SCH ×2 (09:59→20:59)
[2018-08-25] MEDS: CIPROFLOXACIN 400mg IV 400 MG/200 ML BAG IV SCH ×2 (09:59→21:00)
[2018-08-25] MEDS: ACETAMINOPHEN 500 MG TAB PO PRN (10:00)
[2018-08-25] MEDS: CLOPIDOGREL 75 MG TABLET PO SCH (10:00)
[2018-08-25] MEDS: FINASTERIDE 5 MG TAB PO SCH (10:00)
[2018-08-25] MEDS: AMLODIPINE 10 MG TAB PO SCH (10:02)
[2018-08-25] MEDS: NYSTATIN 500,000 UNIT/5 ML UDC PO SCH ×5 (10:02→21:00)
[2018-08-25] MEDS: POTASSIUM 25 MEQ EFFERV TAB PO ONE ×2 (13:00→14:25)
[2018-08-25] MEDS: LISINOPRIL 20 MG TAB PO SCH ×2 (13:00→14:25)
--- NOTE | 2018-08-25 15:55 | PN ---
Subjective: Currently, the patient is lying in bed. He looks comfortable. He is much more alert, much more awake. He is able to communicate and answer questions appropriately today. His overall mental status improved significantly overnight. Objective: vital signs: Blood pressure is 158/74, heart rate 63, respiratory rate 18, temperature 97. General: The patient is alert, able to follow commands, not very oriented, does not look in any distress. HEENT: Atraumatic, normocephalic. Oral mucosa slightly dry. Neck: Supple. No JVD. No carotid bruits. Normal thyroid. Chest: Clear to auscultation. Good air entry. No expiratory wheezing. Heart: Regular rate and rhythm. S1 and S2 normal. No gallop. Abdomen: Soft, nontender. No masses. No hepatosplenomegaly. Positive bowel sounds. Extremities: No clubbing, cyanosis, or edema. No calf tenderness. No joint swelling. Neurologic: Much better today. The patient is much more alert, able to follow commands and carry conversation. He is not fully oriented. Laboratory Data: Today showed CBC within normal except for hemoglobin 12.7. Chemistry within normal except for sodium 146, potassium 3.1, carbon dioxide 108 , BUN 22, GFR 84, glucose 284. Albumin of 2.1. Assessment And Plan: This is a 68-year-old gentleman with: 1. Acute metabolic encephalopathy, secondary to hypernatremia with history of dementia and current sepsis. Mental status improved dramatically overnight with sodium going down to 146. Appreciate Nephrology help. 2. Urinary tract infection/sepsis with history of hematuria. Hematuria resolved. The patient is currently on Cipro. He was switched from ceftriaxone yesterday as culture showed extended-spectrum beta-lactamase Escherichia coli. 3. Hypernatremia, was severe, improved much better overnight. Sodium down to 146. Appreciate Nephrology help. 4. Kcdue-mt-rleczpa renal insufficiency, much better with creatinine down to normal. 5. Diabetes mellitus with history of long-term use of insulin and noncompliance. Glucose is still elevated this morning. pt need to get insulin from home,as it is not on our formulary , will discuss with pharmacy to see if there is any other equivalent alternative 6. Thrush. Continue nystatin swish and swallow. Much better. 7. History of atrial fibrillation. He is currently rate controlled. He is not on anticoagulation given his risk of fall due to his severe dementia. 8. History of seizure. He is on Keppra. Appreciate Dr. Vences's input. 9. History of cerebrovascular accident. The patient is on aspirin and Plavix currently. 10. Dementia. The patient is on Namenda. 11. Deep vein thrombosis prophylaxis. He is on 40 of Lovenox. 12. Hypertension. He is on Norvasc 10, p.r.n. hydralazine. Borderline controlled. 13. Hyperlipidemia. He is on statin. 14. Discharge plan to home when hypernatremia resolves. We will obtain physical therapy to assist the patient's need before discharge hopefully in the next 24 to 48 hours. JONNY/PA Voice ID: [id number] Report ID: [id number]
[2018-08-25] MEDS ORDERED: POTASSIUM CL 40 MEQ in NA CHLORIDE 0.9% 500 ML IV SCH (17:00)
[2018-08-25] MEDS: INSULIN GLARGINE 100 UNITS/ML SQ SCH (17:14)
[2018-08-25] MEDS: ENOXAPARIN 40 MG/0.4 ML SQ SCH (17:15)
--- NOTE | 2018-08-25 20:01 | PN ---
Date of Progress Note: 08/25/2018 Subjective: The patient is more awake today. No nausea. No vomiting. The patient was admitted wit h altered mental status, hypernatremia . Physical Examination: Vital Signs: Blood pressure 139/77, pulse was 75. Afebrile. Chest: Clear to auscultation. Heart: S1, S2. Regular. Abdomen: Soft, nontender. Extremities: No edema. Neuro: Right hemiparesis. Laboratory Data: H and H of 12.7/38. Sodium down to 146, potassium 3.1, bicarb 30, BUN 22, creatini ne 0.9, calcium 8. Phosphorus 2.7. Current Medications: The patient on IV fluid D5 at 150 per hour, Norvasc 10, Plavix, finasteride, in sulin, Kera. The patient received single dose of Lasix 40 mg yesterday. Assessment And Plan: 1.Acute kidney injury, recovered back to baseline. 2.Hypernatremia, secondary to poor intake, on the recovery phase. Sodium is trending down nicely. I going to decrease the IV fluid to 100 per hour, and we will monitor the patient. 3.Hypokalemia. We will supplement. 4.Hypertension, uncontrolled. Given the hypokalemia, I am going to add for the patient MICHAEL inhibito r, lisinopril, and we will follow up with the blood pressure. 5.Urinary tract infection, secondary to Escherichia coli and Streptococcus agalactiae, sensitive to quinolone. I am going to continue on quinolone, and will follow up the patient. The patient cleared from the renal standpoint for discharge planning. TRACY Voice ID: [id number] Report ID: [id number]
[2018-08-25] MEDS: ATORVASTATIN 10 MG TAB PO SCH (20:59)
[2018-08-25] MEDS: DONEPEZIL HCL 5 MG TAB PO SCH (21:00)
[2018-08-25] MEDS: MEMANTINE HCL 10 MG TABLET PO SCH (21:00)
[2018-08-26] MEDS ORDERED: NA CHLORIDE 0.9% 1,000 ML IV SCH (02:00)
[2018-08-26 05:36] LABS: Albumin 2.2 g/dL (3.4-5.0); BUN Blood Urea Nitrogen 16 mg/dL (7-18); Bicarbonate 30 mmol/L (21-32); Glucose Level 66 mg/dL (74-106); Phosphorus 2.4 mg/dL (2.5-4.9); Potassium 3.1 mmol/L (3.5-5.1); Sodium Level 147 mmol/L (136-145)
[2018-08-26] MEDS: INSULIN -REGULAR HUMAN 50 UNIT/0.5 ML ML SQ SCH ×4 (07:30→21:00)
[2018-08-26] MEDS: INSULIN GLARGINE 100 UNITS/ML SQ SCH (09:00)
[2018-08-26] MEDS: KCL 20 MEQ/100 mL IVPB 20 MEQ/100 ML BAG IV SCH ×3 (09:00→11:00)
[2018-08-26] MEDS: NYSTATIN 500,000 UNIT/5 ML UDC PO SCH ×4 (09:00→21:00)
[2018-08-26] MEDS: CIPROFLOXACIN 400mg IV 400 MG/200 ML BAG IV SCH (09:26)
[2018-08-26] MEDS: LISINOPRIL 20 MG TAB PO SCH (09:27)
[2018-08-26] MEDS: ASPIRIN EC 325 MG TABLET PO SCH (09:28)
[2018-08-26] MEDS: levETIRAcetam 500 MG TAB PO SCH ×2 (09:28→21:53)
[2018-08-26] MEDS: MEMANTINE HCL 10 MG TABLET PO SCH ×2 (09:28→21:52)
[2018-08-26] MEDS: AMLODIPINE 10 MG TAB PO SCH (09:28)
[2018-08-26] MEDS: FINASTERIDE 5 MG TAB PO SCH (09:28)
[2018-08-26] MEDS: CLOPIDOGREL 75 MG TABLET PO SCH (09:28)
[2018-08-26] MEDS ORDERED: FLUCONAZOLE 100 MG TAB PO ONE (11:09)
[2018-08-26] MEDS ORDERED: Meropenem 500 MG in NA CHLORIDE 0.9% 100 ML IV SCH (12:00)
[2018-08-26] MEDS ORDERED: POTASSIUM 25 MEQ EFFERV TAB PO ONE ×2 (12:18→20:00)
[2018-08-26] MEDS: Meropenem 1,000 MG in NA CHLORIDE 0.9% 100 ML IV SCH ×2 (12:35→17:04)
--- NOTE | 2018-08-26 15:19 | RAD REPORT ---
EXAM DESCRIPTION: RAD - Barium Swallow Modified - 08/26/2018 3:07 pm CLINICAL HISTORY: Dysphagia COMPARISON: None. TECHNIQUE: The patient was given liquid, semi-solid and solid forms of barium. Lateral view fluorosc opic imaging was performed in conjunction with speech pathology service. FINDINGS: Fluoro time was 4 minutes 27 seconds. There were 22 cine loop acquisitions obtained. No laryngeal penetration or aspiration observed. Patient did show delay in initiation of swallowing. IMPRESSION: No aspiration or laryngeal penetration. Findings are further detailed on speech pathology report.
[2018-08-26] MEDS ORDERED: Meropenem 500 MG VIAL IV SCH (17:00)
[2018-08-26] MEDS: ENOXAPARIN 40 MG/0.4 ML SQ SCH (17:04)
--- NOTE | 2018-08-26 19:58 | P.PN ---
Subjective Date of Service: 08/26/18 Chief Complaint: Hypernatremia, hyperglycemia, acute encephalopathy Subjective: Tolerating diet (Tolerating Po fluid , but poor intake) Review of Systems General: Unremarkable Respiratory: Unremarkable Cardiovascular: Unremarkable Gastrointestinal: Unremarkable Physical Examination - Vital Signs Temperature: 98.1 F Blood Pressure: 133/64 Pulse: 75 Respirations: 18 Pulse Ox (%): 98 - Physical Exam General: In no apparent distress Neck: Supple Respiratory: Clear to auscultation bilaterally Cardiovascular: No edema Assessment And Plan - Current Problems (Diagnosis) (1) Hypernatremia Onset Date: 08/26/18 Current Visit: Yes Status: Acute (2) Diabetes mellitus Onset Date: 07/06/16 Current Visit: No Status: Chronic Qualifiers: Diabetes mellitus type: type 2 Diabetes mellitus continuous churn buttermaker insulin use: with continuous churn buttermaker use Diabetes mellitus complication status: with unspecified complications Qualified Code(s): E11.8 - Type 2 diabetes mellitus with unspecified complications; Z79.4 - group home (current) use of insulin - Plan Pt is a poor historian 68-year-old gentleman with significant past medical history of hypertension, dementia, atrial fibrillation, diabetes with neuropathy, CVA with right-sided hemiparesis Pt was admitted for AMS Na increased from 153 to 166 with hyperglycemia Na improved on IVF Assessment And Plan: Acute kidney injury, CR normalized Hypernatremia, secondary to poor intake IVF stopped this morning Pt is tolerating PO fluids , but not asking for fluid need encouragement Hypokalemia. Improved need to check urine k and Cr Need to Check Mg and phos with next labs Hypertension Urinary tract infection, E.coli ESBL
[2018-08-26] MEDS: DONEPEZIL HCL 5 MG TAB PO SCH (21:52)
[2018-08-26] MEDS: ATORVASTATIN 10 MG TAB PO SCH (21:52)
--- NOTE | 2018-08-26 22:28 | PN ---
Date of Progress Note: 08/26/2018 Subjective: The patient seen and examined. Chart reviewed and case discussed with RN and Dr. Marcos. The patient's mental status significantly improved. Awake and alert. Answering questions appropriately. Denies any acute events or any complaints. Review of Systems: Negative except as above. Medications: List reviewed. Physical Examination: Vital Signs: Temperature 98.4, heart rate 83, blood pressure 116/64, respirations 18, O2 98% on room air. General: Awake, alert, oriented x3, not in acute distress. Elderly male, somewhat ill-appearing. CV: S1, S2. No murmurs. Peripheral pulses present. Respiratory: Moving air well bilaterally. No wheezing or stridor. Gastrointestinal: Abdomen is soft, nontender, nondistended. Positive bowel sounds. Extremities: No clubbing, cyanosis, or edema. Neurologic: Nonfocal. Laboratory Data: Sodium 147, potassium 3.1, chloride 110, CO2 30, BUN 16, creatinine 0.8, glucose 66. Repeat glucose was 117, calcium 8.1, phosphorus 2.4 , albumin 2.2. WBC pending. Cultures show ESBL Escherichia coli and Streptococcus agalactiae. Blood cultures show no growth to date. Repeat urine culture show 3+ yeast. Modified barium swallow study showed some oral dysphagia. Assessment And Plan: A 68-year-old male with: 1. Acute metabolic encephalopathy secondary to electrolyte abnormalities, dementia, sepsis, improved significantly. Much more alert and oriented. 2. Sepsis, improving. 3. Urinary tract infection, acute cystitis with hematuria secondary to ESBL Escherichia coli. We will switch to meropenem. The patient will need PICC line and 2 weeks of long-term IV antibiotics, which is being set up by social Work. 4. Hypernatremia, severe, significantly improved. Sodium now 147. We will discontinue normal saline. No further IV fluids required. Appreciate Dr. Marcos's input. 5. Acute on chronic kidney injury. Creatinine has come down back to baseline , is normalized. We will continue to monitor. Avoid NSAIDs and nephrotoxins. 6. Diabetes mellitus type 2 with long-term use of insulin with hyperglycemia secondary to IV fluids with D5W and due to his noncompliance. D5W is now discontinued. We will adjust insulin dose. The patient did receive full dose insulin, full dose of his home dose this morning, became somewhat hyperglycemic at blood glucose level of 60. We will continue to monitor. We will adjust insulin dose. 7. Thrush. Continue nystatin swish and swallow, improved. 8. History of atrial fibrillation, rate controlled on anticoagulation due to his risk of falls due to dementia. 9. History of seizure disorder. Neurology on board. 10. History of cerebrovascular accident. Continue aspirin and Plavix. 11. Dementia, Alzheimer's type without behavioral disturbance. We will continue Namenda. 12. Essential hypertension. Continue home medications. Add p.r.n. medications. 13. Mixed hyperlipidemia. Continue statin. 14. Gastrointestinal and deep venous thrombosis prophylaxis with PPI and Lovenox. Plan: Obtain PICC line. Set up IV antibiotics at a long-term facility. The patient does have oral dysphagia. Modified barium swallow study is completed today. Recommendations are modified diet with regular liquids. Will continue with Speech Therapy and PT. /[place] Voice ID: [id number] Report ID: [id number] [facility] CENTERDemarcus
[2018-08-27] MEDS: Meropenem 1,000 MG in NA CHLORIDE 0.9% 100 ML IV SCH ×3 (00:27→16:24)
[2018-08-27 05:50] LABS: Albumin 2.1 g/dL (3.4-5.0); BUN Blood Urea Nitrogen 14 mg/dL (7-18); Bicarbonate 31 mmol/L (21-32); Glucose Level 134 mg/dL (74-106); Potassium 3.3 mmol/L (3.5-5.1); Sodium Level 145 mmol/L (136-145)
[2018-08-27] MEDS ORDERED: POTASSIUM 25 MEQ EFFERV TAB PO ONE (06:30)
--- NOTE | 2018-08-27 07:01 | RAD REPORT ---
EXAM DESCRIPTION: RAD - Chest Single View - 08/26/2018 10:25 pm CLINICAL HISTORY: PICC line placement COMPARISON: August 22, 2018 FINDINGS: Portable chest was obtained following placement of a left upper extremity PICC line. PICC line follows the course of the brachiocephalic vein and then extends superiorly into the jugular SVC junction.
[2018-08-27] MEDS: ASPIRIN EC 325 MG TABLET PO SCH (09:52)
[2018-08-27] MEDS: INSULIN -REGULAR HUMAN 50 UNIT/0.5 ML ML SQ SCH ×4 (09:52→21:00)
[2018-08-27] MEDS: levETIRAcetam 500 MG TAB PO SCH ×2 (09:52→21:13)
[2018-08-27] MEDS: INSULIN GLARGINE 100 UNITS/ML SQ SCH (09:52)
[2018-08-27] MEDS: MEMANTINE HCL 10 MG TABLET PO SCH ×2 (09:53→21:13)
[2018-08-27] MEDS: CLOPIDOGREL 75 MG TABLET PO SCH (09:53)
[2018-08-27] MEDS: AMLODIPINE 10 MG TAB PO SCH (09:53)
[2018-08-27] MEDS: LISINOPRIL 20 MG TAB PO SCH (09:53)
[2018-08-27] MEDS: NYSTATIN 500,000 UNIT/5 ML UDC PO SCH ×5 (09:53→21:14)
[2018-08-27] MEDS: FINASTERIDE 5 MG TAB PO SCH (09:53)
[2018-08-27] MEDS ORDERED: POTASSIUM PHOS 10 MM in NA CHLORIDE 0.9% 250 ML IV ONE (12:08)
[2018-08-27] MEDS: D5W 1,000 ML IV SCH (12:53)
--- NOTE | 2018-08-27 14:14 | PN ---
Date of Progress Note: 08/27/2018 Subjective: The patient is feeling better. No nausea. No vomiting. The patient waiting for centra l line for IV antibiotic. Physical Examination: Vital Signs: Blood pressure 111/65, pulse of 71, afebrile. The patient still had good urine output 2600. Chest: Clear to auscultation. Heart: S1, S2. Regular. Abdomen: Soft, nontender. Extremities: No edema. Neuro: Right-sided hemiparesis. Laboratory Data: H and H 12.7/38, sodium 145, potassium 3.3, bicarb 31, BUN 14, creatinine 0.8, calc ium 8.5, phosphorus 2. Current Medications: The patient on its include: 1.Aspirin. 2.Meropenem. 3.Fluconazole. 4.Donepezil. 5.Lovenox. 6.Amlodipine. 7.Lisinopril 20. 8.Keppra. 9.Colchicine. 10.Finasteride. Assessment And Plan: 1.Acute kidney injury secondary to prerenal, recovered, resolved. 2.Hypernatremia. I am going to resume the patient on D5 at 50 per hour, and we will follow up the p atient. 3.Hypokalemia and hypophosphatemia, I will supplement. 4.Urinary tract infection, extended spectrum beta-lactamases. Follow up with the primary. 5.Cerebrovascular accident. Continue supportive care. TRACY Voice ID: [id number] Report ID: [id number]
[2018-08-27] MEDS: ENOXAPARIN 40 MG/0.4 ML SQ SCH (16:20)
--- NOTE | 2018-08-27 17:15 | CON ---
Date of Consultation: 08/27/2018 Reason For Service: Central line placement for long-term antibiotics. History Of Present Illness: This is the case of a 68-year-old patient with multiple medical problems , admitted to the hospital with change in mental status and at the same time found to have an infecti on in body and needed long-term antibiotics. Yesterday, they were trying to do PICC lines but they w ere unsuccessful, so they asked me to see if I can put a central line. Most of the information is ob tained from the patient's chart, family doctor, head nurse, and family member at bedside, and some fr om the patient. He has full recollections of the event. Review of Systems: Ten points otherwise unremarkable. Medications: Reviewed including Lovenox. He is not taking any blood thinners, although I noticed he has history of a CVA and AFib, as per family member. Past Medical History: Includes CVA, diabetes, hyperlipidemia, atrial fibrillation, dementia. Past Surgical History: Include knee surgery. Family History: Hypertension, diabetes. Social History: He does not smoke. He does not drink alcohol. The patient is awake and alert. No distress. Physical Examination: Neck: Supple. No JVD. Chest: Bilateral breath sounds. Abdomen: Soft and depressible. Extremities: Right and left upper extremities have good peripheral pulses. No cyanosis. Laboratory Data: Blood work shows a WBC count of 10.6 with a hemoglobin of 12.7, INR of 1.23. Chlor satish is 109, glucose 134. Assessment: This is a 68-year-old patient in need for central line. The benefits, alternatives, and risks of central line placement were fully explained to him and his family member at bedside which i nclude but not limited to infection, bleeding, damage to adjacent structures, anesthesia complication , pneumothorax, hemothorax, deep vein thromboses, pulmonary emboli, pericarditis, endocarditis, myoca rdial infarction, and even . He also understands that this may not relieve any symptoms, he onesimo ht need more than one surgical intervention. He is advised to remove the central line as soon as he finishes his antibiotics by his primary doctor. He was advised the importance of compliance with the treatment. [place] Voice ID: [id number] Report ID: [id number]
--- NOTE | 2018-08-27 20:14 | P.PN ---
Subjective Date of Service: 08/27/18 Chief Complaint: Hypernatremia, hyperglycemia, acute encephalopathy Subjective: No new changes, No C/O voiced Patient seen and examined at bedside. Family at bedside. Stable, no new changes. Physical Examination - Vital Signs Temperature: 98.0 F Blood Pressure: 138/74 Pulse: 68 Respirations: 16 Pulse Ox (%): 97 - Physical Exam General: Alert, In no apparent distress, Oriented x3, Other (ill-appearing) Neck: JVD not distended Respiratory: Clear to auscultation bilaterally, Normal air movement Cardiovascular: Normal pulses, Regular rate/rhythm, Normal S1 S2 Gastrointestinal: Normal bowel sounds, Soft and benign, No tenderness Musculoskeletal: No clubbing, No swelling, No tenderness Neurological: Normal speech, Other (Non -focal) - Studies Microbiology Data (last 24 hrs): 08/22/18 17:35 Blood - Blood Aerobic Blood Culture - Final No growth in 5 days. 08/22/18 17:35 Blood - Blood Anaerobic Blood Culture - Final No growth in 5 days. 08/22/18 17:05 Blood - Blood Aerobic Blood Culture - Final No growth in 5 days. 08/22/18 17:05 Blood - Blood Anaerobic Blood Culture - Final No growth in 5 days. Assessment And Plan - Plan 1. Acute metabolic encephalopathy secondary to electrolyte abnormalities, dementia, sepsis, improved significantly. Much more alert and oriented. 2. Sepsis, improving 3. Urinary tract infection, acute cystitis with hematuria secondary to ESBL Escherichia coli. We will switch to meropenem. The patient will need PICC line and 2 weeks of long-term IV antibiotics. PICC line insertion was attempted but we were not successful. Dr. Sanders consulted for a center line placement. 4. Hypernatremia, severe, significantly improved. No further IV fluids required. Appreciate Dr. Marcos's input. 5. Acute on chronic kidney injury. Creatinine has come down back to baseline , is normalized. We will continue to monitor. Avoid NSAIDs and nephrotoxins Plan/Dispo: Pending a center line placement tomorrow wiht Dr. Sanders. Patient has been accepted for SNF. Discharge Plan: [facility] Plan to discharge in: 24 Hours
[2018-08-27] MEDS: DONEPEZIL HCL 5 MG TAB PO SCH (21:13)
[2018-08-27] MEDS: ATORVASTATIN 10 MG TAB PO SCH (21:13)
[2018-08-28] MEDS: Meropenem 1,000 MG in NA CHLORIDE 0.9% 100 ML IV SCH ×3 (01:00→16:53)
[2018-08-28 06:02] LABS: Albumin 2.1 g/dL (3.4-5.0); BUN Blood Urea Nitrogen 16 mg/dL (7-18); Bicarbonate 31 mmol/L (21-32); Glucose Level 81 mg/dL (74-106); Phosphorus 2.7 mg/dL (2.5-4.9); Potassium 3.7 mmol/L (3.5-5.1); Sodium Level 144 mmol/L (136-145)
[2018-08-28] MEDS: D5W 1,000 ML IV SCH (06:28)
[2018-08-28] MEDS: KCL 20 MEQ/100 mL IVPB 20 MEQ/100 ML BAG IV SCH ×3 (07:00→10:30)
[2018-08-28] MEDS: INSULIN -REGULAR HUMAN 50 UNIT/0.5 ML ML SQ SCH ×3 (07:30→16:53)
[2018-08-28] MEDS ORDERED: NS 0.9% VIAL 20 ML ONE (08:07)
[2018-08-28] MEDS: MEMANTINE HCL 10 MG TABLET PO SCH (08:08)
[2018-08-28] MEDS: AMLODIPINE 10 MG TAB PO SCH (08:08)
[2018-08-28] MEDS: NYSTATIN 500,000 UNIT/5 ML UDC PO SCH ×3 (08:08→16:39)
[2018-08-28] MEDS: INSULIN GLARGINE 100 UNITS/ML SQ SCH (08:08)
[2018-08-28] MEDS: levETIRAcetam 500 MG TAB PO SCH (08:08)
[2018-08-28] MEDS: FINASTERIDE 5 MG TAB PO SCH (08:09)
[2018-08-28] MEDS: LISINOPRIL 20 MG TAB PO SCH (08:09)
[2018-08-28] MEDS ORDERED: LIDOCAINE 1% MPF 30 ML VIAL ONE (08:09)
[2018-08-28] MEDS ORDERED: NA CHLORIDE 0.9% 1,000 ML ONE (08:15)
[2018-08-28] MEDS ORDERED: NS 0.9% VIAL 10 ML ONE (08:21)
--- NOTE | 2018-08-28 08:57 | P.BOP ---
Preoperative diagnosis: encephalopathy, UTI, need for central IV access for IV abx Postoperative diagnosis: same Primary procedure: 1. Placement of subclavian central line Secondary procedure: 2. Interpretation of fluoroscopy Estimated blood loss: <3cc Specimen: none Findings: as above Anesthesia: General Complications: None Transferred to: Recovery Room Condition: Good
[2018-08-28] MEDS ORDERED: MIDAZOLAM HCL 2 MG/2 ML INJ ONE (09:00)
[2018-08-28] MEDS ORDERED: FENTANYL CITR 250 MCG/5 ML ONE (09:00)
[2018-08-28 09:53] VITALS: O2SAT 100
--- NOTE | 2018-08-28 10:09 | RAD REPORT ---
EXAM DESCRIPTION: RAD - Chest Single View - 08/28/2018 9:44 am CLINICAL HISTORY: POST-OP Chest pain. COMPARISON: Chest Single View dated 08/26/2018; Chest Single View dated 08/22/2018; Chest Single View dated 06/16/2018; Chest Single View dated 05/26/2018 FINDINGS: Portable technique limits examination quality. Right-sided venous catheter its tip in SVC. No pneumothorax. The heart is normal in size. No displace d fractures.
--- NOTE | 2018-08-28 10:11 | RAD REPORT ---
EXAM DESCRIPTION: RAD - Fluoroscopy <1 Hour - 08/28/2018 9:10 am CLINICAL HISTORY: Device placement central venous catheter placement FINDINGS: A central venous catheter was placed into the superior vena cava. Multiple fluoroscopic sp ot images are submitted. The examination was performed by Dr. Sanders. Two fluoroscopic spot images were obtained. Fluoroscopy time 0.1 minutes
[2018-08-28] MEDS ORDERED: POTASSIUM 25 MEQ EFFERV TAB PO ONE (11:10)
[2018-08-28] MEDS ORDERED: FUROSEMIDE 20 MG/ 2ML VIAL IV ONE (11:11)
--- NOTE | 2018-08-28 16:50 | P.DS ---
Admission Date: 08/22/18 Discharge Date: 08/28/18 Disposition: TRANSFER TO [facility] Discharge Condition: GOOD Reason for Admission: Hypernatremia, hyperglycemia, acute encephalopathy Consultations: Dr. Marcos, nephrology Dr. Vences, neurology Dr. Sanders, General Surgery Procedures: Center line placement Brief History of Present Illness: 68-year-old male with multiple medical problems including dementia, atrial fibrillation, hypertension, insulin-dependent diabetes mellitus, CVA, seizure disorder, who about 1 week ago he started to be more lethargic, and he was complaining of left knee pain. He fell a couple of times during the last week due to the weakness. Family also noticed that he has had poor food liquid intake for the last 2 or 3 days, he was chewing the food but not swallowing. No history of fever or chills. Lab work remarkable for hypernatremia 153, hyperglycemia 505, and elevated creatinine 1.5. Family also says that the patient has been refusing his medication for the last week. Hospital Course: 1) Acute encephalopathy: CT head was done which showed chronic ischemic changes but no acute abnormalities., checks chest x-ray without any acute abnormality. Patient was started on half-normal saline infusion and retreader was consulted for further evaluation and recommendations. This acute encephalopathy was likely secondary to electrolyte imbalances, UTI, dementia and has significantly improved throughout the hospitalization. (2) Sepsis, ruled out (3) UTI (urinary tract infection)acute cystitis with hematuria: secondary to ESBL Escherichia coli. Patient was switched to meropenem. The patient will need PICC line and 2 weeks of long-term IV antibiotics. PICC line insertion was attempted 2 times and were unsuccessful and therefore patient was taken to the OR by Dr. Sanders, general surgery, for a central line placement for [facility]- [facility]. (4) Hypernatremia: Patient was initially given half-normal saline infusion and retreader was consulted. At the time of discharge, patient's hypernatremia has significantly improved (5) Olypt-tj-tyqbuyh kidney injury: Patient initially presented with the acute on chronic kidney injury. This has resolved after IV hydration. (6) Chronic kidney disease, stage 3 (moderate) (7) Diabetes mellitus with long-term use of insulin with hyperglycemia secondary to IV fluids with D5W and due to his noncompliance. D5W was discontinued, insulin dose was adjusted. After the adjustments, patient's glucose was stabilized. (8). Thrush. Patient developed thrush throughout this hospitalization. He was treated with nystatin swish and swallow which improved his symptoms. (9) History of atrial fibrillation, rate controlled on anticoagulation due to his risk of falls due to dementia. Stable during hospitalization (10) History of seizure disorder. Neurology on board. No seizures noted while in hospital (11) History of cerebrovascular accident. Stable throughout hospitalization on aspirin and Plavix. (12) Dementia, Alzheimer's type without behavioral disturbance. Stable while in hospital, on Namenda. (13) Essential hypertension. Continued home medications. Add p.r.n. medications. (14) Mixed hyperlipidemia. Continue statin. Vital Signs/Physical Exam: Temp Pulse Resp BP Pulse Ox 98.0 F 83 16 136/69 97 08/28/18 12:00 08/28/18 12:00 08/28/18 12:00 08/28/18 12:00 08/28/18 12:00 General: Alert, In no apparent distress, Oriented x3 HEENT: Atraumatic, Normocephalic Neck: Supple, JVD not distended Respiratory: Clear to auscultation bilaterally Cardiovascular: No edema, Normal pulses, Regular rate/rhythm Gastrointestinal: Normal bowel sounds, Soft and benign, No tenderness Musculoskeletal: No clubbing, No swelling Neurological: Normal speech Laboratory Data at Discharge: WBC 10.6 K/uL (4.3-10.9) 08/24/18 04:14 Hgb 12.7 g/dL (13.6-17.9) L 08/24/18 04:14 Hct 38.0 % (39.6-49.0) L 08/24/18 04:14 Plt Count 291 K/uL (152-406) D 08/24/18 04:14 PT 14.6 SECONDS (9.5-12.5) H 08/22/18 17:05 INR 1.23 08/22/18 17:05 APTT 32.5 SECONDS (24.3-36.9) 08/22/18 17:05 Sodium 144 mmol/L (136-145) 08/28/18 05:03 Potassium 3.7 mmol/L (3.5-5.1) 08/28/18 05:03 BUN 16 mg/dL (7-18) 08/28/18 05:03 Creatinine 0.80 mg/dL (0.55-1.3) 08/28/18 05:03 Glucose 81 mg/dL (74-106) 08/28/18 05:03 Phosphorus 2.7 mg/dL (2.5-4.9) 08/28/18 05:03 Magnesium 2.6 mg/dL (1.8-2.4) H D 08/22/18 17:05 Total Bilirubin 0.3 mg/dL (0.2-1.0) 08/24/18 04:14 AST 17 U/L (15-37) 08/24/18 04:14 ALT 20 U/L (12-78) 08/24/18 04:14 Alkaline Phosphatase 87 U/L (45-117) 08/24/18 04:14 Lipase 563 U/L (73-393) H 08/22/18 17:05 Home Medications: Amlodipine Besylate 10 mg PO DAILY 08/23/18 Aspirin [Aspirin EC 325 MG] 325 mg PO DAILY 08/23/18 Cholecalciferol (Vitamin D3) [Vitamin D 1000 Iu Tab*] 25 mg PO DAILY 08/23/18 Donepezil HCl 10 mg PO DAILY 08/23/18 Ferrous Fumarate/Vit Bcomp&C [Super B-Complex Caplet] 1 each PO DAILY 08/23/18 Finasteride 5 mg PO DAILY 08/23/18 Indomethacin 25 mg PO TID PRN 08/23/18 Insulin Degludec [Tresiba Flextouch U-100] 68 unit SQ DAILY 08/23/18 Losartan Potassium [Cozaar*] 50 mg PO DAILY 08/23/18 Memantine HCl/Donepezil HCl [Namzaric 28 mg-10 mg Capsule] 1 each PO DAILY 08/23 Metformin HCl 1,000 mg PO BID 08/23/18 Simvastatin 20 mg PO DAILY 08/23/18 levETIRAcetam [Keppra*] 500 mg PO BID 08/23/18 Colchicine [Colcrys *] 0.6 mg PO BID PRN tab 08/28/18 Enoxaparin Sodium [Lovenox 40 MG INJ*] 40 mg SQ DAILY 5 PM syr 08/28/18 Hydralazine [Apresoline*] 10 mg IV Q6HP PRN vial 08/28/18 Meropenem [Merrem*] 1,000 mg IV Q8HR 12 Days vial 08/28/18 New Medications: Meropenem [Merrem*] 1,000 mg IV Q8HR 12 Days vial Patient Discharge Instructions: You will require a 2 week course of IV antibiotics. After discharge from the facility, please make an appointment to see a primary care physician within 1 week Diet: Low sodium Activity: Ad traci Time spent managing pt's care (in minutes): 55
[2018-08-28] MEDS: ENOXAPARIN 40 MG/0.4 ML SQ SCH (16:53)
--- NOTE | 2018-08-28 16:58 | OP ---
Date of Procedure: 08/28/2018 Surgeon: Malik Sanders MD Preoperative Diagnoses: Encephalopathy, urinary tract infection. Need for central IV access for IV antibiotics, long-term. Postoperative Diagnoses: Encephalopathy, urinary tract infection. Need for central IV access for IV antibiotics, long-term. Procedures: 1.Placement of a subclavian central line. 2.Interpretation of fluoroscopy. Anesthesia: General plus local. Indications: This is a case of a 68-year-old patient in need of IV antibiotics per primary doctor. Attempts for PICC lines were done yesterday by the staff, they could not do it, so they requested fabiano tral line. The patient does not cooperate that much, so we decided to do this under some controlled settings and under some anesthetic. The benefits, alternatives, and risks of central line placement fully explained to the patient and the family, which include but are not limited to infection, bleedi ng, damage to adjacent structures, anesthesia complication, pneumothorax hemothorax, cardiac arrhythm ias, DVTs, PE, MT, even . He also understands this may not relieve his symptoms. He might need more than one surgical history. They also ordered for clearance that as soon as they do not need th is anymore, the patient is to remove this central line in a proper medical care setting. They unders tood, signed a consent. Description Of Procedure: The patient was brought to the operating room, placed in supine position. Anesthesia was done without complication. The right chest was prepped and draped in sterile fashion . Local anesthesia was applied was placed. An 18-gauge needle was placed in the right charles bclavian vein at the first attempt. The guidewire was placed through the needle, and we got into the superior vena cava using fluoroscopy. The needle was removed. The dilator was placed in and a cent ral line triple lumen was placed using Seldinger technique. Excellent backflow and inflow. Once aga in, location of the catheter was followed with fluoroscopy. The central line was secured in place wi th 3-0 nylon and then sterile dressings. The patient tolerated the procedure well. The patient was brought back to normal position. Sent to recovery room and a chest x-ray was ordered stat. [place] Voice ID: [id number] Report ID: [id number]
[2018-08-28 17:45] VITALS: BP 129/70; TEMP 98.2
--- NOTE | 2018-08-29 04:13 | PN ---
Date of Progress Note: 08/28/2018 Subjective: The patient doing better. No nausea. No vomiting. Tolerating his diet. Physical Examination: Vital Signs: Blood pressure 129/70, pulse of 85. Chest: Clear to auscultation. Heart: S1, S2. Regular. Abdomen: Soft, nontender. Extremities: No edema. Neurologic: Right-sided weakness. Laboratory Data: H and H of 12.7/38. Sodium 144, potassium 3.7, bicarb 31, BUN 16, creatinine 0.8, calcium 8.4. Assessment And Plan: 1.Acute kidney injury secondary to prerenal, recovered, resolved. 2.Hypernatremia secondary to dehydration, resolved. Continue D5. 3.Urinary tract infection secondary to extended spectrum beta-lactamases. Continue meropenem. 4.Cerebrovascular accident. Continue supportive care. TRACY Voice ID: [id number] Report ID: [id number]
== END 2018-08-28 18:50 | DRG 71 ==
LOC: ER 16:50 → ERHOLD 18:44 → 2ND 20:44
PROVIDERS: ADMIT Family Medicine; ATTEND Family Medicine
PROC: B518YZA Fluoroscopy of Superior Vena Cava using Other Contrast, Guidance (ICD-10-PCS; 2018-08-28)
PROC: 02HV33Z Insertion of Infusion Device into Superior Vena Cava, Percutaneous Approach (ICD-10-PCS; principal; 2018-08-28 12:15)
DX: G93.41 Metabolic encephalopathy (principal); N30.01 Acute cystitis with hematuria; E87.0 Hyperosmolality and hypernatremia; N17.9 Acute kidney failure, unspecified; I69.351 Hemiplegia and hemiparesis following cerebral infarction affecting right dominant side; N39.0 Urinary tract infection, site not specified; B96.29 Other Escherichia coli [E. coli] as the cause of diseases classified elsewhere; E11.65 Type 2 diabetes mellitus with hyperglycemia; Z79.4 Long term (current) use of insulin; Z91.14 Patient's other noncompliance with medication regimen; B37.9 Candidiasis, unspecified; Z79.01 Long term (current) use of anticoagulants; G40.909 Epilepsy, unspecified, not intractable, without status epilepticus; I12.9 Hypertensive chronic kidney disease with stage 1 through stage 4 chronic kidney disease, or unspecified chronic kidney disease; E11.22 Type 2 diabetes mellitus with diabetic chronic kidney disease; N18.3 Chronic kidney disease, stage 3 (moderate); G30.0 Alzheimer's disease with early onset; F02.80 Dementia in other diseases classified elsewhere, unspecified severity, without behavioral disturbance, psychotic disturbance, mood disturbance, and anxiety; E78.2 Mixed hyperlipidemia; M10.9 Gout, unspecified; R62.7 Adult failure to thrive; E11.40 Type 2 diabetes mellitus with diabetic neuropathy, unspecified; Z79.84 Long term (current) use of oral hypoglycemic drugs; I48.0 Paroxysmal atrial fibrillation; B95.4 Other streptococcus as the cause of diseases classified elsewhere; E87.6 Hypokalemia; E86.0 Dehydration
CPT/HCPCS: 36415; 51702; 70450; 71045; 74230; 76000; 80048; 80053; 80069; 80076; 80177; 81003; 81015; 82140; 82550; 82553; 82570; 82805; 82962; 83605; 83690; 83735; 83880; 83935; 84132; 84145; 84156; 84295; 84300; 84439; 84443; 84484; 85025; 85610; 85730; 86850; 86900; 86901; 87040; 87077; 87086; 87088; 87186; 90670; 93005; 94760; 96365; 96375; 97163; 99285; J0696; J0744; J1650; J1940; J2250; J7030; Q2035

== ENCOUNTER 2019-01-06 15:08 | Inpatient (IN) | payer OTHER ==
--- OUTSIDE RECORDS SUMMARY | 2019-01-06 15:10 | XMS REPORT | Clinical Summary ---
:1950 Author Organization [facility] Address [address] [place] [address] Care Team Providers Name Role Phone Unavailable Primary Care Provider Unavailable Allergies Active Allergy Reactions Severity Noted Date Comments Lorazepam Anxiety Low 05/26/2018 Patient becomes violent, agitatated, confused per family Medications Medication Sig Dispensed Refills Start End Date Status Date finasteride Take 5 mg by mouth 0 Active (PROSCAR) 5 mg daily. tablet labetalol Take 200 mg by 0 Active (NORMODYNE) 200 MG mouth daily. tablet metFORMIN Take 1,000 mg by 0 Active (GLUCOPHAGE) 1000 mouth 2 (two) MG tablet times daily . insulin glargine Inject 68 Units 0 Active (TOUJEO SOLOSTAR subcutaneously U-300 INSULIN) 300 nightly . unit/mL (1.5 mL) InPn syringe insulin degludec Inject 60 Units 0 Active (TRESIBA FLEXTOUCH subcutaneously. U-100) 100 unit/mL (3 mL) InPn ergocalciferol Take 50,000 Units 0 Active (VITAMIN D2) by mouth once a 50,000 unit week. capsule b complex vitamins Take 1 tablet by 0 Active tablet mouth daily. amLODIPine Take 20 mg by 0 Active (NORVASC) 10 MG mouth daily. tablet memantine Take 10 mg by 0 Active (NAMENDA) 10 MG mouth daily. tablet donepezil Take 10 mg by 0 Active (ARICEPT) 10 MG mouth nightly. tablet losartan (COZAAR) Take 50 mg by 0 Active 50 MG tablet mouth daily. aspirin 81 MG Take 1 tablet (81 30 tablet 0 06/07/20 Active chewable tablet mg total) by mouth 8 19 daily. atorvastatin Take 1 tablet (80 30 tablet 0 06/06/06/06/20 Active (LIPITOR) 80 MG mg total) by [...] aspirin 325 MG Take 325 mg by 0 06/06/20 Discontinued tablet mouth daily. 18 levETIRAcetam Take 500 mg by 0 06/07/20 Discontinued (KEPPRA) 500 MG mouth daily. 18 tablet simvastatin Take 40 mg by 0 06/06/20 Discontinued (ZOCOR) 20 MG mouth nightly . 18 tablet indomethacin Take 1 capsule (50 60 capsule 0 09/04/20 (INDOCIN) 50 MG mg total) by mouth 8 18 capsule 3 (three) times daily with meals for [address] 1 patch onto 30 patch 0 07/06/20 (LIDODERM) 5 % the skin daily for 8 18 patch 30 days Remove & Discard patch within 12 hours or as directed by MD. 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 Diabetes mellitus type 2, insulin dependent ([facility]); MD Claudine Essential hypertension; Roge Craft Mixed hyperlipidemia; MD Cayden Received tissue plasminogen activator (t-PA) less than 24 hours prior to arrival; Olga Lidia Eduardo MD Seizures ([facility]); Berta Harman Dementia with behavioral disturbance, unspecified dementia type after 01/05/2018 Immunizations Name Dates Previously Given Next Due Pneumococcal Conjugate (Prevnar) 13-Valent 05/30/2018 Social History Tobacco Use Types Packs/Day Years Used Date Former Smoker Smokeless Tobacco: Never Used Comments: only occassionally as a teenager Sex Assigned at Date Recorded Not on file Job Start Date Occupation Industry Not on file Not on file Not on file Travel History Travel Start Travel End No recent travel history available. Last Filed Vital Signs Vital Sign Reading [...] CDT Plan of Treatment Not on file Procedures Procedure Name Priority Date/Time Associated Comments Diagnosis REPORT OF PROCEDURE - 06/11/2018 10:00 ENDOSCOPY SCAN AM CDT RHYTHM STRIP - SCAN 06/11/2018 10:00 AM CDT POCT-GLUCOSE METER Routine 06/07/2018 12:08 Results for this PM CDT procedure are in the results section. POCT-GLUCOSE METER Routine 06/07/2018 7:53 Results for this AM CDT procedure are in the results section. CBC W/PLT COUNT & AUTO Routine 06/07/2018 5:59 Results for this DIFFERENTIAL AM CDT procedure are in the results section. CBC W/PLT COUNT & AUTO Routine 06/07/2018 5:59 Results for this DIFFERENTIAL AM CDT procedure are in the results section. BASIC METABOLIC PANEL Routine 06/07/2018 5:59 Results for this (7) AM CDT procedure are in the results section. POCT-GLUCOSE METER Routine 06/06/2018 9:19 Results for this PM CDT procedure are in the results section. POCT-GLUCOSE METER Routine 06/06/2018 4:42 Results for this PM CDT procedure are in the results section. POCT-GLUCOSE METER Routine 06/06/2018 11:26 Results for this AM CDT procedure are in the results section. POCT-GLUCOSE METER Routine 06/06/2018 7:35 Results for this AM CDT procedure are in the results section. CBC W/PLT COUNT & AUTO Routine 06/06/2018 4:58 Results for this DIFFERENTIAL AM CDT procedure are in the results section. CBC W/PLT COUNT & AUTO Routine 06/06/2018 4:58 Results for this DIFFERENTIAL AM CDT procedure are in the results section. BASIC METABOLIC PANEL Routine 06/06/2018 4:58 Results for this (7) AM CDT procedure are in the results section. POCT-GLUCOSE METER Routine 06/05/2018 9:30 Results for this PM CDT procedure are in the results section. POCT-GLUCOSE METER Routine 06/05/2018 4:57 Results for this PM CDT procedure are in the results section. POCT-GLUCOSE METER Routine 06/05/2018 11:14 Results for this AM CDT procedure are in the results section. POCT-GLUCOSE METER Routine 06/05/2018 7:29 Results for this AM CDT procedure are in the results section. CBC W/PLT COUNT & AUTO Routine 06/05/2018 5:07 Results for this DIFFERENTIAL AM CDT procedure are in the results section. CBC W/PLT COUNT & AUTO Routine 06/05/2018 5:07 Results for this DIFFERENTIAL AM CDT procedure are in the results section. BASIC METABOLIC PANEL Routine 06/05/2018 5:07 Results for this (7) AM CDT procedure are in the results section. POCT-GLUCOSE METER Routine 06/04/2018 9:30 Results for this PM CDT procedure are in the results section. POCT-GLUCOSE METER Routine 06/04/2018 5:58 Results for this PM CDT procedure are in the results section. POCT-GLUCOSE METER Routine 06/04/2018 12:11 Results for this PM CDT procedure are in the results section. POCT-GLUCOSE METER Routine 06/04/2018 7:54 Results for this AM CDT procedure are in the results section. CBC W/PLT COUNT & AUTO Routine 06/04/2018 5:36 Results for this DIFFERENTIAL AM CDT procedure are in the results section. CBC W/PLT COUNT & AUTO Routine 06/04/2018 5:36 Results for this DIFFERENTIAL AM CDT procedure are in the results section. BASIC METABOLIC PANEL Routine 06/04/2018 5:36 Results for this (7) AM CDT procedure are in the results section. POCT-GLUCOSE METER Routine 06/03/2018 10:00 Results for this PM CDT procedure are in the results section. POCT-GLUCOSE METER Routine 06/03/2018 4:38 Results for this PM CDT procedure are in the results section. POCT-GLUCOSE METER Routine 06/03/2018 11:30 Results for this AM CDT procedure are in the results section. POCT-GLUCOSE METER Routine 06/03/2018 8:00 Results for this AM CDT procedure are in the results section. CBC W/PLT COUNT & AUTO Routine 06/03/2018 4:52 Results for this DIFFERENTIAL AM CDT procedure are in the results section. URIC ACID Routine 06/03/2018 4:52 Results for this AM CDT procedure are in the results section. CBC W/PLT COUNT & AUTO Routine 06/03/2018 4:52 Results for this DIFFERENTIAL AM CDT procedure are in the results section. BASIC METABOLIC PANEL Routine 06/03/2018 4:52 Results for this (7) AM CDT procedure are in the results section. POCT-GLUCOSE METER Routine 06/02/2018 8:56 Results for this PM CDT procedure are in the results section. POCT-GLUCOSE METER Routine 06/02/2018 5:21 Results for this PM CDT procedure are in the results section. POCT-GLUCOSE METER Routine 06/02/2018 1:08 Results for this PM CDT procedure are in the results section. POCT-GLUCOSE METER Routine 06/02/2018 8:15 Results for this AM CDT procedure are in the results section. CBC W/PLT COUNT & AUTO Routine 06/02/2018 4:48 Results for this DIFFERENTIAL AM CDT procedure are in the results section. CBC W/PLT COUNT & AUTO Routine 06/02/2018 4:48 Results for this DIFFERENTIAL AM CDT procedure are in the results section. BASIC METABOLIC PANEL Routine 06/02/2018 4:48 Results for this (7) AM CDT procedure are in the results section. POCT-GLUCOSE METER Routine 06/01/2018 8:52 Results for this PM CDT procedure are in the results section. POCT-GLUCOSE METER Routine 06/01/2018 4:44 Results for this PM CDT procedure are in the results section. POCT-GLUCOSE METER Routine 06/01/2018 11:38 Results for this AM CDT procedure are in the results section. CBC W/PLT COUNT & AUTO Routine 06/01/2018 5:06 Results for this DIFFERENTIAL AM CDT procedure are in the results section. CBC W/PLT COUNT & AUTO Routine 06/01/2018 5:06 Results for this DIFFERENTIAL AM CDT procedure are in the results section. BASIC METABOLIC PANEL Routine 06/01/2018 5:06 Results for this (7) AM CDT procedure are in the results section. POCT-GLUCOSE METER Routine 05/31/2018 9:14 Results for this PM CDT procedure are in the results section. POCT-GLUCOSE METER Routine 05/31/2018 4:48 Results for this PM CDT procedure are in the results section. POCT-GLUCOSE METER Routine 05/31/2018 11:44 Results for this AM CDT procedure are in the results section. POCT-GLUCOSE METER Routine 05/31/2018 7:29 Results for this AM CDT procedure are in the results section. CBC W/PLT COUNT & AUTO Routine 05/31/2018 4:33 Results for this DIFFERENTIAL AM CDT procedure are in the results section. CBC W/PLT COUNT & AUTO Routine 05/31/2018 4:33 Results for this DIFFERENTIAL AM CDT procedure are in the results section. BASIC METABOLIC PANEL Routine 05/31/2018 4:33 Results for this (7) AM CDT procedure are in the results section. POCT-GLUCOSE METER Routine 05/30/2018 9:16 Results for this PM CDT procedure are in the results section. POCT-GLUCOSE METER Routine 05/30/2018 5:00 Results for this PM CDT procedure are in the results section. POCT-GLUCOSE METER Routine 05/30/2018 12:13 Results for this PM CDT procedure are in the results section. POCT-GLUCOSE METER Routine 05/30/2018 7:51 Results for this AM CDT procedure are in the results section. CBC W/PLT COUNT & AUTO Routine 05/30/2018 4:05 Results for this DIFFERENTIAL AM CDT procedure are in the results section. CBC W/PLT COUNT & AUTO Routine 05/30/2018 4:05 Results for this DIFFERENTIAL AM CDT procedure are in the results section. BASIC METABOLIC PANEL Routine 05/30/2018 4:05 Results for this (7) AM CDT procedure are in the results section. POCT-GLUCOSE METER Routine 05/29/2018 9:45 Results for this PM CDT procedure are in the results section. POCT-GLUCOSE METER Routine 05/29/2018 5:40 Results for this PM CDT procedure are in the results section. POCT-GLUCOSE METER Routine 05/29/2018 12:10 Results for this PM CDT procedure are in the results section. POCT-GLUCOSE METER Routine 05/29/2018 7:31 Results for this AM CDT procedure are in the results section. CBC W/PLT COUNT & AUTO Routine 05/29/2018 5:55 Results for this DIFFERENTIAL AM CDT procedure are in the results section. CBC W/PLT COUNT & AUTO Routine 05/29/2018 5:55 Results for this DIFFERENTIAL AM CDT procedure are in the results section. BASIC METABOLIC PANEL Routine 05/29/2018 5:55 Results for this (7) AM CDT procedure are in the results section. POCT-GLUCOSE METER Routine 05/28/2018 9:18 Results for this PM CDT procedure are in the results section. POCT-GLUCOSE METER Routine 05/28/2018 5:20 Results for this PM CDT procedure are in the results section. CT/CTA BRAIN Routine 05/28/2018 1:11 Results for this PM CDT procedure are in the results section. CT/CTA CAROTID Routine 05/28/2018 1:11 Results for this PM CDT procedure are in the results section. POCT-GLUCOSE METER Routine 05/28/2018 8:00 Results for this AM CDT procedure are in the results section. CBC W/PLT COUNT & AUTO Routine 05/28/2018 4:21 Results for this DIFFERENTIAL AM CDT procedure are in the results section. CBC W/PLT COUNT & AUTO Routine 05/28/2018 4:21 Results for this DIFFERENTIAL AM CDT procedure are in the results section. BASIC METABOLIC PANEL Routine 05/28/2018 4:21 Results for this (7) AM CDT procedure are in the results section. POCT-GLUCOSE METER Routine 05/27/2018 11:13 Results for this PM CDT procedure are in the results section. POCT-GLUCOSE METER Routine 05/27/2018 5:33 Results for this PM CDT procedure are in the results section. ECHOCARDIOGRAM REPORT - 05/27/2018 1:52 SCAN PM CDT POCT-GLUCOSE METER Routine 05/27/2018 11:54 Results for this AM CDT procedure are in the results section. EEG AWAKE AND DROWSY Routine 05/27/2018 11:19 Results for this AM CDT procedure are in the results section. POCT-GLUCOSE METER Routine 05/27/2018 8:47 Results for this AM CDT procedure are in the results section. CBC W/PLT COUNT & AUTO Routine 05/27/2018 5:51 Results for this DIFFERENTIAL AM CDT procedure are in the results section. CBC W/PLT COUNT & AUTO Routine 05/27/2018 5:51 Results for this DIFFERENTIAL AM CDT procedure are in the results section. BASIC METABOLIC PANEL Routine 05/27/2018 5:51 Results for this (7) AM CDT procedure are in the results section. MR BRAIN WITHOUT IV Routine 05/27/2018 1:16 Results for this CONTRAST AM CDT procedure are in the results section. POCT-GLUCOSE METER Routine 05/26/2018 9:59 Results for this PM CDT procedure are in the results section. POCT-GLUCOSE METER Routine 05/26/2018 5:02 Results for this PM CDT procedure are in the results section. 2D ECHO W/ DOPPLER Routine 05/26/2018 4:20 Results for this (CW/PW/COLOR) PM CDT procedure are in the results section. TROPONIN I Routine 05/26/2018 4:02 Results for this PM CDT procedure are in the results section. POCT-GLUCOSE METER Routine 05/26/2018 11:22 Results for this AM CDT procedure are in the results section. ECG 12-LEAD Routine 05/26/2018 9:07 Results for this AM CDT procedure are in the results section. TROPONIN I Routine 05/26/2018 9:03 Results for this AM CDT procedure are in the results section. POCT-GLUCOSE METER Routine 05/26/2018 8:35 Results for this AM CDT procedure are in the results section. XR CHEST 1 VIEW Routine 05/26/2018 4:50 Results for this PORTABLE/BEDSIDE AM CDT procedure are in the results section. CBC W/PLT COUNT & AUTO Routine 05/26/2018 3:12 Results for this DIFFERENTIAL AM CDT procedure are in the results section. VITAMIN B12 AND FOLATE Add-On 05/26/2018 3:12 Results for this AM CDT procedure are in the results section. TSH/FREE T4 IF Routine 05/26/2018 3:12 Results for this INDICATED AM CDT procedure are in the results section. PROTHROMBIN TIME/INR Routine 05/26/2018 3:12 Results for this AM CDT procedure are in the results section. HEPATIC FUNCTION PANEL Routine 05/26/2018 3:12 Results for this AM CDT procedure are in the results section. HEMOGLOBIN A1C Routine 05/26/2018 3:12 Results for this AM CDT procedure are in the results section. CBC W/PLT COUNT & AUTO Routine 05/26/2018 3:12 Results for this DIFFERENTIAL AM CDT procedure are in the results section. LIPID PANEL Routine 05/26/2018 3:12 Results for this AM CDT procedure are in the results section. BASIC METABOLIC PANEL Routine 05/26/2018 3:12 Results for this (7) AM CDT procedure are in the results section. POCT-GLUCOSE METER Routine 05/26/2018 3:06 Results for this AM CDT procedure are in the results section. after 01/05/2018 Results EKG-SCANNED (06/11/2018 10:00 AM CDT) Narrative Performed At RHYTHM STRIP - SCAN (06/11/2018 10:00 AM CDT) Narrative Performed At POC-Glucose meter (06/07/2018 12:08 PM CDT)Only the most recent of49 resultswithin the time period is included. POC-Glucose Meter 159 (H)Comment: TESTED AT 70 - 110 mg/dL [facility] [address], [place] [address] Specimen Blood Performing Organization Address City/State/Zipcode Phone Number [address] [address] CENTER CBC with platelet count + automated diff (06/07/2018 5:59 AM CDT)Only the most recent of13 resultswithin the time period is included. WBC 7.0 3.5 - 10.5 K/L [facility] RBC 4.38 (L) 4.63 - 6.08 M/L [facility] Hemoglobin 12.5 (L) 13.7 - 17.5 GM/DL [facility] Hematocrit 37.0 (L) 40.1 - 51.0 % [facility] MCV 84.5 79.0 - 92.2 fL [facility] MCH 28.5 25.7 - 32.2 pg [facility] MCHC 33.8 32.3 - 36.5 GM/DL [facility] RDW 13.0 11.6 - 14.4 % [facility] Platelets 404 150 - 450 K/CU MM [facility] MPV 10.2 9.4 - 12.4 fL [facility] nRBC 0 0 - 0 /100 WBC [facility] % Neutros 58 % [facility] % Lymphs 30 % [facility] % Monos 7 % [facility] % Eos 3 % [facility] % Baso 1 % [facility] # Neutros 4.05 1.78 - 5.38 K/L [facility] # Lymphs 2.08 1.32 - 3.57 K/L [facility] # Monos 0.47 0.30 - 0.82 K/L [facility] # Eos 0.23 0.04 - 0.54 K/L [facility] # Baso 0.07 0.01 - 0.08 K/L [facility] Immature Granulocytes-Relative 1 0 - 1 % [facility] Specimen Blood Performing Organization Address City/State/Zipcode Phone Number [facility] [address] [place] [address] CENTER Basic Metabolic Panel (06/07/2018 5:59 AM CDT)Only the most recent of13 resultswithin the time period is included. Sodium 140 136 - 145 meq/L [facility] Potassium 3.8 3.5 - 5.1 meq/L [facility] Chloride 103 98 - 107 meq/L [facility] CO2 24 22 - 29 meq/L [facility] BUN 20 7 - 21 mg/dL [facility] Creatinine 0.87 0.57 - 1.25 mg/dL [facility] Glucose 102 70 - 105 mg/dL [facility] Calcium 10.3 (H) 8.4 - 10.2 mg/dL [facility] EGFR 88Comment: ESTIMATED GFR IS mL/min/1.73 sq m [facility] NOT ACCURATE CREATININE [facility] CENTER CLEARANCE IN PREDICTING GLOMERULAR FILTRATION RATE. ESTIMATED GFR IS NOT APPLICABLE FOR DIALYSIS PATIENTS. Specimen Blood Performing Organization Address City/[facility]/Zipcode Phone Number [address] [address] CENTER Uric acid (06/03/2018 4:52 AM CDT) Uric Acid 7.7 (H)Comment: Specimen 2.6 - 7.2 mg/dL [facility] slightly hemolyzed [facility] Specimen Blood - Arm, Left Performing Organization Address [facility] Phone Number [address] [address] CENTER CTA carotid (05/28/2018 1:11 PM CDT) Narrative Performed At FINAL REPORT [facility] CT angiogram of the upper chest, neck, [...] C5/C6. Neurological correlation is warranted. Signed: Fauzia Canales MD Report Verified Date/Time:05/28/2018 15:02:10 Reading Location: [address] Consult Reading Room Procedure Note Interface, [...] C5/C6. Neurological correlation is warranted. Signed: Fauzia Canales MD Report Verified Date/Time: 05/28/2018 15:02:10 Reading Location: [facility] B1 [id number] Consult Reading Room Performing Organization Address City/State/Zipcode Phone Number [employer] CTA brain (05/28/2018 1:11 PM CDT) Narrative Performed At FINAL REPORT [facility] CT angiogram of the upper chest, neck, [...] C5/C6. Neurological correlation is warranted. Signed: Fauzia Canales MD Report Verified Date/Time:05/28/2018 15:02:10 Reading Location: [facility] Consult Reading Room Procedure Note Interface, External [...] C5/C6. Neurological correlation is warranted. Signed: Fauzia Canales MD Report Verified Date/Time: 05/28/2018 15:02:10 Reading Location: [address] Consult Reading Room Performing Organization Address City/State/Zipcode Phone Number [facility] RIS ECHOCARDIOGRAM REPORT - SCAN (05/27/2018 1:52 PM CDT) Narrative Performed At EEG AWAKE AND DROWSY (05/27/2018 11:19 AM CDT) Narrative Performed At DATE OF TEST: 05/27/2018 [facility] RIS DATE OF REPORT : 05/27/2018 ACC: [id number] Start time: 05/27/2018 at 10:43 Stop time: 05/27/2018 at 11:04 ICD-10: R 56.9 CPT Code: 54214 HISTORY: 68 year old male with dementia [...] M.D., 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, [facility] [place] Procedure Note Interface, External Ris In - 05/27/2018 2:32 PM CDT DATE OF TEST: 05/27/2018 DATE OF REPORT : 05/27/2018 ACC: [id number] Start time: 05/27/2018 at 10:43 Stop time: 05/27/2018 at 11:04 ICD-10: R 56.9 CPT Code: 55958 HISTORY: 68 year old male with dementia [...] M.D., 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, [facility] [place] Performing Organization Address City/State/Zipcode Phone Number [facility] MR brain without IV contrast (05/27/2018 1:16 AM CDT) Narrative Performed At FINAL REPORT [facility] Exam: MRI brain without contrast. Comparison:None. Clinical indication: Stroke. Technique: Multiplanar multi sequential MR imaging of the brain was performed without the administration of intravenous contrast. Findings: There is generalized parenchymal atrophy. There are levy-bh-unrnyjuq white matter microvascular ischemic changes. There is [...] MD Report Verified Date/Time:05/27/2018 02:49:43 Reading Location: [address] Transitional Reading Room Procedure Note Interface, External Ris In - 05/27/2018 2:51 AM CDT FINAL REPORT Exam: MRI brain without contrast. Comparison: None. Clinical indication: Stroke. Technique: Multiplanar multi sequential MR imaging of the brain was performed without the administration of intravenous contrast. Findings: There is generalized parenchymal atrophy. There are [id number] white matter microvascular ischemic changes. There is [...] Report Verified Date/Time: 05/27/2018 02:49:43 Reading Location: [facility] C0[facility] Transitional Reading Room Performing Organization Address City/State/Zipcode Phone Number [employer] 2D Echo W/Doppler(CW/PW/Color) with saline (05/26/2018 4:20 PM CDT) Ejection Fraction [facility] Narrative Performed At Transthoracic Echocardiography Report (TTE) [facility] Demographics Patient NameRODRIGUEZ, Date of Study05/26/2018 BRADEN Gender Male Visit [id number] Race Unknown [id number] Number Date [facility] 1950 [facility] Age 68 year(s) SonographerBrian Alicia [facility] Strategy Manager Mick Mcmahon Interpreting Wisam Shea MD Physician [...] left ventricle is chamber size (by PSLAX di mension) is normal (male - LVIDd 4.2-5.8cm) . Mi ld concentric LV hypertrophy. Al l of the LV segments contract normally . Gl obal LV systolic function normal . Es timated LVEF by qualitative assessment is normal (> 60%) . In creased (cardiac index 3.5-4.0 L/min/m2) cardiac ou tput state at rest is noted. Gr conchita 1 diastolic dysfunction (impaired relaxation an d low-normal LA pressure). Left AtriumLA size is mildly enlarged (35-41 ml/m2) . Right VentricleThe right ventricular chamber size and systolic fu nction are within normal limits. Right Atrium RA cavity size is normal . Atrial Septummildly redundant interatrial septum. IV saline contrast injection was negative for a PFO (p atent foramen ovale) at rest and post Valsalva . Aortic Valve Mild AoV cusp calcification. Ao V cusp mobility is normal . Mitral Valve Mild mitral annular calcification. Mi ld MV leaflet thickening. Tricuspid ValveA trace of tricuspid regurgitation. Es timated peak systolic PA pressure is 20-25 mmHg . Pulmonic Valve Normal PV structure and function. A trace of pulmonary regurgitation. AortaAortic root size (SInus of Valsalva diameter) is no rmal . PericardiumNo pericardial effusion is visualized. IVC/SVC/PA/PV/PleuralThe right upper pulmonary vein (RUPV) is normal . Th e estimated RA pressure by IVC dynamics 5-10mmHg [...] E-Wave: 0.68 m/sMV Peak A-Wave: 0.92 m/s E/A Ratio: 0.73 Peak Gradient: 1.83 mmHg Deceleration Time: 260.9 msec MV Odell. Peak: Tissue Doppler E' Lateral Velocity: 0.08 m/s E/E': 8.2 Aortic Valve Peak Velocity: 1.49 m/sMean Velocity: 1 m/s Peak Gradient: 8.85 mmHg [...] Transthoracic Echocardiography Report (TTE) Demographics Patient Name KYLE, Date of Study 05/26/2018 BRADEN Gender Male Visit Number [id number] Race Unknown Room Number 7512 Number Date of 1950 Referring LARRY Soni Physician VENKATASUBBA-PINZON Age 68 year(s) Hospital Secretary Tony Vargas [facility] Strategy Manager Mick Mcmahon Interpreting Wisam Shea MD Physician [...] Velocity: 1.98 m/s TR Gradient: 15.62 mmHg Performing Organization Address City/[facility] [place] Phone Number [facility] CPACS Troponin I (05/26/2018 4:02 PM CDT)Only the most recent of2 resultswithin the time period is included. Troponin I <0.01 0.00 - 0.03 ng/mL [facility] Specimen Blood - Line, Venous Narrative Performed At [facility] Troponin I (TnI) levels must be interpreted [...] acidosis, acute neurological disease, and persistent tachyarrhythmia. Performing Organization Address City/[facility] Phone Number [place] [phone] [place] [address] CENTER ECG 12 lead (05/26/2018 9:07 AM CDT) Narrative Performed At Ventricular Rate 81 BPM GE MUSE Atrial Rate 81 BPM P-R Interval 220 ms QRS Duration 108 ms Q-T Interval 402 ms QTC Calculation(Bazett) 466 ms P [place] 31 degrees R [place] -36 degrees T [place] 9 degrees Sinus rhythm with 1st degree [...] 402 ms QTC Calculation(Bazett) 466 ms P [place] 31 degrees R [place] -36 degrees T [place] 9 degrees Sinus rhythm with 1st degree A-V block Left axis deviation Possible Lateral infarct , age undetermined Prolonged QT Abnormal ECG No previous ECGs available Confirmed by MD PIPPA, KIMMY ([id number]) on 05/27/2018 3:45:30 AM Performing Organization Address City/State/Zipcode Phone Number GE MUSE XR chest 1 view portable / bedside (05/26/2018 4:50 AM CDT) Narrative Performed At FINAL REPORT GE [employer] Chest, 1 view Clinical history: stroke Comparison: [...] MD Report Verified Date/Time:05/26/2018 10:27:35 Reading Location: [address] Ortho Consult Reading Room Procedure Note [...] Report Verified Date/Time: 05/26/2018 10:27:35 Reading Location: [facility] [id number] Ortho Consult Reading Room Performing Organization Address City/State/Zipcode Phone Number GE RIS Vitamin B12 and Folate (05/26/2018 3:12 AM CDT) Vitamin B12 776 213 - 816 pg/mL [facility] Folate >40.0 >=7.0 ng/mL [facility] Specimen Blood Performing Organization Address [facility] [place] Phone Number [address] [address] [place] TSH/Free T4 If Indicated (05/26/2018 3:12 AM CDT) TSH 1.28 0.35 - 4.94 uIU/mL [facility] Specimen Blood Performing Organization Address [facility] [place] Phone Number [address] [address] CENTER Prothrombin time/INR (05/26/2018 3:12 AM CDT) Protime 14.8 (H) 11.7 - 14.7 seconds [facility] INR 1.2 <=5.9 [facility] Specimen Blood Narrative Performed At [facility] RECOMMENDED COUMADIN/WARFARIN INR THERAPY RANGES STANDARD DOSE: 2.0 - 3.0 Includes: PROPHYLAXIS for venous thrombosis, systemic embolization; TREATMENT for venous thrombosis and/or pulmonary embolus. HIGH RISK: Target INR is 2.5-3.5 for patients with mechanical heart valves. Performing Organization Address [facility] [place] Phone Number [address] [address] CENTER Hemoglobin A1c (05/26/2018 3:12 AM CDT) Hemoglobin A1C 13.2 (H) 4.3 - 6.1 % [facility] Specimen Blood Performing Organization Address [facility]/Zipcode Phone Number [address] [address] [phone] [place] Hepatic function panel (05/26/2018 3:12 AM CDT) Protein, Total 7.3 6.0 - 8.3 gm/dL [facility] Albumin 4.0 3.5 - 5.0 g/dL [facility] Total Bilirubin 0.3 0.2 - 1.2 mg/dL [facility] Bilirubin, Direct 0.2 0.1 - 0.5 mg/dL [facility] Alkaline Phosphatase 107 40 - 150 U/L [facility] AST 14 5 - 34 U/L [facility] ALT 11 6 - 55 U/L [facility] Specimen Blood Narrative Performed At Fasting [facility] Performing Organization Address City/State/Zipcode Phone Number [facility] [address] [place] [address] [place] Fasting lipid panel (05/26/2018 3:12 AM CDT) Triglycerides 122 mg/dL [facility] Cholesterol 166 mg/dL [facility] HDL 40 mg/dL [facility] LDL Calculated 102 mg/dL [facility] Specimen Blood Narrative Performed At [facility] Triglyceride Reference Range: Low Risk <150 [id number] High Risk 200-499 Very High Risk>=500 Cholesterol Reference Range: Low Risk <200 [id number] High Risk>240 HDL Cholesterol Reference Range: Low Risk >=60 High Risk <40 LDL Cholesterol Reference Range: Optimal<100 Near [id number] Very High >=190 Fasting Performing Organization Address City/State/Zipcode Phone Number [facility] [address] [place] [address] CENTER after 01/05/2018 Insurance Payer Benefit Plan / Subscriber ID Type Phone Address Group [employer] - MEDICARE [employer] MEDICARE HMO xxxxxxxx [phone] [address] [employer] PPO [place] [id number]
--- OUTSIDE RECORDS SUMMARY | 2019-01-06 15:12 | XMS REPORT ---
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 Assessment [...] unspecified complications Problem Hypertension I10 Active Assessment USP current use of insulin Z79.4 Active Problem [...] Status Dosage System Date Date Simvastatin ND 92520816172 40 MG Orally Once April 12, Active 1 tablet a day 2018 in the evening Viagra ND 66701939471 50 MG Orally Once Active 1 tablet a day as needed Toujeo [facility] 34655441904 300u/ml Active 68 units SoloStar subcutaneously once once daily daily and titrate up 2 units every 3 days until fbg less than 130 max of 100 units daily Amlodipine [facility] 88133244279 10 MG Orally Once Active 1 tablet Besylate a day Simvastatin [facility] 86965041946 20 MG Inactive TAKE 1 TABLET BY MOUTH EVERY DAY Finasteride [facility] 59570317785 5 MG Orally Once Active 1 tablet a day Keppra [facility] 56392854478 500 MG Orally Active 1 tablet Twice a day Cozaar [facility] 45966493419 50 MG Active TAKE 1 TABLET BY MOUTH EVERY DAY Amlodipine [facility] 17492465672 10 MG Orally Once February Active 1 tablet Besylate a day 2017 Metformin HCl [facility] 24041790522 1000 MG Orally Active 1 tablet twice a day with a meal Xarelto [facility] 45590181685 20 MG Orally Once Inactive 1 tablet a day with food Labetalol HCl [facility] 49514844378 200 MG Orally Active 1 tablet three times a day Results No Known Results Summary Purpose eClinicalWorks Submission
--- OUTSIDE RECORDS SUMMARY | 2019-01-06 15:12 | XMS REPORT ---
:1950 Author Organization [facility] Address [address] [place] [address] [address] [place] [address] Care Team Providers Name Role Phone LARRY [...] (BEAKER) (test 159 mg/dL 70-110 TESTED AT [address] jgcq=7062) [facility] [address] POCT-GLUCOSE [id number] 08:37:00 Test Item Value Reference Range Comments POC-GLUCOSE METER (BEAKER) 96 mg/dL 70-110 TESTED AT [address] (test bmaa=7535) [facility] [address] CBC W/PLT COUNT & AUTO [id number] 08:10:00 Test Item Value Reference Range Comments WHITE BLOOD CELL COUNT (BEAKER) (test lbbi=518) 7.0 K/ L 3.5-10.5 RED BLOOD CELL COUNT (BEAKER) (test mpwr=091) 4.38 M/ L 4.63-6.08 HEMOGLOBIN (BEAKER) (test gdhk=934) 12.5 GM/DL 13.7-17.5 HEMATOCRIT (BEAKER) (test zyqv=127) 37.0 % 40.1-51.0 MEAN CORPUSCULAR VOLUME (BEAKER) (test jjxr=561) 84.5 fL 79.0-92.2 MEAN CORPUSCULAR HEMOGLOBIN (BEAKER) (test 28.5 pg 25.7-32.2 ywlq=406) MEAN CORPUSCULAR HEMOGLOBIN CONC (BEAKER) (test 33.8 GM/DL 32.3-36.5 fzbl=952) RED CELL DISTRIBUTION WIDTH (BEAKER) (test 13.0 % 11.6-14.4 ovhp=215) PLATELET COUNT (BEAKER) (test kitm=486) 404 K/CU MM 150-450 MEAN PLATELET VOLUME (BEAKER) (test uija=337) 10.2 fL 9.4-12.4 NUCLEATED RED BLOOD CELLS (BEAKER) (test 0 /100 WBC 0-0 bsgw=505) NEUTROPHILS RELATIVE PERCENT (BEAKER) (test 58 % nibl=357) LYMPHOCYTES RELATIVE PERCENT (BEAKER) (test 30 % unyb=531) MONOCYTES RELATIVE PERCENT (BEAKER) (test 7 % qugb=096) EOSINOPHILS RELATIVE PERCENT (BEAKER) (test 3 % hqeh=678) BASOPHILS RELATIVE PERCENT (BEAKER) (test 1 % wzlz=312) NEUTROPHILS ABSOLUTE COUNT (BEAKER) (test 4.05 K/ L 1.78-5.38 ygsh=081) LYMPHOCYTES ABSOLUTE COUNT (BEAKER) (test 2.08 K/ L 1.32-3.57 mwuj=682) MONOCYTES ABSOLUTE COUNT (BEAKER) (test 0.47 K/ L 0.30-0.82 dcpj=246) EOSINOPHILS ABSOLUTE COUNT (BEAKER) (test 0.23 K/ L 0.04-0.54 tvys=210) BASOPHILS ABSOLUTE COUNT (BEAKER) (test 0.07 K/ L 0.01-0.08 szek=622) IMMATURE GRANULOCYTES-RELATIVE PERCENT (BEAKER) 1 % 0-1 (test jucz=5017) BASIC METABOLIC [id number] 08:00:00 Test Item Value Reference Range Comments SODIUM (BEAKER) (test 140 meq/L 136-145 nwmi=411) POTASSIUM (BEAKER) (test 3.8 meq/L 3.5-5.1 hxnt=893) CHLORIDE (BEAKER) (test 103 meq/L 98-107 kqct=312) CO2 (BEAKER) (test 24 meq/L 22-29 ceki=245) BLOOD UREA NITROGEN 20 mg/dL 7-21 (BEAKER) (test spgp=639) CREATININE (BEAKER) (test 0.87 mg/dL 0.57-1.25 xnxk=214) GLUCOSE RANDOM (BEAKER) 102 mg/dL 70-105 (test esah=543) CALCIUM (BEAKER) (test 10.3 mg/dL 8.4-10.2 byqo=843) EGFR (BEAKER) (test 88 mL/min/1.73 sq m ESTIMATED GFR IS NOT ittl=3886) ACCURATE CREATININE CLEARANCE IN PREDICTING GLOMERULAR FILTRATION RATE. ESTIMATED GFR IS NOT APPLICABLE FOR DIALYSIS PATIENTS. POCT-GLUCOSE [id number] 21:32:00 Test Item Value Reference Range Comments POC-GLUCOSE METER (BEAKER) 288 mg/dL 70-110 TESTED AT [address] (test qhba=7990) [place] [id number] POCT-GLUCOSE [id number] 17:01:00 Test Item Value Reference Range Comments POC-GLUCOSE METER (BEAKER) 263 mg/dL 70-110 TESTED AT [address] (test uhwv=8628) [place] [address] POCT-GLUCOSE [id number] 11:53:00 Test Item Value Reference Range Comments POC-GLUCOSE METER (BEAKER) 270 mg/dL 70-110 TESTED AT [address] (test mtty=5507) [place] [address] POCT-GLUCOSE [id number] 08:09:00 Test Item Value Reference Range Comments POC-GLUCOSE METER (BEAKER) 122 mg/dL 70-110 TESTED AT [address] (test pvpf=9214) [place] [address]1630 BASIC METABOLIC [id number] 07:37:00 Test Item Value Reference Range Comments SODIUM (BEAKER) (test 138 meq/L 136-145 vgce=023) POTASSIUM (BEAKER) (test 3.9 meq/L 3.5-5.1 vqsv=226) CHLORIDE (BEAKER) (test 101 meq/L 98-107 vwwu=337) CO2 (BEAKER) (test 27 meq/L 22-29 oyvm=974) BLOOD UREA NITROGEN 20 mg/dL 7-21 (BEAKER) (test glzi=727) CREATININE (BEAKER) (test 1.04 mg/dL 0.57-1.25 sqwc=626) GLUCOSE RANDOM (BEAKER) 176 mg/dL 70-105 (test ifjh=990) CALCIUM (BEAKER) (test 10.2 mg/dL 8.4-10.2 lbmy=397) EGFR (BEAKER) (test 71 mL/min/1.73 sq m ESTIMATED GFR IS NOT wjry=0194) ACCURATE CREATININE CLEARANCE IN PREDICTING GLOMERULAR FILTRATION RATE. ESTIMATED GFR IS NOT APPLICABLE FOR DIALYSIS PATIENTS. CBC W/PLT COUNT & AUTO [id number] 05:27:00 Test Item Value Reference Range Comments WHITE BLOOD CELL COUNT (BEAKER) (test xwtk=678) 7.0 K/ L 3.5-10.5 RED BLOOD CELL COUNT (BEAKER) (test pvcp=788) 4.57 M/ L 4.63-6.08 HEMOGLOBIN (BEAKER) (test qdbq=119) 12.8 GM/DL 13.7-17.5 HEMATOCRIT (BEAKER) (test rtjc=712) 38.2 % 40.1-51.0 MEAN CORPUSCULAR VOLUME (BEAKER) (test vtdj=568) 83.6 fL 79.0-92.2 MEAN CORPUSCULAR HEMOGLOBIN (BEAKER) (test 28.0 pg 25.7-32.2 mbwv=513) MEAN CORPUSCULAR HEMOGLOBIN CONC (BEAKER) (test 33.5 GM/DL 32.3-36.5 mrxz=587) RED CELL DISTRIBUTION WIDTH (BEAKER) (test 12.7 % 11.6-14.4 kqex=823) PLATELET COUNT (BEAKER) (test ienv=655) 324 K/CU MM 150-450 MEAN PLATELET VOLUME (BEAKER) (test dezu=543) 10.7 fL 9.4-12.4 NUCLEATED RED BLOOD CELLS (BEAKER) (test 0 /100 WBC 0-0 iyea=163) NEUTROPHILS RELATIVE PERCENT (BEAKER) (test 57 % zypc=310) LYMPHOCYTES RELATIVE PERCENT (BEAKER) (test 30 % mdca=169) MONOCYTES RELATIVE PERCENT (BEAKER) (test 8 % dbqq=247) EOSINOPHILS RELATIVE PERCENT (BEAKER) (test 4 % runh=644) BASOPHILS RELATIVE PERCENT (BEAKER) (test 1 % uarf=079) NEUTROPHILS ABSOLUTE COUNT (BEAKER) (test 3.98 K/ L 1.78-5.38 pnlx=139) LYMPHOCYTES ABSOLUTE COUNT (BEAKER) (test 2.07 K/ L 1.32-3.57 zcno=263) MONOCYTES ABSOLUTE COUNT (BEAKER) (test 0.57 K/ L 0.30-0.82 wcfl=500) EOSINOPHILS ABSOLUTE COUNT (BEAKER) (test 0.25 K/ L 0.04-0.54 sikj=282) BASOPHILS ABSOLUTE COUNT (BEAKER) (test 0.06 K/ L 0.01-0.08 xtfm=314) IMMATURE GRANULOCYTES-RELATIVE PERCENT (BEAKER) 1 % 0-1 (test pfvl=9528) POCT-GLUCOSE [id number] 21:34:00 Test Item Value Reference Range Comments POC-GLUCOSE METER (BEAKER) 345 mg/dL 70-110 TESTED AT [address] (test lovz=7848) [facility] [address] POCT-GLUCOSE [id number] 17:04:00 Test Item Value Reference Range Comments POC-GLUCOSE METER (BEAKER) 374 mg/dL 70-110 Will Repeat Test/TESTED AT (test hzho=7095) [address] [address] POCT-GLUCOSE [id number] 11:38:00 Test Item Value Reference Range Comments POC-GLUCOSE METER (BEAKER) 167 mg/dL 70-110 TESTED AT [address] (test hned=7592) [facility] [address] POCT-GLUCOSE [id number] 08:05:00 Test Item Value Reference Range Comments POC-GLUCOSE METER (BEAKER) 184 mg/dL 70-110 TESTED AT [address] (test tgay=7268) [facility] [address] BASIC METABOLIC [id number] 07:05:00 Test Item Value Reference Range Comments SODIUM (BEAKER) (test 140 meq/L 136-145 wtji=140) POTASSIUM (BEAKER) (test 3.5 meq/L 3.5-5.1 fdiz=839) CHLORIDE (BEAKER) (test 103 meq/L 98-107 yfzr=374) CO2 (BEAKER) (test 25 meq/L 22-29 bhdd=057) BLOOD UREA NITROGEN 16 mg/dL 7-21 (BEAKER) (test xupi=567) CREATININE (BEAKER) (test 0.86 mg/dL 0.57-1.25 bzam=895) GLUCOSE RANDOM (BEAKER) 125 mg/dL 70-105 (test wzwh=352) CALCIUM (BEAKER) (test 10.1 mg/dL 8.4-10.2 fwzc=371) EGFR (BEAKER) (test 89 mL/min/1.73 sq m ESTIMATED GFR IS NOT altx=8084) ACCURATE CREATININE CLEARANCE IN PREDICTING GLOMERULAR FILTRATION RATE. ESTIMATED GFR IS NOT APPLICABLE FOR DIALYSIS PATIENTS. CBC W/PLT COUNT & AUTO [id number] 06:23:00 Test Item Value Reference Range Comments WHITE BLOOD CELL COUNT (BEAKER) (test iiqx=029) 6.4 K/ L 3.5-10.5 RED BLOOD CELL COUNT (BEAKER) (test mfgx=139) 4.85 M/ L 4.63-6.08 HEMOGLOBIN (BEAKER) (test adfk=741) 13.5 GM/DL 13.7-17.5 HEMATOCRIT (BEAKER) (test ezbo=531) 42.3 % 40.1-51.0 MEAN CORPUSCULAR VOLUME (BEAKER) (test kbfp=823) 87.2 fL 79.0-92.2 MEAN CORPUSCULAR HEMOGLOBIN (BEAKER) (test 27.8 pg 25.7-32.2 lwxn=139) MEAN CORPUSCULAR HEMOGLOBIN CONC (BEAKER) (test 31.9 GM/DL 32.3-36.5 zffx=061) RED CELL DISTRIBUTION WIDTH (BEAKER) (test 12.8 % 11.6-14.4 mstv=545) PLATELET COUNT (BEAKER) (test zzng=657) 260 K/CU MM 150-450 MEAN PLATELET VOLUME (BEAKER) (test yofw=477) 11.5 fL 9.4-12.4 NUCLEATED RED BLOOD CELLS (BEAKER) (test 0 /100 WBC 0-0 dmtz=433) NEUTROPHILS RELATIVE PERCENT (BEAKER) (test 64 % cdby=688) LYMPHOCYTES RELATIVE PERCENT (BEAKER) (test 25 % taxj=960) MONOCYTES RELATIVE PERCENT (BEAKER) (test 6 % oymw=896) EOSINOPHILS RELATIVE PERCENT (BEAKER) (test 3 % hegm=549) BASOPHILS RELATIVE PERCENT (BEAKER) (test 1 % hhrk=132) NEUTROPHILS ABSOLUTE COUNT (BEAKER) (test 4.07 K/ L 1.78-5.38 erzu=571) LYMPHOCYTES ABSOLUTE COUNT (BEAKER) (test 1.60 K/ L 1.32-3.57 oqqt=743) MONOCYTES ABSOLUTE COUNT (BEAKER) (test 0.41 K/ L 0.30-0.82 sssf=838) EOSINOPHILS ABSOLUTE COUNT (BEAKER) (test 0.18 K/ L 0.04-0.54 dfku=821) BASOPHILS ABSOLUTE COUNT (BEAKER) (test 0.09 K/ L 0.01-0.08 vaei=163) IMMATURE GRANULOCYTES-RELATIVE PERCENT (BEAKER) 1 % 0-1 (test hjaa=4930) BASIC METABOLIC [id number] 04:08:00 Test Item Value Reference Range Comments SODIUM (BEAKER) (test 144 meq/L 136-145 xxxb=236) POTASSIUM (BEAKER) (test 3.2 meq/L 3.5-5.1 evwa=493) CHLORIDE (BEAKER) (test 101 meq/L 98-107 hrrp=227) CO2 (BEAKER) (test 21 meq/L 22-29 gnpb=361) BLOOD UREA NITROGEN 20 mg/dL 7-21 (BEAKER) (test smgt=027) CREATININE (BEAKER) (test 0.98 mg/dL 0.57-1.25 sfpk=123) GLUCOSE RANDOM (BEAKER) 104 mg/dL 70-105 (test mexy=819) CALCIUM (BEAKER) (test 10.1 mg/dL 8.4-10.2 cuyq=598) EGFR (BEAKER) (test 76 mL/min/1.73 sq m ESTIMATED GFR IS NOT mplh=5586) ACCURATE CREATININE CLEARANCE IN PREDICTING GLOMERULAR FILTRATION RATE. ESTIMATED GFR IS NOT APPLICABLE FOR DIALYSIS PATIENTS. CBC W/PLT COUNT & AUTO [id number] 04:06:00 Test Item Value Reference Range Comments WHITE BLOOD CELL COUNT (BEAKER) (test exrk=693) 6.6 K/ L 3.5-10.5 RED BLOOD CELL COUNT (BEAKER) (test ptxh=386) 4.65 M/ L 4.63-6.08 HEMOGLOBIN (BEAKER) (test pzpx=285) 12.8 GM/DL 13.7-17.5 HEMATOCRIT (BEAKER) (test rscz=192) 43.5 % 40.1-51.0 MEAN CORPUSCULAR VOLUME (BEAKER) (test hziz=199) 93.5 fL 79.0-92.2 MEAN CORPUSCULAR HEMOGLOBIN (BEAKER) (test 27.5 pg 25.7-32.2 ciyy=134) MEAN CORPUSCULAR HEMOGLOBIN CONC (BEAKER) (test 29.4 GM/DL 32.3-36.5 tabl=566) RED CELL DISTRIBUTION WIDTH (BEAKER) (test 15.7 % 11.6-14.4 edmh=197) PLATELET COUNT (BEAKER) (test ejyi=107) 309 K/CU MM 150-450 MEAN PLATELET VOLUME (BEAKER) (test zxqa=894) 12.1 fL 9.4-12.4 NUCLEATED RED BLOOD CELLS (BEAKER) (test 0 /100 WBC 0-0 obuv=733) NEUTROPHILS RELATIVE PERCENT (BEAKER) (test 68 % zsxy=241) LYMPHOCYTES RELATIVE PERCENT (BEAKER) (test 20 % bxah=774) MONOCYTES RELATIVE PERCENT (BEAKER) (test 9 % asgb=541) EOSINOPHILS RELATIVE PERCENT (BEAKER) (test 2 % ibek=111) BASOPHILS RELATIVE PERCENT (BEAKER) (test 1 % ccyg=210) NEUTROPHILS ABSOLUTE COUNT (BEAKER) (test 4.47 K/ L 1.78-5.38 gjdb=835) LYMPHOCYTES ABSOLUTE COUNT (BEAKER) (test 1.30 K/ L 1.32-3.57 fuky=026) MONOCYTES ABSOLUTE COUNT (BEAKER) (test 0.57 K/ L 0.30-0.82 uesc=092) EOSINOPHILS ABSOLUTE COUNT (BEAKER) (test 0.15 K/ L 0.04-0.54 salm=849) BASOPHILS ABSOLUTE COUNT (BEAKER) (test 0.08 K/ L 0.01-0.08 kslo=252) IMMATURE GRANULOCYTES-RELATIVE PERCENT (BEAKER) 0 % 0-1 (test ovnn=7731) POCT-GLUCOSE [id number] 22:16:00 Test Item Value Reference Range Comments POC-GLUCOSE METER (BEAKER) 277 mg/dL 70-110 TESTED AT [address] (test oegt=6586) [facility] [address] POCT-GLUCOSE [id number] 18:16:00 Test Item Value Reference Range Comments POC-GLUCOSE METER (BEAKER) 314 mg/dL 70-110 Notified HENRIETTA SUAREZ/TESTED AT [facility] (test ucvs=7925) [address] [place] [address] POCT-GLUCOSE [id number] 12:17:00 Test Item Value Reference Range Comments POC-GLUCOSE METER (BEAKER) 285 mg/dL 70-110 TESTED AT [address] (test xxwo=4903) [facility] [address] POCT-GLUCOSE [id number] 08:31:00 Test Item Value Reference Range Comments POC-GLUCOSE METER (BEAKER) 193 mg/dL 70-110 TESTED AT [address] (test frin=2241) [facility] [address] POCT-GLUCOSE [id number] 22:05:00 Test Item Value Reference Range Comments POC-GLUCOSE METER (BEAKER) 345 mg/dL 70-110 TESTED AT [address] (test osda=8329) [facility] [address] POCT-GLUCOSE [id number] 16:56:00 Test Item Value Reference Range Comments POC-GLUCOSE METER (BEAKER) 309 mg/dL 70-110 TESTED AT [address] (test krlr=2322) [facility] [address] POCT-GLUCOSE [id number] 12:27:00 Test Item Value Reference Range Comments POC-GLUCOSE METER (BEAKER) 266 mg/dL 70-110 TESTED AT [address] (test eqgg=6941) [facility] [address] POCT-GLUCOSE [id number] 09:22:00 Test Item Value Reference Range Comments POC-GLUCOSE METER (BEAKER) 114 mg/dL 70-110 TESTED AT [address] (test ebbh=2340) [facility] [address] URIC [id number] 05:53:00 Test Item Value Reference Range Comments URIC ACID (BEAKER) (test 7.7 mg/dL 2.6-7.2 Specimen slightly hemolyzed zcal=089) BASIC METABOLIC [id number] 05:53:00 Test Item Value Reference Range Comments SODIUM (BEAKER) (test 139 meq/L 136-145 gwya=983) POTASSIUM (BEAKER) (test 4.1 meq/L 3.5-5.1 Specimen slightly xffh=605) hemolyzed CHLORIDE (BEAKER) (test 104 meq/L 98-107 ggoa=355) CO2 (BEAKER) (test 26 meq/L 22-29 laie=758) BLOOD UREA NITROGEN 19 mg/dL 7-21 (BEAKER) (test zkyu=020) CREATININE (BEAKER) (test 0.99 mg/dL 0.57-1.25 Specimen slightly ipvx=395) hemolyzed GLUCOSE RANDOM (BEAKER) 136 mg/dL 70-105 (test lgxt=772) CALCIUM (BEAKER) (test 9.8 mg/dL 8.4-10.2 grrn=455) EGFR (BEAKER) (test 75 mL/min/1.73 sq m ESTIMATED GFR IS NOT frjz=0849) ACCURATE CREATININE CLEARANCE IN PREDICTING GLOMERULAR FILTRATION RATE. ESTIMATED GFR IS NOT APPLICABLE FOR DIALYSIS PATIENTS. CBC W/PLT COUNT & AUTO [id number] 05:38:00 Test Item Value Reference Range Comments WHITE BLOOD CELL COUNT (BEAKER) (test lpxa=208) 6.0 K/ L 3.5-10.5 RED BLOOD CELL COUNT (BEAKER) (test nrxg=508) 4.30 M/ L 4.63-6.08 HEMOGLOBIN (BEAKER) (test masm=713) 12.0 GM/DL 13.7-17.5 HEMATOCRIT (BEAKER) (test mbdi=554) 36.1 % 40.1-51.0 MEAN CORPUSCULAR VOLUME (BEAKER) (test ehtu=196) 84.0 fL 79.0-92.2 MEAN CORPUSCULAR HEMOGLOBIN (BEAKER) (test 27.9 pg 25.7-32.2 hvfm=349) MEAN CORPUSCULAR HEMOGLOBIN CONC (BEAKER) (test 33.2 GM/DL 32.3-36.5 nxqh=558) RED CELL DISTRIBUTION WIDTH (BEAKER) (test 12.9 % 11.6-14.4 kqeb=343) PLATELET COUNT (BEAKER) (test rjxi=937) 303 K/CU MM 150-450 MEAN PLATELET VOLUME (BEAKER) (test lzwp=277) 10.8 fL 9.4-12.4 NUCLEATED RED BLOOD CELLS (BEAKER) (test 0 /100 WBC 0-0 endy=091) NEUTROPHILS RELATIVE PERCENT (BEAKER) (test 54 % dvae=751) LYMPHOCYTES RELATIVE PERCENT (BEAKER) (test 29 % vxsc=249) MONOCYTES RELATIVE PERCENT (BEAKER) (test 11 % uxng=657) EOSINOPHILS RELATIVE PERCENT (BEAKER) (test 4 % edpy=122) BASOPHILS RELATIVE PERCENT (BEAKER) (test 1 % ztkq=550) NEUTROPHILS ABSOLUTE COUNT (BEAKER) (test 3.24 K/ L 1.78-5.38 hrbi=782) LYMPHOCYTES ABSOLUTE COUNT (BEAKER) (test 1.75 K/ L 1.32-3.57 kqbn=564) MONOCYTES ABSOLUTE COUNT (BEAKER) (test 0.63 K/ L 0.30-0.82 clzz=668) EOSINOPHILS ABSOLUTE COUNT (BEAKER) (test 0.25 K/ L 0.04-0.54 rwiz=611) BASOPHILS ABSOLUTE COUNT (BEAKER) (test 0.07 K/ L 0.01-0.08 tpxj=711) IMMATURE GRANULOCYTES-RELATIVE PERCENT (BEAKER) 1 % 0-1 (test pdmp=9350) POCT-GLUCOSE [id number] 21:06:00 Test Item Value Reference Range Comments POC-GLUCOSE METER (BEAKER) 232 mg/dL 70-110 TESTED AT [address] (test gdgt=6551) [place] [address] POCT-GLUCOSE [id number] 17:22:00 Test Item Value Reference Range Comments POC-GLUCOSE METER (BEAKER) 95 mg/dL 70-110 TESTED AT [address] (test lfyr=0057) [place] [address] POCT-GLUCOSE [id number] 13:13:00 Test Item Value Reference Range Comments POC-GLUCOSE METER (BEAKER) 118 mg/dL 70-110 TESTED AT [address] (test ndxk=0604) [place] [address] POCT-GLUCOSE [id number] 08:23:00 Test Item Value Reference Range Comments POC-GLUCOSE METER (BEAKER) 72 mg/dL 70-110 TESTED AT [address] (test gzzn=0959) [place] [address] BASIC METABOLIC [id number] 06:22:00 Test Item Value Reference Range Comments SODIUM (BEAKER) (test 137 meq/L 136-145 eidu=589) POTASSIUM (BEAKER) (test 3.4 meq/L 3.5-5.1 scwq=876) CHLORIDE (BEAKER) (test 104 meq/L 98-107 lfqa=097) CO2 (BEAKER) (test 23 meq/L 22-29 isna=067) BLOOD UREA NITROGEN 16 mg/dL 7-21 (BEAKER) (test dule=538) CREATININE (BEAKER) (test 0.83 mg/dL 0.57-1.25 ltel=356) GLUCOSE RANDOM (BEAKER) 102 mg/dL 70-105 (test cimz=617) CALCIUM (BEAKER) (test 9.4 mg/dL 8.4-10.2 dskj=487) EGFR (BEAKER) (test 92 mL/min/1.73 sq m ESTIMATED GFR IS NOT tmbl=3081) ACCURATE CREATININE CLEARANCE IN PREDICTING GLOMERULAR FILTRATION RATE. ESTIMATED GFR IS NOT APPLICABLE FOR DIALYSIS PATIENTS. CBC W/PLT COUNT & AUTO [id number] 05:25:00 Test Item Value Reference Range Comments WHITE BLOOD CELL COUNT (BEAKER) (test pflw=051) 6.3 K/ L 3.5-10.5 RED BLOOD CELL COUNT (BEAKER) (test zspd=213) 4.03 M/ L 4.63-6.08 HEMOGLOBIN (BEAKER) (test samt=805) 11.3 GM/DL 13.7-17.5 HEMATOCRIT (BEAKER) (test hiqc=670) 33.2 % 40.1-51.0 MEAN CORPUSCULAR VOLUME (BEAKER) (test ozhn=032) 82.4 fL 79.0-92.2 MEAN CORPUSCULAR HEMOGLOBIN (BEAKER) (test 28.0 pg 25.7-32.2 dbdk=354) MEAN CORPUSCULAR HEMOGLOBIN CONC (BEAKER) (test 34.0 GM/DL 32.3-36.5 bqtr=279) RED CELL DISTRIBUTION WIDTH (BEAKER) (test 12.8 % 11.6-14.4 umpl=683) PLATELET COUNT (BEAKER) (test kjbj=130) 291 K/CU MM 150-450 MEAN PLATELET VOLUME (BEAKER) (test bxue=775) 10.7 fL 9.4-12.4 NUCLEATED RED BLOOD CELLS (BEAKER) (test 0 /100 WBC 0-0 ommo=627) NEUTROPHILS RELATIVE PERCENT (BEAKER) (test 61 % fycy=525) LYMPHOCYTES RELATIVE PERCENT (BEAKER) (test 26 % vgcw=257) MONOCYTES RELATIVE PERCENT (BEAKER) (test 8 % btax=526) EOSINOPHILS RELATIVE PERCENT (BEAKER) (test 4 % ehoh=235) BASOPHILS RELATIVE PERCENT (BEAKER) (test 1 % ffxf=542) NEUTROPHILS ABSOLUTE COUNT (BEAKER) (test 3.85 K/ L 1.78-5.38 qkyq=859) LYMPHOCYTES ABSOLUTE COUNT (BEAKER) (test 1.65 K/ L 1.32-3.57 ydqu=960) MONOCYTES ABSOLUTE COUNT (BEAKER) (test 0.50 K/ L 0.30-0.82 uvgi=559) EOSINOPHILS ABSOLUTE COUNT (BEAKER) (test 0.23 K/ L 0.04-0.54 hnzu=266) BASOPHILS ABSOLUTE COUNT (BEAKER) (test 0.04 K/ L 0.01-0.08 qhbj=124) IMMATURE GRANULOCYTES-RELATIVE PERCENT (BEAKER) 0 % 0-1 (test gnsw=8417) POCT-GLUCOSE [id number] 20:55:00 Test Item Value Reference Range Comments POC-GLUCOSE METER (BEAKER) 173 mg/dL 70-110 TESTED AT [address] (test eyde=3830) [facility] [address] POCT-GLUCOSE [id number] 17:24:00 Test Item Value Reference Range Comments POC-GLUCOSE METER (BEAKER) 266 mg/dL 70-110 TESTED AT [address] (test wbqe=1688) [facility] [address] POCT-GLUCOSE [id number] 12:36:00 Test Item Value Reference Range Comments POC-GLUCOSE METER (BEAKER) 284 mg/dL 70-110 TESTED AT [address] (test jqsn=3732) [facility] [address] BASIC METABOLIC [id number] 07:22:00 Test Item Value Reference Range Comments SODIUM (BEAKER) (test 140 meq/L 136-145 dwkf=127) POTASSIUM (BEAKER) (test 3.6 meq/L 3.5-5.1 bysi=491) CHLORIDE (BEAKER) (test 105 meq/L 98-107 dkad=955) CO2 (BEAKER) (test 25 meq/L 22-29 bdaa=517) BLOOD UREA NITROGEN 23 mg/dL 7-21 (BEAKER) (test ngkp=299) CREATININE (BEAKER) (test 0.93 mg/dL 0.57-1.25 dnfn=406) GLUCOSE RANDOM (BEAKER) 102 mg/dL 70-105 (test dzab=642) CALCIUM (BEAKER) (test 9.7 mg/dL 8.4-10.2 vtyq=876) EGFR (BEAKER) (test 81 mL/min/1.73 sq m ESTIMATED GFR IS NOT wslo=9804) ACCURATE CREATININE CLEARANCE IN PREDICTING GLOMERULAR FILTRATION RATE. ESTIMATED GFR IS NOT APPLICABLE FOR DIALYSIS PATIENTS. CBC W/PLT COUNT & AUTO [id number] 07:02:00 Test Item Value Reference Range Comments WHITE BLOOD CELL COUNT (BEAKER) (test hxlr=244) 7.1 K/ L 3.5-10.5 RED BLOOD CELL COUNT (BEAKER) (test iipz=714) 4.25 M/ L 4.63-6.08 HEMOGLOBIN (BEAKER) (test tysy=270) 11.8 GM/DL 13.7-17.5 HEMATOCRIT (BEAKER) (test abnb=830) 36.1 % 40.1-51.0 MEAN CORPUSCULAR VOLUME (BEAKER) (test rqhk=286) 84.9 fL 79.0-92.2 MEAN CORPUSCULAR HEMOGLOBIN (BEAKER) (test 27.8 pg 25.7-32.2 vwkk=567) MEAN CORPUSCULAR HEMOGLOBIN CONC (BEAKER) (test 32.7 GM/DL 32.3-36.5 dxsn=775) RED CELL DISTRIBUTION WIDTH (BEAKER) (test 13.1 % 11.6-14.4 lxbb=281) PLATELET COUNT (BEAKER) (test uroc=161) 262 K/CU MM 150-450 MEAN PLATELET VOLUME (BEAKER) (test woha=647) 12.2 fL 9.4-12.4 NUCLEATED RED BLOOD CELLS (BEAKER) (test 0 /100 WBC 0-0 dkis=000) NEUTROPHILS RELATIVE PERCENT (BEAKER) (test 69 % gcgg=271) LYMPHOCYTES RELATIVE PERCENT (BEAKER) (test 19 % fmqs=650) MONOCYTES RELATIVE PERCENT (BEAKER) (test 9 % uxwv=302) EOSINOPHILS RELATIVE PERCENT (BEAKER) (test 3 % fpoq=940) BASOPHILS RELATIVE PERCENT (BEAKER) (test 0 % zcqw=630) NEUTROPHILS ABSOLUTE COUNT (BEAKER) (test 4.88 K/ L 1.78-5.38 gchi=939) LYMPHOCYTES ABSOLUTE COUNT (BEAKER) (test 1.38 K/ L 1.32-3.57 xjla=348) MONOCYTES ABSOLUTE COUNT (BEAKER) (test 0.61 K/ L 0.30-0.82 xyic=993) EOSINOPHILS ABSOLUTE COUNT (BEAKER) (test 0.20 K/ L 0.04-0.54 jjgs=701) BASOPHILS ABSOLUTE COUNT (BEAKER) (test 0.03 K/ L 0.01-0.08 rget=857) IMMATURE GRANULOCYTES-RELATIVE PERCENT (BEAKER) 0 % 0-1 (test vujs=6894) POCT-GLUCOSE [id number] 21:17:00 Test Item Value Reference Range Comments POC-GLUCOSE METER (BEAKER) 337 mg/dL 70-110 TESTED AT [address] (test uyds=3108) [facility] [address] POCT-GLUCOSE [id number] 16:54:00 Test Item Value Reference Range Comments POC-GLUCOSE METER (BEAKER) 304 mg/dL 70-110 Notified HENRIETTA SUAREZ/TESTED AT [facility] (test eeyp=1259) [address] [place] [address] POCT-GLUCOSE [id number] 11:54:00 Test Item Value Reference Range Comments POC-GLUCOSE METER (BEAKER) 290 mg/dL 70-110 TESTED AT [address] (test zwrc=6280) [facility] [address] POCT-GLUCOSE [id number] 08:03:00 Test Item Value Reference Range Comments POC-GLUCOSE METER (BEAKER) 167 mg/dL 70-110 TESTED AT [address] (test xldk=2585) [facility] [address] BASIC METABOLIC [id number] 07:20:00 Test Item Value Reference Range Comments SODIUM (BEAKER) (test 137 meq/L 136-145 skmc=349) POTASSIUM (BEAKER) (test 4.0 meq/L 3.5-5.1 llaw=263) CHLORIDE (BEAKER) (test 105 meq/L 98-107 kgqd=606) CO2 (BEAKER) (test 22 meq/L 22-29 xulw=508) BLOOD UREA NITROGEN 21 mg/dL 7-21 (BEAKER) (test qlqj=086) CREATININE (BEAKER) (test 0.99 mg/dL 0.57-1.25 xkuf=731) GLUCOSE RANDOM (BEAKER) 172 mg/dL 70-105 (test jkdm=211) CALCIUM (BEAKER) (test 9.8 mg/dL 8.4-10.2 mrdy=377) EGFR (BEAKER) (test 75 mL/min/1.73 sq m ESTIMATED GFR IS NOT jbxv=8093) ACCURATE CREATININE CLEARANCE IN PREDICTING GLOMERULAR FILTRATION RATE. ESTIMATED GFR IS NOT APPLICABLE FOR DIALYSIS PATIENTS. CBC W/PLT COUNT & AUTO [id number] 07:04:00 Test Item Value Reference Range Comments WHITE BLOOD CELL COUNT (BEAKER) (test vssj=433) 8.2 K/ L 3.5-10.5 RED BLOOD CELL COUNT (BEAKER) (test qfuw=843) 4.22 M/ L 4.63-6.08 HEMOGLOBIN (BEAKER) (test wdls=190) 12.0 GM/DL 13.7-17.5 HEMATOCRIT (BEAKER) (test slqd=241) 36.1 % 40.1-51.0 MEAN CORPUSCULAR VOLUME (BEAKER) (test mpmq=678) 85.5 fL 79.0-92.2 MEAN CORPUSCULAR HEMOGLOBIN (BEAKER) (test 28.4 pg 25.7-32.2 ktqi=694) MEAN CORPUSCULAR HEMOGLOBIN CONC (BEAKER) (test 33.2 GM/DL 32.3-36.5 zxad=352) RED CELL DISTRIBUTION WIDTH (BEAKER) (test 13.2 % 11.6-14.4 wbfg=349) PLATELET COUNT (BEAKER) (test owdd=193) 196 K/CU MM 150-450 MEAN PLATELET VOLUME (BEAKER) (test aicm=705) 12.1 fL 9.4-12.4 NUCLEATED RED BLOOD CELLS (BEAKER) (test 0 /100 WBC 0-0 tvgj=494) NEUTROPHILS RELATIVE PERCENT (BEAKER) (test 72 % ygry=630) LYMPHOCYTES RELATIVE PERCENT (BEAKER) (test 17 % nllt=025) MONOCYTES RELATIVE PERCENT (BEAKER) (test 9 % rrta=602) EOSINOPHILS RELATIVE PERCENT (BEAKER) (test 2 % ilgt=419) BASOPHILS RELATIVE PERCENT (BEAKER) (test 0 % scyd=867) NEUTROPHILS ABSOLUTE COUNT (BEAKER) (test 5.89 K/ L 1.78-5.38 vrig=891) LYMPHOCYTES ABSOLUTE COUNT (BEAKER) (test 1.42 K/ L 1.32-3.57 ymia=787) MONOCYTES ABSOLUTE COUNT (BEAKER) (test 0.72 K/ L 0.30-0.82 euoa=890) EOSINOPHILS ABSOLUTE COUNT (BEAKER) (test 0.14 K/ L 0.04-0.54 pahb=379) BASOPHILS ABSOLUTE COUNT (BEAKER) (test 0.03 K/ L 0.01-0.08 gdop=125) IMMATURE GRANULOCYTES-RELATIVE PERCENT (BEAKER) 0 % 0-1 (test fjpp=2985) POCT-GLUCOSE [id number] 21:18:00 Test Item Value Reference Range Comments POC-GLUCOSE METER (BEAKER) 412 mg/dL 70-110 TESTED AT [address] (test uqvx=9887) [facility] [address] POCT-GLUCOSE [id number] 17:07:00 Test Item Value Reference Range Comments POC-GLUCOSE METER (BEAKER) 273 mg/dL 70-110 TESTED AT [address] (test qqon=9953) [facility] [address] POCT-GLUCOSE [id number] 12:23:00 Test Item Value Reference Range Comments POC-GLUCOSE METER (BEAKER) 267 mg/dL 70-110 TESTED AT [address] (test kgne=4434) [facility] [address] POCT-GLUCOSE [id number] 08:28:00 Test Item Value Reference Range Comments POC-GLUCOSE METER (BEAKER) 126 mg/dL 70-110 TESTED AT [address] (test qzai=7538) [facility] [address] CBC W/PLT COUNT & AUTO [id number] 04:59:00 Test Item Value Reference Range Comments WHITE BLOOD CELL COUNT (BEAKER) (test fneb=829) 11.5 K/ L 3.5-10.5 RED BLOOD CELL COUNT (BEAKER) (test rtvw=676) 4.57 M/ L 4.63-6.08 HEMOGLOBIN (BEAKER) (test qanb=122) 12.8 GM/DL 13.7-17.5 HEMATOCRIT (BEAKER) (test amaj=763) 37.8 % 40.1-51.0 MEAN CORPUSCULAR VOLUME (BEAKER) (test gwuh=621) 82.7 fL 79.0-92.2 MEAN CORPUSCULAR HEMOGLOBIN (BEAKER) (test 28.0 pg 25.7-32.2 dolw=050) MEAN CORPUSCULAR HEMOGLOBIN CONC (BEAKER) (test 33.9 GM/DL 32.3-36.5 zqxb=794) RED CELL DISTRIBUTION WIDTH (BEAKER) (test 13.2 % 11.6-14.4 jxwc=796) PLATELET COUNT (BEAKER) (test yoga=559) 194 K/CU MM 150-450 MEAN PLATELET VOLUME (BEAKER) (test cfwd=041) 11.9 fL 9.4-12.4 NUCLEATED RED BLOOD CELLS (BEAKER) (test 0 /100 WBC 0-0 iyhu=644) NEUTROPHILS RELATIVE PERCENT (BEAKER) (test 82 % hphd=131) LYMPHOCYTES RELATIVE PERCENT (BEAKER) (test 10 % pnsl=196) MONOCYTES RELATIVE PERCENT (BEAKER) (test 8 % rxkk=996) EOSINOPHILS RELATIVE PERCENT (BEAKER) (test 0 % ppep=346) BASOPHILS RELATIVE PERCENT (BEAKER) (test 0 % onvv=253) NEUTROPHILS ABSOLUTE COUNT (BEAKER) (test 9.43 K/ L 1.78-5.38 vzzi=716) LYMPHOCYTES ABSOLUTE COUNT (BEAKER) (test 1.09 K/ L 1.32-3.57 pcvc=812) MONOCYTES ABSOLUTE COUNT (BEAKER) (test 0.86 K/ L 0.30-0.82 bmlr=179) EOSINOPHILS ABSOLUTE COUNT (BEAKER) (test 0.01 K/ L 0.04-0.54 btop=520) BASOPHILS ABSOLUTE COUNT (BEAKER) (test 0.04 K/ L 0.01-0.08 ogcs=070) IMMATURE GRANULOCYTES-RELATIVE PERCENT (BEAKER) 0 % 0-1 (test njtu=6476) BASIC METABOLIC [id number] 04:45:00 Test Item Value Reference Range Comments SODIUM (BEAKER) (test 138 meq/L 136-145 iywv=814) POTASSIUM (BEAKER) (test 3.7 meq/L 3.5-5.1 fiqd=819) CHLORIDE (BEAKER) (test 107 meq/L 98-107 mfrq=013) CO2 (BEAKER) (test 22 meq/L 22-29 sftk=043) BLOOD UREA NITROGEN 14 mg/dL 7-21 (BEAKER) (test zref=935) CREATININE (BEAKER) (test 0.91 mg/dL 0.57-1.25 hopx=161) GLUCOSE RANDOM (BEAKER) 168 mg/dL 70-105 (test tbbv=175) CALCIUM (BEAKER) (test 9.8 mg/dL 8.4-10.2 wkhr=027) EGFR (BEAKER) (test 83 mL/min/1.73 sq m ESTIMATED GFR IS NOT wmpx=4898) ACCURATE CREATININE CLEARANCE IN PREDICTING GLOMERULAR FILTRATION RATE. ESTIMATED GFR IS NOT APPLICABLE FOR DIALYSIS PATIENTS. POCT-GLUCOSE [id number] 21:48:00 Test Item Value Reference Range Comments POC-GLUCOSE METER (BEAKER) 272 mg/dL 70-110 TESTED AT [address] (test whng=6168) [place] [address] POCT-GLUCOSE [id number] 17:49:00 Test Item Value Reference Range Comments POC-GLUCOSE METER (BEAKER) 226 mg/dL 70-110 TESTED AT [address] (test xajk=7813) [facility] [address] POCT-GLUCOSE [id number] 12:27:00 Test Item Value Reference Range Comments POC-GLUCOSE METER (BEAKER) 230 mg/dL 70-110 TESTED AT [address] (test rzfl=1692) [place] [address] POCT-GLUCOSE [id number] 08:05:00 Test Item Value Reference Range Comments POC-GLUCOSE METER (BEAKER) 61 mg/dL 70-110 Notified HENRIETTA SUAREZ/TESTED AT [facility] (test grol=0434) [address] [place] [address] BASIC METABOLIC [id number] 06:49:00 Test Item Value Reference Range Comments SODIUM (BEAKER) (test 140 meq/L 136-145 rkcm=812) POTASSIUM (BEAKER) (test 3.6 meq/L 3.5-5.1 jvim=988) CHLORIDE (BEAKER) (test 108 meq/L 98-107 zhuf=672) CO2 (BEAKER) (test 23 meq/L 22-29 mtcr=748) BLOOD UREA NITROGEN 15 mg/dL 7-21 (BEAKER) (test mruk=605) CREATININE (BEAKER) (test 0.92 mg/dL 0.57-1.25 ciia=951) GLUCOSE RANDOM (BEAKER) 75 mg/dL 70-105 (test lukv=659) CALCIUM (BEAKER) (test 9.4 mg/dL 8.4-10.2 nvsu=536) EGFR (BEAKER) (test 82 mL/min/1.73 sq m ESTIMATED GFR IS NOT oixc=3431) ACCURATE CREATININE CLEARANCE IN PREDICTING GLOMERULAR FILTRATION RATE. ESTIMATED GFR IS NOT APPLICABLE FOR DIALYSIS PATIENTS. CBC W/PLT COUNT & AUTO [id number] 06:43:00 Test Item Value Reference Range Comments WHITE BLOOD CELL COUNT (BEAKER) (test dxqk=023) 9.4 K/ L 3.5-10.5 RED BLOOD CELL COUNT (BEAKER) (test dmbc=124) 4.15 M/ L 4.63-6.08 HEMOGLOBIN (BEAKER) (test seof=607) 11.9 GM/DL 13.7-17.5 HEMATOCRIT (BEAKER) (test rsha=538) 34.4 % 40.1-51.0 MEAN CORPUSCULAR VOLUME (BEAKER) (test kzqs=606) 82.9 fL 79.0-92.2 MEAN CORPUSCULAR HEMOGLOBIN (BEAKER) (test 28.7 pg 25.7-32.2 ypzb=760) MEAN CORPUSCULAR HEMOGLOBIN CONC (BEAKER) (test 34.6 GM/DL 32.3-36.5 aevi=815) RED CELL DISTRIBUTION WIDTH (BEAKER) (test 13.2 % 11.6-14.4 ypjj=043) PLATELET COUNT (BEAKER) (test ownv=904) 215 K/CU MM 150-450 MEAN PLATELET VOLUME (BEAKER) (test cwui=212) 11.9 fL 9.4-12.4 NUCLEATED RED BLOOD CELLS (BEAKER) (test 0 /100 WBC 0-0 tskv=212) NEUTROPHILS RELATIVE PERCENT (BEAKER) (test 69 % ilzt=385) LYMPHOCYTES RELATIVE PERCENT (BEAKER) (test 19 % inkr=306) MONOCYTES RELATIVE PERCENT (BEAKER) (test 12 % svpm=096) EOSINOPHILS RELATIVE PERCENT (BEAKER) (test 0 % jqda=233) BASOPHILS RELATIVE PERCENT (BEAKER) (test 0 % ijox=090) NEUTROPHILS ABSOLUTE COUNT (BEAKER) (test 6.49 K/ L 1.78-5.38 xlax=921) LYMPHOCYTES ABSOLUTE COUNT (BEAKER) (test 1.76 K/ L 1.32-3.57 uoyx=405) MONOCYTES ABSOLUTE COUNT (BEAKER) (test 1.08 K/ L 0.30-0.82 owee=303) EOSINOPHILS ABSOLUTE COUNT (BEAKER) (test 0.03 K/ L 0.04-0.54 nlrv=981) BASOPHILS ABSOLUTE COUNT (BEAKER) (test 0.03 K/ L 0.01-0.08 djnh=977) IMMATURE GRANULOCYTES-RELATIVE PERCENT (BEAKER) 0 % 0-1 (test tqqr=7526) POCT-GLUCOSE [id number] 21:26:00 Test Item Value Reference Range Comments POC-GLUCOSE METER (BEAKER) 246 mg/dL 70-110 TESTED AT [facility] [address] [facility] (test ljub=1804) [facility] [address] POCT-GLUCOSE [id number] 17:42:00 Test Item Value Reference Range Comments POC-GLUCOSE METER (BEAKER) 199 mg/dL 70-110 TESTED AT [facility] [address] [facility] (test kjhh=7414) [facility] [address] CT, CAROTID, [id number] 15:02:00FINAL REPORT CT angiogram of the upper [...] [place] Verified Date/Time: 05/28/2018 15:02:10 Reading Location: [address] Consult Reading [facility] 03 [facility] [id number] 15:02:00FINAL REPORT CT angiogram of the upper [...] [place] Verified Date/Time: 05/28/2018 15:02:10 Reading Location: [place] [id number] Consult Reading Room 03 :02 PMPOCT-GLUCOSE [id number] 08:16:00 Test Item Value Reference Range Comments POC-GLUCOSE METER (BEAKER) 122 mg/dL 70-110 TESTED AT [facility] [address] [facility] (test wpzc=1579) [facility] [address] BASIC METABOLIC [id number] 04:52:00 Test Item Value Reference Range Comments SODIUM (BEAKER) (test 138 meq/L 136-145 kcao=030) POTASSIUM (BEAKER) (test 3.6 meq/L 3.5-5.1 Specimen slightly stnq=016) hemolyzed CHLORIDE (BEAKER) (test 105 meq/L 98-107 mxky=423) CO2 (BEAKER) (test 23 meq/L 22-29 nedh=570) BLOOD UREA NITROGEN 8 mg/dL 7-21 (BEAKER) (test muro=931) CREATININE (BEAKER) (test 0.82 mg/dL 0.57-1.25 Specimen slightly yovt=109) hemolyzed GLUCOSE RANDOM (BEAKER) 112 mg/dL 70-105 (test fezm=247) CALCIUM (BEAKER) (test 9.7 mg/dL 8.4-10.2 szaw=337) EGFR (BEAKER) (test 94 mL/min/1.73 sq m ESTIMATED GFR IS NOT fznh=3249) ACCURATE CREATININE CLEARANCE IN PREDICTING GLOMERULAR FILTRATION RATE. ESTIMATED GFR IS NOT APPLICABLE FOR DIALYSIS PATIENTS. CBC W/PLT COUNT & AUTO [id number] 04:39:00 Test Item Value Reference Range Comments WHITE BLOOD CELL COUNT (BEAKER) (test oyfq=940) 9.5 K/ L 3.5-10.5 RED BLOOD CELL COUNT (BEAKER) (test frye=185) 4.99 M/ L 4.63-6.08 HEMOGLOBIN (BEAKER) (test atsa=006) 14.2 GM/DL 13.7-17.5 HEMATOCRIT (BEAKER) (test oqvu=217) 41.4 % 40.1-51.0 MEAN CORPUSCULAR VOLUME (BEAKER) (test pnvh=612) 83.0 fL 79.0-92.2 MEAN CORPUSCULAR HEMOGLOBIN (BEAKER) (test 28.5 pg 25.7-32.2 orxf=437) MEAN CORPUSCULAR HEMOGLOBIN CONC (BEAKER) (test 34.3 GM/DL 32.3-36.5 dbky=187) RED CELL DISTRIBUTION WIDTH (BEAKER) (test 13.0 % 11.6-14.4 kwss=664) PLATELET COUNT (BEAKER) (test ihji=067) 200 K/CU MM 150-450 MEAN PLATELET VOLUME (BEAKER) (test tlme=766) 11.6 fL 9.4-12.4 NUCLEATED RED BLOOD CELLS (BEAKER) (test 0 /100 WBC 0-0 vhrj=024) NEUTROPHILS RELATIVE PERCENT (BEAKER) (test 72 % dakf=886) LYMPHOCYTES RELATIVE PERCENT (BEAKER) (test 19 % wqcr=117) MONOCYTES RELATIVE PERCENT (BEAKER) (test 9 % mwgj=521) EOSINOPHILS RELATIVE PERCENT (BEAKER) (test 1 % kepx=153) BASOPHILS RELATIVE PERCENT (BEAKER) (test 0 % yihh=078) NEUTROPHILS ABSOLUTE COUNT (BEAKER) (test 6.84 K/ L 1.78-5.38 wqyx=802) LYMPHOCYTES ABSOLUTE COUNT (BEAKER) (test 1.78 K/ L 1.32-3.57 pjfb=782) MONOCYTES ABSOLUTE COUNT (BEAKER) (test 0.81 K/ L 0.30-0.82 omwu=988) EOSINOPHILS ABSOLUTE COUNT (BEAKER) (test 0.05 K/ L 0.04-0.54 mtls=948) BASOPHILS ABSOLUTE COUNT (BEAKER) (test 0.04 K/ L 0.01-0.08 lovt=661) IMMATURE GRANULOCYTES-RELATIVE PERCENT (BEAKER) 0 % 0-1 (test nzgg=7376) POCT-GLUCOSE [id number] 23:15:00 Test Item Value Reference Range Comments POC-GLUCOSE METER (BEAKER) 242 mg/dL 70-110 TESTED AT [facility] [address] [facility] (test ytqw=8933) [facility] [address] POCT-GLUCOSE [id number] 17:35:00 Test Item Value Reference Range Comments POC-GLUCOSE METER (BEAKER) 268 mg/dL 70-110 TESTED AT [address] (test vqgx=1805) [facility] [address] EEG AWAKE AND [id number] 14:32:00For STAT EEG- after 5 PM weekdays, weekends and holidays, page the on-call EEG TechReason for exam:->Witnessed seizureDATE OF TEST: 05/27/2018 DATE OF REPORT : 05/27/2018 ACC: [id number] EE- 1220 Start time: 05/27/2018 at 10:43 Stop time: 05/27/2018 at 11:04 ICD-10: R 56.9 CPT Code: 27039 HISTORY: 68 year old male with dementia [...] M.D., 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, [facility] Epilepsy [place] POCT-GLUCOSE [id number] 12:20:00 Test Item Value Reference Range Comments POC-GLUCOSE METER (BEAKER) 296 mg/dL 70-110 TESTED AT [place] [id number] [facility] (test lkyh=3243) [facility] [address] POCT-GLUCOSE [id number] 09:46:00 Test Item Value Reference Range Comments POC-GLUCOSE METER (BEAKER) 251 mg/dL 70-110 TESTED AT [facility] [address] (test whgd=8739) [facility] [address] BASIC METABOLIC [id number] 06:21:00 Test Item Value Reference Range Comments SODIUM (BEAKER) (test 134 meq/L 136-145 ngqr=139) POTASSIUM (BEAKER) (test 3.8 meq/L 3.5-5.1 fykn=986) CHLORIDE (BEAKER) (test 103 meq/L 98-107 kkxi=553) CO2 (BEAKER) (test 21 meq/L 22-29 yaiq=658) BLOOD UREA NITROGEN 10 mg/dL 7-21 (BEAKER) (test yglt=949) CREATININE (BEAKER) (test 0.94 mg/dL 0.57-1.25 dwra=638) GLUCOSE RANDOM (BEAKER) 231 mg/dL 70-105 (test zrgn=923) CALCIUM (BEAKER) (test 9.4 mg/dL 8.4-10.2 xvif=958) EGFR (BEAKER) (test 80 mL/min/1.73 sq m ESTIMATED GFR IS NOT lbxn=3137) ACCURATE CREATININE CLEARANCE IN PREDICTING GLOMERULAR FILTRATION RATE. ESTIMATED GFR IS NOT APPLICABLE FOR DIALYSIS PATIENTS. CBC W/PLT COUNT & AUTO [id number] 06:02:00 Test Item Value Reference Range Comments WHITE BLOOD CELL COUNT (BEAKER) (test olmx=576) 8.5 K/ L 3.5-10.5 RED BLOOD CELL COUNT (BEAKER) (test txwp=570) 4.70 M/ L 4.63-6.08 HEMOGLOBIN (BEAKER) (test rvny=416) 13.1 GM/DL 13.7-17.5 HEMATOCRIT (BEAKER) (test oylb=502) 38.4 % 40.1-51.0 MEAN CORPUSCULAR VOLUME (BEAKER) (test qamq=366) 81.7 fL 79.0-92.2 MEAN CORPUSCULAR HEMOGLOBIN (BEAKER) (test 27.9 pg 25.7-32.2 ljmh=769) MEAN CORPUSCULAR HEMOGLOBIN CONC (BEAKER) (test 34.1 GM/DL 32.3-36.5 ttla=800) RED CELL DISTRIBUTION WIDTH (BEAKER) (test 13.1 % 11.6-14.4 qkga=062) PLATELET COUNT (BEAKER) (test bdxf=775) 244 K/CU MM 150-450 MEAN PLATELET VOLUME (BEAKER) (test rrmx=530) 11.4 fL 9.4-12.4 NUCLEATED RED BLOOD CELLS (BEAKER) (test 0 /100 WBC 0-0 ibfa=134) NEUTROPHILS RELATIVE PERCENT (BEAKER) (test 66 % ukec=893) LYMPHOCYTES RELATIVE PERCENT (BEAKER) (test 24 % dndj=639) MONOCYTES RELATIVE PERCENT (BEAKER) (test 7 % qrrs=808) EOSINOPHILS RELATIVE PERCENT (BEAKER) (test 1 % lbln=024) BASOPHILS RELATIVE PERCENT (BEAKER) (test 1 % ecfq=612) NEUTROPHILS ABSOLUTE COUNT (BEAKER) (test 5.59 K/ L 1.78-5.38 tpbs=173) LYMPHOCYTES ABSOLUTE COUNT (BEAKER) (test 2.06 K/ L 1.32-3.57 osvb=192) MONOCYTES ABSOLUTE COUNT (BEAKER) (test 0.61 K/ L 0.30-0.82 xnet=676) EOSINOPHILS ABSOLUTE COUNT (BEAKER) (test 0.08 K/ L 0.04-0.54 ivom=766) BASOPHILS ABSOLUTE COUNT (BEAKER) (test 0.07 K/ L 0.01-0.08 tkdz=286) IMMATURE GRANULOCYTES-RELATIVE PERCENT (BEAKER) 1 % 0-1 (test qmap=4492) MR, BRAIN, WITHOUT [id number] 02:49:00Reason for exam:->StrokeWhat is the patient's sedation requirement?->No SedationFINAL REPORT Exam: MRI brain without contrast. Comparison: None. Clinical indication: Stroke. Technique: Multiplanar multi sequential MR imaging of the brain was performed without the administration of intravenous contrast. Findings: There is generalized parenchymal atrophy.There are ppnm-ye-msefqnsi white matter microvascular ischemic changes. There is [...] [place] Verified Date/Time: 05/27/2018 02:49:43 Reading Location: [facility] [id number] Transitional Reading Room POCT-GLUCOSE [id number] 22: 01:00 Test Item Value Reference Range Comments POC-GLUCOSE METER (BEAKER) 215 mg/dL 70-110 TESTED AT [address] (test gtbj=6845) [facility] [address] POCT-GLUCOSE [id number] 17:04:00 Test Item Value Reference Range Comments POC-GLUCOSE METER (BEAKER) 172 mg/dL 70-110 TESTED AT [place] [id number] [facility] (test yaoo=0975) [facility] [address] TROPONIN [id number] 16:42:00 Test Item Value Reference Range Comments TROPONIN I (BEAKER) (test iltg=294) < ng/mL 0.00-0.03 Troponin I (TnI) levels [...] neurological disease, and persistent tachyarrhythmia.VITAMIN B12 AND [id number] 13:23: 00 Test Item Value Reference Range Comments VITAMIN B12 (BEAKER) (test qvxb=143) 776 pg/mL 213-816 FOLATE (BEAKER) (test rdtc=484) > ng/mL >=7.0 TSH/FREE T4 IF [id number] 13:07:00 Test Item Value Reference Range Comments THYROID STIMULATING HORMONE (BEAKER) (test 1.28 uIU/mL 0.35-4.94 lwwh=956) POCT-GLUCOSE [id number] 11:24:00 Test Item Value Reference Range Comments POC-GLUCOSE METER (BEAKER) 329 mg/dL 70-110 TESTED AT [address] (test ecpw=3552) [facility] [address] RAD, CHEST, 1 VIEW, NON [id number] 10:27:00Reason for exam:-> strokeShould this be performed [...] No acute osseous abnormality. Signed: Amrita Partida [facility] Verified Date/Time: 05/26/2018 10:27:35 Reading Location: [facility] [id number] Ortho Consult Reading Room Electronically signed by: AMRITA PARTIDA M.D. on 2017 10:27 AMTROPONIN [id number] 09:43:00 Test Item Value Reference Range Comments TROPONIN I (BEAKER) (test sykq=549) 0.01 ng/mL 0.00-0.03 Troponin I (TnI) levels [...] acidosis, acute neurological disease, and persistent tachyarrhythmia.POCT-GLUCOSE [id number] 08:38:00 Test Item Value Reference Range Comments POC-GLUCOSE METER (BEAKER) 336 mg/dL 70-110 TESTED AT [address] (test xrxd=2563) [facility] [address] HEMOGLOBIN [id number] 08:24:00 Test Item Value Reference Range Comments HEMOGLOBIN A1C (BEAKER) (test rknt=007) 13.2 % 4.3-6.1 POCT-GLUCOSE [id number] 07:18:00 Test Item Value Reference Range Comments POC-GLUCOSE METER (BEAKER) 365 mg/dL 70-110 TESTED AT [facility] [address] [facility] (test jfra=0207) [facility] [address] LIPID [id number] 03:38:00 Test Item Value Reference Range Comments TRIGLYCERIDES (BEAKER) (test nqae=090) 122 mg/dL CHOLESTEROL (BEAKER) (test amye=203) 166 mg/dL HDL CHOLESTEROL (BEAKER) (test rhfs=690) 40 mg/dL LDL CHOLESTEROL CALCULATED (BEAKER) (test 102 mg/dL qvju=435) Triglyceride Reference Range: Low Risk <150 Borderline 150- 199 High Risk 200-499 Very High Risk >=500Cholesterol Reference Range: Low Risk <200 Borderline 200-239 High Risk > 240HDL Cholesterol Reference Range: Low Risk >=60 High Risk <40LDL Cholesterol Reference Range: Optimal <100 Near Optimal 100-129 Borderline 130-159 High 160-189 Very High >=190 FastingBASIC METABOLIC [id number] 03:38:00 Test Item Value Reference Range Comments SODIUM (BEAKER) (test 140 meq/L 136-145 uiqf=485) POTASSIUM (BEAKER) (test 3.8 meq/L 3.5-5.1 hevr=492) CHLORIDE (BEAKER) (test 103 meq/L 98-107 ueqi=843) CO2 (BEAKER) (test 23 meq/L 22-29 mzoe=832) BLOOD UREA NITROGEN 19 mg/dL 7-21 (BEAKER) (test hbtn=409) CREATININE (BEAKER) (test 1.30 mg/dL 0.57-1.25 cdka=017) GLUCOSE RANDOM (BEAKER) 338 mg/dL 70-105 (test twci=071) CALCIUM (BEAKER) (test 9.9 mg/dL 8.4-10.2 dljx=098) EGFR (BEAKER) (test 55 mL/min/1.73 sq m ESTIMATED GFR IS NOT jmni=7667) ACCURATE CREATININE CLEARANCE IN PREDICTING GLOMERULAR FILTRATION RATE. ESTIMATED GFR IS NOT APPLICABLE FOR DIALYSIS PATIENTS. FastingHEPATIC FUNCTION [id number] 03:38:00 Test Item Value Reference Range Comments TOTAL PROTEIN (BEAKER) (test vhti=655) 7.3 gm/dL 6.0-8.3 ALBUMIN (BEAKER) (test ezld=8300) 4.0 g/dL 3.5-5.0 BILIRUBIN TOTAL (BEAKER) (test gjgm=056) 0.3 mg/dL 0.2-1.2 BILIRUBIN DIRECT (BEAKER) (test jzkx=423) 0.2 mg/dL 0.1-0.5 ALKALINE PHOSPHATASE (BEAKER) (test zvhs=867) 107 U/L 40-150 AST (SGOT) (BEAKER) (test fssq=749) 14 U/L 5-34 ALT (SGPT) (BEAKER) (test ybsy=129) 11 U/L 6-55 FastingPROTHROMBIN [id number] 03:29:00 Test Item Value Reference Range Comments PROTIME (BEAKER) (test dber=347) 14.8 seconds 11.7-14.7 INR (BEAKER) (test ngrw=932) 1.2 <=5.9 RECOMMENDED COUMADIN/WARFARIN INR THERAPY RANGESSTANDARD DOSE: 2.0 - 3.0 Includes: PROPHYLAXIS forvenous thrombosis, systemic embolization; TREATMENT for venous thrombosis and/or pulmonary embolus.HIGH RISK: Target INR is 2.5-3.5 for patients with mechanical heart valves.CBC W/PLT COUNT & AUTO [id number] 03:27:00 Test Item Value Reference Range Comments WHITE BLOOD CELL COUNT (BEAKER) (test lnaf=383) 14.0 K/ L 3.5-10.5 RED BLOOD CELL COUNT (BEAKER) (test bpzp=347) 4.43 M/ L 4.63-6.08 HEMOGLOBIN (BEAKER) (test uidw=495) 12.5 GM/DL 13.7-17.5 HEMATOCRIT (BEAKER) (test dswk=120) 36.6 % 40.1-51.0 MEAN CORPUSCULAR VOLUME (BEAKER) (test nalp=229) 82.6 fL 79.0-92.2 MEAN CORPUSCULAR HEMOGLOBIN (BEAKER) (test 28.2 pg 25.7-32.2 hygn=245) MEAN CORPUSCULAR HEMOGLOBIN CONC (BEAKER) (test 34.2 GM/DL 32.3-36.5 irqk=608) RED CELL DISTRIBUTION WIDTH (BEAKER) (test 13.0 % 11.6-14.4 jmgu=177) PLATELET COUNT (BEAKER) (test xzje=529) 248 K/CU MM 150-450 MEAN PLATELET VOLUME (BEAKER) (test iuyg=129) 11.4 fL 9.4-12.4 NUCLEATED RED BLOOD CELLS (BEAKER) (test 0 /100 WBC 0-0 veac=050) NEUTROPHILS RELATIVE PERCENT (BEAKER) (test 84 % lxjc=521) LYMPHOCYTES RELATIVE PERCENT (BEAKER) (test 8 % dfgg=700) MONOCYTES RELATIVE PERCENT (BEAKER) (test 7 % xjql=689) EOSINOPHILS RELATIVE PERCENT (BEAKER) (test 0 % nftf=385) BASOPHILS RELATIVE PERCENT (BEAKER) (test 0 % kpfb=622) NEUTROPHILS ABSOLUTE COUNT (BEAKER) (test 11.72 K/ L 1.78-5.38 bisv=150) LYMPHOCYTES ABSOLUTE COUNT (BEAKER) (test 1.16 K/ L 1.32-3.57 xzie=268) MONOCYTES ABSOLUTE COUNT (BEAKER) (test 0.94 K/ L 0.30-0.82 kotd=334) EOSINOPHILS ABSOLUTE COUNT (BEAKER) (test 0.01 K/ L 0.04-0.54 kcey=198) BASOPHILS ABSOLUTE COUNT (BEAKER) (test 0.06 K/ L 0.01-0.08 rswd=357) IMMATURE GRANULOCYTES-RELATIVE PERCENT (BEAKER) 1 % 0-1 (test dkqb=[id number])
--- OUTSIDE RECORDS SUMMARY | 2019-01-06 15:12 | XMS REPORT ---
[...] Active Problem Erectile dysfunction N52.9 Active Assessment half-way current use of insulin Z79.4 Active Problem half-way current use of insulin Z79.4 Active Assessment [...] End Status Dosage System Date Date Tresiba [facility] 68827410280 200 UNIT/ML Inactive INJECT FlexTouch SUB 60 UNITS DAILY Viagra [facility] 72652404310 50 MG Orally Once Active 1 tablet a day as needed Finasteride ND 94410132398 5 MG Orally Once Active 1 tablet a day Amlodipine ND 14230251110 10 MG Orally Once February Active 1 tablet Besylate a day 2017 Amlodipine ND 13452034514 10 MG Orally Once February Active 1 tablet Besylate a day 2017 Xarelto [facility] 48519792801 20 MG Orally Once Active 1 tablet a day with food Cozaar [facility] 15369818115 50 MG Active TAKE 1 TABLET BY MOUTH EVERY DAY Toujeo [facility] 56391777394 300u/ml FebruarySep 09, Active 68 units SoloStar subcutaneously 2017 once once daily daily and titrate up 2 units every 3 days until fbg less than 130 max of 100 units daily Simvastatin [facility] 53854254118 20 MG Active TAKE 1 TABLET BY MOUTH EVERY DAY Keppra [facility] 17364182751 500 MG Orally Active 1 tablet Twice a day Metformin HCl [facility] 48412840055 1000 MG Orally Active 1 tablet twice a day with a meal Norvasc [facility] 39900910124 5 MG Orally Once Inactive 1 tablet a day Labetalol HCl [facility] 83809765507 200 MG Orally Active 1 tablet three times a day Results No Known Results Summary Purpose eClinicalWorks Submission
--- OUTSIDE RECORDS SUMMARY | 2019-01-06 15:12 | XMS REPORT ---
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
--- OUTSIDE RECORDS SUMMARY | 2019-01-06 15:12 | XMS REPORT ---
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
--- OUTSIDE RECORDS SUMMARY | 2019-01-06 15:13 | XMS REPORT ---
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
--- OUTSIDE RECORDS SUMMARY | 2019-01-06 15:13 | XMS REPORT ---
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
--- OUTSIDE RECORDS SUMMARY | 2019-01-06 15:13 | XMS REPORT ---
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
[2019-01-06] MEDS ORDERED: NA CHLORIDE 0.9% 1,000 ML ONE ×3 (16:27→20:44)
[2019-01-06 16:32] LABS: Absolute Lymphocytes (CBC) 1.5 K/uL (0.7-4.9); Absolute Monocytes 0.3 K/uL (0.1-1.3); Absolute Neutrophil 5.3 K/uL (1.8-8.0); Basophils % 1.3 % (0-1.3); Eosinophils % 1.6 % (0-4.4); Lymphocytes % 20.2 % (15.3-44.8); MPV 10.2 fL (7.6-11.3); Monocytes % 3.8 % (3.3-12.3); RBC Red Blood Cell Count 4.67 M/uL (4.33-5.43)
[2019-01-06 16:35] LABS: Protime INR 1.12
--- NOTE | 2019-01-06 16:51 | RAD REPORT ---
EXAM DESCRIPTION: RAD - Chest Single View - 01/06/2019 4:45 pm CLINICAL HISTORY: MALAISE Chest pain. COMPARISON: Chest Single View dated 08/28/2018; Chest Single View dated 08/26/2018; Chest Single View dated 08/22/2018; Chest Single View dated 06/16/2018 FINDINGS: Portable technique limits examination quality. Vague opacity is present in the left apex which may represent superimposition of soft tissues or in i nfiltrate/pneumonia. Advise correlation with auscultation findings in this region The heart is normal in size. Old right posterior rib fractures noted.
[2019-01-06 17:03] LABS: ALT/SGPT 11 U/L (12-78); AST/SGOT 12 U/L (15-37); Albumin 2.9 g/dL (3.4-5.0); Alkaline Phosphatase 103 U/L (45-117); BUN Blood Urea Nitrogen 17 mg/dL (7-18); Bicarbonate 29 mmol/L (21-32); Bilirubin Direct < 0.1 mg/dL (0-0.2); Bilirubin Total 0.4 mg/dL (0.2-1.0); Creatine Phosphokinase 35 U/L (39-308); Glucose Level 267 mg/dL (74-106); Lipase 205 U/L (73-393); Potassium 3.9 mmol/L (3.5-5.1); Protein, Total 7.8 g/dL (6.4-8.2); Sodium Level 144 mmol/L (136-145); Troponin (Emerg Dept Use Only) < 0.02 ng/mL (0.0-0.045)
--- NOTE | 2019-01-06 17:53 | RAD REPORT ---
EXAM DESCRIPTION: CT - Thorax Wo Con CLINICAL HISTORY: Chest pain WEAKNESS COMPARISON: Chest Single View dated 01/06/2019 FINDINGS: The lungs are clear. No pleural thickening or pleural effusion. No pneumothorax. No axillary, mediastinal or hilar adenopathy. No concerning bony finding. No gross upper abdominal finding. All CT scans are performed using dose optimization technique as appropriate and may include automated exposure control or mA/KV adjustment according to patient size. IMPRESSION: No acute intrathoracic abnormality.
--- NOTE | 2019-01-06 20:31 | EDPHYS ---
Physician Documentation [facility] Name: Braden Wright Age: 68 yrs Sex: Male : 1950 Arrival Date: 01/06/2019 Time: 15:18 Bed 27 Private MD: ED Physician Jase Cardoza HPI: 01/06 21:25 This 68 yrs old Male presents to ER via EMS with complaints of HYPOTENSION. gs 21:25 WAS AT HOME , NURSE TOOK BP LOW OTHERWISE ASYMPTOMATIC. Onset: The symptoms/episode gs began/occurred today. Severity of symptoms: At their worst the symptoms were moderate in the emergency department the symptoms have improved moderately. The patient has experienced similar episodes in the past, a few times. The patient has not recently seen a physician. Historical: - Allergies: 15:27 Ativan; rv 15:27 Lisinopril; rv - Home Meds: 15:27 metformin 1,000 mg Oral tab 1 tab 2 times per day [Active]; simvastatin 20 mg Oral tab rv 1 tab once daily [Active]; amlodipine 10 mg tab 1 tab once daily [Active]; finasteride 5 mg Oral tab 1 tab once daily [Active]; levetiracetam 500 mg Oral Tb24 once daily [Active]; Toujeo Solostar 300 unknown 68 unit nightly [Active]; Cozaar 50 mg Oral tab 1 tab once daily [Active]; indomethacin 50 mg Oral cap 1 cap 3 times per day [Active]; Aricept 10 mg Oral tab 1 tab once daily [Active]; labetalol 200 mg Oral tab 1 tab THREE TIMES PER DAY [Active]; Viagra 50 mg Oral tab 1 tab once daily [Active]; - PMHx: 15:27 Alzheimers; Atrial Fib; CVA; Dementia; Diabetes - IDDM; Gout; Hyperlipidemia; rv Hypertension; Seizures; - PSHx: 15:27 None; rv - Immunization history:: Adult Immunizations up to date. - Social history:: Smoking status: unknown. - Ebola Screening: : Patient negative for fever greater than or equal to 101.5 degrees Fahrenheit, and additional compatible Ebola Virus Disease symptoms Patient denies exposure to infectious person Patient denies travel to an Ebola-affected area in the 21 days before illness onset. ROS: 21:26 All other systems are negative. gs Exam: 21:26 Constitutional: This is a well developed, well nourished patient who is awake, alert, gs and in no acute distress. Head/Face: Normocephalic, atraumatic. Eyes: Pupils equal round and reactive to light, extra-ocular motions intact. Lids and lashes normal. Conjunctiva and sclera are non-icteric and not injected. Cornea within normal limits. Periorbital areas with no swelling, redness, or edema. ENT: Nares patent. No nasal discharge, no septal abnormalities noted. Tympanic membranes are normal and external auditory canals are clear. Oropharynx with no redness, swelling, or masses, exudates, or evidence of obstruction, uvula midline. Mucous membranes moist. Neck: Trachea midline, no thyromegaly or masses palpated, and no cervical lymphadenopathy. Supple, full range of motion without nuchal rigidity, or vertebral point tenderness. No Meningismus. Chest/axilla: Normal chest wall appearance and motion. Nontender with no deformity. No lesions are appreciated. Cardiovascular: Regular rate and rhythm with a normal S1 and S2. No gallops, murmurs, or rubs. Normal PMI, no JVD. No pulse deficits. Respiratory: Lungs have equal breath sounds bilaterally, clear to auscultation and percussion. No rales, rhonchi or wheezes noted. No increased work of breathing, no retractions or nasal flaring. Abdomen/GI: Soft, non-tender, with normal bowel sounds. No distension or tympany. No guarding or rebound. No evidence of tenderness throughout. Back: No spinal tenderness. No costovertebral tenderness. Full range of motion. Skin: Warm, dry with normal turgor. Normal color with no rashes, no lesions, and no evidence of cellulitis. MS/ Extremity: Pulses equal, no cyanosis. Neurovascular intact. Full, normal range of motion. 21:26 Constitutional: The patient appears alert, awake. 21:26 ECG was reviewed by the Attending Physician. 21:26 Neuro: Exam negative for acute changes. Vital Signs: 15:06 BP 101 / 71; Pulse 98; Resp 18; Pulse Ox 99% on R/A; rv 15:15 BP 121 / 78; Pulse 98; Resp 17 S; Pulse Ox 98% on R/A; rv 15:29 BP 101 / 71; Pulse 98; Resp 18; Temp 97.6(O); Pulse Ox 99% on R/A; Weight 68.04 kg; rv 15:30 BP 112 / 81; Pulse 94; Resp 18 S; Pulse Ox 99% on R/A; rv 15:45 BP 111 / 71; Pulse 88; Resp 17 S; Pulse Ox 99% on R/A; rv 17:29 BP 136 / 78; Pulse 83; Resp 19; Pulse Ox 100% on R/A; rv 18:15 Temp 97.7(O); rv 18:16 BP 108 / 72; Pulse 92; Resp 16; Pulse Ox 99% ; rv 19:00 BP 118 / 76; Pulse 97; Resp 18; Pulse Ox 100% on R/A; rv 19:30 BP 131 / 76; Pulse 100; Resp 18; Pulse Ox 100% on R/A; rv 20:00 BP 131 / 69; Pulse 95; Resp 19; Pulse Ox 98% ; rv 20:30 BP 141 / 79; Pulse 96; Resp 15; Pulse Ox 99% on R/A; rv 21:00 BP 137 / 84; Pulse 96; Resp 17 S; Pulse Ox 99% on R/A; rv 22:00 BP 142 / 89; Pulse 97; Resp 19; Pulse Ox 98% on R/A; rv MDM: 15:26 Patient medically screened. gs 21:26 Differential Diagnosis altered mental status, sepsis, ACIDOSIS MED INDUCED. Data gs reviewed: vital signs, nurses notes, lab test result(s), EKG. Counseling: I had a detailed discussion with the patient and/or guardian regarding: the historical points, exam findings, and any diagnostic results supporting the discharge/admit diagnosis, the need for further work-up and treatment in the hospital. Response to treatment: the patient's symptoms have mildly improved after treatment, and as a result, I will admit patient. 01/06 15:36 Order name: Basic Metabolic Panel; Complete Time: 17:27 01/06 15:36 Order name: Blood Culture Adult (2) 01/06 15:36 Order name: CBC with Diff; Complete Time: 17:27 01/06 15:36 Order name: CPK; Complete Time: 17:27 01/06 15:36 Order name: Lactate; Complete Time: 17:45 01/06 15:36 Order name: LFT's; Complete Time: 17:27 01/06 15:36 Order name: Lipase; Complete Time: 17:27 01/06 15:36 Order name: Procalcitonin; Complete Time: 17:45 01/06 15:36 Order name: Protime (+inr); Complete Time: 17:27 01/06 15:36 Order name: Troponin (emerg Dept Use Only); Complete Time: 17:27 01/06 15:36 Order name: Urine Microscopic Only 01/06 16:31 Order name: Glucose, Ancillary Testing; Complete Time: 17:27 EDMI 01/06 20:53 Order name: Lactate Sepsis 2 HR Follow-up; Complete Time: 21:31 EDMI 18 22:24 Order name: Urine Culture 01/06 15:36 Order name: Chest Single View XRAY; Complete Time: 17:27 01/06 15:36 Order name: Accucheck; Complete Time: 16:26 01/06 15:36 Order name: Cardiac monitoring; Complete Time: 16:18 01/06 15:36 Order name: EKG - Nurse/Tech; Complete Time: 16:18 01/06 15:36 Order name: IV Saline Lock - Large Bore; Complete Time: 16:18 01/06 15:36 Order name: Labs collected and sent; Complete Time: 16:19 01/06 15:36 Order name: O2 Per Protocol; Complete Time: 16:19 01/06 15:36 Order name: O2 Sat Monitoring; Complete Time: 16:19 01/06 17:28 Order name: CT Chest Wo Con; Complete Time: 18:00 01/06 18:06 Order name: EKG Electrocardiogram; Complete Time: 20:35 [facility] 01/06 22:25 Order name: Urine Dipstick--Ancillary (enter results) EC:26 Rate is 97 beats/min. Rhythm is regular. WA interval is prolonged. QRS interval is gs prolonged. Q waves are Old. T waves are Normal. No ST changes noted. Clinical impression: Abnormal EKG without significant change. Interpreted by me. Administered Medications: 16:18 Drug: NS 0.9% 1000 ml Route: IV; Rate: 1 bolus; Site: left antecubital; rv 17:25 Follow up: IV Status: Completed infusion rv 17:54 Drug: NS 0.9% 1000 ml Route: IV; Rate: 1 bolus; Site: left antecubital; rv 20:36 Follow up: IV Status: Completed infusion rv 20:35 Drug: NS 0.9% 1000 ml Route: IV; Rate: 125 ml/hr; Site: left antecubital; rv 21:59 Follow up: IV Status: Infusion continued upon admission rv Point of Care Testing: Blood Glucose: 16:30 Blood Glucose: 261 mg/dL; lt1 Ranges: Critical Glucose Levels:Adult <50 mg/dl or >400 mg/dl <40 mg/dl or >180 mg/dl Disposition: 01/06/19 20:30 Hospitalization ordered by Cara Velasco for Observation. Preliminary diagnosis is Hypotension, unspecified - LACTATIC ACIDOSIS. - Bed requested for Telemetry/MedSurg (observation). - Status is Observation. lt1 - Condition is Stable. - Problem is new. - Symptoms have improved. UTI on Admission? No Signatures: Dispatcher [employer] EDMS Zo Desai RN RN Brittany Whitman RN RN Jase Cardoza MD MD Wolfgang Will RN RN Charleen Zavala lt1 Corrections: (The following items were deleted from the chart) 20:37 20:30 Hospitalization Ordered by Cara Velasco MD for Observation. Preliminary fc diagnosis is Hypotension, unspecified - LACTATIC ACIDOSIS. Bed requested for Telemetry/MedSurg (observation). Status is Observation. Condition is Stable. Problem is new. Symptoms have improved. UTI on Admission? No. 20:44 20:37 01/06/2019 20:30 Hospitalization Ordered by Cara Velasco MD for Observation. Preliminary diagnosis is Hypotension, unspecified - LACTATIC ACIDOSIS. Bed requested for Telemetry/MedSurg (observation). Status is Observation. Condition is Stable. Problem is new. Symptoms have improved. UTI on Admission? No. 21:47 20:44 01/06/2019 20:30 Hospitalization Ordered by Cara Velasco MD for Observation. Preliminary diagnosis is Hypotension, unspecified - LACTATIC ACIDOSIS. Bed requested for Telemetry/MedSurg (observation). Status is Observation. Condition is Stable. Problem is new. Symptoms have improved. UTI on Admission? No. 22:40 21:47 01/06/2019 20:30 Hospitalization Ordered by Cara Velasco MD for Observation. lt1 Preliminary diagnosis is Hypotension, unspecified - LACTATIC ACIDOSIS. Bed requested for Telemetry/MedSurg (observation). Status is Observation. Condition is Stable. Problem is new. Symptoms have improved. UTI on Admission? No. mw
--- NOTE | 2019-01-06 20:31 | ER ---
Nurse's Notes [facility] Name: Braden Wright Age: 68 yrs Sex: Male : 1950 Arrival Date: 01/06/2019 Time: 15:18 Bed 27 Private MD: Diagnosis: Hypotension, unspecified-LACTATIC ACIDOSIS Presentation: 01/06 15:18 Presenting complaint: EMS states: EMS STATES: "PATIENT WAS BROUGHT TO THE CLINIC FOR rv CHECK UP. THE PROVIDER CALLED US IN FOR LOW BLOOD PRESSURE. HE DOES NOT HAVE ANY OTHER SYMPTOMS." Child states: "WE TOOK OUR F[facility] FROM THE [facility] AND PLANNING TO HAVE HOME HEALTH INSTEAD. HE HAS NOT SEEN BY HIS PRIMARY CARE THAT IS WHY WE BROUGHT HIM IN THE CLINIC.". Transition of care: patient was not received from another setting of care. Onset of symptoms was January 06, 2019 at 15:21. Risk Assessment: Do you want to hurt yourself or someone else? Patient reports no desire to harm self or others. Initial Sepsis Screen: Does the patient meet any 2 criteria? No. Patient's initial sepsis screen is negative. Does the patient have a suspected source of infection? No. Patient's initial sepsis screen is negative. Care prior to arrival: None. 15:18 Method Of Arrival: EMS: [facility] rv 15:18 Acuity: RITA 3 rv Triage Assessment: 15:28 General: Appears in no apparent distress. comfortable, Behavior is calm, cooperative. rv Pain: Complains of pain in back. EENT: No signs and/or symptoms were reported regarding the EENT system. Neuro: Level of Consciousness is awake, alert, Oriented to person. Neuro: Oriented to place. Cardiovascular: Capillary refill < 3 seconds. Respiratory: Airway is patent. GI: No signs and/or symptoms were reported involving the gastrointestinal system. : No signs and/or symptoms were reported regarding the genitourinary system. Derm: Skin is intact. Musculoskeletal: No signs and/or symptoms reported regarding the musculoskeletal system. Historical: - Allergies: 15:27 Ativan; rv 15:27 Lisinopril; rv - Home Meds: 15:27 metformin 1,000 mg Oral tab 1 tab 2 times per day [Active]; simvastatin 20 mg Oral tab rv 1 tab once daily [Active]; amlodipine 10 mg tab 1 tab once daily [Active]; finasteride 5 mg Oral tab 1 tab once daily [Active]; levetiracetam 500 mg Oral Tb24 once daily [Active]; Toujeo Solostar 300 unknown 68 unit nightly [Active]; Cozaar 50 mg Oral tab 1 tab once daily [Active]; indomethacin 50 mg Oral cap 1 cap 3 times per day [Active]; Aricept 10 mg Oral tab 1 tab once daily [Active]; labetalol 200 mg Oral tab 1 tab THREE TIMES PER DAY [Active]; Viagra 50 mg Oral tab 1 tab once daily [Active]; - PMHx: 15:27 Alzheimers; Atrial Fib; CVA; Dementia; Diabetes - IDDM; Gout; Hyperlipidemia; rv Hypertension; Seizures; - PSHx: 15:27 None; rv - Immunization history:: Adult Immunizations up to date. - Social history:: Smoking status: unknown. - Ebola Screening: : Patient negative for fever greater than or equal to 101.5 degrees Fahrenheit, and additional compatible Ebola Virus Disease symptoms Patient denies exposure to infectious person Patient denies travel to an Ebola-affected area in the 21 days before illness onset. Screenin:30 Abuse screen: Denies threats or abuse. Denies injuries from another. Nutritional rv screening: No deficits noted. Tuberculosis screening: No symptoms or risk factors identified. Fall Risk None identified. Assessment: 15:30 Reassessment: SEE TRIAGE ASSESMENT. rv 19:58 Reassessment: Attempted to straight cath pt with an 8 fr. with no urine output (unknown fc if it was long enough) and then attempted a 12 fr and was unable to pass it through the meatus. states that she would just like to take pt home and allow home health to collect further labs and urine sample. She is concerned about taking pt home in wheelchair being he is normally bed bound. Has not gotten in w/c in months until today and his bp dropped which brought him here. EMS will take pt home if dr signs correct papers. Dr Cardoza aware and will speak with family and then d/c him home. Vital Signs: 15:06 BP 101 / 71; Pulse 98; Resp 18; Pulse Ox 99% on R/A; rv 15:15 BP 121 / 78; Pulse 98; Resp 17 S; Pulse Ox 98% on R/A; rv 15:29 BP 101 / 71; Pulse 98; Resp 18; Temp 97.6(O); Pulse Ox 99% on R/A; Weight 68.04 kg; rv 15:30 BP 112 / 81; Pulse 94; Resp 18 S; Pulse Ox 99% on R/A; rv 15:45 BP 111 / 71; Pulse 88; Resp 17 S; Pulse Ox 99% on R/A; rv 17:29 BP 136 / 78; Pulse 83; Resp 19; Pulse Ox 100% on R/A; rv 18:15 Temp 97.7(O); rv 18:16 BP 108 / 72; Pulse 92; Resp 16; Pulse Ox 99% ; rv 19:00 BP 118 / 76; Pulse 97; Resp 18; Pulse Ox 100% on R/A; rv 19:30 BP 131 / 76; Pulse 100; Resp 18; Pulse Ox 100% on R/A; rv 20:00 BP 131 / 69; Pulse 95; Resp 19; Pulse Ox 98% ; rv 20:30 BP 141 / 79; Pulse 96; Resp 15; Pulse Ox 99% on R/A; rv 21:00 BP 137 / 84; Pulse 96; Resp 17 S; Pulse Ox 99% on R/A; rv 22:00 BP 142 / 89; Pulse 97; Resp 19; Pulse Ox 98% on R/A; rv ED Course: 15:18 Patient arrived in ED. rv 15:20 Jase Cardoza MD is Attending Physician. gs 15:21 Triage completed. rv 15:24 EKG done, by fire technician. reviewed by Jase Cardoza MD. at1 15:30 Patient has correct armband on for positive identification. Placed in gown. Bed in low rv position. Call light in reach. Side rails up X2. Adult w/ patient. Pulse ox on. NIBP on. 15:31 Patient placed in an exam room, on a stretcher, on pulse oximetry, Patient notified of rv wait time. EKG completed in triage. Results shown to MD. 15:45 Maintain EMS IV. Dressing intact. Site clean \\T\\ dry. Gauge \\T\\ site: G18 LEFT AC. IV is rv patent, Flushed left antecubital. 16:00 Inserted saline lock: 22 gauge in right hand, using aseptic technique. Blood collected. rv 16:26 Chest Single View XRAY Sent. rv 16:45 Chest Single View XRAY In Process Unspecified. EDMS 17:[address] via stretcher. sj 17:43 CT completed. Patient tolerated procedure well. Patient moved back from CT. nj 17:44 CT Chest Wo Con In Process Unspecified. EDMS 20:29 Cara Velasco MD is Hospitalizing Provider. 22:02 No provider procedures requiring assistance completed. Patient admitted, IV remains in rv place. intact. 22:30 Urine Culture Sent. lt1 22:31 Urine Dipstick--Ancillary (enter results) Sent. lt1 Administered Medications: 16:18 Drug: NS 0.9% 1000 ml Route: IV; Rate: 1 bolus; Site: left antecubital; rv 17:25 Follow up: IV Status: Completed infusion rv 17:54 Drug: NS 0.9% 1000 ml Route: IV; Rate: 1 bolus; Site: left antecubital; rv 20:36 Follow up: IV Status: Completed infusion rv 20:35 Drug: NS 0.9% 1000 ml Route: IV; Rate: 125 ml/hr; Site: left antecubital; rv 21:59 Follow up: IV Status: Infusion continued upon admission rv Point of Care Testing: Blood Glucose: 16:30 Blood Glucose: 261 mg/dL; lt1 Ranges: Outcome: 20:30 Decision to Hospitalize by Provider. 22:03 Admitted to Tele accompanied by tech, via stretcher, room 411, with chart, Report rv called to ESTEPHANIE SHRESTHA 22:03 Condition: good 22:40 Patient left the ED. lt1 Signatures: Dispatcher [employer] Emilee Reyes Felicia RN RN Helen Choudhury, procurement specialist EKG Tat1 Sudeep Herrera Gregory, MD MD Wolfgang Will RN Charleen Burris lt1 Corrections: (The following items were deleted from the chart) 17:29 15:45 BP 136 / 78; Pulse 83bpm; Resp 19bpm; Pulse Ox 100% RA; rv rv
--- NOTE | 2019-01-06 21:48 | P.HP ---
Certification for Inpatient Patient admitted to: Observation With expected LOS: <2 Midnights Practitioner: I am a practitioner with admitting privileges, knowledge of patient current condition, hospital course, and medical plan of care. Services: Services provided to patient in accordance with Admission requirements found in Title 42 Section 412.3 of the Code of Federal Regulations Patient History Date of Service: 01/06/19 Reason for admission: hypotension History of Present Illness: Mr Wright is a 68 years old male with multiple medical problems including Alzheimer's dementia, HTN, dyslipidemia, chronic a.fib, IDDM, who went to his PCP this afternoon for check up, and he was found hypotensive. He denied any chest pain, SOB, cough, dysuria, or any other symptom. He was transferred to ED for evaluation. At arrival his BP was 101/71. Lab work shows normal WBC count, normal procalcitonin, but elevated lactate 3.0. CXR unremarkable. UA still pending. No fever. Allergies lorazepam [From Ativan] Adverse Reaction (Verified 08/23/18 01:17) Nausea/Vomiting Home Medications: Amlodipine Besylate 10 mg PO DAILY 08/23/18 Aspirin [Aspirin EC 325 MG] 325 mg PO DAILY 08/23/18 Cholecalciferol (Vitamin D3) [Vitamin D 1000 Iu Tab*] 25 mg PO DAILY 08/23/18 Donepezil HCl 10 mg PO DAILY 08/23/18 Ferrous Fumarate/Vit Bcomp&C [Super B-Complex Caplet] 1 each PO DAILY 08/23/18 Finasteride 5 mg PO DAILY 08/23/18 Indomethacin 25 mg PO TID PRN 08/23/18 Insulin Degludec [Tresiba Flextouch U-100] 68 unit SQ DAILY 08/23/18 Losartan Potassium [Cozaar*] 50 mg PO DAILY 08/23/18 Memantine HCl/Donepezil HCl [Namzaric 28 mg-10 mg Capsule] 1 each PO DAILY 08/23 Metformin HCl 1,000 mg PO BID 08/23/18 Simvastatin 20 mg PO DAILY 08/23/18 levETIRAcetam [Keppra*] 500 mg PO BID 08/23/18 Colchicine [Colcrys *] 0.6 mg PO BID PRN tab 08/28/18 Enoxaparin Sodium [Lovenox 40 MG INJ*] 40 mg SQ DAILY 5 PM syr 08/28/18 Hydralazine [Apresoline*] 10 mg IV Q6HP PRN vial 08/28/18 Meropenem [Merrem*] 1,000 mg IV Q8HR 12 Days vial 08/28/18 - Past Medical/Surgical History Diabetic: Yes -: Alzhiemer's -: Atrial Fibrillation -: Dementia -: CVA -: Diabetes-IDDM -: Gout -: Hyperlipidemia -: HTN -: Seizures -: knee surgery - Family History Father -: Hypertension, Other (see notes) Notes: Dementia,prostate problems Mother -: Diabetes, Stroke, Cancer - Social History Alcohol use: No CD- Drugs: No Caffeine use: No Place of Residence: Home Review of Systems 10-point ROS is otherwise unremarkable Physical Examination - Physical Exam General: Alert, In no apparent distress HEENT: Atraumatic, PERRLA, Mucous membr. moist/pink, EOMI, Sclerae nonicteric Neck: Supple, 2+ carotid pulse no bruit, No LAD, Without JVD or thyroid abnormality Respiratory: Clear to auscultation bilaterally, Normal air movement Cardiovascular: Normal S1 S2, No gallops Gastrointestinal: Normal bowel sounds, No tenderness Musculoskeletal: No tenderness Integumentary: No rashes Neurological: Normal speech, Normal strength at 5/5 x4 extr, Normal tone, Normal affect, Dementia Lymphatics: No axilla or inguinal lymphadenopathy - Studies Laboratory Data (last 24 hrs) 01/06/19 16:00: PT 13.2 H, INR 1.12 01/06/19 16:00: WBC 7.2, Hgb 12.6 L, Hct 39.0 L, Plt Count 255 01/06/19 16:00: Sodium 144, Potassium 3.9, BUN 17, Creatinine 0.80, Glucose 267 H, Total Bilirubin 0.4, AST 12 L, ALT 11 L, Alkaline Phosphatase 103, Lipase 205 Assessment and Plan - Problems (Diagnosis) (1) Hypotension Current Visit: Yes Status: Acute Qualifiers: Hypotension type: unspecified hypotension type Qualified Code(s): I95.9 - Hypotension, unspecified (2) Dementia Current Visit: Yes Status: Acute Qualifiers: Dementia type: Alzheimer's disease Alzheimer's disease onset: unspecified onset Dementia behavioral disturbance: without behavioral disturbance Qualified Code(s): G30.9 - Alzheimer's disease, unspecified; F02.80 - Dementia in other diseases classified elsewhere without behavioral disturbance (3) Diabetes mellitus Onset Date: 07/06/16 Current Visit: No Status: Chronic Qualifiers: Diabetes mellitus type: type 2 Diabetes mellitus assisted insulin use: with assisted use Diabetes mellitus complication status: with unspecified complications Qualified Code(s): E11.8 - Type 2 diabetes mellitus with unspecified complications; Z79.4 - long term (current) use of insulin - Plan The patient will be admitted to the hospital due to hypotension associated with elevated lactate. No obvious signs of infection, however, UA is still pending. Possible due to volume depletion. BP already improved after volume replacement. Will continue IV fluids overnight, repeat lactate in AM. - Advance Directives Does patient have a Living Will: No Does patient have a Durable POA for Healthcare: Yes - Code Status/Comfort Care Code Status Assessed: Yes Code Status: Full Code
[2019-01-06 22:54] VITALS: BMI 19.8
[2019-01-06] MEDS ORDERED: ACETAMINOPHEN 500 MG TAB PO PRN (22:54)
[2019-01-06] MEDS ORDERED: ONDANSETRON 4 MG/2 ML VIAL IV PRN (22:54)
[2019-01-06] MEDS ORDERED: D50W 25 GM/50 ML SYRINGE IV PRN (22:54)
[2019-01-06] MEDS ORDERED: GLUCAGON 1 MG/VIAL IM PRN (22:54)
[2019-01-06 23:00] LABS: Urine Appearance CLOUDY; Urine Bilirubin NEGATIVE (NEG); Urine Blood TRACE (NEG); Urine Color YELLOW; Urine Glucose 2+ (NEG); Urine Protein NEGATIVE (NEG); Urine Urobilinogen 0.2 mg/dL (0.2-1.0)
[2019-01-06 23:20] LABS: Urine Bacteria >50 /HPF (NONE SEEN); Urine Culture Reflex Order REFLEXED; Urine RBC <5 /HPF (NONE SEEN)
[2019-01-07] MEDS ORDERED: CEFTRIAXONE 1 GM/NS 50 ML 1 GM/50 ML BAG IV SCH (00:01)
[2019-01-07] MEDS: NA CHLORIDE 0.9% 1,000 ML IV SCH ×3 (01:25→22:10)
[2019-01-07] MEDS ORDERED: CEFTRIAXONE/SWI 1gm 1 GM/10 ML SYR ONE (01:26)
[2019-01-07 04:28] LABS: Absolute Monocytes 0.4 K/uL (0.1-1.3); Absolute Neutrophil 3.5 K/uL (1.8-8.0); Basophils % 1.3 % (0-1.3); Eosinophils % 2.4 % (0-4.4); Hematocrit 31.9 % (39.6-49.0); Lymphocytes % 32.8 % (15.3-44.8); MPV 10.2 fL (7.6-11.3); Monocytes % 6.8 % (3.3-12.3); RBC Red Blood Cell Count 3.92 M/uL (4.33-5.43)
[2019-01-07 04:38] LABS: BUN Blood Urea Nitrogen 16 mg/dL (7-18); Bicarbonate 29 mmol/L (21-32); Glucose Level 206 mg/dL (74-106); Sodium Level 143 mmol/L (136-145)
[2019-01-07 04:50] LABS: Potassium 2.9 mmol/L (3.5-5.1)
[2019-01-07] MEDS ORDERED: POTASSIUM CL SA 10 MEQ TAB PO ONE ×2 (05:03→12:18)
[2019-01-07 05:40] LABS: Magnesium 1.4 mg/dL (1.8-2.4)
[2019-01-07] MEDS ORDERED: Magnesium Sulfate 2gm IVPB 2 G/50 ML BAG IV ONE (05:52)
[2019-01-07] MEDS ORDERED: KCL 20 MEQ/100 mL IVPB 20 MEQ/100 ML BAG IV SCH (06:00)
[2019-01-07] MEDS: INSULIN -REGULAR HUMAN 50 UNIT/0.5 ML ML SQ SCH ×4 (07:30→21:00)
[2019-01-07] MEDS: ENOXAPARIN 40 MG/0.4 ML SQ SCH (08:25)
[2019-01-07] MEDS: CEFTRIAXONE/SWI 1gm 1 GM/10 ML SYR IV SCH (08:26)
--- NOTE | 2019-01-07 08:49 | EKG ---
Test Date: 2019-01-06 Test Time: 15:19:31 Hydraulic Jack Mechanic: MELANIE MEASUREMENT RESULTS: Intervals: Rate: 97 MA: 206 QRSD: 104 QT: 384 QTc: 487 [place]: P: 58 MA: 206 QRS: -62 T: 81 INTERPRETIVE STATEMENTS: Normal sinus rhythm Left anterior fascicular block Septal infarct, age undetermined Abnormal ECG Compared to ECG 08/22/2018 17:14:20 Left anterior fascicular block now present Sinus tachycardia no longer present Right-axis deviation no longer present Myocardial infarct finding still present Electronically Signed On 01-07-19 08:46:17 TECHNICAL SPECIALIST [employer] by Jagjit Snyder
[2019-01-07] MEDS ORDERED: PNEUMOCOCCAL VACCINE 0.5 ML IMVAC ONE (09:00)
[2019-01-07] MEDS ORDERED: INFLUENZA VACCINE (for 3y+) 0.5 ML DOSE IMVAC ONE (09:00)
[2019-01-07 09:01] LABS: Magnesium 1.4 mg/dL (1.8-2.4); Potassium 4.3 mmol/L (3.5-5.1)
[2019-01-07] MEDS: VANCOMYCIN/NS 1 gm 1 GM/250 ML BAG IV SCH ×2 (12:37→23:17)
[2019-01-07] MEDS ORDERED: COLCHICINE 0.6 MG TAB PO PRN (16:21)
[2019-01-07] MEDS ORDERED: MAGNESIUM SULFATE 1 gm IVPB 1 GM/100 ML BAG IV ONE (18:00)
[2019-01-07] MEDS ORDERED: PROMETHAZINE 25 MG/ML VIAL IV PRN (20:42)
[2019-01-07] MEDS ORDERED: PROMETHAZINE 25 MG/ML VIAL ONE (20:56)
--- NOTE | 2019-01-07 21:40 | PN ---
Date of Progress Note: 01/07/2019 Subjective: The patient was seen and examined. Chart reviewed and case discussed with RN. The iva ent is still very weak. His blood pressure, however, has improved. States that he uses a walker at home. Medications: List reviewed. Code Status: Full. Physical Examination: Vital Signs: Temperature 98.1, heart rate 76, blood pressure 166/83, respirations 16, and O2 of 100% on room air. General: Awake, alert, and oriented x3. Elderly male, appears older than stated age, ill-appearing, frail, cachectic. BMI 19. CV: S1 and S2. Peripheral pulses are present. No murmurs. Respiratory: Clear to auscultation bilaterally. No wheezing or stridor. No use of accessory muscle s. Gastrointestinal: Abdomen is soft, nontender, and nondistended. Positive bowel sounds. No guarding or rigidity. Extremities: No clubbing, cyanosis, or edema. Neurologic: The patient has overall generalized weakness. Laboratory Data: Sodium 143, potassium 2.9, repeat potassium is 4.3, chloride 107, CO2 of 29, BUN 15 , creatinine 0.58, glucose 206, calcium 8.5, and magnesium 1.4. WBC 6.2, H and H 10.9 and 31.9, and platelets 241. Blood culture preliminary growing gram-positive cocci in clusters. Urine culture is pending. CT chest shows no acute intrathoracic abnormality. Assessment And Plan: A 68-year-old male with; 1.Acute hypertension with subsequent fall, may be due to medications currently on hold. Blood press ure has improved with IV fluid hydration. We will continue to monitor. 2.Possible bacteremia with gram-positive cocci in clusters. We will continue to monitor for ID and sensitivity. We will start with IV vancomycin. 3.Acute cystitis without hematuria. We will continue with Rocephin. 4.Hypokalemia, corrected. We will continue to monitor. 5.Hypomagnesemia, replaced. We will continue to monitor. 6.Metabolic acidosis, improving. 7.Dementia, Alzheimer type. We will continue Namenda. 8.Diabetes mellitus type 2 with long-term use of insulin with hyperglycemia. We will resume home do se of insulin. 9.Paroxysmal atrial fibrillation. We will continue with aspirin and monitor. 10.History of cerebrovascular accident. 11.Gout. Continue colchicine. 12.Hyperlipidemia. Continue statin. Plan: Continue to monitor closely. Likely discharge in the next 24 to 48 hours depending on clinica l response. /PA Voice ID: [id number] Report ID: [id number]
[2019-01-07] MEDS: ATORVASTATIN 10 MG TAB PO SCH (23:17)
[2019-01-07] MEDS: levETIRAcetam 500 MG TAB PO SCH (23:17)
[2019-01-08 07:21] LABS: Absolute Lymphocytes (CBC) 1.5 K/uL (0.7-4.9); Absolute Monocytes 0.7 K/uL (0.1-1.3); Absolute Neutrophil 15.7 K/uL (1.8-8.0); Basophils % 0.4 % (0-1.3); Eosinophils % 0.1 % (0-4.4); Hematocrit 38.3 % (39.6-49.0); Lymphocytes % 8.1 % (15.3-44.8); MPV 10.7 fL (7.6-11.3); RBC Red Blood Cell Count 4.72 M/uL (4.33-5.43)
[2019-01-08] MEDS: INSULIN -REGULAR HUMAN 50 UNIT/0.5 ML ML SQ SCH ×4 (07:30→21:00)
[2019-01-08 07:34] LABS: ALT/SGPT 12 U/L (12-78); AST/SGOT 20 U/L (15-37); Albumin 2.6 g/dL (3.4-5.0); Alkaline Phosphatase 93 U/L (45-117); BUN Blood Urea Nitrogen 10 mg/dL (7-18); Bicarbonate 24 mmol/L (21-32); Bilirubin Total 0.4 mg/dL (0.2-1.0); Glucose Level 192 mg/dL (74-106); Potassium 4.5 mmol/L (3.5-5.1); Protein, Total 6.9 g/dL (6.4-8.2); Sodium Level 141 mmol/L (136-145)
[2019-01-08] MEDS ORDERED: NA CHLORIDE 0.9% 500 ML IV ONE (07:58)
[2019-01-08 08:10] LABS: Magnesium 1.9 mg/dL (1.8-2.4)
[2019-01-08 08:22] LABS: Platelet Estimate ADEQ
[2019-01-08 08:25] LABS: Platelets, Giant PRESENT
[2019-01-08 08:26] LABS: Blood Morphology Comment NOT SEEN (NOT SEEN)
[2019-01-08] MEDS: ENOXAPARIN 40 MG/0.4 ML SQ SCH (08:45)
[2019-01-08] MEDS: LOSARTAN POTASSIUM 50 MG TABLET PO SCH (08:45)
[2019-01-08] MEDS: levETIRAcetam 500 MG TAB PO SCH ×2 (08:45→21:45)
[2019-01-08] MEDS: ASPIRIN EC 325 MG TABLET PO SCH (08:45)
[2019-01-08] MEDS: CEFTRIAXONE/SWI 1gm 1 GM/10 ML SYR IV SCH (08:45)
[2019-01-08] MEDS: VANCOMYCIN/NS 1 gm 1 GM/250 ML BAG IV SCH (08:45)
[2019-01-08] MEDS: FINASTERIDE 5 MG TAB PO SCH (08:45)
[2019-01-08] MEDS: AMLODIPINE 10 MG TAB PO SCH (08:46)
[2019-01-08] MEDS: NA CHLORIDE 0.9% 1,000 ML IV SCH ×2 (08:46→21:00)
[2019-01-08] MEDS ORDERED: VANCOMYCIN 1 GM in NA CHLORIDE 0.9% 500 ML IVPB SCH (09:00)
[2019-01-08] MEDS ORDERED: MEMANTINE HCL PO SCH (09:00)
[2019-01-08] MEDS ORDERED: HOME MED 1 EA UNK (Aspirin [Aspirin Ec 325 Mg] 325 MG) PO SCH ×2 (09:00)
[2019-01-08] MEDS ORDERED: DONEPEZIL HCL PO SCH (09:00)
[2019-01-08] MEDS ORDERED: INSULIN DEGLUDEC 65 UNIT SQ SCH (09:00)
[2019-01-08] MEDS ORDERED: HOME MED 1 EA UNK (Simvastatin [Simvastatin] 20 MG) PO SCH (09:00)
--- NOTE | 2019-01-08 11:35 | RAD REPORT ---
EXAM DESCRIPTION: RAD - Abdomen 1 View (KUB) CLINICAL HISTORY: 68 years Male, abd pain r/o obstruction COMPARISON: None FINDINGS: There are multiple mildly distended gas-filled loops of small bowel. There is a moderate amount of residual stool throughout the colon. There is no organomegaly. Vascular calcifications are demonstrated. IMPRESSION: 1. Moderate amount residual stool throughout the colon. 2. Mild gaseous distention of numerous small bowel loops suggestive of a mild ileus. Electronically signed by Nii Álvarez MD 01/07/2019 10:03 PM [employer] TEAM MEMBER Due to temporary technical issues with the PACS/Fluency reporting system, reports are being signed by the in house radiologist as a courtesy to ensure prompt reporting. The interpreting radiologist is f ully responsible for the content of the report.
--- NOTE | 2019-01-08 19:29 | PN ---
Date of Progress Note: 01/08/2019 Subjective: The patient is seen and examined. Chart reviewed, and case discussed with RN. Family at the bedside. Treatment plan explained. All questions answered. Initially, the patient was refusing SNF, however, after discussion with family, agreed to correction facility. Social workers were consulted. However, after dialysis social worker met with the family, they are now wanting to switch gears towards hospice, which was entertained during my conversation earlier. Medications: List reviewed. Physical Examination: Vital Signs: Temperature 98, heart rate 104, blood pressure 149/84, respirations 18, O2 of 98% on room air. General: Awake, alert, oriented x3. Some mild distress. An ill-appearing elderly male, frail. BMI 19. CV: S1, S2. Sinus tachycardia. No murmurs. Peripheral pulses present. Respiratory: Diminished breath sounds at the bases. Poor inspiratory effort. No wheezing. Gastrointestinal: Abdomen is soft, nontender, nondistended. Positive bowel sounds. Extremities: No clubbing, cyanosis, or edema. Neuro: The patient has generalized weakness, unable to even sit up on his own. Laboratory Data: Sodium 141, potassium 4.5, chloride 107, CO2 of 24, BUN 10, creatinine 0.54, glucose 192. Lactate 2.9, repeat lactate is 3. Calcium 8.6, magnesium 1.9, albumin 2.6. WBC 17.9, H and H 12.9 and 38.3, platelets 269, neutrophils 87%. Blood cultures showing gram-positive cocci in clusters which are likely Staph coagulase negative and skin borne organism. Urine culture growing out 4+ gram-negative rods. KUB shows moderate amount of residual stool throughout the colon. Mild gaseous distention of numerous small bowel loops, suggestive of a mild ileus. Assessment: A 68-year-old male with: 1. Acute hypotension with subsequent fall. Blood pressure now improved. The patient may have had orthostatic hypotension. Continue to monitor. Continue IV fluids. 2. Acute cystitis without hematuria secondary to gram-negative rods. Continue Rocephin. WBC count did go up, however, still afebrile. We will follow up on ID and sensitivity. 3. Possible bacteremia with gram-positive cocci in clusters. One bottle does show coagulase-negative Staph. Other bottles are still pending. The patient did receive vancomycin. 4. Hypokalemia, corrected. 5. Hypomagnesemia, replaced. 6. Metabolic acidosis, improving. 7. Dementia, Alzheimer's type. We will continue Namenda. 8. Diabetes mellitus type 2 with long-term use of insulin with hyperglycemia. We will resume home dose of insulin and monitor Accu-Cheks. 9. Paroxysmal atrial fibrillation. We will continue with aspirin. Monitor on telemetry. 10. History of cerebrovascular accident. 11. Gout. Continue colchicine. 12. Mixed hyperlipidemia. Continue statin. 13. Possibly developing sepsis secondary to urinary tract infection. The patient does have tachycardia, metabolic acidosis with elevated lactate level. White count has jumped up to 17.9. Blood cultures pending at this time. 14. Deep venous thrombosis prophylaxis with Lovenox. Plan: The patient's family now wanting to discuss hospice care. We will have hospice personnel talk to the patient and discuss further with family regarding care and comfort measures. JOSE CRUZ Voice ID: [id number] Report ID: [id number] JALYN
[2019-01-08] MEDS: ATORVASTATIN 10 MG TAB PO SCH (21:45)
[2019-01-08] MEDS: JUVEN PACKET PO SCH (21:45)
[2019-01-09] MEDS: NA CHLORIDE 0.9% 1,000 ML IV SCH ×2 (04:00→15:07)
[2019-01-09 06:27] LABS: Absolute Lymphocytes (CBC) 1.4 K/uL (0.7-4.9); Absolute Monocytes 0.7 K/uL (0.1-1.3); Absolute Neutrophil 11.7 K/uL (1.8-8.0); Basophils % 0.7 % (0-1.3); Eosinophils % 1.3 % (0-4.4); Hematocrit 36.3 % (39.6-49.0); Lymphocytes % 9.8 % (15.3-44.8); MPV 10.1 fL (7.6-11.3); Monocytes % 5.2 % (3.3-12.3)
[2019-01-09 06:38] LABS: ALT/SGPT 13 U/L (12-78); AST/SGOT 14 U/L (15-37); Albumin 2.4 g/dL (3.4-5.0); Alkaline Phosphatase 107 U/L (45-117); BUN Blood Urea Nitrogen 11 mg/dL (7-18); Bicarbonate 27 mmol/L (21-32); Bilirubin Total 0.5 mg/dL (0.2-1.0); Glucose Level 148 mg/dL (74-106); Magnesium 1.8 mg/dL (1.8-2.4); Phosphorus 2.7 mg/dL (2.5-4.9); Potassium 3.7 mmol/L (3.5-5.1); Protein, Total 6.8 g/dL (6.4-8.2); Sodium Level 142 mmol/L (136-145)
[2019-01-09] MEDS: INSULIN -REGULAR HUMAN 50 UNIT/0.5 ML ML SQ SCH ×4 (07:30→21:00)
[2019-01-09] MEDS: CEFTRIAXONE/SWI 1gm 1 GM/10 ML SYR IV SCH (08:35)
[2019-01-09] MEDS: ENOXAPARIN 40 MG/0.4 ML SQ SCH (08:35)
[2019-01-09] MEDS: FINASTERIDE 5 MG TAB PO SCH (08:36)
[2019-01-09] MEDS: AMLODIPINE 10 MG TAB PO SCH (08:36)
[2019-01-09] MEDS: levETIRAcetam 500 MG TAB PO SCH ×2 (08:39→21:11)
[2019-01-09] MEDS: LOSARTAN POTASSIUM 50 MG TABLET PO SCH (08:39)
[2019-01-09] MEDS: ASPIRIN EC 325 MG TABLET PO SCH (08:39)
[2019-01-09] MEDS: JUVEN PACKET PO SCH ×2 (08:40→21:00)
[2019-01-09] MEDS ORDERED: MAGNESIUM SULFATE 1 gm IVPB 1 GM/100 ML BAG IV ONE (09:00)
[2019-01-09] MEDS ORDERED: POTASSIUM CL SA 10 MEQ TAB PO ONE (09:00)
[2019-01-09] MEDS: Meropenem 1,000 MG in NA CHLORIDE 0.9% 100 ML IV SCH ×2 (10:34→17:35)
[2019-01-09] MEDS ORDERED: BISACODYL 10 MG RECTAL SUPP PR ONE (13:32)
[2019-01-09] MEDS: POLYETHYL GLY 3350 17 GM/DOSE PO SCH (15:05)
[2019-01-09] MEDS: DOCUSATE NA 100 MG CAP PO SCH ×2 (15:06→21:11)
--- NOTE | 2019-01-09 15:15 | PN ---
Date of Progress Note: 01/09/2019 Subjective: The patient is seen and examined. Chart reviewed and case discussed with RN. The patie nt apparently yesterday after meeting with family started on hospice care. However, today, the patie nt's urine culture is growing out ESBL Proteus, which will require long-term IV antibiotics. Medications: List reviewed. Physical Examination: Vital Signs: Temperature 98.4, heart rate 99, blood pressure 149/76, respirations 18, and O2 of 99% on room air. General: Awake, alert, and oriented x3, in some mild distress, elderly ill-appearing male, frail, BM I 19. CV: S1 and S2. Regular rate and rhythm. Peripheral pulses present. Respiratory: Diminished breath sounds at the bases. Overall, moving air well bilaterally. Gastrointestinal: Abdomen is soft, nontender, and nondistended. Positive bowel sounds. Extremities: No clubbing, cyanosis, or edema. Neurologic: Generalized weakness. Laboratory Data: Sodium 142, potassium 3.7, chloride 109, CO2 of 27, BUN 11, creatinine 0.52, glucos e 148, lactate 2.2, calcium 8.6, phosphorus 2.7, and magnesium 1.8. Albumin 2.4. WBC 14.1, H and H of 12.1 and 36.3, platelets 291, and neutrophils 83%. Urine culture growing out Proteus mirabilis, E SBL producing. Blood cultures, no growth to date, does show coagulase-negative Staph, which is likel y a contaminant. Assessment And Plan: A 68-year-old male with, 1.Acute hypotension with subsequent fall, now improved. The patient likely has orthostatic hypotens ion, has been bed-bound since August, not really working well with PT. 2.Acute cystitis without hematuria secondary to extended spectrum beta lactamase producing Proteus. We will switch antibiotics to meropenem. The patient will need PICC line and 2 weeks of IV meropene m. 3.Hypokalemia, corrected. 4.Hypomagnesemia, replaced. 5.Metabolic acidosis, improving. Lactate is trending down. We will continue with IV fluids. 6.Dementia, Alzheimer's type without behavioral disturbance, early onset. We will continue with Kristopher bucio. 7.Diabetes mellitus type 2 with long-term use of insulin with hyperglycemia. We will continue slidi ng scale insulin and monitor Accu-Cheks. 8.Paroxysmal atrial fibrillation, currently in sinus rhythm. Continue aspirin for stroke prophylaxi s. 9.History of cerebrovascular accident. 10.Gout. Continue colchicine. 11.Mixed hyperlipidemia. Continue statin. 12.Early sepsis secondary to urinary tract infection, improving. 13.Deep venous thrombosis prophylaxis with Lovenox. PLAN: Family is leaning towards hospice and is requesting more information. At this time, however, the patient will need snf facility placement for long-term IV antibiotics. At which poin t, he can transition to hospice once antibiotic treatment has been completed. Case management referr al. JACKSON/PA Voice ID: [id number] Report ID: [id number]
[2019-01-09] MEDS ORDERED: Meropenem 1000 MG/VIAL IV SCH (17:00)
--- NOTE | 2019-01-09 18:07 | RAD REPORT ---
EXAM DESCRIPTION: RAD - Chest Single View - 01/09/2019 5:45 pm CLINICAL HISTORY: Picc line place,emt COMPARISON: Abdomen 1 View (KUB) dated 01/07/2019; Chest Single View dated 01/06/2019; Chest Single Vi ew dated 08/28/2018; Chest Single View dated 08/26/2018 FINDINGS: Portable chest was obtained following placement of a left upper extremity PICC line. The c atheter tip projects over the right atrium. 2-3 cm of retraction may be considered..
[2019-01-09] MEDS: ATORVASTATIN 10 MG TAB PO SCH (21:12)
[2019-01-10] MEDS: Meropenem 1,000 MG in NA CHLORIDE 0.9% 100 ML IV SCH ×3 (02:00→16:50)
[2019-01-10] MEDS: NA CHLORIDE 0.9% 1,000 ML IV SCH ×3 (02:43→20:38)
[2019-01-10 07:25] LABS: ALT/SGPT 14 U/L (12-78); AST/SGOT 14 U/L (15-37); Albumin 2.2 g/dL (3.4-5.0); Alkaline Phosphatase 117 U/L (45-117); BUN Blood Urea Nitrogen 13 mg/dL (7-18); Bicarbonate 28 mmol/L (21-32); Bilirubin Total 0.4 mg/dL (0.2-1.0); Glucose Level 186 mg/dL (74-106); Potassium 3.1 mmol/L (3.5-5.1); Protein, Total 6.2 g/dL (6.4-8.2); Sodium Level 142 mmol/L (136-145)
[2019-01-10 07:29] LABS: Absolute Lymphocytes (CBC) 1.2 K/uL (0.7-4.9); Absolute Monocytes 0.7 K/uL (0.1-1.3); Basophils % 0.8 % (0-1.3); Eosinophils % 2.1 % (0-4.4); Hematocrit 32.7 % (39.6-49.0); Lymphocytes % 9.6 % (15.3-44.8); MPV 10.5 fL (7.6-11.3); Monocytes % 5.5 % (3.3-12.3); RBC Red Blood Cell Count 3.95 M/uL (4.33-5.43)
[2019-01-10] MEDS: INSULIN -REGULAR HUMAN 50 UNIT/0.5 ML ML SQ SCH ×4 (07:30→21:00)
[2019-01-10] MEDS: JUVEN PACKET PO SCH ×2 (08:14→20:41)
[2019-01-10] MEDS: POLYETHYL GLY 3350 17 GM/DOSE PO SCH (08:14)
[2019-01-10] MEDS: ENOXAPARIN 40 MG/0.4 ML SQ SCH (08:14)
[2019-01-10] MEDS: FINASTERIDE 5 MG TAB PO SCH (08:15)
[2019-01-10] MEDS: LOSARTAN POTASSIUM 50 MG TABLET PO SCH (08:15)
[2019-01-10] MEDS: AMLODIPINE 10 MG TAB PO SCH (08:15)
[2019-01-10] MEDS: DOCUSATE NA 100 MG CAP PO SCH ×2 (08:15→20:39)
[2019-01-10] MEDS: ASPIRIN EC 325 MG TABLET PO SCH (08:16)
[2019-01-10] MEDS: levETIRAcetam 500 MG TAB PO SCH ×2 (08:16→20:39)
[2019-01-10 09:03] VITALS: O2SAT 98
[2019-01-10] MEDS ORDERED: POTASSIUM 25 MEQ EFFERV TAB PO ONE (11:01)
--- NOTE | 2019-01-10 11:29 | RAD REPORT ---
EXAM DESCRIPTION: RAD - Abdomen Acute Series - 01/10/2019 11:16 am CLINICAL HISTORY: Abd pain FINDINGS: Air is present throughout multiple loops of small bowel borderline dilated. Stool is present througho ut the colon. This has the appearance of an adynamic ileus. Mild left basilar atelectasis is present Free air is not seen beneath the diaphragm
[2019-01-10] MEDS: POTASSIUM CL SA 10 MEQ TAB PO ONE ×2 (20:00→20:39)
[2019-01-10] MEDS: ATORVASTATIN 10 MG TAB PO SCH (20:40)
[2019-01-10] MEDS ORDERED: POTASSIUM CL 40 MEQ in NA CHLORIDE 0.9% 500 ML IV SCH (22:00)
[2019-01-10] MEDS: KCL 20 MEQ/100 mL IVPB 20 MEQ/100 ML BAG IV SCH (22:00)
--- NOTE | 2019-01-10 22:09 | PN ---
Subjective: The patient was seen and examined. Chart reviewed and case discussed with RN. No acute events overnight. The patient denies any specific complaints. Says that he has some gas and is bandar erating clear liquids. Medications: List reviewed. Physical Examination: Vital signs: Temperature 97.1, heart rate 87, blood pressure 138/83, respirations 18, and O2 98% on room air. General: Awake, alert, and oriented x3. Some mild distress, ill-appearing elderly male, frail. BMI 19. CV: S1, S2. Regular rate and rhythm. Peripheral pulses present. Respiratory: Moving air well bilaterally. Gastrointestinal: Abdomen is soft, nontender, and nondistended. Positive bowel sounds. Extremities: No clubbing, cyanosis, or edema. Neuro: The patient has generalized weakness. Laboratory Data: Sodium 142, potassium 3.1, chloride 109, CO2 28, BUN 13, creatinine 0.41, glucose 1 86, calcium 8.3, and albumin 2.2. WBC 12.2, H and H 11 and 32.7, and platelets 279. Urine culture g rowing Proteus mirabilis, ESBL producing. Blood cultures showing gram-positive cocci, coagulase-nega tive Staph contaminant. Acute abdominal series shows air present throughout multiple loops of small bowel. Borderline dilated. Stool was present throughout the colon. Appearance of adynamic ileus. Mild left basilar atelectasis is present. Free air not seen beneath the diaphragm. Assessment And Plan: A 68-year-old male with: 1.Acute hypotension and fall, improved, likely due to orthostatic hypotension. 2.Acute cystitis without hematuria secondary to ESBL-producing Proteus. Continue meropenem for 2 we eks total. 3.Hypokalemia, corrected. 4.Hypomagnesemia. Replace and monitor. 5.Metabolic acidosis, improving. 6.Adynamic ileus. The patient is on clear liquids. The patient unfortunately is very much nonmobil e by choice and is passing some minimal amounts of gas. 7.Alzheimer's dementia without behavioral disturbance, early onset. Continue Namenda. 8.Diabetes mellitus type 2 with long-term use of insulin with hyperglycemia. We will continue slidi ng scale insulin and monitor Accu-Cheks. 9.Paroxysmal atrial fibrillation, currently in sinus rhythm. Continue aspirin for stroke prophylaxi s. 10.History of CVA. 11.Gout. Continue colchicine. 12.Hyperlipidemia, statin. 13.Early sepsis secondary to UTI, improving. White count is trending down. 14.DVT prophylaxis with Lovenox. Family needs to decide if they want hospice or want to treat the patient for the ESBL E. coli. We wi ll refer to SNF on discharge once accepted. The patient can transition to hospice after antibiotics. /PA Voice ID: [id number] Report ID: [id number]
[2019-01-11] MEDS: KCL 20 MEQ/100 mL IVPB 20 MEQ/100 ML BAG IV SCH
[2019-01-11] MEDS: Meropenem 1,000 MG in NA CHLORIDE 0.9% 100 ML IV SCH ×3 (00:12→17:06)
[2019-01-11] MEDS: NA CHLORIDE 0.9% 1,000 ML IV SCH ×2 (05:43→17:05)
[2019-01-11] MEDS: INSULIN -REGULAR HUMAN 50 UNIT/0.5 ML ML SQ SCH ×4 (07:30→21:00)
[2019-01-11 07:45] LABS: Absolute Lymphocytes (CBC) 1.3 K/uL (0.7-4.9); Absolute Monocytes 0.5 K/uL (0.1-1.3); Basophils % 0.9 % (0-1.3); Eosinophils % 3.8 % (0-4.4); Hematocrit 29.7 % (39.6-49.0); Lymphocytes % 13.7 % (15.3-44.8); MPV 9.4 fL (7.6-11.3); Monocytes % 5.3 % (3.3-12.3); RBC Red Blood Cell Count 3.66 M/uL (4.33-5.43)
[2019-01-11 07:59] LABS: ALT/SGPT 18 U/L (12-78); AST/SGOT 12 U/L (15-37); Alkaline Phosphatase 116 U/L (45-117); BUN Blood Urea Nitrogen 11 mg/dL (7-18); Bicarbonate 30 mmol/L (21-32); Bilirubin Total 0.4 mg/dL (0.2-1.0); Glucose Level 119 mg/dL (74-106); Magnesium 1.6 mg/dL (1.8-2.4); Protein, Total 5.7 g/dL (6.4-8.2); Sodium Level 142 mmol/L (136-145)
[2019-01-11] MEDS ORDERED: MAGNESIUM SULFATE 1 gm IVPB 1 GM/100 ML BAG IV ONE (08:29)
[2019-01-11] MEDS ORDERED: POTASSIUM 25 MEQ EFFERV TAB PO ONE ×2 (08:30→19:41)
[2019-01-11] MEDS: JUVEN PACKET PO SCH ×2 (10:06→22:40)
[2019-01-11] MEDS: POLYETHYL GLY 3350 17 GM/DOSE PO SCH (10:07)
[2019-01-11] MEDS: FINASTERIDE 5 MG TAB PO SCH (10:08)
[2019-01-11] MEDS: AMLODIPINE 10 MG TAB PO SCH (10:09)
[2019-01-11] MEDS: levETIRAcetam 500 MG TAB PO SCH ×2 (10:09→22:40)
[2019-01-11] MEDS: DOCUSATE NA 100 MG CAP PO SCH ×2 (10:10→22:40)
[2019-01-11] MEDS: LOSARTAN POTASSIUM 50 MG TABLET PO SCH (10:10)
[2019-01-11] MEDS: ENOXAPARIN 40 MG/0.4 ML SQ SCH (10:11)
--- NOTE | 2019-01-11 14:03 | PN ---
Date of Progress Note: 01/11/2019 The patient is seen and examined. Chart reviewed and case discussed with RN. The patient is still a waiting antibiotics set up through home health. will give 2 doses and Home Health will administ er 1 dose of the meropenem. The patient seems to be tolerating his liquid diet, passing gas. Medications: List reviewed. Physical Examination: Vital Signs: Temperature 97.3, heart rate 86, blood pressure 157/74, respirations 16, O2 97% on room air. General: Awake, alert, oriented x3, elderly male, ill-appearing, frail, BUN 19. CV: S1 and S2. Regular rate and rhythm. Peripheral pulses present. Respiratory: Diminished breath sounds at the bases. No wheezing or stridor. Gastrointestinal: Abdomen is soft, nontender, nondistended. Positive bowel sounds. Extremities: No clubbing, cyanosis, or edema. Neuro: Generalized weakness. Laboratory Data: Sodium 142, potassium 3, chloride 110, CO2 30, BUN 11, creatinine 0.27, glucose 119 , calcium 8, magnesium 1.6, albumin 2. WBC 9.1, H and H 10.2 and 29.7, platelets 264, neutrophils 76 %. Urine culture, Proteus, ESBL producing. Assessment: A 68-year-old male with: 1.Acute hypertension and fall, resolved secondary to orthostatic hypotension. The patient has not r eally worked with physical therapy and not gotten up. He is essentially refusing SNF and rehab. Lalit rojas has decided for hospice. However, needs to be treated for ESBL in his urine. 2.Acute cystitis without hematuria secondary to ESBL producing Proteus. We will continue meropenem for a total of 2 weeks. 3.Sepsis, resolving. 4.Hypokalemia. Replace and monitor. 5.Hypomagnesemia. We will replace and monitor. 6.Ileus. The patient is still having flatus. No bowel movement. We will continue clear liquid diet . Unfortunately, patient is difficult to mobilize. 7.Metabolic acidosis, improving. 8.Alzheimer's dementia without behavioral disturbance, early onset. Continue Namenda. 9.Diabetes mellitus type 2 with long-term use of insulin with hyperglycemia. Continue sliding scale insulin and monitor blood glucose levels. 10.Paroxysmal atrial fibrillation, currently in sinus rhythm. Continue aspirin for stroke prophylax is. 11.History of cerebrovascular accident. 12.Gout. Continue colchicine. 13.Hyperlipidemia, statin. 14.DVT prophylaxis with Lovenox. Plan: Once antibiotics are set up through home health, we will discharge. The patient can then be tr ansitioned to hospice. JOSE CRUZ Voice ID: [id number] Report ID: [id number]
[2019-01-11] MEDS: ASPIRIN EC 325 MG TABLET PO SCH (17:04)
[2019-01-11] MEDS: ATORVASTATIN 10 MG TAB PO SCH (22:40)
[2019-01-12] MEDS: Meropenem 1,000 MG in NA CHLORIDE 0.9% 100 ML IV SCH ×3 (00:21→16:06)
[2019-01-12] MEDS: NA CHLORIDE 0.9% 1,000 ML IV SCH ×3 (00:25→16:04)
[2019-01-12 05:15] LABS: BUN Blood Urea Nitrogen 8 mg/dL (7-18); Bicarbonate 29 mmol/L (21-32); Glucose Level 131 mg/dL (74-106); Potassium 3.5 mmol/L (3.5-5.1); Sodium Level 143 mmol/L (136-145)
[2019-01-12 05:30] LABS: Magnesium 1.6 mg/dL (1.8-2.4)
[2019-01-12] MEDS ORDERED: MAGNESIUM SULFATE 1 gm IVPB 1 GM/100 ML BAG IV ONE (06:04)
[2019-01-12] MEDS ORDERED: POTASSIUM CL SA 10 MEQ TAB PO ONE (06:06)
[2019-01-12] MEDS: INSULIN -REGULAR HUMAN 50 UNIT/0.5 ML ML SQ SCH ×4 (07:30→21:00)
[2019-01-12] MEDS: FINASTERIDE 5 MG TAB PO SCH (09:00)
[2019-01-12] MEDS: LOSARTAN POTASSIUM 50 MG TABLET PO SCH (09:00)
[2019-01-12] MEDS: ENOXAPARIN 40 MG/0.4 ML SQ SCH (09:00)
[2019-01-12] MEDS: AMLODIPINE 10 MG TAB PO SCH (09:00)
[2019-01-12] MEDS: levETIRAcetam 500 MG TAB PO SCH ×2 (09:00→21:21)
[2019-01-12] MEDS: POLYETHYL GLY 3350 17 GM/DOSE PO SCH (09:00)
[2019-01-12] MEDS: ASPIRIN EC 325 MG TABLET PO SCH (09:00)
[2019-01-12] MEDS: DOCUSATE NA 100 MG CAP PO SCH ×2 (09:00→21:21)
[2019-01-12] MEDS: JUVEN PACKET PO SCH ×2 (09:00→21:21)
--- NOTE | 2019-01-12 17:28 | PN ---
Date of Progress Note: 01/12/2019 Subjective: The patient is seen and examined. Chart reviewed, and case discussed with RN. The iva ent is not very cooperative with history taking. Medications: List reviewed. Physical Examination: Vital Signs: Temperature 97.8, heart rate 66, blood pressure 147/67, respirations 18, O2 of 98% on r oom air. General: Awake, alert, oriented x3. No acute distress. An elderly male, ill appearing, somewhat di sheveled, frail. CV: S1 and S2. Regular rate and rhythm. Peripheral pulses present. Respiratory: Diminished breath sounds at the bases, otherwise moving air well bilaterally. Gastrointestinal: Abdomen is soft, not as distended as yesterday. Positive bowel sounds. Nontender . Extremities: No clubbing, cyanosis, or edema. Neuro: The patient has generalized weakness. Laboratory Data: Sodium 143, potassium 3.5, chloride 107, CO2 of 29, BUN 8, creatinine 0.32, glucose 131, calcium 8.2, magnesium 1.6. WBC pending. Urine culture growing Proteus mirabilis, ESBL produc ing. Assessment: A 68-year-old male with: 1.Acute hypotension with fall, resolved, secondary to orthostatic hypotension. 2.Acute cystitis without hematuria secondary to extended-spectrum nlvw-cjdnqykyo-eeovfgcbj Proteus. Continue meropenem for a total of 2 weeks. 3.Sepsis, resolving. 4.Hypokalemia. Will correct and monitor. 5.Hypomagnesemia. We will replace. Continue to monitor. 6.Ileus, improved. The patient passing gas. We will advance to full liquid diet. 7.Metabolic acidosis, resolved. 8.Alzheimer dementia without behavioral disturbance, early onset. We will continue Namenda. 9.Diabetes mellitus type 2 with long-term use of insulin with hyperglycemia. We will continue slidi ng scale insulin. 10.Paroxysmal atrial fibrillation, currently in sinus rhythm. Continue aspirin for stroke prophylax is. 11.History of cerebrovascular accident, stable. 12.Gout, on colchicine. 13.Hyperlipidemia, mixed. Continue statin. 14.Deep venous thrombosis prophylaxis with Lovenox. Plan: Discharge home with home health for IV antibiotics for total of 2 weeks and plan is for family to transition him to hospice afterwards. /PA Voice ID: [id number] Report ID: [id number]
[2019-01-12] MEDS: ATORVASTATIN 10 MG TAB PO SCH (21:21)
[2019-01-13] MEDS: NA CHLORIDE 0.9% 1,000 ML IV SCH ×2 (01:13→12:54)
[2019-01-13] MEDS: Meropenem 1,000 MG in NA CHLORIDE 0.9% 100 ML IV SCH ×3 (01:14→17:34)
[2019-01-13 07:24] LABS: BUN Blood Urea Nitrogen 5 mg/dL (7-18); Bicarbonate 32 mmol/L (21-32); Glucose Level 112 mg/dL (74-106); Magnesium 1.6 mg/dL (1.8-2.4); Sodium Level 142 mmol/L (136-145)
[2019-01-13] MEDS: INSULIN -REGULAR HUMAN 50 UNIT/0.5 ML ML SQ SCH ×4 (07:30→20:05)
[2019-01-13] MEDS: JUVEN PACKET PO SCH ×2 (10:19→19:53)
[2019-01-13] MEDS: POLYETHYL GLY 3350 17 GM/DOSE PO SCH (10:20)
[2019-01-13] MEDS: ASPIRIN EC 325 MG TABLET PO SCH (10:21)
[2019-01-13] MEDS: FINASTERIDE 5 MG TAB PO SCH (10:21)
[2019-01-13] MEDS: AMLODIPINE 10 MG TAB PO SCH (10:21)
[2019-01-13] MEDS: ENOXAPARIN 40 MG/0.4 ML SQ SCH (10:22)
[2019-01-13] MEDS: DOCUSATE NA 100 MG CAP PO SCH ×2 (10:22→19:52)
[2019-01-13] MEDS: levETIRAcetam 500 MG TAB PO SCH ×2 (10:22→19:53)
[2019-01-13] MEDS: LOSARTAN POTASSIUM 50 MG TABLET PO SCH (10:22)
[2019-01-13 13:17] VITALS: TEMP 97.6
[2019-01-13 16:21] VITALS: BP 137/75
[2019-01-13] MEDS ORDERED: PNEUMOCOCCAL VACCINE 0.5 ML IMVAC ONE (17:00)
[2019-01-13] MEDS ORDERED: INFLUENZA VACCINE (for 3y+) 0.5 ML DOSE IMVAC ONE (17:00)
[2019-01-13] MEDS ORDERED: POTASSIUM 25 MEQ EFFERV TAB PO ONE (17:56)
[2019-01-13] MEDS ORDERED: MAGNESIUM SULFATE 1 gm IVPB 1 GM/100 ML BAG IV ONE (18:01)
[2019-01-13] MEDS: ATORVASTATIN 10 MG TAB PO SCH (19:52)
--- NOTE | 2019-01-14 04:12 | DS ---
Date of Discharge: 01/13/2019 Consultants: None. Procedures: None. Admitting Diagnoses: 1.Hypotension. 2.Dementia, Alzheimer disease, early onset, without behavioral disturbance. 3.Diabetes mellitus type 2, without long-term use of insulin, with hyperglycemia. Discharge Diagnoses: 1.Acute hypotension with fall, resolved, secondary to orthostatic hypotension. 2.Acute cystitis without hematuria, secondary to extended-spectrum onnf-elqmhnlhd-wipmgswdw Proteus, on meropenem. 3.Sepsis, resolving. 4.Hypokalemia, replaced. 5.Hypomagnesemia, replaced. 6.Ileus, resolved. 7.Metabolic acidosis, resolved. 8.Alzheimer dementia without behavioral disturbance, early onset. 9.Diabetes mellitus type 2 with long-term use of insulin with hyperglycemia. 10.Paroxysmal atrial fibrillation, currently in sinus rhythm. 11.History of cerebrovascular accident, stable. 12.Gout. Colchicine. 13.Hyperlipidemia, mixed, on statin. Hospital Course: The patient is a 68-year-old male with diabetes, paroxysmal atrial fibrillation, an d Alzheimer's dementia, comes in with hypotension. His blood pressure was low, 101/71. This was fou nd at his PCP's office during checkup. The patient had abnormal blood work including elevated procal citonin level, thought to be septic. The patient was found to have UTI. He did have multiple electr olyte abnormalities which were corrected. For the UTI, he was started on Rocephin initially. His cu ltures then grew out Proteus, which was ESBL producing. He was switched over to meropenem on the t. The patient's blood cultures were negative. Final CT scan of the chest was also done, which show ed no acute abnormality. The patient's blood pressure improved. He was found to be orthostatic, lik audrey as the patient has been bed-bound of his own choice. Since August, he did not get up; and when he was transferred from the wheelchair to the examination table, he became orthostatic and had hypote nsive episode. The patient's blood pressure has been stable, otherwise. His blood pressure medicati ons have been restarted. He was doing well. The patient did develop an [place] [facility] [place] patient was switched over to a clear liquid diet. He was placed on a bowel regimen. He eventually did have a large bowel movement and was passing gas. The patient was able to tolerate a d iabetic diet after his ileus resolved. His sepsis improved and was resolving. His white count was n ormalized. The patient initially refused to go to SNF, did not wish to pursue any further rehab. Yessy vega was at the bedside. They at first encouraged him, and then he was willing. However, subsequent ly, the patient and the family changed their mind and wanted to pursue hospice care, which was lionel t up as the patient has been bed-bound and has no motivation or plans to do any physical therapy or g et mobilized; and due to his Alzheimer's, they wished to pursue hospice. However, at that point, uri ne cultures came back with ESBL-producing Proteus, which meant that he would require 2 weeks of IV an tibiotics with meropenem. Family, at this point, decided that they wanted to go ahead and treat the UTI first before pursuing hospice. Therefore, we switched cares again for a third time to have the p atient have IV antibiotics done at home with Home Health. However, the patient's family member state d that they were unable to afford the co-pay. Therefore, patient was again referred to [facility] facility and was finally accepted at [facility]. The patient was then discharged to [facility] in a stable condition. Activity: Fall precautions as the patient is wheelchair bound. Diet: Diabetic. Followup: Follow up with primary care physician in 2 to 3 days. Return to ER for worsening conditio n. Medications: As per medication reconciliation list. Physical Examination: General: Awake, alert, and oriented x3. CV: S1, S2. Regular rate and rhythm. Respiratory: Diminished breath sounds at the bases. Otherwise, moving air well. Gastrointestinal: Abdomen is soft, nontender, nondistended. Positive bowel sounds. Extremities: No clubbing, cyanosis, or edema. Neurologic: Nonfocal. The patient has generalized weakness. Total time spent discharging the patient was 45 minutes. /PA Voice ID: [id number] Report ID: [id number]
== END 2019-01-13 20:30 | DRG 872 ==
LOC: ER 15:08 → ERHOLD 21:57 → 4TH 22:08 → OBSVTOIN 01-07 11:16
PROVIDERS: ADMIT Internal Medicine; ATTEND Family Medicine
PROC: 02HV33Z Insertion of Infusion Device into Superior Vena Cava, Percutaneous Approach (ICD-10-PCS; principal; 2019-01-09)
PROC: B548ZZA Ultrasonography of Superior Vena Cava, Guidance (ICD-10-PCS; 2019-01-09)
DX: A41.9 Sepsis, unspecified organism (principal); N30.00 Acute cystitis without hematuria; E87.2 Acidosis; K56.0 Paralytic ileus; I95.1 Orthostatic hypotension; E87.6 Hypokalemia; E83.42 Hypomagnesemia; G30.0 Alzheimer's disease with early onset; F02.80 Dementia in other diseases classified elsewhere, unspecified severity, without behavioral disturbance, psychotic disturbance, mood disturbance, and anxiety; E11.65 Type 2 diabetes mellitus with hyperglycemia; Z79.4 Long term (current) use of insulin; I48.0 Paroxysmal atrial fibrillation; M10.9 Gout, unspecified; E78.2 Mixed hyperlipidemia; Z86.73 Personal history of transient ischemic attack (TIA), and cerebral infarction without residual deficits; B96.4 Proteus (mirabilis) (morganii) as the cause of diseases classified elsewhere; Z16.12 Extended spectrum beta lactamase (ESBL) resistance; Z91.81 History of falling; Z74.01 Bed confinement status
CPT/HCPCS: 36415; 71045; 71250; 74018; 74022; 80048; 80053; 80076; 80202; 81001; 82550; 82962; 83605; 83690; 83735; 84100; 84132; 84145; 84484; 85025; 85610; 87040; 87077; 87086; 87088; 87186; 87205; 90670; 93005; 96360; 96361; 99285; G0008; G0009; J0696; J1650; J2405; J2550; J3370; J3475; J7030; Q2035

== ENCOUNTER 2019-01-17 09:54 | Emergency (ER) | payer OTHER ==
--- OUTSIDE RECORDS SUMMARY | 2019-01-17 09:57 | XMS REPORT | Clinical Summary ---
:1950 Author Organization [facility] Address [address] [place] [address] Care Team Providers Name Role Phone Unavailable [...] Specialty Care Team Description 05/26/2018 - [facility] Internal [facility], Acute ischemic stroke ([facility]); 06/07/2018 Encounter Medicine [facility] Diabetes mellitus type 2, insulin dependent ([facility]); MD Claudine Essential hypertension; Roge Craft Mixed hyperlipidemia; MD Cayden Received tissue plasminogen activator (t-PA) less than 24 hours prior to arrival; Olga Lidia Eduardo MD Seizures ([facility]); Berta Harman Dementia with behavioral disturbance, unspecified dementia type after 01/16/2018 Immunizations Name Dates Previously Given Next Due [...] procedure are in the results section. after 01/16/2018 Results EKG-SCANNED (06/11/2018 10:00 AM CDT) Narrative Performed At RHYTHM STRIP - SCAN (06/11/2018 10:00 AM CDT) Narrative Performed At POC-Glucose meter (06/07/2018 12:08 PM CDT)Only the most recent of49 resultswithin the time period is included. POC-Glucose Meter 159 (H)Comment: TESTED AT 70 - 110 mg/dL [facility] [address] [facility] [address] Specimen Blood Performing Organization Address City/State/Zipcode Phone Number [address] [address] CENTER CBC with platelet count + automated diff (06/07/2018 5:59 AM CDT)Only the most recent of13 resultswithin the time period is included. WBC 7.0 3.5 - 10.5 K/L [facility] RBC 4.38 (L) 4.63 - 6.08 M/L [facility] Hemoglobin 12.5 (L) 13.7 - 17.5 GM/DL [facility] Hematocrit 37.0 (L) 40.1 - 51.0 % [facility] MCV 84.5 79.0 - 92.2 fL [facility] MCH 28.5 25.7 - 32.2 pg [facility] MCHC 33.8 32.3 - 36.5 GM/DL [facility] RDW 13.0 11.6 - 14.4 % [facility] Platelets 404 150 - 450 K/CU MM [facility] MPV 10.2 9.4 - 12.4 fL [facility] nRBC 0 0 - 0 /100 WBC [facility] % Neutros 58 % [facility] % Lymphs 30 % [facility] % Monos 7 % [facility] % Eos 3 % [facility] % Baso 1 % [facility] # Neutros 4.05 1.78 - 5.38 K/L [facility] # Lymphs 2.08 1.32 - 3.57 K/L [facility] # Monos 0.47 0.30 - 0.82 K/L [facility] # Eos 0.23 0.04 - 0.54 K/L [facility] # Baso 0.07 0.01 - 0.08 K/L [facility] Immature Granulocytes-Relative 1 0 - 1 % [facility] Specimen Blood Performing Organization Address City/State/Zipcode Phone Number [facility] [address] [place] [address] [phone] CENTER Basic Metabolic Panel (06/07/2018 5:59 AM CDT)Only the most recent of13 resultswithin the time period is included. Sodium 140 136 - 145 meq/L [facility] Potassium 3.8 3.5 - 5.1 meq/L [facility] Chloride 103 98 - 107 meq/L [facility] CO2 24 22 - 29 meq/L [facility] BUN 20 7 - 21 mg/dL [facility] Creatinine 0.87 0.57 - 1.25 mg/dL [facility] Glucose 102 70 - 105 mg/dL [facility] Calcium 10.3 (H) 8.4 - 10.2 mg/dL [facility] EGFR 88Comment: ESTIMATED GFR IS mL/min/1.73 sq m [facility] NOT ACCURATE CREATININE [facility] CLEARANCE IN PREDICTING GLOMERULAR FILTRATION RATE. ESTIMATED GFR IS NOT APPLICABLE FOR DIALYSIS PATIENTS. Specimen Blood Performing Organization Address City/[facility]/Zipcode Phone Number [address] [address] CENTER Uric acid (06/03/2018 4:52 AM CDT) Uric Acid 7.7 (H)Comment: Specimen 2.6 - 7.2 mg/dL [facility] slightly hemolyzed [facility] Specimen Blood - Arm, Left Performing Organization Address [facility] Phone Number [address] [address] CENTER CTA carotid (05/28/2018 1:11 PM CDT) Narrative Performed At FINAL REPORT Page [facility] [place] CT angiogram of the upper chest, neck, [...] MD Report Verified Date/Time:05/28/2018 15:02:10 Reading Location: [address] Consult Reading Room Procedure Note Interface, [...] Report Verified Date/Time: 05/28/2018 15:02:10 Reading Location: [facility] B1 [id number] Consult Reading Room Performing Organization Address City/State/Zipcode Phone Number [facility] CTA brain (05/28/2018 1:11 PM CDT) Narrative Performed At FINAL REPORT [facility] CT angiogram of the upper chest, neck, [...] MD Report Verified Date/Time:05/28/2018 15:02:10 Reading Location: [facility] C0[facility] Consult Reading Room Procedure Note Interface, External [...] Report Verified Date/Time: 05/28/2018 15:02:10 Reading Location: [address] Consult Reading Room Performing Organization Address City/State/Zipcode Phone Number [facility]IS ECHOCARDIOGRAM REPORT - SCAN (05/27/2018 1:52 PM CDT) Narrative Performed At EEG AWAKE AND DROWSY (05/27/2018 11:19 AM CDT) Narrative Performed At DATE OF TEST: 05/27/2018 [facility] RIS DATE OF REPORT : 05/27/2018 ACC: [id number] Start time: 05/27/2018 at 10:43 Stop time: 05/27/2018 at 11:04 ICD-10: R 56.9 CPT Code: 84150 HISTORY: 68 year old male with dementia [...] M.D., 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, [facility] Epilepsy [place] Procedure Note Interface, External Ris In - 05/27/2018 2:32 PM CDT DATE OF TEST: 05/27/2018 DATE OF REPORT : 05/27/2018 ACC: [id number] Start time: 05/27/2018 at 10:43 Stop time: 05/27/2018 at 11:04 ICD-10: R 56.9 CPT Code: 45787 HISTORY: 68 year old male with dementia [...] M.D., 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, [facility] [place] Performing Organization Address City/State/Zipcode Phone Number [facility] MR brain without IV contrast (05/27/2018 1:16 AM CDT) Narrative Performed At FINAL REPORT [facility] Exam: MRI brain without contrast. Comparison:None. Clinical indication: Stroke. Technique: Multiplanar multi sequential MR imaging of the brain was performed without the administration of intravenous contrast. Findings: There is generalized parenchymal atrophy. There are sfxz-jx-[id number] white matter microvascular ischemic changes. There is [...] MD Report Verified Date/Time:05/27/2018 02:49:43 Reading Location: [address] Transitional Reading Room Procedure Note Interface, External Ris In - 05/27/2018 2:51 AM CDT FINAL REPORT Exam: MRI brain without contrast. Comparison: None. Clinical indication: Stroke. Technique: Multiplanar multi sequential MR imaging of the brain was performed without the administration of intravenous contrast. Findings: There is generalized parenchymal atrophy. There are qnjd-md-jbrgkwos white matter microvascular ischemic changes. There is [...] Report Verified Date/Time: 05/27/2018 02:49:43 Reading Location: [facility] C0[facility] Transitional Reading Room Performing Organization Address City/State/Zipcode Phone Number [employer] 2D Echo W/Doppler(CW/PW/Color) with saline (05/26/2018 4:20 PM CDT) Ejection Fraction [facility] E[facility]ART[facility] MKPinterestESSON [facility] Narrative Performed At Transthoracic Echocardiography Report (TTE) [facility] ECHO HEARTLAB SingleFeed [facility] Demographics Patient NameRODRIGUEZ, Date of Study05/26/2018 BRADEN Gender Male Visit [id number] Race Unknown [id number] Number [facility] 1950 [facility] Age 68 year(s) SonographerBrian Alicia [facility] Veterinary Virologist Mick Mcmahon Interpreting Wisam Shea MD Physician [...] Study 05/26/2018 BRADEN Gender Male Visit Number [id number] Race Unknown Room Number 7512 Number Date of 1950 Referring LARRY Soni Physician VENKATASUBBA-PINZON Age 68 year(s) Hospice Clinical Supervisor Tony Vargas [facility] Veterinary Virologist Mick Mcmahon Interpreting Wisam Shea MD Physician [...] TR Gradient: 15.62 mmHg Performing Organization Address City/[facility] Phone Number [facility]ART[facility] MKCKESSON CPACS Troponin I (05/26/2018 4:02 PM CDT)Only the most recent of2 resultswithin the time period is included. Troponin I <0.01 0.00 - 0.03 ng/mL [facility] Specimen Blood - Line, Venous Narrative Performed At [facility] Troponin I (TnI) levels must be interpreted [...] disease, and persistent tachyarrhythmia. Performing Organization Address City/[facility] Phone Number [place] [phone] [place] [address] CENTER ECG 12 lead (05/26/2018 9:07 AM CDT) Narrative Performed At Ventricular Rate 81 BPM [facility] Atrial Rate 81 BPM P-R Interval 220 ms QRS Duration 108 ms Q-T Interval 402 ms QTC Calculation(Bazett) 466 ms P [place] 31 degrees R [place] -36 degrees T [place] 9 degrees Sinus rhythm with 1st degree [...] 402 ms QTC Calculation(Bazett) 466 ms P [place] 31 degrees R [place] -36 degrees T [place] 9 degrees Sinus rhythm with 1st degree A-V block Left axis deviation Possible Lateral infarct , age undetermined Prolonged QT Abnormal ECG No previous ECGs available Confirmed by MD PIPPA, KIMMY ([id number]) on 05/27/2018 3:45:30 AM Performing Organization Address City/State/Zipcode Phone Number [facility] M[facility] XR chest 1 view portable / bedside (05/26/2018 4:50 AM CDT) Narrative Performed At FINAL REPORT [facility] [email or web address] Chest, 1 view Clinical history: stroke Comparison: [...] MD Report Verified Date/Time:05/26/2018 10:27:35 Reading Location: [address] Ortho Consult Reading Room Procedure Note [...] Report Verified Date/Time: 05/26/2018 10:27:35 Reading Location: [facility] [id number] Ortho Consult Reading Room Performing Organization Address City/State/Zipcode Phone Number GE RIS Vitamin B12 and Folate (05/26/2018 3:12 AM CDT) Vitamin B12 776 213 - 816 pg/mL [facility] Folate >40.0 >=7.0 ng/mL [facility] Specimen Blood Performing Organization Address [facility] Cent[facility]ode Phone Number [address] [address] [place] TSH/Free T4 If Indicated (05/26/2018 3:12 AM CDT) TSH 1.28 0.35 - 4.94 uIU/mL [facility] Specimen Blood Performing Organization Address [facility] Centercode Phone Number [address] [address] CENTER Prothrombin time/INR (05/26/2018 3:12 AM CDT) Protime 14.8 (H) 11.7 - 14.7 seconds [facility] INR 1.2 <=5.9 [facility] Specimen Blood Narrative Performed At [facility] RECOMMENDED COUMADIN/WARFARIN INR THERAPY RANGES STANDARD DOSE: 2.0 - 3.0 Includes: PROPHYLAXIS for venous thrombosis, systemic embolization; TREATMENT for venous thrombosis and/or pulmonary embolus. HIGH RISK: Target INR is 2.5-3.5 for patients with mechanical heart valves. Performing Organization Address [facility] Phone Number [address] [address] [phone] CENTER Hemoglobin A1c (05/26/2018 3:12 AM CDT) Hemoglobin A1C 13.2 (H) 4.3 - 6.1 % [facility] Specimen Blood Performing Organization Address [facility]/Zipcode Phone Number [address] [address] [place] Hepatic function panel (05/26/2018 3:12 AM CDT) Protein, Total 7.3 6.0 - 8.3 gm/dL [facility] Albumin 4.0 3.5 - 5.0 g/dL [facility] Total Bilirubin 0.3 0.2 - 1.2 mg/dL [facility] Bilirubin, Direct 0.2 0.1 - 0.5 mg/dL [facility] Alkaline Phosphatase 107 40 - 150 U/L [facility] AST 14 5 - 34 U/L [facility] ALT 11 6 - 55 U/L [facility] Specimen Blood Narrative Performed At Fasting [facility] Performing Organization Address City/State/Zipcode Phone Number [facility] [address] [place] [address] [place] Fasting lipid panel (05/26/2018 3:12 AM CDT) Triglycerides 122 mg/dL [facility] Cholesterol 166 mg/dL [facility] HDL 40 mg/dL [facility] LDL Calculated 102 mg/dL [facility] Specimen Blood Narrative Performed At [facility] Triglyceride Reference Range: Low Risk <150 [id number] High Risk 200-499 Very High Risk>=500 Cholesterol Reference Range: Low Risk <200 [id number] High Risk>240 HDL Cholesterol Reference Range: Low Risk >=60 High Risk <40 LDL Cholesterol Reference Range: Optimal<100 Near [id number] Very High >=190 Fasting Performing Organization Address City/State/Zipcode Phone Number [facility] [address] [place] [address] CENTER after 01/16/2018 Insurance Payer Benefit Plan / Subscriber ID Type Phone Address Group [employer] - MEDICARE [employer] MEDICARE HMO xxxxxxxx [phone] [address] [employer] POS PPO [place] [id number]
--- OUTSIDE RECORDS SUMMARY | 2019-01-17 09:59 | XMS REPORT ---
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 Z79.4 Active Assessment [...] unspecified complications Problem Hypertension I10 Active Assessment assisted current use of insulin Z79.4 Active Problem [...] Status Dosage System Date Date Simvastatin ND 75973432251 40 MG Orally Once April 12, Active 1 tablet a day 2018 in the evening Viagra ND 98224438193 50 MG Orally Once Active 1 tablet a day as needed Toujeo [facility] 72858241788 300u/ml Active 68 units SoloStar subcutaneously once once daily daily and titrate up 2 units every 3 days until fbg less than 130 max of 100 units daily Amlodipine [facility] 93665006984 10 MG Orally Once Active 1 tablet Besylate a day Simvastatin [facility] 32159469101 20 MG Inactive TAKE 1 TABLET BY MOUTH EVERY DAY Finasteride [facility] 02420211299 5 MG Orally Once Active 1 tablet a day Keppra [facility] 65003239768 500 MG Orally Active 1 tablet Twice a day Cozaar [facility] 25851409700 50 MG Active TAKE 1 TABLET BY MOUTH EVERY DAY Amlodipine [facility] 56698074165 10 MG Orally Once February Active 1 tablet Besylate a day 2017 Metformin HCl [facility] 30262438341 1000 MG Orally Active 1 tablet twice a day with a meal Xarelto [facility] 37661305067 20 MG Orally Once Inactive 1 tablet a day with food Labetalol HCl [facility] 16331447120 200 MG Orally Active 1 tablet three times a day Results No Known Results Summary Purpose eClinicalWorks Submission
--- OUTSIDE RECORDS SUMMARY | 2019-01-17 09:59 | XMS REPORT ---
:1950 Author Organization [facility] Address [address] [place] [address] [address]. [address] [place] [address] Care Team Providers Name Role Phone LARRY [...] (BEAKER) (test 159 mg/dL 70-110 TESTED AT [address] vrqy=7317) [facility] [address] POCT-GLUCOSE [id number] 08:37:00 Test Item Value Reference Range Comments POC-GLUCOSE METER (BEAKER) 96 mg/dL 70-110 TESTED AT [address] (test kcfr=4514) [facility] [address] CBC W/PLT COUNT & AUTO [id number] 08:10:00 Test Item Value Reference Range Comments WHITE BLOOD CELL COUNT (BEAKER) (test keee=530) 7.0 K/ L 3.5-10.5 RED BLOOD CELL COUNT (BEAKER) (test fzgr=287) 4.38 M/ L 4.63-6.08 HEMOGLOBIN (BEAKER) (test awaa=593) 12.5 GM/DL 13.7-17.5 HEMATOCRIT (BEAKER) (test rpgt=720) 37.0 % 40.1-51.0 MEAN CORPUSCULAR VOLUME (BEAKER) (test wics=118) 84.5 fL 79.0-92.2 MEAN CORPUSCULAR HEMOGLOBIN (BEAKER) (test 28.5 pg 25.7-32.2 gpqo=947) MEAN CORPUSCULAR HEMOGLOBIN CONC (BEAKER) (test 33.8 GM/DL 32.3-36.5 hlsm=765) RED CELL DISTRIBUTION WIDTH (BEAKER) (test 13.0 % 11.6-14.4 ixvx=264) PLATELET COUNT (BEAKER) (test aymm=251) 404 K/CU MM 150-450 MEAN PLATELET VOLUME (BEAKER) (test msmc=051) 10.2 fL 9.4-12.4 NUCLEATED RED BLOOD CELLS (BEAKER) (test 0 /100 WBC 0-0 oacq=249) NEUTROPHILS RELATIVE PERCENT (BEAKER) (test 58 % xqen=270) LYMPHOCYTES RELATIVE PERCENT (BEAKER) (test 30 % bppw=337) MONOCYTES RELATIVE PERCENT (BEAKER) (test 7 % ngct=014) EOSINOPHILS RELATIVE PERCENT (BEAKER) (test 3 % znzf=872) BASOPHILS RELATIVE PERCENT (BEAKER) (test 1 % qvep=723) NEUTROPHILS ABSOLUTE COUNT (BEAKER) (test 4.05 K/ L 1.78-5.38 oakq=193) LYMPHOCYTES ABSOLUTE COUNT (BEAKER) (test 2.08 K/ L 1.32-3.57 cevn=067) MONOCYTES ABSOLUTE COUNT (BEAKER) (test 0.47 K/ L 0.30-0.82 qpbt=242) EOSINOPHILS ABSOLUTE COUNT (BEAKER) (test 0.23 K/ L 0.04-0.54 eaog=827) BASOPHILS ABSOLUTE COUNT (BEAKER) (test 0.07 K/ L 0.01-0.08 vpju=372) IMMATURE GRANULOCYTES-RELATIVE PERCENT (BEAKER) 1 % 0-1 (test wtbe=7746) BASIC METABOLIC [id number] 08:00:00 Test Item Value Reference Range Comments SODIUM (BEAKER) (test 140 meq/L 136-145 qnft=678) POTASSIUM (BEAKER) (test 3.8 meq/L 3.5-5.1 ixqb=926) CHLORIDE (BEAKER) (test 103 meq/L 98-107 kdlh=298) CO2 (BEAKER) (test 24 meq/L 22-29 cepc=034) BLOOD UREA NITROGEN 20 mg/dL 7-21 (BEAKER) (test nmbo=827) CREATININE (BEAKER) (test 0.87 mg/dL 0.57-1.25 ddsn=244) GLUCOSE RANDOM (BEAKER) 102 mg/dL 70-105 (test funu=048) CALCIUM (BEAKER) (test 10.3 mg/dL 8.4-10.2 fbvf=860) EGFR (BEAKER) (test 88 mL/min/1.73 sq m ESTIMATED GFR IS NOT zqyv=3618) ACCURATE CREATININE CLEARANCE IN PREDICTING GLOMERULAR FILTRATION RATE. ESTIMATED GFR IS NOT APPLICABLE FOR DIALYSIS PATIENTS. POCT-GLUCOSE [id number] 21:32:00 Test Item Value Reference Range Comments POC-GLUCOSE METER (BEAKER) 288 mg/dL 70-110 TESTED AT [address] (test frnh=6044) [place] [id number] POCT-GLUCOSE [id number] 17:01:00 Test Item Value Reference Range Comments POC-GLUCOSE METER (BEAKER) 263 mg/dL 70-110 TESTED AT [address] (test oafj=1083) [place] [id number] POCT-GLUCOSE [id number] 11:53:00 Test Item Value Reference Range Comments POC-GLUCOSE METER (BEAKER) 270 mg/dL 70-110 TESTED AT [address] (test lobp=2980) [place] [address] POCT-GLUCOSE [id number] 08:09:00 Test Item Value Reference Range Comments POC-GLUCOSE METER (BEAKER) 122 mg/dL 70-110 TESTED AT [address] (test gjma=2793) [place] [id number] BASIC METABOLIC [id number] 07:37:00 Test Item Value Reference Range Comments SODIUM (BEAKER) (test 138 meq/L 136-145 jtny=652) POTASSIUM (BEAKER) (test 3.9 meq/L 3.5-5.1 qihr=445) CHLORIDE (BEAKER) (test 101 meq/L 98-107 ywdy=207) CO2 (BEAKER) (test 27 meq/L 22-29 dynb=745) BLOOD UREA NITROGEN 20 mg/dL 7-21 (BEAKER) (test sjmm=166) CREATININE (BEAKER) (test 1.04 mg/dL 0.57-1.25 majk=811) GLUCOSE RANDOM (BEAKER) 176 mg/dL 70-105 (test lesx=965) CALCIUM (BEAKER) (test 10.2 mg/dL 8.4-10.2 xbfx=396) EGFR (BEAKER) (test 71 mL/min/1.73 sq m ESTIMATED GFR IS NOT qiir=8981) ACCURATE CREATININE CLEARANCE IN PREDICTING GLOMERULAR FILTRATION RATE. ESTIMATED GFR IS NOT APPLICABLE FOR DIALYSIS PATIENTS. CBC W/PLT COUNT & AUTO [id number] 05:27:00 Test Item Value Reference Range Comments WHITE BLOOD CELL COUNT (BEAKER) (test wioy=717) 7.0 K/ L 3.5-10.5 RED BLOOD CELL COUNT (BEAKER) (test trtn=030) 4.57 M/ L 4.63-6.08 HEMOGLOBIN (BEAKER) (test xnls=806) 12.8 GM/DL 13.7-17.5 HEMATOCRIT (BEAKER) (test ncjg=046) 38.2 % 40.1-51.0 MEAN CORPUSCULAR VOLUME (BEAKER) (test ucve=585) 83.6 fL 79.0-92.2 MEAN CORPUSCULAR HEMOGLOBIN (BEAKER) (test 28.0 pg 25.7-32.2 uedc=850) MEAN CORPUSCULAR HEMOGLOBIN CONC (BEAKER) (test 33.5 GM/DL 32.3-36.5 csyz=734) RED CELL DISTRIBUTION WIDTH (BEAKER) (test 12.7 % 11.6-14.4 xbka=229) PLATELET COUNT (BEAKER) (test ihrg=840) 324 K/CU MM 150-450 MEAN PLATELET VOLUME (BEAKER) (test gvwu=452) 10.7 fL 9.4-12.4 NUCLEATED RED BLOOD CELLS (BEAKER) (test 0 /100 WBC 0-0 wnpg=000) NEUTROPHILS RELATIVE PERCENT (BEAKER) (test 57 % gsrz=343) LYMPHOCYTES RELATIVE PERCENT (BEAKER) (test 30 % flmp=534) MONOCYTES RELATIVE PERCENT (BEAKER) (test 8 % oquj=656) EOSINOPHILS RELATIVE PERCENT (BEAKER) (test 4 % emgq=051) BASOPHILS RELATIVE PERCENT (BEAKER) (test 1 % joix=144) NEUTROPHILS ABSOLUTE COUNT (BEAKER) (test 3.98 K/ L 1.78-5.38 fyoj=616) LYMPHOCYTES ABSOLUTE COUNT (BEAKER) (test 2.07 K/ L 1.32-3.57 tguf=401) MONOCYTES ABSOLUTE COUNT (BEAKER) (test 0.57 K/ L 0.30-0.82 qhsg=559) EOSINOPHILS ABSOLUTE COUNT (BEAKER) (test 0.25 K/ L 0.04-0.54 zugg=377) BASOPHILS ABSOLUTE COUNT (BEAKER) (test 0.06 K/ L 0.01-0.08 ewcd=947) IMMATURE GRANULOCYTES-RELATIVE PERCENT (BEAKER) 1 % 0-1 (test uhwi=3688) POCT-GLUCOSE [id number] 21:34:00 Test Item Value Reference Range Comments POC-GLUCOSE METER (BEAKER) 345 mg/dL 70-110 TESTED AT [address] (test yuqe=3265) [facility] [address] POCT-GLUCOSE [id number] 17:04:00 Test Item Value Reference Range Comments POC-GLUCOSE METER (BEAKER) 374 mg/dL 70-110 Will Repeat Test/TESTED AT (test lsyj=2891) [address] [address] POCT-GLUCOSE [id number] 11:38:00 Test Item Value Reference Range Comments POC-GLUCOSE METER (BEAKER) 167 mg/dL 70-110 TESTED AT [address] (test fqrd=5606) [facility] [address] POCT-GLUCOSE [id number] 08:05:00 Test Item Value Reference Range Comments POC-GLUCOSE METER (BEAKER) 184 mg/dL 70-110 TESTED AT [address] (test rfjc=5717) [facility] [address] BASIC METABOLIC [id number] 07:05:00 Test Item Value Reference Range Comments SODIUM (BEAKER) (test 140 meq/L 136-145 tsbe=040) POTASSIUM (BEAKER) (test 3.5 meq/L 3.5-5.1 ivpf=224) CHLORIDE (BEAKER) (test 103 meq/L 98-107 lobx=031) CO2 (BEAKER) (test 25 meq/L 22-29 sirl=531) BLOOD UREA NITROGEN 16 mg/dL 7-21 (BEAKER) (test dkro=348) CREATININE (BEAKER) (test 0.86 mg/dL 0.57-1.25 kqvf=779) GLUCOSE RANDOM (BEAKER) 125 mg/dL 70-105 (test mhhv=724) CALCIUM (BEAKER) (test 10.1 mg/dL 8.4-10.2 nvwu=213) EGFR (BEAKER) (test 89 mL/min/1.73 sq m ESTIMATED GFR IS NOT eodi=3017) ACCURATE CREATININE CLEARANCE IN PREDICTING GLOMERULAR FILTRATION RATE. ESTIMATED GFR IS NOT APPLICABLE FOR DIALYSIS PATIENTS. CBC W/PLT COUNT & AUTO [id number] 06:23:00 Test Item Value Reference Range Comments WHITE BLOOD CELL COUNT (BEAKER) (test nwcl=092) 6.4 K/ L 3.5-10.5 RED BLOOD CELL COUNT (BEAKER) (test bvim=909) 4.85 M/ L 4.63-6.08 HEMOGLOBIN (BEAKER) (test pory=056) 13.5 GM/DL 13.7-17.5 HEMATOCRIT (BEAKER) (test tbxg=550) 42.3 % 40.1-51.0 MEAN CORPUSCULAR VOLUME (BEAKER) (test lmlp=342) 87.2 fL 79.0-92.2 MEAN CORPUSCULAR HEMOGLOBIN (BEAKER) (test 27.8 pg 25.7-32.2 aouj=085) MEAN CORPUSCULAR HEMOGLOBIN CONC (BEAKER) (test 31.9 GM/DL 32.3-36.5 kuqo=083) RED CELL DISTRIBUTION WIDTH (BEAKER) (test 12.8 % 11.6-14.4 kepr=628) PLATELET COUNT (BEAKER) (test yljg=555) 260 K/CU MM 150-450 MEAN PLATELET VOLUME (BEAKER) (test mnrk=301) 11.5 fL 9.4-12.4 NUCLEATED RED BLOOD CELLS (BEAKER) (test 0 /100 WBC 0-0 lmda=557) NEUTROPHILS RELATIVE PERCENT (BEAKER) (test 64 % npas=705) LYMPHOCYTES RELATIVE PERCENT (BEAKER) (test 25 % mjea=226) MONOCYTES RELATIVE PERCENT (BEAKER) (test 6 % srya=861) EOSINOPHILS RELATIVE PERCENT (BEAKER) (test 3 % onpf=999) BASOPHILS RELATIVE PERCENT (BEAKER) (test 1 % ybya=710) NEUTROPHILS ABSOLUTE COUNT (BEAKER) (test 4.07 K/ L 1.78-5.38 umic=623) LYMPHOCYTES ABSOLUTE COUNT (BEAKER) (test 1.60 K/ L 1.32-3.57 dwnl=492) MONOCYTES ABSOLUTE COUNT (BEAKER) (test 0.41 K/ L 0.30-0.82 ndil=802) EOSINOPHILS ABSOLUTE COUNT (BEAKER) (test 0.18 K/ L 0.04-0.54 esya=615) BASOPHILS ABSOLUTE COUNT (BEAKER) (test 0.09 K/ L 0.01-0.08 otkb=600) IMMATURE GRANULOCYTES-RELATIVE PERCENT (BEAKER) 1 % 0-1 (test pflv=6577) BASIC METABOLIC [id number] 04:08:00 Test Item Value Reference Range Comments SODIUM (BEAKER) (test 144 meq/L 136-145 iech=058) POTASSIUM (BEAKER) (test 3.2 meq/L 3.5-5.1 bwxs=889) CHLORIDE (BEAKER) (test 101 meq/L 98-107 gaba=623) CO2 (BEAKER) (test 21 meq/L 22-29 chen=493) BLOOD UREA NITROGEN 20 mg/dL 7-21 (BEAKER) (test elhk=227) CREATININE (BEAKER) (test 0.98 mg/dL 0.57-1.25 gqeq=280) GLUCOSE RANDOM (BEAKER) 104 mg/dL 70-105 (test klch=732) CALCIUM (BEAKER) (test 10.1 mg/dL 8.4-10.2 uuxw=211) EGFR (BEAKER) (test 76 mL/min/1.73 sq m ESTIMATED GFR IS NOT jvfv=9390) ACCURATE CREATININE CLEARANCE IN PREDICTING GLOMERULAR FILTRATION RATE. ESTIMATED GFR IS NOT APPLICABLE FOR DIALYSIS PATIENTS. CBC W/PLT COUNT & AUTO [id number] 04:06:00 Test Item Value Reference Range Comments WHITE BLOOD CELL COUNT (BEAKER) (test vthc=367) 6.6 K/ L 3.5-10.5 RED BLOOD CELL COUNT (BEAKER) (test aqlz=759) 4.65 M/ L 4.63-6.08 HEMOGLOBIN (BEAKER) (test stir=042) 12.8 GM/DL 13.7-17.5 HEMATOCRIT (BEAKER) (test ochi=666) 43.5 % 40.1-51.0 MEAN CORPUSCULAR VOLUME (BEAKER) (test nwmm=445) 93.5 fL 79.0-92.2 MEAN CORPUSCULAR HEMOGLOBIN (BEAKER) (test 27.5 pg 25.7-32.2 yyod=315) MEAN CORPUSCULAR HEMOGLOBIN CONC (BEAKER) (test 29.4 GM/DL 32.3-36.5 wtyc=170) RED CELL DISTRIBUTION WIDTH (BEAKER) (test 15.7 % 11.6-14.4 mbfc=225) PLATELET COUNT (BEAKER) (test ygnb=945) 309 K/CU MM 150-450 MEAN PLATELET VOLUME (BEAKER) (test leti=666) 12.1 fL 9.4-12.4 NUCLEATED RED BLOOD CELLS (BEAKER) (test 0 /100 WBC 0-0 ipqw=675) NEUTROPHILS RELATIVE PERCENT (BEAKER) (test 68 % wtmf=290) LYMPHOCYTES RELATIVE PERCENT (BEAKER) (test 20 % njfa=988) MONOCYTES RELATIVE PERCENT (BEAKER) (test 9 % haju=059) EOSINOPHILS RELATIVE PERCENT (BEAKER) (test 2 % cpvc=764) BASOPHILS RELATIVE PERCENT (BEAKER) (test 1 % voyg=421) NEUTROPHILS ABSOLUTE COUNT (BEAKER) (test 4.47 K/ L 1.78-5.38 jvof=546) LYMPHOCYTES ABSOLUTE COUNT (BEAKER) (test 1.30 K/ L 1.32-3.57 xqlx=186) MONOCYTES ABSOLUTE COUNT (BEAKER) (test 0.57 K/ L 0.30-0.82 pjkh=234) EOSINOPHILS ABSOLUTE COUNT (BEAKER) (test 0.15 K/ L 0.04-0.54 fuxw=948) BASOPHILS ABSOLUTE COUNT (BEAKER) (test 0.08 K/ L 0.01-0.08 firy=067) IMMATURE GRANULOCYTES-RELATIVE PERCENT (BEAKER) 0 % 0-1 (test xlep=0508) POCT-GLUCOSE [id number] 22:16:00 Test Item Value Reference Range Comments POC-GLUCOSE METER (BEAKER) 277 mg/dL 70-110 TESTED AT [address] (test nyyk=2074) [facility] [address] POCT-GLUCOSE [id number] 18:16:00 Test Item Value Reference Range Comments POC-GLUCOSE METER (BEAKER) 314 mg/dL 70-110 Notified HENRIETTA SUAREZ/TESTED AT [facility] (test uxod=8540) [address] [place] [address] POCT-GLUCOSE [id number] 12:17:00 Test Item Value Reference Range Comments POC-GLUCOSE METER (BEAKER) 285 mg/dL 70-110 TESTED AT [address] (test aktg=0859) [facility] [address] POCT-GLUCOSE [id number] 08:31:00 Test Item Value Reference Range Comments POC-GLUCOSE METER (BEAKER) 193 mg/dL 70-110 TESTED AT [address] (test okox=7505) [facility] [address] POCT-GLUCOSE [id number] 22:05:00 Test Item Value Reference Range Comments POC-GLUCOSE METER (BEAKER) 345 mg/dL 70-110 TESTED AT [address] (test gvzg=4387) [facility] [address] POCT-GLUCOSE [id number] 16:56:00 Test Item Value Reference Range Comments POC-GLUCOSE METER (BEAKER) 309 mg/dL 70-110 TESTED AT [address] (test dcup=4373) [facility] [address] POCT-GLUCOSE [id number] 12:27:00 Test Item Value Reference Range Comments POC-GLUCOSE METER (BEAKER) 266 mg/dL 70-110 TESTED AT [address] (test bhls=5994) [facility] [address] POCT-GLUCOSE [id number] 09:22:00 Test Item Value Reference Range Comments POC-GLUCOSE METER (BEAKER) 114 mg/dL 70-110 TESTED AT [address] (test biqv=1865) [facility] [address] URIC [id number] 05:53:00 Test Item Value Reference Range Comments URIC ACID (BEAKER) (test 7.7 mg/dL 2.6-7.2 Specimen slightly hemolyzed zlbr=180) BASIC METABOLIC [id number] 05:53:00 Test Item Value Reference Range Comments SODIUM (BEAKER) (test 139 meq/L 136-145 guyr=527) POTASSIUM (BEAKER) (test 4.1 meq/L 3.5-5.1 Specimen slightly kpdx=262) hemolyzed CHLORIDE (BEAKER) (test 104 meq/L 98-107 opxj=486) CO2 (BEAKER) (test 26 meq/L 22-29 zqoh=692) BLOOD UREA NITROGEN 19 mg/dL 7-21 (BEAKER) (test jwpd=580) CREATININE (BEAKER) (test 0.99 mg/dL 0.57-1.25 Specimen slightly pnir=324) hemolyzed GLUCOSE RANDOM (BEAKER) 136 mg/dL 70-105 (test ykyw=476) CALCIUM (BEAKER) (test 9.8 mg/dL 8.4-10.2 cmwd=446) EGFR (BEAKER) (test 75 mL/min/1.73 sq m ESTIMATED GFR IS NOT lmhe=4874) ACCURATE CREATININE CLEARANCE IN PREDICTING GLOMERULAR FILTRATION RATE. ESTIMATED GFR IS NOT APPLICABLE FOR DIALYSIS PATIENTS. CBC W/PLT COUNT & AUTO [id number] 05:38:00 Test Item Value Reference Range Comments WHITE BLOOD CELL COUNT (BEAKER) (test cfyp=581) 6.0 K/ L 3.5-10.5 RED BLOOD CELL COUNT (BEAKER) (test iisp=359) 4.30 M/ L 4.63-6.08 HEMOGLOBIN (BEAKER) (test uunf=709) 12.0 GM/DL 13.7-17.5 HEMATOCRIT (BEAKER) (test trkk=754) 36.1 % 40.1-51.0 MEAN CORPUSCULAR VOLUME (BEAKER) (test xqgo=484) 84.0 fL 79.0-92.2 MEAN CORPUSCULAR HEMOGLOBIN (BEAKER) (test 27.9 pg 25.7-32.2 yikk=441) MEAN CORPUSCULAR HEMOGLOBIN CONC (BEAKER) (test 33.2 GM/DL 32.3-36.5 wyye=184) RED CELL DISTRIBUTION WIDTH (BEAKER) (test 12.9 % 11.6-14.4 gldx=401) PLATELET COUNT (BEAKER) (test ftao=308) 303 K/CU MM 150-450 MEAN PLATELET VOLUME (BEAKER) (test hdnm=657) 10.8 fL 9.4-12.4 NUCLEATED RED BLOOD CELLS (BEAKER) (test 0 /100 WBC 0-0 uflw=608) NEUTROPHILS RELATIVE PERCENT (BEAKER) (test 54 % megy=951) LYMPHOCYTES RELATIVE PERCENT (BEAKER) (test 29 % pyyr=752) MONOCYTES RELATIVE PERCENT (BEAKER) (test 11 % hgcp=889) EOSINOPHILS RELATIVE PERCENT (BEAKER) (test 4 % yhty=121) BASOPHILS RELATIVE PERCENT (BEAKER) (test 1 % zdpa=782) NEUTROPHILS ABSOLUTE COUNT (BEAKER) (test 3.24 K/ L 1.78-5.38 puit=127) LYMPHOCYTES ABSOLUTE COUNT (BEAKER) (test 1.75 K/ L 1.32-3.57 scwp=794) MONOCYTES ABSOLUTE COUNT (BEAKER) (test 0.63 K/ L 0.30-0.82 lppz=182) EOSINOPHILS ABSOLUTE COUNT (BEAKER) (test 0.25 K/ L 0.04-0.54 vemv=975) BASOPHILS ABSOLUTE COUNT (BEAKER) (test 0.07 K/ L 0.01-0.08 jpke=775) IMMATURE GRANULOCYTES-RELATIVE PERCENT (BEAKER) 1 % 0-1 (test hmqo=4897) POCT-GLUCOSE [id number] 21:06:00 Test Item Value Reference Range Comments POC-GLUCOSE METER (BEAKER) 232 mg/dL 70-110 TESTED AT [address] (test ydsg=3544) [place] [id number] POCT-GLUCOSE [id number] 17:22:00 Test Item Value Reference Range Comments POC-GLUCOSE METER (BEAKER) 95 mg/dL 70-110 TESTED AT [address] (test yicu=4488) [place] [address] POCT-GLUCOSE [id number] 13:13:00 Test Item Value Reference Range Comments POC-GLUCOSE METER (BEAKER) 118 mg/dL 70-110 TESTED AT [address] (test tqur=0109) [place] [address] POCT-GLUCOSE [id number] 08:23:00 Test Item Value Reference Range Comments POC-GLUCOSE METER (BEAKER) 72 mg/dL 70-110 TESTED AT [address] (test fzou=7218) [place] [id number] BASIC METABOLIC [id number] 06:22:00 Test Item Value Reference Range Comments SODIUM (BEAKER) (test 137 meq/L 136-145 lxds=460) POTASSIUM (BEAKER) (test 3.4 meq/L 3.5-5.1 mwuy=038) CHLORIDE (BEAKER) (test 104 meq/L 98-107 ovpl=367) CO2 (BEAKER) (test 23 meq/L 22-29 jlas=418) BLOOD UREA NITROGEN 16 mg/dL 7-21 (BEAKER) (test edru=745) CREATININE (BEAKER) (test 0.83 mg/dL 0.57-1.25 nalj=770) GLUCOSE RANDOM (BEAKER) 102 mg/dL 70-105 (test icgt=190) CALCIUM (BEAKER) (test 9.4 mg/dL 8.4-10.2 dgko=621) EGFR (BEAKER) (test 92 mL/min/1.73 sq m ESTIMATED GFR IS NOT ctws=6870) ACCURATE CREATININE CLEARANCE IN PREDICTING GLOMERULAR FILTRATION RATE. ESTIMATED GFR IS NOT APPLICABLE FOR DIALYSIS PATIENTS. CBC W/PLT COUNT & AUTO [id number] 05:25:00 Test Item Value Reference Range Comments WHITE BLOOD CELL COUNT (BEAKER) (test mnds=038) 6.3 K/ L 3.5-10.5 RED BLOOD CELL COUNT (BEAKER) (test fmre=724) 4.03 M/ L 4.63-6.08 HEMOGLOBIN (BEAKER) (test qaak=211) 11.3 GM/DL 13.7-17.5 HEMATOCRIT (BEAKER) (test hguj=145) 33.2 % 40.1-51.0 MEAN CORPUSCULAR VOLUME (BEAKER) (test dafi=268) 82.4 fL 79.0-92.2 MEAN CORPUSCULAR HEMOGLOBIN (BEAKER) (test 28.0 pg 25.7-32.2 symo=648) MEAN CORPUSCULAR HEMOGLOBIN CONC (BEAKER) (test 34.0 GM/DL 32.3-36.5 hnnj=623) RED CELL DISTRIBUTION WIDTH (BEAKER) (test 12.8 % 11.6-14.4 qbho=506) PLATELET COUNT (BEAKER) (test mlob=422) 291 K/CU MM 150-450 MEAN PLATELET VOLUME (BEAKER) (test qosf=073) 10.7 fL 9.4-12.4 NUCLEATED RED BLOOD CELLS (BEAKER) (test 0 /100 WBC 0-0 lart=448) NEUTROPHILS RELATIVE PERCENT (BEAKER) (test 61 % qpkg=663) LYMPHOCYTES RELATIVE PERCENT (BEAKER) (test 26 % kidr=052) MONOCYTES RELATIVE PERCENT (BEAKER) (test 8 % xyng=188) EOSINOPHILS RELATIVE PERCENT (BEAKER) (test 4 % drtp=161) BASOPHILS RELATIVE PERCENT (BEAKER) (test 1 % dzve=795) NEUTROPHILS ABSOLUTE COUNT (BEAKER) (test 3.85 K/ L 1.78-5.38 jeog=945) LYMPHOCYTES ABSOLUTE COUNT (BEAKER) (test 1.65 K/ L 1.32-3.57 gqrf=151) MONOCYTES ABSOLUTE COUNT (BEAKER) (test 0.50 K/ L 0.30-0.82 bsqe=833) EOSINOPHILS ABSOLUTE COUNT (BEAKER) (test 0.23 K/ L 0.04-0.54 kzvi=420) BASOPHILS ABSOLUTE COUNT (BEAKER) (test 0.04 K/ L 0.01-0.08 idku=836) IMMATURE GRANULOCYTES-RELATIVE PERCENT (BEAKER) 0 % 0-1 (test xvds=2810) POCT-GLUCOSE [id number] 20:55:00 Test Item Value Reference Range Comments POC-GLUCOSE METER (BEAKER) 173 mg/dL 70-110 TESTED AT [address] (test equw=5629) [facility] [address] POCT-GLUCOSE [id number] 17:24:00 Test Item Value Reference Range Comments POC-GLUCOSE METER (BEAKER) 266 mg/dL 70-110 TESTED AT [address] (test bdxf=5350) [facility] [address] POCT-GLUCOSE [id number] 12:36:00 Test Item Value Reference Range Comments POC-GLUCOSE METER (BEAKER) 284 mg/dL 70-110 TESTED AT [address] (test plxr=8970) [facility] [id number] BASIC METABOLIC [id number] 07:22:00 Test Item Value Reference Range Comments SODIUM (BEAKER) (test 140 meq/L 136-145 zitn=272) POTASSIUM (BEAKER) (test 3.6 meq/L 3.5-5.1 dicg=175) CHLORIDE (BEAKER) (test 105 meq/L 98-107 wtzl=909) CO2 (BEAKER) (test 25 meq/L 22-29 ivcb=637) BLOOD UREA NITROGEN 23 mg/dL 7-21 (BEAKER) (test uats=489) CREATININE (BEAKER) (test 0.93 mg/dL 0.57-1.25 ybel=189) GLUCOSE RANDOM (BEAKER) 102 mg/dL 70-105 (test jutg=836) CALCIUM (BEAKER) (test 9.7 mg/dL 8.4-10.2 anyl=510) EGFR (BEAKER) (test 81 mL/min/1.73 sq m ESTIMATED GFR IS NOT iapj=4444) ACCURATE CREATININE CLEARANCE IN PREDICTING GLOMERULAR FILTRATION RATE. ESTIMATED GFR IS NOT APPLICABLE FOR DIALYSIS PATIENTS. CBC W/PLT COUNT & AUTO [id number] 07:02:00 Test Item Value Reference Range Comments WHITE BLOOD CELL COUNT (BEAKER) (test gdpa=786) 7.1 K/ L 3.5-10.5 RED BLOOD CELL COUNT (BEAKER) (test sdpf=376) 4.25 M/ L 4.63-6.08 HEMOGLOBIN (BEAKER) (test bhls=058) 11.8 GM/DL 13.7-17.5 HEMATOCRIT (BEAKER) (test yfmh=396) 36.1 % 40.1-51.0 MEAN CORPUSCULAR VOLUME (BEAKER) (test fzga=270) 84.9 fL 79.0-92.2 MEAN CORPUSCULAR HEMOGLOBIN (BEAKER) (test 27.8 pg 25.7-32.2 sbpj=814) MEAN CORPUSCULAR HEMOGLOBIN CONC (BEAKER) (test 32.7 GM/DL 32.3-36.5 rjux=943) RED CELL DISTRIBUTION WIDTH (BEAKER) (test 13.1 % 11.6-14.4 vfuj=898) PLATELET COUNT (BEAKER) (test tcfc=533) 262 K/CU MM 150-450 MEAN PLATELET VOLUME (BEAKER) (test mhqo=337) 12.2 fL 9.4-12.4 NUCLEATED RED BLOOD CELLS (BEAKER) (test 0 /100 WBC 0-0 xabx=090) NEUTROPHILS RELATIVE PERCENT (BEAKER) (test 69 % npmd=094) LYMPHOCYTES RELATIVE PERCENT (BEAKER) (test 19 % xjmt=692) MONOCYTES RELATIVE PERCENT (BEAKER) (test 9 % nxil=263) EOSINOPHILS RELATIVE PERCENT (BEAKER) (test 3 % yxnh=085) BASOPHILS RELATIVE PERCENT (BEAKER) (test 0 % gvhw=369) NEUTROPHILS ABSOLUTE COUNT (BEAKER) (test 4.88 K/ L 1.78-5.38 hfzo=450) LYMPHOCYTES ABSOLUTE COUNT (BEAKER) (test 1.38 K/ L 1.32-3.57 egpr=429) MONOCYTES ABSOLUTE COUNT (BEAKER) (test 0.61 K/ L 0.30-0.82 vapk=808) EOSINOPHILS ABSOLUTE COUNT (BEAKER) (test 0.20 K/ L 0.04-0.54 ofwm=700) BASOPHILS ABSOLUTE COUNT (BEAKER) (test 0.03 K/ L 0.01-0.08 bpyn=264) IMMATURE GRANULOCYTES-RELATIVE PERCENT (BEAKER) 0 % 0-1 (test ygzb=9566) POCT-GLUCOSE [id number] 21:17:00 Test Item Value Reference Range Comments POC-GLUCOSE METER (BEAKER) 337 mg/dL 70-110 TESTED AT [address] (test paxg=0605) [facility] [address] POCT-GLUCOSE [id number] 16:54:00 Test Item Value Reference Range Comments POC-GLUCOSE METER (BEAKER) 304 mg/dL 70-110 Notified HENRIETTA SUAREZ/TESTED AT [facility] (test gaie=5426) [address] [place] [id number] POCT-GLUCOSE [id number] 11:54:00 Test Item Value Reference Range Comments POC-GLUCOSE METER (BEAKER) 290 mg/dL 70-110 TESTED AT [address] (test lmvl=3257) [facility] [address] POCT-GLUCOSE [id number] 08:03:00 Test Item Value Reference Range Comments POC-GLUCOSE METER (BEAKER) 167 mg/dL 70-110 TESTED AT [address] (test hzes=5751) [facility] [address] BASIC METABOLIC [id number] 07:20:00 Test Item Value Reference Range Comments SODIUM (BEAKER) (test 137 meq/L 136-145 cmrh=233) POTASSIUM (BEAKER) (test 4.0 meq/L 3.5-5.1 sxkw=225) CHLORIDE (BEAKER) (test 105 meq/L 98-107 iqgy=415) CO2 (BEAKER) (test 22 meq/L 22-29 mivc=911) BLOOD UREA NITROGEN 21 mg/dL 7-21 (BEAKER) (test ttbw=624) CREATININE (BEAKER) (test 0.99 mg/dL 0.57-1.25 mzkf=443) GLUCOSE RANDOM (BEAKER) 172 mg/dL 70-105 (test kneo=579) CALCIUM (BEAKER) (test 9.8 mg/dL 8.4-10.2 quqc=141) EGFR (BEAKER) (test 75 mL/min/1.73 sq m ESTIMATED GFR IS NOT tkjs=7831) ACCURATE CREATININE CLEARANCE IN PREDICTING GLOMERULAR FILTRATION RATE. ESTIMATED GFR IS NOT APPLICABLE FOR DIALYSIS PATIENTS. CBC W/PLT COUNT & AUTO [id number] 07:04:00 Test Item Value Reference Range Comments WHITE BLOOD CELL COUNT (BEAKER) (test idxc=149) 8.2 K/ L 3.5-10.5 RED BLOOD CELL COUNT (BEAKER) (test osjg=451) 4.22 M/ L 4.63-6.08 HEMOGLOBIN (BEAKER) (test uvju=306) 12.0 GM/DL 13.7-17.5 HEMATOCRIT (BEAKER) (test cqhx=598) 36.1 % 40.1-51.0 MEAN CORPUSCULAR VOLUME (BEAKER) (test dfyc=483) 85.5 fL 79.0-92.2 MEAN CORPUSCULAR HEMOGLOBIN (BEAKER) (test 28.4 pg 25.7-32.2 gkqp=616) MEAN CORPUSCULAR HEMOGLOBIN CONC (BEAKER) (test 33.2 GM/DL 32.3-36.5 oswp=065) RED CELL DISTRIBUTION WIDTH (BEAKER) (test 13.2 % 11.6-14.4 sqhm=326) PLATELET COUNT (BEAKER) (test rhqu=981) 196 K/CU MM 150-450 MEAN PLATELET VOLUME (BEAKER) (test dlup=226) 12.1 fL 9.4-12.4 NUCLEATED RED BLOOD CELLS (BEAKER) (test 0 /100 WBC 0-0 easm=625) NEUTROPHILS RELATIVE PERCENT (BEAKER) (test 72 % ydmf=174) LYMPHOCYTES RELATIVE PERCENT (BEAKER) (test 17 % uzoz=876) MONOCYTES RELATIVE PERCENT (BEAKER) (test 9 % cocl=241) EOSINOPHILS RELATIVE PERCENT (BEAKER) (test 2 % skam=492) BASOPHILS RELATIVE PERCENT (BEAKER) (test 0 % hnzv=031) NEUTROPHILS ABSOLUTE COUNT (BEAKER) (test 5.89 K/ L 1.78-5.38 fshq=907) LYMPHOCYTES ABSOLUTE COUNT (BEAKER) (test 1.42 K/ L 1.32-3.57 ojtz=403) MONOCYTES ABSOLUTE COUNT (BEAKER) (test 0.72 K/ L 0.30-0.82 xoti=473) EOSINOPHILS ABSOLUTE COUNT (BEAKER) (test 0.14 K/ L 0.04-0.54 obgt=159) BASOPHILS ABSOLUTE COUNT (BEAKER) (test 0.03 K/ L 0.01-0.08 gbkb=803) IMMATURE GRANULOCYTES-RELATIVE PERCENT (BEAKER) 0 % 0-1 (test mwam=8459) POCT-GLUCOSE [id number] 21:18:00 Test Item Value Reference Range Comments POC-GLUCOSE METER (BEAKER) 412 mg/dL 70-110 TESTED AT [address] (test zrdv=6865) [facility] [address] POCT-GLUCOSE [id number] 17:07:00 Test Item Value Reference Range Comments POC-GLUCOSE METER (BEAKER) 273 mg/dL 70-110 TESTED AT [address] (test dgbq=5886) [facility] [address] POCT-GLUCOSE [id number] 12:23:00 Test Item Value Reference Range Comments POC-GLUCOSE METER (BEAKER) 267 mg/dL 70-110 TESTED AT [address] (test vgfc=8262) [facility] [address] POCT-GLUCOSE [id number] 08:28:00 Test Item Value Reference Range Comments POC-GLUCOSE METER (BEAKER) 126 mg/dL 70-110 TESTED AT [address] (test tyaz=8078) [facility] [address] CBC W/PLT COUNT & AUTO [id number] 04:59:00 Test Item Value Reference Range Comments WHITE BLOOD CELL COUNT (BEAKER) (test zmgu=892) 11.5 K/ L 3.5-10.5 RED BLOOD CELL COUNT (BEAKER) (test lxmo=923) 4.57 M/ L 4.63-6.08 HEMOGLOBIN (BEAKER) (test jall=077) 12.8 GM/DL 13.7-17.5 HEMATOCRIT (BEAKER) (test kcih=513) 37.8 % 40.1-51.0 MEAN CORPUSCULAR VOLUME (BEAKER) (test vrjz=984) 82.7 fL 79.0-92.2 MEAN CORPUSCULAR HEMOGLOBIN (BEAKER) (test 28.0 pg 25.7-32.2 pcqq=023) MEAN CORPUSCULAR HEMOGLOBIN CONC (BEAKER) (test 33.9 GM/DL 32.3-36.5 qlyb=321) RED CELL DISTRIBUTION WIDTH (BEAKER) (test 13.2 % 11.6-14.4 nhuq=840) PLATELET COUNT (BEAKER) (test xhyq=838) 194 K/CU MM 150-450 MEAN PLATELET VOLUME (BEAKER) (test oqdv=331) 11.9 fL 9.4-12.4 NUCLEATED RED BLOOD CELLS (BEAKER) (test 0 /100 WBC 0-0 hdyg=781) NEUTROPHILS RELATIVE PERCENT (BEAKER) (test 82 % oaqq=183) LYMPHOCYTES RELATIVE PERCENT (BEAKER) (test 10 % kppm=907) MONOCYTES RELATIVE PERCENT (BEAKER) (test 8 % zhhb=549) EOSINOPHILS RELATIVE PERCENT (BEAKER) (test 0 % rknb=972) BASOPHILS RELATIVE PERCENT (BEAKER) (test 0 % zazj=153) NEUTROPHILS ABSOLUTE COUNT (BEAKER) (test 9.43 K/ L 1.78-5.38 dszb=732) LYMPHOCYTES ABSOLUTE COUNT (BEAKER) (test 1.09 K/ L 1.32-3.57 rpai=070) MONOCYTES ABSOLUTE COUNT (BEAKER) (test 0.86 K/ L 0.30-0.82 orln=743) EOSINOPHILS ABSOLUTE COUNT (BEAKER) (test 0.01 K/ L 0.04-0.54 fgtj=171) BASOPHILS ABSOLUTE COUNT (BEAKER) (test 0.04 K/ L 0.01-0.08 zygk=169) IMMATURE GRANULOCYTES-RELATIVE PERCENT (BEAKER) 0 % 0-1 (test ojda=5444) BASIC METABOLIC [id number] 04:45:00 Test Item Value Reference Range Comments SODIUM (BEAKER) (test 138 meq/L 136-145 pnmx=041) POTASSIUM (BEAKER) (test 3.7 meq/L 3.5-5.1 qeyd=331) CHLORIDE (BEAKER) (test 107 meq/L 98-107 cnqd=944) CO2 (BEAKER) (test 22 meq/L 22-29 rlnl=520) BLOOD UREA NITROGEN 14 mg/dL 7-21 (BEAKER) (test fthj=501) CREATININE (BEAKER) (test 0.91 mg/dL 0.57-1.25 kbtv=524) GLUCOSE RANDOM (BEAKER) 168 mg/dL 70-105 (test ohfk=020) CALCIUM (BEAKER) (test 9.8 mg/dL 8.4-10.2 ofca=232) EGFR (BEAKER) (test 83 mL/min/1.73 sq m ESTIMATED GFR IS NOT nqoi=7599) ACCURATE CREATININE CLEARANCE IN PREDICTING GLOMERULAR FILTRATION RATE. ESTIMATED GFR IS NOT APPLICABLE FOR DIALYSIS PATIENTS. POCT-GLUCOSE [id number] 21:48:00 Test Item Value Reference Range Comments POC-GLUCOSE METER (BEAKER) 272 mg/dL 70-110 TESTED AT [address] (test mjxb=2662) [place] [id number] POCT-GLUCOSE [id number] 17:49:00 Test Item Value Reference Range Comments POC-GLUCOSE METER (BEAKER) 226 mg/dL 70-110 TESTED AT [address] (test ipwh=2181) [facility] [address] POCT-GLUCOSE [id number] 12:27:00 Test Item Value Reference Range Comments POC-GLUCOSE METER (BEAKER) 230 mg/dL 70-110 TESTED AT [address] (test jjgb=0364) [place] [id number] POCT-GLUCOSE [id number] 08:05:00 Test Item Value Reference Range Comments POC-GLUCOSE METER (BEAKER) 61 mg/dL 70-110 Notified HENRIETTA SUAREZ/TESTED AT [facility] (test ngix=1596) [address] [place] [address] BASIC METABOLIC [id number] 06:49:00 Test Item Value Reference Range Comments SODIUM (BEAKER) (test 140 meq/L 136-145 axhw=497) POTASSIUM (BEAKER) (test 3.6 meq/L 3.5-5.1 gdiy=202) CHLORIDE (BEAKER) (test 108 meq/L 98-107 zfhx=751) CO2 (BEAKER) (test 23 meq/L 22-29 brpe=302) BLOOD UREA NITROGEN 15 mg/dL 7-21 (BEAKER) (test ydnj=313) CREATININE (BEAKER) (test 0.92 mg/dL 0.57-1.25 ovic=471) GLUCOSE RANDOM (BEAKER) 75 mg/dL 70-105 (test ugik=998) CALCIUM (BEAKER) (test 9.4 mg/dL 8.4-10.2 eapc=147) EGFR (BEAKER) (test 82 mL/min/1.73 sq m ESTIMATED GFR IS NOT popn=9440) ACCURATE CREATININE CLEARANCE IN PREDICTING GLOMERULAR FILTRATION RATE. ESTIMATED GFR IS NOT APPLICABLE FOR DIALYSIS PATIENTS. CBC W/PLT COUNT & AUTO [id number] 06:43:00 Test Item Value Reference Range Comments WHITE BLOOD CELL COUNT (BEAKER) (test gfut=842) 9.4 K/ L 3.5-10.5 RED BLOOD CELL COUNT (BEAKER) (test zzaf=861) 4.15 M/ L 4.63-6.08 HEMOGLOBIN (BEAKER) (test vhgn=647) 11.9 GM/DL 13.7-17.5 HEMATOCRIT (BEAKER) (test ndzz=396) 34.4 % 40.1-51.0 MEAN CORPUSCULAR VOLUME (BEAKER) (test enwd=349) 82.9 fL 79.0-92.2 MEAN CORPUSCULAR HEMOGLOBIN (BEAKER) (test 28.7 pg 25.7-32.2 amkt=539) MEAN CORPUSCULAR HEMOGLOBIN CONC (BEAKER) (test 34.6 GM/DL 32.3-36.5 xafx=322) RED CELL DISTRIBUTION WIDTH (BEAKER) (test 13.2 % 11.6-14.4 ulmx=412) PLATELET COUNT (BEAKER) (test fupx=506) 215 K/CU MM 150-450 MEAN PLATELET VOLUME (BEAKER) (test wcsp=884) 11.9 fL 9.4-12.4 NUCLEATED RED BLOOD CELLS (BEAKER) (test 0 /100 WBC 0-0 drhx=499) NEUTROPHILS RELATIVE PERCENT (BEAKER) (test 69 % bqbo=292) LYMPHOCYTES RELATIVE PERCENT (BEAKER) (test 19 % ozby=058) MONOCYTES RELATIVE PERCENT (BEAKER) (test 12 % ricf=562) EOSINOPHILS RELATIVE PERCENT (BEAKER) (test 0 % ynli=548) BASOPHILS RELATIVE PERCENT (BEAKER) (test 0 % gfdd=311) NEUTROPHILS ABSOLUTE COUNT (BEAKER) (test 6.49 K/ L 1.78-5.38 fyfc=571) LYMPHOCYTES ABSOLUTE COUNT (BEAKER) (test 1.76 K/ L 1.32-3.57 oetr=802) MONOCYTES ABSOLUTE COUNT (BEAKER) (test 1.08 K/ L 0.30-0.82 zxme=354) EOSINOPHILS ABSOLUTE COUNT (BEAKER) (test 0.03 K/ L 0.04-0.54 ftvk=235) BASOPHILS ABSOLUTE COUNT (BEAKER) (test 0.03 K/ L 0.01-0.08 hgun=748) IMMATURE GRANULOCYTES-RELATIVE PERCENT (BEAKER) 0 % 0-1 (test hbld=7026) POCT-GLUCOSE [id number] 21:26:00 Test Item Value Reference Range Comments POC-GLUCOSE METER (BEAKER) 246 mg/dL 70-110 TESTED AT [facility] [address] (test rtlt=3371) [facility] [address] POCT-GLUCOSE [id number] 17:42:00 Test Item Value Reference Range Comments POC-GLUCOSE METER (BEAKER) 199 mg/dL 70-110 TESTED AT [facility] [address] (test hkmt=5574) [facility] [address] CT, CAROTID, [id number] 15:02:00FINAL REPORT CT angiogram of the upper [...] [place] Verified Date/Time: 05/28/2018 15:02:10 Reading Location: [address] Consult Reading Room 03 :02 [facility] [id number] 15:02:00FINAL REPORT CT angiogram of the upper [...] [place] Verified Date/Time: 05/28/2018 15:02:10 Reading Location: [place] [id number] Consult Reading Room 03 :02 PMPOCT-GLUCOSE [id number] 08:16:00 Test Item Value Reference Range Comments POC-GLUCOSE METER (BEAKER) 122 mg/dL 70-110 TESTED AT [facility] [address] (test ksee=7674) [facility] [address] BASIC METABOLIC [id number] 04:52:00 Test Item Value Reference Range Comments SODIUM (BEAKER) (test 138 meq/L 136-145 qytg=558) POTASSIUM (BEAKER) (test 3.6 meq/L 3.5-5.1 Specimen slightly qcyq=026) hemolyzed CHLORIDE (BEAKER) (test 105 meq/L 98-107 unjf=250) CO2 (BEAKER) (test 23 meq/L 22-29 xhfu=766) BLOOD UREA NITROGEN 8 mg/dL 7-21 (BEAKER) (test trhb=322) CREATININE (BEAKER) (test 0.82 mg/dL 0.57-1.25 Specimen slightly qeqd=603) hemolyzed GLUCOSE RANDOM (BEAKER) 112 mg/dL 70-105 (test dful=150) CALCIUM (BEAKER) (test 9.7 mg/dL 8.4-10.2 ahfw=479) EGFR (BEAKER) (test 94 mL/min/1.73 sq m ESTIMATED GFR IS NOT igco=0866) ACCURATE CREATININE CLEARANCE IN PREDICTING GLOMERULAR FILTRATION RATE. ESTIMATED GFR IS NOT APPLICABLE FOR DIALYSIS PATIENTS. CBC W/PLT COUNT & AUTO [id number] 04:39:00 Test Item Value Reference Range Comments WHITE BLOOD CELL COUNT (BEAKER) (test vece=289) 9.5 K/ L 3.5-10.5 RED BLOOD CELL COUNT (BEAKER) (test rioe=439) 4.99 M/ L 4.63-6.08 HEMOGLOBIN (BEAKER) (test pnmj=974) 14.2 GM/DL 13.7-17.5 HEMATOCRIT (BEAKER) (test vchj=527) 41.4 % 40.1-51.0 MEAN CORPUSCULAR VOLUME (BEAKER) (test iemw=753) 83.0 fL 79.0-92.2 MEAN CORPUSCULAR HEMOGLOBIN (BEAKER) (test 28.5 pg 25.7-32.2 wptp=228) MEAN CORPUSCULAR HEMOGLOBIN CONC (BEAKER) (test 34.3 GM/DL 32.3-36.5 gaag=601) RED CELL DISTRIBUTION WIDTH (BEAKER) (test 13.0 % 11.6-14.4 noxd=985) PLATELET COUNT (BEAKER) (test whsq=398) 200 K/CU MM 150-450 MEAN PLATELET VOLUME (BEAKER) (test ofpd=088) 11.6 fL 9.4-12.4 NUCLEATED RED BLOOD CELLS (BEAKER) (test 0 /100 WBC 0-0 eebf=554) NEUTROPHILS RELATIVE PERCENT (BEAKER) (test 72 % spjl=084) LYMPHOCYTES RELATIVE PERCENT (BEAKER) (test 19 % jden=109) MONOCYTES RELATIVE PERCENT (BEAKER) (test 9 % blhd=115) EOSINOPHILS RELATIVE PERCENT (BEAKER) (test 1 % ecvs=244) BASOPHILS RELATIVE PERCENT (BEAKER) (test 0 % wksf=634) NEUTROPHILS ABSOLUTE COUNT (BEAKER) (test 6.84 K/ L 1.78-5.38 prwd=487) LYMPHOCYTES ABSOLUTE COUNT (BEAKER) (test 1.78 K/ L 1.32-3.57 nckj=517) MONOCYTES ABSOLUTE COUNT (BEAKER) (test 0.81 K/ L 0.30-0.82 tkjp=393) EOSINOPHILS ABSOLUTE COUNT (BEAKER) (test 0.05 K/ L 0.04-0.54 ltox=768) BASOPHILS ABSOLUTE COUNT (BEAKER) (test 0.04 K/ L 0.01-0.08 lafp=206) IMMATURE GRANULOCYTES-RELATIVE PERCENT (BEAKER) 0 % 0-1 (test xdxo=0472) POCT-GLUCOSE [id number] 23:15:00 Test Item Value Reference Range Comments POC-GLUCOSE METER (BEAKER) 242 mg/dL 70-110 TESTED AT [facility] [address] (test oubv=2814) [facility] [address] POCT-GLUCOSE [id number] 17:35:00 Test Item Value Reference Range Comments POC-GLUCOSE METER (BEAKER) 268 mg/dL 70-110 TESTED AT [address] (test vabx=0117) [facility] [address] EEG AWAKE AND [id number] 14:32:00For STAT EEG- after 5 PM weekdays, weekends and holidays, page the on-call EEG TechReason for exam:->Witnessed seizureDATE OF TEST: 05/27/2018 DATE OF REPORT : 05/27/2018 ACC: [id number] EE- 1220 Start time: 05/27/2018 at 10:43 Stop time: 05/27/2018 at 11:04 ICD-10: R 56.9 CPT Code: 78266 HISTORY: 68 year old male with dementia [...] 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, [facility] Epilepsy [place] POCT-GLUCOSE [id number] 12:20:00 Test Item Value Reference Range Comments POC-GLUCOSE METER (BEAKER) 296 mg/dL 70-110 TESTED AT [place] [id number] [facility] (test avcn=9029) [facility] [address] POCT-GLUCOSE [id number] 09:46:00 Test Item Value Reference Range Comments POC-GLUCOSE METER (BEAKER) 251 mg/dL 70-110 TESTED AT [facility] [address] (test siqs=7215) [facility] [address] BASIC METABOLIC [id number] 06:21:00 Test Item Value Reference Range Comments SODIUM (BEAKER) (test 134 meq/L 136-145 bpim=238) POTASSIUM (BEAKER) (test 3.8 meq/L 3.5-5.1 yrsd=200) CHLORIDE (BEAKER) (test 103 meq/L 98-107 icdt=368) CO2 (BEAKER) (test 21 meq/L 22-29 nsjb=754) BLOOD UREA NITROGEN 10 mg/dL 7-21 (BEAKER) (test pust=635) CREATININE (BEAKER) (test 0.94 mg/dL 0.57-1.25 cqtn=101) GLUCOSE RANDOM (BEAKER) 231 mg/dL 70-105 (test ojmw=338) CALCIUM (BEAKER) (test 9.4 mg/dL 8.4-10.2 rtkm=946) EGFR (BEAKER) (test 80 mL/min/1.73 sq m ESTIMATED GFR IS NOT xguz=1815) ACCURATE CREATININE CLEARANCE IN PREDICTING GLOMERULAR FILTRATION RATE. ESTIMATED GFR IS NOT APPLICABLE FOR DIALYSIS PATIENTS. CBC W/PLT COUNT & AUTO [id number] 06:02:00 Test Item Value Reference Range Comments WHITE BLOOD CELL COUNT (BEAKER) (test pumo=445) 8.5 K/ L 3.5-10.5 RED BLOOD CELL COUNT (BEAKER) (test hmuv=050) 4.70 M/ L 4.63-6.08 HEMOGLOBIN (BEAKER) (test ezem=626) 13.1 GM/DL 13.7-17.5 HEMATOCRIT (BEAKER) (test ajup=298) 38.4 % 40.1-51.0 MEAN CORPUSCULAR VOLUME (BEAKER) (test qwsb=625) 81.7 fL 79.0-92.2 MEAN CORPUSCULAR HEMOGLOBIN (BEAKER) (test 27.9 pg 25.7-32.2 kwak=319) MEAN CORPUSCULAR HEMOGLOBIN CONC (BEAKER) (test 34.1 GM/DL 32.3-36.5 eyav=462) RED CELL DISTRIBUTION WIDTH (BEAKER) (test 13.1 % 11.6-14.4 vjrw=197) PLATELET COUNT (BEAKER) (test yzyg=558) 244 K/CU MM 150-450 MEAN PLATELET VOLUME (BEAKER) (test fxyr=598) 11.4 fL 9.4-12.4 NUCLEATED RED BLOOD CELLS (BEAKER) (test 0 /100 WBC 0-0 amtk=828) NEUTROPHILS RELATIVE PERCENT (BEAKER) (test 66 % wlrg=011) LYMPHOCYTES RELATIVE PERCENT (BEAKER) (test 24 % pjdo=112) MONOCYTES RELATIVE PERCENT (BEAKER) (test 7 % veau=414) EOSINOPHILS RELATIVE PERCENT (BEAKER) (test 1 % nxhv=524) BASOPHILS RELATIVE PERCENT (BEAKER) (test 1 % yowm=635) NEUTROPHILS ABSOLUTE COUNT (BEAKER) (test 5.59 K/ L 1.78-5.38 xqmi=048) LYMPHOCYTES ABSOLUTE COUNT (BEAKER) (test 2.06 K/ L 1.32-3.57 pahj=979) MONOCYTES ABSOLUTE COUNT (BEAKER) (test 0.61 K/ L 0.30-0.82 paen=541) EOSINOPHILS ABSOLUTE COUNT (BEAKER) (test 0.08 K/ L 0.04-0.54 nvgo=859) BASOPHILS ABSOLUTE COUNT (BEAKER) (test 0.07 K/ L 0.01-0.08 asqp=698) IMMATURE GRANULOCYTES-RELATIVE PERCENT (BEAKER) 1 % 0-1 (test rtvt=1672) MR, BRAIN, WITHOUT [id number] 02:49:00Reason for exam:->StrokeWhat is the patient's sedation requirement?->No SedationFINAL REPORT Exam: MRI brain without contrast. Comparison: None. Clinical indication: Stroke. Technique: Multiplanar multi sequential MR imaging of the brain was performed without the administration of intravenous contrast. Findings: There is generalized parenchymal atrophy.There are giyc-id-pimmcpxs white matter microvascular ischemic changes. There is [...] [place] Verified Date/Time: 05/27/2018 02:49:43 Reading Location: [facility] [id number] Transitional Reading Room POCT-GLUCOSE [id number] 22: 01:00 Test Item Value Reference Range Comments POC-GLUCOSE METER (BEAKER) 215 mg/dL 70-110 TESTED AT [address] (test wjyn=0866) [facility] [address] POCT-GLUCOSE [id number] 17:04:00 Test Item Value Reference Range Comments POC-GLUCOSE METER (BEAKER) 172 mg/dL 70-110 TESTED AT [place] [id number] [facility] (test alrv=4304) [facility] [address] TROPONIN [id number] 16:42:00 Test Item Value Reference Range Comments TROPONIN I (BEAKER) (test xlqu=864) < ng/mL 0.00-0.03 Troponin I (TnI) levels [...] neurological disease, and persistent tachyarrhythmia.VITAMIN B12 AND [id number] 13:23: 00 Test Item Value Reference Range Comments VITAMIN B12 (BEAKER) (test pzoe=271) 776 pg/mL 213-816 FOLATE (BEAKER) (test gsnf=409) > ng/mL >=7.0 TSH/FREE T4 IF [id number] 13:07:00 Test Item Value Reference Range Comments THYROID STIMULATING HORMONE (BEAKER) (test 1.28 uIU/mL 0.35-4.94 cuwb=090) POCT-GLUCOSE [id number] 11:24:00 Test Item Value Reference Range Comments POC-GLUCOSE METER (BEAKER) 329 mg/dL 70-110 TESTED AT [address] (test ilkw=2157) [facility] [address] RAD, CHEST, 1 VIEW, NON [id number] 10:27:00Reason for exam:-> strokeShould this be performed [...] acute osseous abnormality. Signed: Amrita Partida [facility] ([place], [place]) Verified Date/Time: 05/26/2018 10:27:35 Reading Location: [facility] [id number] Ortho Consult Reading Room Electronically signed by: AMRITA PARTIDA M.D. on 2017 10:27 AMTROPONIN [id number] 09:43:00 Test Item Value Reference Range Comments TROPONIN I (BEAKER) (test terd=967) 0.01 ng/mL 0.00-0.03 Troponin I (TnI) levels [...] acidosis, acute neurological disease, and persistent tachyarrhythmia.POCT-GLUCOSE [id number] 08:38:00 Test Item Value Reference Range Comments POC-GLUCOSE METER (BEAKER) 336 mg/dL 70-110 TESTED AT [address] (test cikp=8880) [facility] [address] HEMOGLOBIN [id number] 08:24:00 Test Item Value Reference Range Comments HEMOGLOBIN A1C (BEAKER) (test xcov=199) 13.2 % 4.3-6.1 POCT-GLUCOSE [id number] 07:18:00 Test Item Value Reference Range Comments POC-GLUCOSE METER (BEAKER) 365 mg/dL 70-110 TESTED AT [facility] [address] [facility] (test jsln=1200) [facility] [address] LIPID [id number] 03:38:00 Test Item Value Reference Range Comments TRIGLYCERIDES (BEAKER) (test cpav=977) 122 mg/dL CHOLESTEROL (BEAKER) (test itqo=320) 166 mg/dL HDL CHOLESTEROL (BEAKER) (test dsrj=789) 40 mg/dL LDL CHOLESTEROL CALCULATED (BEAKER) (test 102 mg/dL yueu=033) Triglyceride Reference Range: Low Risk <150 Borderline 150- 199 High Risk 200-499 Very High Risk >=500Cholesterol Reference Range: Low Risk <200 Borderline 200-239 High Risk > 240HDL Cholesterol Reference Range: Low Risk >=60 High Risk <40LDL Cholesterol Reference Range: Optimal <100 Near Optimal 100-129 Borderline 130-159 High 160-189 Very High >=190 FastingBASIC METABOLIC [id number] 03:38:00 Test Item Value Reference Range Comments SODIUM (BEAKER) (test 140 meq/L 136-145 svut=751) POTASSIUM (BEAKER) (test 3.8 meq/L 3.5-5.1 tswf=685) CHLORIDE (BEAKER) (test 103 meq/L 98-107 tccg=363) CO2 (BEAKER) (test 23 meq/L 22-29 zwal=200) BLOOD UREA NITROGEN 19 mg/dL 7-21 (BEAKER) (test bdxa=692) CREATININE (BEAKER) (test 1.30 mg/dL 0.57-1.25 bffu=369) GLUCOSE RANDOM (BEAKER) 338 mg/dL 70-105 (test lneb=326) CALCIUM (BEAKER) (test 9.9 mg/dL 8.4-10.2 kcba=199) EGFR (BEAKER) (test 55 mL/min/1.73 sq m ESTIMATED GFR IS NOT wapz=3633) ACCURATE CREATININE CLEARANCE IN PREDICTING GLOMERULAR FILTRATION RATE. ESTIMATED GFR IS NOT APPLICABLE FOR DIALYSIS PATIENTS. FastingHEPATIC FUNCTION [id number] 03:38:00 Test Item Value Reference Range Comments TOTAL PROTEIN (BEAKER) (test omto=797) 7.3 gm/dL 6.0-8.3 ALBUMIN (BEAKER) (test hohu=5715) 4.0 g/dL 3.5-5.0 BILIRUBIN TOTAL (BEAKER) (test zlcv=190) 0.3 mg/dL 0.2-1.2 BILIRUBIN DIRECT (BEAKER) (test ewic=881) 0.2 mg/dL 0.1-0.5 ALKALINE PHOSPHATASE (BEAKER) (test icti=875) 107 U/L 40-150 AST (SGOT) (BEAKER) (test kgbx=003) 14 U/L 5-34 ALT (SGPT) (BEAKER) (test fhbo=781) 11 U/L 6-55 FastingPROTHROMBIN [id number] 03:29:00 Test Item Value Reference Range Comments PROTIME (BEAKER) (test sulv=163) 14.8 seconds 11.7-14.7 INR (BEAKER) (test wjwl=946) 1.2 <=5.9 RECOMMENDED COUMADIN/WARFARIN INR THERAPY RANGESSTANDARD DOSE: 2.0 - 3.0 Includes: PROPHYLAXIS forvenous thrombosis, systemic embolization; TREATMENT for venous thrombosis and/or pulmonary embolus.HIGH RISK: Target INR is 2.5-3.5 for patients with mechanical heart valves.CBC W/PLT COUNT & AUTO [id number] 03:27:00 Test Item Value Reference Range Comments WHITE BLOOD CELL COUNT (BEAKER) (test ezwp=452) 14.0 K/ L 3.5-10.5 RED BLOOD CELL COUNT (BEAKER) (test abdl=595) 4.43 M/ L 4.63-6.08 HEMOGLOBIN (BEAKER) (test ozrb=997) 12.5 GM/DL 13.7-17.5 HEMATOCRIT (BEAKER) (test qyiq=679) 36.6 % 40.1-51.0 MEAN CORPUSCULAR VOLUME (BEAKER) (test vjbc=542) 82.6 fL 79.0-92.2 MEAN CORPUSCULAR HEMOGLOBIN (BEAKER) (test 28.2 pg 25.7-32.2 yzdn=081) MEAN CORPUSCULAR HEMOGLOBIN CONC (BEAKER) (test 34.2 GM/DL 32.3-36.5 pbgj=974) RED CELL DISTRIBUTION WIDTH (BEAKER) (test 13.0 % 11.6-14.4 mkgx=946) PLATELET COUNT (BEAKER) (test urmg=846) 248 K/CU MM 150-450 MEAN PLATELET VOLUME (BEAKER) (test mrrx=532) 11.4 fL 9.4-12.4 NUCLEATED RED BLOOD CELLS (BEAKER) (test 0 /100 WBC 0-0 gomc=399) NEUTROPHILS RELATIVE PERCENT (BEAKER) (test 84 % vpvl=734) LYMPHOCYTES RELATIVE PERCENT (BEAKER) (test 8 % gsel=008) MONOCYTES RELATIVE PERCENT (BEAKER) (test 7 % ohqg=841) EOSINOPHILS RELATIVE PERCENT (BEAKER) (test 0 % vbra=379) BASOPHILS RELATIVE PERCENT (BEAKER) (test 0 % emxs=456) NEUTROPHILS ABSOLUTE COUNT (BEAKER) (test 11.72 K/ L 1.78-5.38 loql=805) LYMPHOCYTES ABSOLUTE COUNT (BEAKER) (test 1.16 K/ L 1.32-3.57 okhv=289) MONOCYTES ABSOLUTE COUNT (BEAKER) (test 0.94 K/ L 0.30-0.82 lclt=451) EOSINOPHILS ABSOLUTE COUNT (BEAKER) (test 0.01 K/ L 0.04-0.54 nyce=912) BASOPHILS ABSOLUTE COUNT (BEAKER) (test 0.06 K/ L 0.01-0.08 igib=103) IMMATURE GRANULOCYTES-RELATIVE PERCENT (BEAKER) 1 % 0-1 (test oxtj=7416)
--- OUTSIDE RECORDS SUMMARY | 2019-01-17 09:59 | XMS REPORT ---
[...] Status Dosage System Date Date Tresiba [facility] [id number] 200 UNIT/ML Inactive INJECT FlexTouch SUB 60 UNITS DAILY Viagra [facility] [place] 48964193567 50 MG Orally Once Active 1 tablet a day as needed Finasteride ND 91095110935 5 MG Orally Once Active 1 tablet a day Amlodipine ND 56683925165 10 MG Orally Once February Active 1 tablet Besylate a day 2017 Amlodipine ND 52754149130 10 MG Orally Once February Active 1 tablet Besylate a day 2017 Xarelto [facility] [place] 04800956975 20 MG Orally Once Active 1 tablet a day with food Cozaar [facility] 80294874812 50 MG Active TAKE 1 TABLET BY MOUTH EVERY DAY Toujeo [facility] 15529584267 300u/ml FebruarySep 09, Active 68 units SoloStar subcutaneously 2017 once once daily daily and titrate up 2 units every 3 days until fbg less than 130 max of 100 units daily Simvastatin [facility] 58334880726 20 MG Active TAKE 1 TABLET BY MOUTH EVERY DAY Keppra [facility] [place] 33885472788 500 MG Orally Active 1 tablet Twice a day Metformin HCl [facility] 83869857818 1000 MG Orally Active 1 tablet twice a day with a meal Norvasc [facility] 02625981785 5 MG Orally Once Inactive 1 tablet a day Labetalol HCl [facility] 58245796668 200 MG Orally Active 1 tablet three times a day Results No Known Results Summary Purpose eClinicalWorks Submission
--- OUTSIDE RECORDS SUMMARY | 2019-01-17 09:59 | XMS REPORT ---
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
--- OUTSIDE RECORDS SUMMARY | 2019-01-17 10:00 | XMS REPORT ---
[...] mellitus with E11.8 Active unspecified complications Problem snf current use of insulin Z79.4 Active Medications No Known Medications Results No Known Results Summary Purpose eClinicalWorks Submission
--- OUTSIDE RECORDS SUMMARY | 2019-01-17 10:00 | XMS REPORT ---
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
--- OUTSIDE RECORDS SUMMARY | 2019-01-17 10:00 | XMS REPORT ---
:1950 Author Organization eClinicalWorks Care Team Providers Name Role Phone Quach, Na Provider Role Unavailable Allergies No Known Allergies Problems Problem Type Condition Code Onset Dates Condition Status Assessment Hypertension I10 Active Problem Degeneration of lumbosacral M51.37 Active intervertebral disc Assessment Mixed hyperlipidemia E78.2 Active Problem History of cerebrovascular accident Z86.73 Active Assessment Type 2 diabetes mellitus with E11.8 Active unspecified complications Problem Current use of anticoagulant therapy Z79.01 Active Problem Vascular dementia without behavioral F01.50 Active disturbance Problem Mixed hyperlipidemia E78.2 Active Problem 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 Active Problem Erectile dysfunction N52.9 Active Problem DJD (degenerative joint disease) M19.90 Active Problem Unsteady gait R26.81 Active Problem Somnolence R40.0 Active Problem Type 2 diabetes mellitus with E11.8 Active unspecified complications Problem Type 2 diabetes mellitus without E11.9 Active complications Problem Diabetes mellitus due to underlying E08.65 Active condition with hyperglycemia Problem Type 2 diabetes mellitus with E11.65 Active hyperglycemia Problem Weakness R53.1 Active Problem Atrial fibrillation I48.91 Active Problem Type 2 diabetes E11.9 Active Problem Gout M10.9 Active Problem Obesity E66.9 Active Problem Hypertension I10 Active Problem Anemia D64.9 Active Problem Elevated prostate specific antigen R97.2 Active (PSA) Medications Medication Code Code Instructions Start End Status Dosage System Date Date Metformin HCl ND 81966847783 1000 MG Active TAKE 1 TABLET BY MOUTH TWICE A DAY Finasteride ND 50813760772 5 MG Orally Once Active 1 tablet a day Indomethacin ND 62180027879 25 MG Orally PRN Dec 20, Active 1 capsule Three times a day 2018 with food or milk Toutorrey SoloStar ND 42398719980 300u/ml Active 68 units subcutaneously once daily once daily and titrate up 2 units every 3 days until fbg less than 130 max of 100 units daily Amlodipine ND 50211112676 10 MG Orally Once Active 1 tablet Besylate a day Keppra [facility] 19708093824 500 MG Orally Active 1 tablet Twice a day Aricept [facility] 26638625978 10 MG Orally Once Dec 20, Active 1 tablet a day 2018 at bedtime Cozaar [facility] 88440253892 50 MG Active TAKE 1 TABLET BY MOUTH EVERY DAY Simvastatin [facility] 61536097516 20 MG Orally Once April 12, Active 1 tablet a day 2017 in the evening Results No Known Results Summary Purpose eClinicalWorks Submission
--- OUTSIDE RECORDS SUMMARY | 2019-01-17 10:00 | XMS REPORT ---
[...] mellitus with E11.8 Active unspecified complications Problem nursing home current use of insulin Z79.4 Active Medications No Known Medications Results No Known Results Summary Purpose eClinicalWorks Submission
--- OUTSIDE RECORDS SUMMARY | 2019-01-17 10:00 | XMS REPORT ---
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
[2019-01-17 10:57] LABS: Absolute Lymphocytes (CBC) 1.3 K/uL (0.7-4.9); Absolute Monocytes 0.4 K/uL (0.1-1.3); Absolute Neutrophil 12.6 K/uL (1.8-8.0); Basophils % 0.6 % (0-1.3); Eosinophils % 0.7 % (0-4.4); Hematocrit 32.6 % (39.6-49.0); Lymphocytes % 8.7 % (15.3-44.8); MPV 7.9 fL (7.6-11.3); Monocytes % 2.5 % (3.3-12.3); RBC Red Blood Cell Count 4.05 M/uL (4.33-5.43)
[2019-01-17 11:08] LABS: ALT/SGPT 17 U/L (12-78); AST/SGOT 25 U/L (15-37); Albumin 2.1 g/dL (3.4-5.0); Alkaline Phosphatase 103 U/L (45-117); BUN Blood Urea Nitrogen 9 mg/dL (7-18); Bicarbonate 34 mmol/L (21-32); Bilirubin Total 0.1 mg/dL (0.2-1.0); Glucose Level 63 mg/dL (74-106); Potassium 4.2 mmol/L (3.5-5.1); Protein, Total 6.3 g/dL (6.4-8.2); Sodium Level 141 mmol/L (136-145)
[2019-01-17 11:22] LABS: Blood Morphology Comment NOT SEEN (NOT SEEN); Platelet Estimate ADEQ; Urine White Blood Cell Casts OK
--- NOTE | 2019-01-17 14:00 | EDPHYS ---
Physician Documentation [facility] Name: Braden Wright Age: 68 yrs Sex: Male : 1950 Arrival Date: 01/17/2019 Time: 09:59 Bed 8 Private MD: ED Physician Mynor Ureña HPI: 01/17 11:30 This 68 yrs old Male presents to ER via EMS with complaints of HYPOGLYCEMIA. pm1 11:30 The patient or guardian reports hypoglycemia, that was potentially precipitated by not pm1 eating, Treatment prior to arrival includes: EMS administered glucagon. Onset: The symptoms/episode began/occurred 3 day(s) ago. Associated signs and symptoms: Pertinent negatives: diarrhea, vomiting. Current symptoms: In the emergency department the patient's symptoms have improved. Patient at a long term since 01/13/2019 for antibiotic therapy to treat ESBL UTI with merrum. According to long term patient has not been eating for the past three days. Historical: - Allergies: 10:04 Ativan; bp 10:04 Lisinopril; bp - Home Meds: 11:11 dextrose 5 % in water (D5W) intravenous solp 70 CC/HR [Active]; Toujeo SoloStar 300 bp unit/mL (1.5 mL) subcutaneous inpn 65 unit daily [Active]; simvastatin 20 mg Oral tab 1 tab once daily [Active]; amlodipine 10 mg tab 1 tab once daily [Active]; losartan 50 mg oral tab 1 tab once daily [Active]; metformin 1,000 mg Oral tab 1 tab 2 times per day [Active]; Keppra 500 mg Oral tab 1 tab 2 times per day [Active]; colchicine 0.6 mg Oral cap 1 cap 2 times per day [Active]; Colace 100 mg oral cap 1 cap 2 times per day [Active]; Namzaric 28-10 mg oral CSpX 1 cap once daily [Active]; indomethacin 25 mg oral cap [Active]; finasteride 5 mg Oral tab 1 tab once daily [Active]; aspirin 325 mg Oral tab 1 tab once daily [Active]; - PMHx: 10:04 Alzheimers; CVA; Dementia; Gout; Hypertension; Atrial Fib; Diabetes - IDDM; bp Hyperlipidemia; Seizures; ADD/ADHD; - Immunization history:: Adult Immunizations. - Social history:: Smoking status: Patient/guardian denies using tobacco. - Ebola Screening: : Patient negative for fever greater than or equal to 101.5 degrees Fahrenheit, and additional compatible Ebola Virus Disease symptoms Patient denies exposure to infectious person Patient denies travel to an Ebola-affected area in the 21 days before illness onset No symptoms or risks identified at this time. ROS: 11:30 Constitutional: Negative for fever, chills, and weight loss, Eyes: Negative for injury, pm1 pain, redness, and discharge, ENT: Negative for injury, pain, and discharge, Neck: Negative for injury, pain, and swelling, Cardiovascular: Negative for chest pain, palpitations, and edema, Respiratory: Negative for shortness of breath, cough, wheezing, and pleuritic chest pain, Abdomen/GI: Negative for abdominal pain, nausea, vomiting, diarrhea, and constipation, Back: Negative for injury and pain, : Negative for injury, bleeding, discharge, and swelling, MS/Extremity: Negative for injury and deformity, Skin: Negative for injury, rash, and discoloration, Neuro: Negative for headache, weakness, numbness, tingling, and seizure, Patient at baseline dementia Exam: 11:30 Constitutional: This is a well developed, well nourished patient who is awake, alert, pm1 and in no acute distress. Head/Face: Normocephalic, atraumatic. Eyes: Pupils equal round and reactive to light, extra-ocular motions intact. Lids and lashes normal. Conjunctiva and sclera are non-icteric and not injected. Cornea within normal limits. Periorbital areas with no swelling, redness, or edema. ENT: Nares patent. No nasal discharge, no septal abnormalities noted. Tympanic membranes are normal and external auditory canals are clear. Oropharynx with no redness, swelling, or masses, exudates, or evidence of obstruction, uvula midline. Mucous membranes moist. Neck: Trachea midline, no thyromegaly or masses palpated, and no cervical lymphadenopathy. Supple, full range of motion without nuchal rigidity, or vertebral point tenderness. No Meningismus. Chest/axilla: Normal chest wall appearance and motion. Nontender with no deformity. No lesions are appreciated. Cardiovascular: Regular rate and rhythm with a normal S1 and S2. No gallops, murmurs, or rubs. Normal PMI, no JVD. No pulse deficits. Respiratory: Lungs have equal breath sounds bilaterally, clear to auscultation and percussion. No rales, rhonchi or wheezes noted. No increased work of breathing, no retractions or nasal flaring. Abdomen/GI: Soft, non-tender, with normal bowel sounds. No distension or tympany. No guarding or rebound. No evidence of tenderness throughout. Back: No spinal tenderness. No costovertebral tenderness. Full range of motion. Skin: Warm, dry with normal turgor. Normal color with no rashes, no lesions, and no evidence of cellulitis. MS/ Extremity: Pulses equal, no cyanosis. Neurovascular intact. Full, normal range of motion. 11:30 Neuro: Orientation: to person, place, Mentation: baseline dementia, Motor: strength is 5/5 in the right arm and left arm, Strength is 1/5 in the right leg and left leg, baseline strength from CVA. Vital Signs: 10:04 BP 139 / 69; Pulse 82; Resp 16; Temp 96; Pulse Ox 100% ; Weight 58.97 kg; Height 5 ft. bp 6 in. (167.64 cm); 10:59 BP 123 / 71; Pulse 95; Resp 16 S; Pulse Ox 99% on R/A; jl7 12:00 BP 96 / 44; Pulse 93; Resp 13; Pulse Ox 100% ; bp 13:00 BP 116 / 67; Pulse 91; Resp 16; Pulse Ox 99% ; bp 13:58 BP 125 / 77; Pulse 85; Resp 16; Pulse Ox 99% ; bp 10:04 Body Mass Index 20.98 (58.97 kg, 167.64 cm) bp MDM: 10:18 Patient medically screened. pm1 12:01 Data reviewed: vital signs. Data interpreted: Pulse oximetry: on room air is 99 %. pm1 Interpretation: normal. 12:02 ED course: Patient has not been given toujeo since 01/15/2019. Kylee SHRESTHA verified by pm1 contacting long term. Patient has been eating without any difficulty in the ER. 13:59 Counseling: I had a detailed discussion with the patient and/or guardian regarding: the pm1 historical points, exam findings, and any diagnostic results supporting the discharge/admit diagnosis, lab results, the need for outpatient follow up, to return to the emergency department if symptoms worsen or persist or if there are any questions or concerns that arise at home. 14:00 ED course: Patient ate a sandwich and a regular tray of food without difficulty. Blood pm1 sugar stable with food . 01/17 10:17 Order name: CBC with Diff; Complete Time: 11:27 pm1 01/17 10:17 Order name: CMP; Complete Time: 11:10 pm1 01/17 10:17 Order name: Diet Regular; Complete Time: 10:17 iw 01/17 10:17 Order name: IV Saline Lock; Complete Time: 10:31 pm1 01/17 10:17 Order name: Diet Regular; Complete Time: 10:17 pm1 01/17 11:01 Order name: CBC Smear Scan; Complete Time: 11:27 EDMS 01/17 12:38 Order name: Finger Stick; Complete Time: 13:00 pm1 Administered Medications: No medications were administered Point of Care Testing: Blood Glucose: 13:09 Blood Glucose: 102 mg/dL; jb1 15:15 Blood Glucose: 116 mg/dL; jl7 Ranges: Critical Glucose Levels:Adult <50 mg/dl or >400 mg/dl <40 mg/dl or >180 mg/dl Disposition: 01/17/19 14:00 Discharged to Home. Impression: Hypoglycemia, unspecified. - Condition is Stable. - Discharge Instructions: Hypoglycemia, Blood Glucose Monitoring, Adult. - Medication Reconciliation Form, Thank You Letter, Antibiotic Education, Prescription Opioid Use form. - Follow up: Emergency Department; When: As needed; Reason: Worsening of condition. Follow up: Private Physician; When: 2 - 3 days; Reason: Recheck today's complaints, Continuance of care, Re-evaluation by your physician. - Problem is new. - Symptoms have improved. Addendum: 01/22/2019 11:57 Co-signature as Attending Physician, Mynor Ureña MD I agree with the assessment and k dr plan of care. Signatures: Dispatcher [employer] [facility] Mynor Ureña MD MD kdr Anthony Bowie, TESTING DIRECTOR TESTING DIRECTOR pm1 Tony Uriostegui RN RN bp Corrections: (The following items were deleted from the chart) 01/17 15:45 14:00 01/17/2019 14:00 Discharged to Home. Impression: Hypoglycemia, unspecified. bp Condition is Stable. Forms are Medication Reconciliation Form, Thank You Letter, Antibiotic Education, Prescription Opioid Use. Follow up: Emergency Department; When: As needed; Reason: Worsening of condition. Follow up: Private Physician; When: 2 - 3 days; Reason: Recheck today's complaints, Continuance of care, Re-evaluation by your physician. Problem is new. Symptoms have improved. pm1
--- NOTE | 2019-01-17 14:00 | ER ---
Nurse's Notes [facility] Name: Braden Wright Age: 68 yrs Sex: Male : 1950 Arrival Date: 01/17/2019 Time: 09:59 Bed 8 Private MD: Diagnosis: Hypoglycemia, unspecified Presentation: 01/17 09:59 Presenting complaint: EMS states: HYPOGLYCEMIC AT [facility], DYSPHAGIA. bp Transition of care: patient was received from another setting of care (long-term care facility), [facility]. Onset of symptoms is unknown. Risk Assessment: Do you want to hurt yourself or someone else? Patient reports no desire to harm self or others. Initial Sepsis Screen: Does the patient meet any 2 criteria? No. Patient's initial sepsis screen is negative. Does the patient have a suspected source of infection? No. Patient's initial sepsis screen is negative. Care prior to arrival: Glucose check: 105. 09:59 Method Of Arrival: EMS: [facility] bp 09:59 Acuity: RITA 2 bp Triage Assessment: 10:04 General: Appears in no apparent distress. comfortable, unkempt, Behavior is calm, bp cooperative, appropriate for age. Pain: Denies pain. EENT: No deficits noted. Neuro: Level of Consciousness is awake, alert, confused, Oriented to person, place, situation. Cardiovascular: No deficits noted. Respiratory: Airway is patent Respiratory effort is even, unlabored, Respiratory pattern is regular, symmetrical. GI: No signs and/or symptoms were reported involving the gastrointestinal system. : No signs and/or symptoms were reported regarding the genitourinary system. Derm: No deficits noted. Musculoskeletal: Circulation, motion, and sensation intact. Range of motion: limited in left hip, left knee, right hip and right knee. Historical: - Allergies: 10:04 Ativan; bp 10:04 Lisinopril; bp - Home Meds: 11:11 dextrose 5 % in water (D5W) intravenous solp 70 CC/HR [Active]; Toujeo SoloStar 300 bp unit/mL (1.5 mL) subcutaneous inpn 65 unit daily [Active]; simvastatin 20 mg Oral tab 1 tab once daily [Active]; amlodipine 10 mg tab 1 tab once daily [Active]; losartan 50 mg oral tab 1 tab once daily [Active]; metformin 1,000 mg Oral tab 1 tab 2 times per day [Active]; Keppra 500 mg Oral tab 1 tab 2 times per day [Active]; colchicine 0.6 mg Oral cap 1 cap 2 times per day [Active]; Colace 100 mg oral cap 1 cap 2 times per day [Active]; Namzaric 28-10 mg oral CSpX 1 cap once daily [Active]; indomethacin 25 mg oral cap [Active]; finasteride 5 mg Oral tab 1 tab once daily [Active]; aspirin 325 mg Oral tab 1 tab once daily [Active]; - PMHx: 10:04 Alzheimers; CVA; Dementia; Gout; Hypertension; Atrial Fib; Diabetes - IDDM; bp Hyperlipidemia; Seizures; ADD/ADHD; - Immunization history:: Adult Immunizations. - Social history:: Smoking status: Patient/guardian denies using tobacco. - Ebola Screening: : Patient negative for fever greater than or equal to 101.5 degrees Fahrenheit, and additional compatible Ebola Virus Disease symptoms Patient denies exposure to infectious person Patient denies travel to an Ebola-affected area in the 21 days before illness onset No symptoms or risks identified at this time. Screenin:10 Abuse screen: Denies threats or abuse. Denies injuries from another. Nutritional bp screening: No deficits noted. Tuberculosis screening: No symptoms or risk factors identified. Fall Risk None identified. Assessment: 10:11 General: SEE TRIAGE TAB. bp 11:11 Reassessment: correction staff reports they have held pt's insulin since Jan 15 due iw to the fluctuation of his blood sugar, states that pt refuses to eat and purses his lips and spits out the GlucaGel when they attempt to administer it. Pt has only been at facility since Jan 13, yesterday pt was started on D5 drip and blood sugar dropped, today pt was given glucagon injection and his sugar still dropped into the 40's, at that point the facility doctor advised pt be evaluated in ER. 12:00 Reassessment: SANDWICH PROVDIED, PT EATING WITHOUT DIFFICULTY. bp 13:00 Reassessment: PT EATING MEAL TRAY, VS AND BGL STABLE. bp 14:14 Reassessment: REPORT TO [facility], TRANSPORT PENDING. bp 15:44 Reassessment: PT RONAK WITH TRANSPORT. bp Vital Signs: 10:04 BP 139 / 69; Pulse 82; Resp 16; Temp 96; Pulse Ox 100% ; Weight 58.97 kg; Height 5 ft. bp 6 in. (167.64 cm); 10:59 BP 123 / 71; Pulse 95; Resp 16 S; Pulse Ox 99% on R/A; jl7 12:00 BP 96 / 44; Pulse 93; Resp 13; Pulse Ox 100% ; bp 13:00 BP 116 / 67; Pulse 91; Resp 16; Pulse Ox 99% ; bp 13:58 BP 125 / 77; Pulse 85; Resp 16; Pulse Ox 99% ; bp 10:04 Body Mass Index 20.98 (58.97 kg, 167.64 cm) bp ED Course: 09:59 Patient arrived in ED. bp 10:01 Triage completed. bp 10:04 Arm band placed on. bp 10:07 Anthony Bowie NP is PHCP. pm1 10:07 Mynor Ureña MD is Attending Physician. pm1 10:10 Patient has correct armband on for positive identification. Bed in low position. Call bp light in reach. Side rails up X2. 10:10 Accessed PICC line. bp 10:31 Tony Uriostegui, RN is Primary Nurse. bp 13:58 No provider procedures requiring assistance completed. PICC IN PLACE. bp Administered Medications: No medications were administered Point of Care Testing: Blood Glucose: 13:09 Blood Glucose: 102 mg/dL; jb1 15:15 Blood Glucose: 116 mg/dL; jl7 Ranges: Outcome: 14:00 Discharge ordered by . pm1 15:45 Patient left the ED. bp Signatures: Jus Hendricks jb1 Kylee Hernandez RN RN iw Anthony Bowie NP EMPLOYEE COUNSELOR pm1 Tanner Hughes RN RN jl7 Tony Uriostegui, HENRIETTA RN bp
[2019-01-17 15:50] VITALS: TEMP 96
[2019-01-17 15:53] VITALS: O2SAT 99
[2019-01-17 15:54] VITALS: BP 125/77
== END 2019-01-17 15:45 | disposition home or self-care (01) ==
LOC: ER 09:54
DX: E11.649 Type 2 diabetes mellitus with hypoglycemia without coma (principal); E78.5 Hyperlipidemia, unspecified; I10 Essential (primary) hypertension; I48.91 Unspecified atrial fibrillation; G30.9 Alzheimer's disease, unspecified; F02.80 Dementia in other diseases classified elsewhere, unspecified severity, without behavioral disturbance, psychotic disturbance, mood disturbance, and anxiety; G40.909 Epilepsy, unspecified, not intractable, without status epilepticus; Z79.4 Long term (current) use of insulin; Z86.73 Personal history of transient ischemic attack (TIA), and cerebral infarction without residual deficits; Z88.8 Allergy status to other drugs, medicaments and biological substances
CPT/HCPCS: 36415; 80053; 82962; 85025; 99284